=== PATIENT | female | born 1980 | race Caucasian/White ===

== ENCOUNTER 2023-04-17 15:26 | Emergency (ER) | payer MEDICARE, SELFPAY ==
[2023-04-17] VITALS (23 sets, daily range): BP systolic 168–207; BP diastolic 74–133; PULSE 65–88; RESP 9–24; O2SAT 93–99; BMI 29.5
--- NOTE | 2023-04-17 15:37 | ECG_ITS ---
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
--- NOTE | 2023-04-17 15:42 | ED_ITS ---
HPI - Abdominal Pain General Chief Complaint: Nausea/Vomiting/Diarrhea Stated Complaint: Abdominal Pain Time Seen by Provider: 04/17/23 15:30 Source: patient Mode of arrival: Wheelchair Limitations: no limitations History of Present Illness HPI narrative: 43-year-old female presents for abdominal pain. She has pain in the left upper quadrant and she's been having this intermittently for seven months. She's had CAT scans and has seen her doctor and a embossing machine operator. She had a colonoscopy and she is scheduled to have upper endoscopy. No trauma or fever. She's had cholecystectomy previously. No fever or constipation. Related Data Allergies Allergy/AdvReac Type Severity Reaction Status Date / Time Iodinated Contrast Media Allergy Severe Verified 04/17/23 15:34 Review of Systems ROS Narrative A ten point review of systems is negative except as noted above. PFSH PFS Social History Smoking status: Current every day smoker Exam Narrative Exam Narrative: Nurses note and vital signs reviewed and patient is not hypoxic. General: The patient appears well and in no apparent distress. Patient is resting comfortably on cart. Skin: Warm, dry, no pallor noted. There is no rash noted. Head: Normocephalic, atraumatic Eye: Normal conjunctiva, no drainage Ears, Nose, Mouth, and Throat: oral mucosa is moist. Nares patent. Cardiovascular: Regular Rate and Rhythm Respiratory: Patient is in no distress, no accessory muscle use, lungs are clear to auscultation, no wheezing, rales or rhonchi Back: non-tender GI: mild tenderness to palpation in the left upper quadrant. No mass distention rebound or guarding. Musculoskeletal: The patient has no evidence of calf tenderness, no pitting edema, symmetrical pulses noted bilaterally Neurological: A&O, normal speech Psychiatric: Cooperative Constitutional Vital Signs, click to edit/add: Last Vital Signs Pulse 88 04/17/23 16:50 Resp 17 04/17/23 16:40 BP 168/119 H 04/17/23 17:43 Pulse Ox 97 04/17/23 17:43 O2 Del Method Room Air 04/17/23 15:29 Course Vital Signs Vital signs: Vital Signs Pulse Rate 85 04/17/23 15:29 Respiratory Rate 16 04/17/23 15:29 Pulse Oximetry 98 04/17/23 15:29 Oxygen Delivery Method Room Air 04/17/23 15:29 Pulse Rate 88 04/17/23 16:50 Respiratory Rate 17 04/17/23 16:40 Blood Pressure 168/119 H 04/17/23 17:43 Pulse Oximetry 97 04/17/23 17:43 Oxygen Delivery Method Room Air 04/17/23 15:29 MDM - Abdominal Pain MDM Narrative Medical decision making narrative: The patient presented with chronic abdominal pain. She tested positive for cocaine. She also had elevated blood pressure was given IV hydralazine with improvement of her blood pressure. She was cautioned against the use of cocaine. She's seeing a embossing machine operator and is scheduled for upper endoscopy in a few weeks. Her workup otherwise is negative. She does not require admission the hospital. Treatment diagnosis and follow-up were discussed with the patient. Differential Diagnosis Differential diagnosis: Likely abdominal pain, constipation, diverticulitis, gastroenteritis, pancreatitis and small bowel obstruction Lab Data Attestation: I reviewed the patient's lab results. Labs: Lab Results 04/17/23 04/17/23 Range/Units 16:02 16:54 WBC 14.9 H (4.0-11.0) 10^3/uL RBC 5.06 (4.20-5.40) 10^6/uL Hgb 15.9 (12.0-16.0) g/dL Hct 46.8 (36.0-48.0) % MCV 92.5 (81.0-99.0) fL MCH 31.4 (26.7-34.0) pg MCHC 34.0 (29.9-35.2) g/dL RDW 12.6 (11.0-15.0) % Plt Count 329 (150-450) 10^3/uL MPV 8.8 L (9.5-13.5) fL Neut % (Auto) 76.8 H (43.0-75.0) % Lymph % (Auto) 15.8 L (20.5-60.0) % [place] % (Auto) 5.7 (1.7-12.0) % Eos % (Auto) 0.9 (0.9-7.0) % Baso % (Auto) 0.5 (0.2-2.0) % Neut # (Auto) 11.5 H (1.4-6.5) 10^3/uL Lymph # (Auto) 2.4 (1.2-3.8) 10^3/uL [place] # (Auto) 0.9 H (0.3-0.8) 10^3/uL Eos # (Auto) 0.1 (0.0-0.7) 10^3/uL Baso # (Auto) 0.1 (0.0-0.1) 10^3/uL Abs Immat Gran (auto) 0.04 H (0.00-0.03) 10^3/uL Imm/Tot Granulo (auto) 0.3 (0.0-0.5) % Sodium 141 (136-145) mmol/L Potassium 3.6 (3.5-5.1) mmol/L Chloride 101 (98-107) mmol/L Carbon Dioxide 28.1 (21.0-32.0) mmol/L Anion Gap 15.5 BUN 11.0 (7.0-18.0) mg/dL Creatinine 0.70 (0.55-1.02) mg/dL Est GFR ( Amer) >60 (>=60) Est GFR (Non-Af Amer) >60 (>=60) BUN/Creatinine Ratio 15.7 Glucose 112 H (74-106) mg/dL Calcium 10.5 H (8.5-10.1) mg/dL Total Bilirubin 0.5 (0.2-1.0) mg/dL Direct Bilirubin 0.1 (0.0-0.2) mg/dL AST 15 (15-37) U/L ALT 21 (14-59) U/L Alkaline Phosphatase 120 H (46-116) U/L Total Protein 8.2 (6.4-8.2) g/dL Albumin 4.3 (3.4-5.0) g/dL Globulin 3.9 g/dL Albumin/Globulin Ratio 1.1 Amylase 99 (25-115) U/L Lipase 21.0 (16.0-77.0) U/L Urine Color Yellow (YELLOW) Urine Clarity Slightly cloudy A (CLEAR) Urine pH 7.0 (5.0-9.0) Ur Specific [place] 1.020 (1.005-1.025) Urine Protein Trace (NEG/TRACE) mg/dL Urine Glucose (UA) Negative (NEGATIVE) mg/dL Urine Ketones Trace A (NEGATIVE) mg/dL Urine Occult Blood Negative (NEGATIVE) Urine Nitrite Negative (NEGATIVE) Urine Bilirubin Negative (NEGATIVE) Urine Urobilinogen 0.2 (0.2-1.0) EU/dL Ur Leukocyte Esterase Negative (NEGATIVE) Urine RBC None seen (0-2) #/HPF Urine WBC None seen (NONE SEEN) #/HPF Ur Squamous Epith Cells Moderate A (NONE/RARE) #/LPF Urine Crystals None seen (None Seen) #/HPF Amorphous Sediment Few Urine Bacteria None seen (NONE SEEN) #/HPF Urine Casts None seen (NONE SEEN) #/LPF Urine Mucus None seen (NONE SEEN) Ur Culture Indicated? No Urine Opiates Screen Positive A (NEGATIVE) Ur Buprenorphine Scrn Negative (NEGATIVE) Ur Oxycodone Screen Negative (NEGATIVE) Urine Methadone Screen Negative (NEGATIVE) Ur Propoxyphene Screen Negative (NEGATIVE) Ur Barbiturates Screen Negative (NEGATIVE) U Tricyclic Antidepress Negative (NEGATIVE) Ur Phencyclidine Scrn Negative (NEGATIVE) Ur Amphetamines Screen Negative (NEGATIVE) U Methamphetamines Scrn Negative (NEGATIVE) U Benzodiazepines Scrn Negative (NEGATIVE) Urine Cocaine Screen Positive A (NEGATIVE) U Cannabinoids Screen Positive A (NEGATIVE) Discharge Plan Discharge Chief Complaint: Nausea/Vomiting/Diarrhea Clinical Impression: Cocaine abuse, Abdominal pain Patient Disposition: Home, Self-Care Time of Disposition Decision: 17:54 Condition: Good Mode of Transportation: Private Vehicle Instructions: Cocaine Use Disorder (ED), Abdominal Pain (ED), Polysubstance Use Disorder (ED) Stand Alone Forms: Portal Instructions Referrals: [facility] [Primary Care Provider] - 1 week
[2023-04-17] MEDS: ONDANSETRON PF 4 MG/2 ML VIAL IV (15:48)
[2023-04-17] MEDS: MORPHINE SULFATE 4 MG/ML VIAL IV (15:48)
[2023-04-17 16:10] LABS: Basophils Absolute Auto 0.1 10^3/uL (0.0-0.1); Basophils Percent Auto 0.5 % (0.2-2.0); Eosinophils Absolute Auto 0.1 10^3/uL (0.0-0.7); Eosinophils Percent Auto 0.9 % (0.9-7.0); Hematocrit 46.8 % (36.0-48.0); Hemoglobin 15.9 g/dL (12.0-16.0); Immature Granulocytes Abs Auto 0.04 10^3/uL (0.00-0.03); Immature Granulocytes Pct Auto 0.3 % (0.0-0.5); Lymphocytes Absolute Auto 2.4 10^3/uL (1.2-3.8); Lymphocytes Percent Auto 15.8 % (20.5-60.0); Mean Corpuscular Hemoglobin 31.4 pg (26.7-34.0); Mean Corpuscular Volume 92.5 fL (81.0-99.0); Mean Platelet Volume 8.8 fL (9.5-13.5); Monocytes Absolute Auto 0.9 10^3/uL (0.3-0.8); Monocytes Percent Auto 5.7 % (1.7-12.0); Neutrophils Absolute Auto 11.5 10^3/uL (1.4-6.5); Neutrophils Percent Auto 76.8 % (43.0-75.0); Platelet Count 329 10^3/uL (150-450); Red Blood Count 5.06 10^6/uL (4.20-5.40); Red Cell Distribution Width 12.6 % (11.0-15.0); White Blood Count 14.9 10^3/uL (4.0-11.0)
[2023-04-17 16:27] LABS: Alanine Aminotransferase 21 U/L (14-59); Albumin Globulin Ratio 1.1; Albumin Level 4.3 g/dL (3.4-5.0); Alkaline Phosphatase 120 U/L (46-116); Anion Gap 15.5; Aspartate Amino Transferase 15 U/L (15-37); BUN Creatinine Ratio 15.7; Bilirubin Direct 0.1 mg/dL (0.0-0.2); Bilirubin Total 0.5 mg/dL (0.2-1.0); Calcium 10.5 mg/dL (8.5-10.1); Carbon Dioxide 28.1 mmol/L (21.0-32.0); Chloride 101 mmol/L (98-107); Estimated GFR (African America >60 (>=60); Estimated GFR (Non-African Ame >60 (>=60); Globulin 3.9 g/dL; Glucose 112 mg/dL (74-106); Potassium 3.6 mmol/L (3.5-5.1); Sodium 141 mmol/L (136-145); Total Protein 8.2 g/dL (6.4-8.2)
[2023-04-17 16:33] LABS: Amylase 99 U/L (25-115)
[2023-04-17] MEDS: PROMETHAZINE HCL 25 MG/ML VIAL 12.5 MG IV (16:35)
[2023-04-17 17:12] LABS: Bilirubin Urine NEGATIVE (NEGATIVE); Blood Urine NEGATIVE (NEGATIVE); Color Urine YELLOW (YELLOW); Glucose Urine UA NEGATIVE (NEGATIVE); Ketones Urine TRACE mg/dL (NEGATIVE); Leukocyte Esterase Urine NEGATIVE (NEGATIVE); Nitrite Urine NEGATIVE (NEGATIVE); Protein Urine TRACE mg/dL (NEG/TRACE); Urobilinogen Urine 0.2 EU/dL (0.2-1.0)
[2023-04-17 17:16] LABS: Clarity Urine SLIGHTLY CLOUDY (CLEAR)
[2023-04-17 17:17] LABS: Bacteria Urine NONE SEEN #/HPF (NONE SEEN); Crystals Seen? None Seen #/HPF (None Seen); Mucus Urine NONE SEEN (NONE SEEN); RBC Urine NONE SEEN #/HPF (0-2); Squamous Epithelial Cell Urine MODERATE #/LPF (NONE/RARE); WBC Urine NONE SEEN #/HPF (NONE SEEN)
[2023-04-17 17:18] LABS: Amorphous Sediment Urine FEW; Cast Seen? NONE SEEN #/LPF (NONE SEEN); Urine Culture Indicated NO
[2023-04-17 17:20] LABS: Amphetamine Screen Urine NEGATIVE (NEGATIVE); Barbiturates Screen Urine NEGATIVE (NEGATIVE); Benzodiazepines Screen Urine NEGATIVE (NEGATIVE); Buprenorphine Screen Urine NEGATIVE (NEGATIVE); Cannabinoid Screen Urine POSITIVE (NEGATIVE); Cocaine Screen Urine POSITIVE (NEGATIVE); Methadone Screen Urine NEGATIVE (NEGATIVE); Methamphetamines Screen Urine NEGATIVE (NEGATIVE); Opiate Screen Urine POSITIVE (NEGATIVE); Oxycodone Screen Urine NEGATIVE (NEGATIVE); Phencyclidine Screen Urine NEGATIVE (NEGATIVE); Tricyclic Antidepressant Urine NEGATIVE (NEGATIVE)
[2023-04-17] MEDS: HYDRALAZINE HCL 20 MG/ML VIAL 10 MG IVP (17:25)
== END 2023-04-17 17:59 | disposition home or self-care (01) ==
PROVIDERS: Emergency Provider Emergency Medicine
DX: R10.9 Unspecified abdominal pain (principal); F14.10 Cocaine abuse, uncomplicated; Z90.49 Acquired absence of other specified parts of digestive tract; F17.210 Nicotine dependence, cigarettes, uncomplicated
CPT/HCPCS: 36415; 80048; 80076; 80307; 81001; 82150; 83690; 85025; 93005; 96374; 96375; 99285

== ENCOUNTER 2023-12-17 23:56 | Emergency (ER) | payer MEDICARE, SELFPAY ==
[2023-12-17 23:59] VITALS: BP 158/102; PULSE 76; TEMP 36.9; O2SAT 95; BMI 28.1
--- NOTE | 2023-12-18 00:12 | ED_ITS ---
HPI HPI - General Adult General Chief complaint: Headache Stated complaint: HEADACHE ABD PAIN Time Seen by Provider: 12/18/23 00:01 Source: patient Mode of arrival: walk-in Limitations: no limitations Related Data Allergies Allergy/AdvReac Type Severity Reaction Status Date / Time Iodinated Contrast Media Allergy Severe Verified 12/17/23 23:59 Opioid HPI Opioid Management Most Recent Opioid Data: Last Pain Scale 10 12/18/23 00:38 Last ED Pain Assessment 12/18/23 02:03 Last MAR Pain Assessment 12/18/23 00:38 Ur Phencyclidine Scrn Negative (NEGATIVE) 04/17/23 16:54 PFSH PFSH Social History Smoking status: Current every day smoker Exam Constitutional Vital Signs, click to edit/add: Last Vital Signs Temp 98.4 F 12/17/23 23:59 Pulse 82 12/18/23 02:02 Resp 18 12/18/23 02:02 BP 168/94 H 12/18/23 02:02 Pulse Ox 97 12/18/23 02:02 O2 Del Method Room Air 12/18/23 02:02 Course Vital Signs Vital signs: Vital Signs Temperature 98.4 F 12/17/23 23:59 Pulse Rate 76 12/17/23 23:59 Respiratory Rate 20 12/17/23 23:59 Blood Pressure 158/102 H 12/17/23 23:59 Pulse Oximetry 95 12/17/23 23:59 Oxygen Delivery Method Room Air 12/17/23 23:59 Temperature 98.4 F 12/17/23 23:59 Pulse Rate 82 12/18/23 02:02 Respiratory Rate 18 12/18/23 02:02 Blood Pressure 168/94 H 12/18/23 02:02 Pulse Oximetry 97 12/18/23 02:02 Oxygen Delivery Method Room Air 12/18/23 02:02 Medical Decision Making MDM Narrative Medical decision making narrative: The patient was given IV Toradol, Benadryl, and Solu-Medrol. Subsequently she was given IV morphine and she feels much better and her headache is essentially gone now. She feels nearly back to normal. Her blood pressure also improved greatly without direct intervention. She is able to be discharged home in the care of her . Treatment diagnosis and follow-up were discussed with the patient. I have no clinical suspicion of intracranial hemorrhage. Differential Diagnosis Differential Diagnosis: Migraine headache, tension headache, nonspecific headache Lab Data Lab results reviewed: Yes I reviewed the patient's lab results Labs: Lab Results 12/18/23 Range/Units 00:30 WBC 10.4 (4.0-11.0) 10^3/uL RBC 4.46 (4.20-5.40) 10^6/uL Hgb 14.6 (12.0-16.0) g/dL Hct 42.3 (36.0-48.0) % MCV 94.8 (81.0-99.0) fL MCH 32.7 (26.7-34.0) pg MCHC 34.5 (29.9-35.2) g/dL RDW 12.3 (11.0-15.0) % Plt Count 451 H (150-450) 10^3/uL MPV 8.4 L (9.5-13.5) fL Neut % (Auto) 73.5 (43.0-75.0) % Lymph % (Auto) 17.9 L (20.5-60.0) % [place] % (Auto) 5.4 (1.7-12.0) % Eos % (Auto) 1.3 (0.9-7.0) % Baso % (Auto) 1.1 (0.2-2.0) % Neut # (Auto) 7.7 H (1.4-6.5) 10^3/uL Lymph # (Auto) 1.9 (1.2-3.8) 10^3/uL [place] # (Auto) 0.6 (0.3-0.8) 10^3/uL Eos # (Auto) 0.1 (0.0-0.7) 10^3/uL Baso # (Auto) 0.1 (0.0-0.1) 10^3/uL Abs Immat Gran (auto) 0.08 H (0.00-0.03) 10^3/uL Imm/Tot Granulo (auto) 0.8 H (0.0-0.5) % Sodium 143 (136-145) mmol/L Potassium 4.3 (3.5-5.1) mmol/L Chloride 105 (98-107) mmol/L Carbon Dioxide 28.6 (21.0-32.0) mmol/L Anion Gap 13.7 BUN 11.0 (7.0-18.0) mg/dL Creatinine 0.73 (0.55-1.02) mg/dL Est GFR ( Amer) >60 (>=60) Est GFR (Non-Af Amer) >60 (>=60) BUN/Creatinine Ratio 15.1 Glucose 135 H (74-106) mg/dL Calcium 9.9 (8.5-10.1) mg/dL Discharge Plan Discharge Stand Alone Forms: Portal Instructions Chief Complaint: Headache Clinical Impression: Migraine Patient Disposition: Home, Self-Care Time of Disposition Decision: 02:15 Condition: Good Mode of Transportation: Private Vehicle Print Language: Thai Instructions: Migraine Headache (ED) Referrals: [facility] [Primary Care Provider] - 1 week
[2023-12-18 00:38] LABS: Basophils Absolute Auto 0.1 10^3/uL (0.0-0.1); Basophils Percent Auto 1.1 % (0.2-2.0); Eosinophils Absolute Auto 0.1 10^3/uL (0.0-0.7); Eosinophils Percent Auto 1.3 % (0.9-7.0); Hematocrit 42.3 % (36.0-48.0); Hemoglobin 14.6 g/dL (12.0-16.0); Immature Granulocytes Abs Auto 0.08 10^3/uL (0.00-0.03); Immature Granulocytes Pct Auto 0.8 % (0.0-0.5); Lymphocytes Absolute Auto 1.9 10^3/uL (1.2-3.8); Lymphocytes Percent Auto 17.9 % (20.5-60.0); Mean Corpuscular HGB Conc 34.5 g/dL (29.9-35.2); Mean Corpuscular Hemoglobin 32.7 pg (26.7-34.0); Mean Corpuscular Volume 94.8 fL (81.0-99.0); Mean Platelet Volume 8.4 fL (9.5-13.5); Monocytes Absolute Auto 0.6 10^3/uL (0.3-0.8); Monocytes Percent Auto 5.4 % (1.7-12.0); Neutrophils Absolute Auto 7.7 10^3/uL (1.4-6.5); Neutrophils Percent Auto 73.5 % (43.0-75.0); Platelet Count 451 10^3/uL (150-450); Red Blood Count 4.46 10^6/uL (4.20-5.40); Red Cell Distribution Width 12.3 % (11.0-15.0); White Blood Count 10.4 10^3/uL (4.0-11.0)
[2023-12-18] MEDS: KETOROLAC TROMETHAMINE 30 MG/ML VIAL IVP (00:38)
[2023-12-18] MEDS: DIPHENHYDRAMINE HCL 50 MG/ML VIAL 25 MG IV (00:38)
[2023-12-18] MEDS: METHYLPREDNISOLONE SOD SUCC PF 125 MG/2 ML VIAL IVP (00:38)
[2023-12-18 00:46] LABS: Anion Gap 13.7; BUN Creatinine Ratio 15.1; Calcium 9.9 mg/dL (8.5-10.1); Carbon Dioxide 28.6 mmol/L (21.0-32.0); Chloride 105 mmol/L (98-107); Estimated GFR (African America >60 (>=60); Estimated GFR (Non-African Ame >60 (>=60); Glucose 135 mg/dL (74-106); Potassium 4.3 mmol/L (3.5-5.1); Sodium 143 mmol/L (136-145)
[2023-12-18] MEDS: MORPHINE SULFATE 4 MG/ML VIAL IV (01:31)
[2023-12-18 01:40] VITALS: PULSE 74; O2SAT 99
[2023-12-18 02:02] VITALS: BP 168/94; PULSE 82; O2SAT 97
== END 2023-12-18 02:19 | disposition home or self-care (01) ==
PROVIDERS: Emergency Provider Emergency Medicine
DX: G43.909 Migraine, unspecified, not intractable, without status migrainosus (principal); F17.200 Nicotine dependence, unspecified, uncomplicated
CPT/HCPCS: 36415; 80048; 85025; 96374; 96375; 99284; J2919

== ENCOUNTER 2024-03-23 21:24 | Emergency (ER) | payer MEDICARE, SELFPAY ==
[2024-03-23 21:34] VITALS: BP 214/120; PULSE 63; TEMP 36.4; O2SAT 99; BMI 32.5
--- OUTSIDE RECORDS SUMMARY | 2024-03-23 21:35 | XMS_ITS | CCD ---
Author Organization [facility] Care Team Providers Care Staff Therapist Name Role Phone Scott Rose Attending Unavailable LANGRACE, MOISE Referring Unavailable LANZOLA, MOISE Primary Care Unavailable [facility] Primary Care Provider DO Lio Spencer Emergency Provider MD Rian Shoemaker Jr Emergency Provider DO Vern Foster Emergency Provider [phone] Olvin [facility] Violetta Solis Emergency Provider [facility] Primary Care Provider DO Mark Mckeon Attending Provider UnavailDO Lio Noble Emergency Provider DO Jez Watters Emergency Provider ABBI Gibbs Emergency Provider [phone] DO Jae Song Emergency Provider Moise Baum DO L Primary Care Provider [facility] Primary Care Provider DO Mark Mckeon Attending Provider UnavailDO Lio Noble Emergency Provider [phone] DO Jez Watters Emergency Provider [phone] ABBI Gibbs Emergency Provider [phone] DO Vern Foster Emergency Provider DO Jae Song Emergency Provider MD Michael Purcell Attending Provider AARON GUILLORY Referring Unavailable LANZOLA, MOISE L Primary Care Unavailable MOISE BAUM Primary Care Unavailable Michael Purcell Unavailable TREY, DR JORDIN Zafar Admitting Unavailabl e MISC, DR PICKETT Primary Care Unavailable TREY, DR JORDIN Zafar Attending Unavailabl e TREY, DR JORDIN Zafar Consulting Unavailabl e JANA, TEJ Admitting Unavailable YADIRA, DR ERIK Akbar Consulting Unavailable BUSHRA, DR PICKETT Primary Care Unavailable TEJ BATES Attending Unavailable ADITHYA JONES Consulting Unavailable HAIR GASTON Consulting Unavailable YADIRA, DR ERIK Akbar Admitting Unavailable MISC, DR PICKETT Primary Care Unavailable YADIRA, DR ERIK Akbar Attending Unavailable BENTLEY, DR ERIK Akbar Consulting Unavailable TEJ BATES Consulting Unavailable JANA, TEJ Admitting Unavailable [facility] Primary Care UnavailTEJ Pratt Attending Unavailable ESPINOZA SANCHEZ Consulting Unavailable GENOVEVA MCKEON Attending Unavailable GENOVEVA MCKEON Admitting Unavailable GENOVEVA MCKEON Consulting Unavailable BUSHRA, DR PICKETT Primary Care Unavailable ALYX FIGUEROA Consulting Unavailable [facility] Primary Care Provider [phone] MD Michael Purcell Attending Provider ABBI Hodge Emergency Provider [facility] Primary Care Provider DO Ronald Ann Emergency Provider DO Lio Oconnor Emergency Provider DO Yojana Yap Emergency Provider DO Jez Watters Emergency Provider [facility] Primary Care Provider ABBI Hodge Emergency Provider DO Ronald Ann Emergency Provider DO Lio Oconnor Emergency Provider DO Yojana Yap Emergency Provider [phone] DO Jez Watters Emergency Provider Moise Baum DO Primary Care Provider MOISE BAUM Primary Care Unavailable NISHANT BERNARDO Attending Unavailable Jae, DO Lynn F [facility] [phone] VALENTIN Siegel Emergency Provider [facility] Primary Care Provider ABBI Hodge Emergency Provider [phone] DO Lynn Rowe F [facility] [phone] VALENTIN Siegel Emergency Provider MD Rian Shoemaker Jr Emergency Provider Zainab Leong Attending Provider MD Dereje Bentley Emergency Provider [phone] Lanzola, Moise Primary Care Unavailable Vern Foster Attending Unavailable Vern Foster Admitting Unavailable Robson Jacinto Admitting Unavailable Lanzola, Moise Primary Care Unavailable Omley, Robson H Attending Unavailable Mast, DO Yojana Attending Provider MD Jayy Pennington Referring Provider [facility] Primary Care Provider [phone] ABBI Hodge Emergency Provider MD Rian Shoemaker Jr Emergency Provider MD Dereje Bentley Emergency Provider Mast DO Yojana Attending Provider MD Jayy Pennington Referring Provider [phone] DO Lio Spencer Emergency Provider [facility] Primary Care Provider [phone] ABBI Hodge Emergency Provider MD Dereje Bentley Emergency Provider DO Lio Spencer Emergency Provider MD Rian Shoemaker Jr Emergency Provider MD Misty Guallpa Emergency Provider [phone] [facility] Primary Care Provider DO Jae Song A Emergency Provider [facility] Primary Care Provider Olvin, [facility] Violetta E Emergency Provider Dr. Yojana Torrez Primary Care Unavailabl e Lore, Dr. Yojana Stewart Primary Care Unavailabl e [facility] Primary Care Provider DO Jae Song Emergency Provider [phone] Olvin, [facility] Violetta E Emergency Provider DO Yojana Yap Emergency Provider VALENTIN Siegel Emergency Provider [phone] [facility] Primary Care Provider DO Jez Watters Emergency Provider MD Dereje Bentley Emergency Provider DO Lio Spencer Emergency Provider [facility] Primary Care Unavaila ble Jez Watters Attending Unavailable Jez Watters Admitting Unavailable [facility] Primary Care Unavaila Lio Chaparro Admitting Unavailable Lio Spencer Attending Unavailable Rian Shoemaker Jr Attending Unavailable Rian Shoemaker Jr Admitting Unavailable [facility] Primary Care Unavaila ble [facility] Primary Care Unavaila ble Mast - [facility], Yojana Attending Unavailable Jayy Pennington Referring Unavailable Mast - [facility], Yojana Admitting Unavailable [facility] Primary Care Unavaila ble Misty Guallpa Attending Unavailable Misty Guallpa Admitting Unavailable [facility] Primary Care Unavaila ble Jae Song Attending Unavailable Jae Song Admitting Unavailable [facility] Primary Care Unavaila ble Bullimore, Violetta E Attending Unavailable Bullimore, Violetta E Admitting Unavailable [facility] Primary Care Unavaila ble Fracisco, Yojana Admitting Unavailable Yojana Yap Attending Unavailable [facility] Primary Care Unavaila ble Dereje Bentley Admitting Unavailable Dereje Bentley Attending Unavailable [facility] Primary Care Unavaila ble Jolly Gonzalez Attending Unavailable Jayy Pennington Referring Unavailable Lisa Jolly Admitting Unavailable [facility] Primary Care Unavaila Dereje Jamison Admitting Unavailable Dereje Bentley Attending Unavailable Lio Spencer Attending Unavailable Lio Spencer Admitting Unavailable [facility] Primary Care Unavaila ble [facility] Primary Care Unavaila ble Lio Spencer Attending Unavailable Lio Spencer Admitting Unavailable [facility] Primary Care Unavaila ble Karri Siegel Attending Unavailable Karri Siegel Admitting Unavailable [facility] Primary Care Unavaila ble Yojana Yap Attending Unavailable Yojana Yap Admitting Unavailable Allergies Allergy Classification Reported Allergen(s) Allergy Type Date of Onset Reaction(s) Facility Capsaicin (1 source) Capsaicin Drug Allergy 12-17-19 Redness of Skin [facility] corn extract (1 source) corn extract Drug Allergy 12-17-19 24 Unknown Reaction [facility] Corticosteroids (1 source) predniSONE Drug Allergy 12-17-19 Anaphylaxis [facility] Dairy (not specified as lactose intolerance) (1 source) Milk Food Allergy 12-17-19 24 Rash [facility] Proton Pump Inhibitors (1 source) Omeprazole Drug Allergy 12-17-19 24 Diarrhea [facility] Soy (1 source) Soy protein Food Allergy 12-17-19 24 Unknown Reaction [facility] tomato allergenic extract (1 source) tomato allergenic extract Drug Allergy 12-17-19 24 Unknown Reaction [facility] Wheat preparation (1 source) Wheat preparation Drug Allergy 12-17-19 24 Unknown Reaction [facility] (20 sources) corn extract; Translations: [Mimbres] Drug Allergy 02-03-20 Unknown Reaction [facility] (20 sources) Milk; Translations: [milk] Allergy to substance 02-03-[address] [facility] (20 sources) Omeprazole; Translations: [omeprazole] Drug Allergy 02-03-20 Diarrhea [facility] (20 sources) predniSONE; Translations: [prednisone] Drug Allergy 10-15-19 Other (See Comments) [facility] (20 sources) Soy protein; Translations: [Soy] Allergy to substance 02-03-20 Unknown Reaction [facility] (20 sources) tomato allergenic extract; Translations: [tomato] Drug Allergy 05-16-20 11 Itching, Swelling [facility] (20 sources) Wheat preparation; Translations: [Wheat] Drug Allergy 05-16-20 11 Itching, Swelling [facility] (20 sources) NSAIDS (Non-Steroidal Anti-Inflamma; Translations: [NSAIDS (Non-Steroidal Anti-Inflamma] Propensity to adverse reactions 04-03-20 Gastrointestinal Upset [facility] (2 sources) [place]imbres Oil Drug Allergy 05-16-20 11 [facility] cow milk allergenic extract Drug Allergy 05-16-20 11 Itching, Swelling [facility] Work Phone: (2 sources) NSAIDs Propensity to adverse reactions to drug 05-18-[address] [facility] Celsion [facility] (1 source) NSAIDs Drug allergy (disorder) [facility] Repository (20 sources) Iodinated Contrast Media; Translations: [Iodinated Contrast Media] Allergy to substance 09-03-19 23 Anaphylaxis [facility] (1 source) Iodides Propensity to adverse reactions to drug 11-16-19 [facility] (1 source) Contrast media; Translations: [Contrast Dye] Propensity to adverse reactions to drug (disorder) [facility] Repository (8 sources) Capsaicin; Translations: [capsaicin] Drug Allergy 04-13-20 23 Redness of Skin [facility] Medications Current Medications Medication Drug Class(es) Dates Sig (Normalized) Sig (Original) 8 hr acetaminophen 650 mg extended release oral tablet (20 sources) Start: 05-24-2022 take 1500 mg by mouth three times daily Acetaminophen Active 1500 MG PO Three times daily May 24, 2022 1:00am Start: 04-09-2018 End: 12-05-2021 Acetaminophen (Tylenol) 325 mg Tablet Discontinued 1500 MG PO every 6 to 8 hours April 09, 2018 12:00am December 05, 2021 1:40pm Start: 04-09-2018 End: 12-05-2021 take 3 tablets by mo [facility] three times daily acetaminophen (TYLENOL) 500 MG tablet Take 1,500 mg by mouth 3 times daily 0 Active [id number] actuat albuterol 0.09 mg/actuat metered dose inhaler (20 sources) beta2-Adrenergic Agonist Start: 08-23-2022 take 2 puff(s) by mouth every six hours as needed for wheezing albuterol sulfate HFA (PROVENTIL;VENTOLIN;PROAIR) 108 (90 Base) MCG/ACT inhaler Indications: Moderate persistent asthma, unspecified whether complicated INHALE 2 PUFFS BY MOUTH EVERY 6 HOURS NEEDED FOR WHEEZING 8.5 each 0 08/23/2022 Active Start: 05-24-2022 Albuterol Sulf ate (Proair Hfa) 90 mcg/actuation Hfa Aerosol Inhaler Active 2 PUFF INHALATION As Directed May 24, 2022 1:00am Start: 05-24-2022 Start: 01-23-2022 albuterol (PRO VENTIL) (5 MG/ML) 0.5% nebulizer solution Indications: Moderate persistent asthma, unspecified whether complicated Take 0.5 mLs by nebulization 4 times daily as needed for Wheezing 120 each 5 01/23/2022 Active Start: 01-23-2022 take 2 puff(s) by in halation every six hours as needed for wheezing albuterol sulfate HFA (PROVENTIL;VENTOLIN;PROAIR) 108 (90 Base) MCG/ACT inhaler Indications: Moderate persistent asthma, unspecified whether complicated Inhale 2 puffs into the lungs every 6 hours as needed for Wheezing 1 each 3 01/23/2022 Active Start: 04-09-2018 End: 12-05-2021 Albuterol Sulfate Discontinu ed 2 INH INHALATION EVERY 4-6 HOURS April 08, 2018 11:00pm December 05, 2021 12:40pm administer with spacer Start: 04-09-2018 End: 12-05-2021 Albuterol Sulfate Discontinu ed 2 INH INHALATION EVERY 4-6 HOURS April 09, 2018 12:00am December 05, 2021 1:40pm administer with spacer brexpiprazole 2 mg oral tablet (20 sources) Atypical Antipsychotic Start: 12-07-2023 take 1 tablet by mouth once daily Brexpiprazole (Rexulti) 2 mg tablet Active 2 MG PO Daily December 07, 2023 12:00am Start: 08-21-2022 End: 12-07-2023 take 1 tablet by mouth once daily Brexpiprazole (Rexulti) 1 mg tablet Discontinued 2 MG PO Daily August 21, 2022 1:00am December 07, 2023 7:58am 120 actuat budesonide 0.16 mg/actuat / formoterol fumarate 0.0045 mg/actuat metered dose inhaler (20 sources) Corticosteroid, beta2-Adrenergic Agonist Start: 05-24-2022 take 1 puff(s) by inhalation twice daily Budesonide-Formoterol (Symbicort) 160-4.5 mcg/actuation Hfa Aerosol Inhaler Active 2 PUFF INHALATION Twice daily May 24, 2022 1:00am Start: 05-24-2022 Start: 01-31-2022 End: 03-22-2022 take 1 puff(s) by inhalation twice daily Budesonide-Formoterol (Symbicort) 160-4.5 mcg/actuation HFA aerosol inhaler Discontinued 2 PUFF INHALATION Twice daily January 31, 2022 12:00am March 22, 2022 1:50pm Start: 01-31-2022 End: 03-22-2022 Start: 01-23-2022 take 2 puff(s) by in halation twice daily budesonide-formoterol (SYMBICORT) 160-4.5 MCG/ACT AERO Indications: Moderate persistent asthma, unspecified whether complicated Inhale 2 puffs into the lungs 2 times daily 10.2 g 3 01/23/2022 Active Start: 08-23-2021 End: 12-05-2021 Budesonide-Formoterol Discon tinued 2 INH INHALATION Twice daily August 23, 2021 1:00am December 05, 2021 1:40pm Start: 08-23-2021 End: 12-05-2021 Start: 06-05-2018 End: 08-23-2021 Start: 06-05-2018 End: 08-23-2021 take 1 puff(s) by inhalation every twelve hours Budesonide-Formoterol (Symbicort) 80-4.5 mcg/actuation Hfa Aerosol Inhaler Discontinued 2 PUFF INHALATION Q12H June 05, 2018 12:00am August 23, 2021 3:32pm Start: 06-05-2018 End: 08-23-2021 take 1 puff(s) by inhalation every twelve hours Budesonide-Formoterol (Symbicort) 80-4.5 mcg/actuation Hfa Aerosol Inhaler Discontinued 2 PUFF INHALATION Q12H June 05, 2018 1:00am August 23, 2021 4:32pm take 2 puff(s) by in halation twice daily Symbicort 160-4.5 MCG/ACT 2 puffs Inhalation Twice a day Active cholecalciferol 0.125 mg oral tablet (20 sources) Vitamin D Start: 05-24-2022 take 1 tablet by mouth once daily Cholecalciferol (Vitamin D3) (Vitamin D3) 125 mcg (5,000 unit) Tablet Active 125 MCG PO Daily May 24, 2022 1:00am Cholecalciferol (VITAMIN D3) 250 MCG (89975 UT) CAPS Take by mouth 0 Active dicyclomine hydrochloride 20 mg oral tablet (20 sources) Anticholinergic Start: 01-14-2023 take 20 mg by mouth four times daily Dicyclomine Active 20 MG PO Four times daily January 14, 2023 12:00am Start: 08-21-2022 take 20 mg by mouth once daily Dicyclomine Active 20 MG PO Daily August 21, 2022 3:58pm Start: 04-26-2022 End: 08-21-2022 take 20 mg by mouth three times daily Dicyclomine Discontinued 20 MG PO Three times daily April 26, 2022 12:00am August 21, 2022 4:05pm Start: 04-26-2022 End: 08-21-2022 take 20 mg by mouth four times daily Dicyclomine Active 20 MG PO Four times daily January 13, 2023 11:00pm Start: 01-31-2022 End: 03-22-2022 take 20 mg by mouth three times daily Dicyclomine Discontinued 20 MG PO Three times daily January 31, 2022 12:00am March 22, 2022 1:50pm Start: 01-31-2022 End: 03-22-2022 Start: 09-05-2018 End: 08-21-2019 take 20 mg by mouth four times daily Dicyclomine Discontinued 20 MG PO Four times daily September 05, 2018 1:00am August 21, 2019 2:49pm famotidine 20 mg oral tablet (20 sources) Histamine-2 Receptor Antagonist Start: 08-21-2022 take 1 tablet by mouth once daily Famotidine (Pepcid) 20 mg tablet Active 20 MG PO Daily August 21, 2022 1:00am Start: 04-26-2022 End: 05-24-2022 take 1 tablet by mouth once daily Famotidine (Pepcid) 20 mg tablet Discontinued 20 MG PO Daily April 26, 2022 12:00am May 24, 2022 2:08pm folic acid 0.8 mg oral tablet (20 sources) Start: 05-24-2022 take 0.8 mg by mouth once daily Folic Acid Active 0.8 MG PO Daily May 24, 2022 1:00am take 1 tablet by mouth once boby y folic acid (FOLVITE) 800 MCG tablet Take 800 mcg by mouth daily 0 Active Handicap Placard MISC (2 sources) Start: 01-23-[address] MISC 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 1 each 0 01/23/2022 Active hydrOXYzine pamoate 25 mg oral capsule (20 sources) Antihistamine Start: 12-07-2023 take 50 mg by mouth twice daily Hydroxyzine Pamoate Active 50 MG PO Twice daily December 07, 2023 12:00am Start: 08-21-2019 End: 09-27-2021 take 50 mg by mouth twice daily Hydroxyzine Hcl Discontinued 50 MG PO Twice daily August 21, 2019 1:00am September 27, 2021 3:19pm lurasidone hydrochloride 60 mg oral tablet (20 sources) Atypical Antipsychotic Start: 05-24-2022 take 1 tablet by mouth once daily Lurasidone (Latuda) 60 mg tablet Active 80 MG PO Daily May 24, 2022 1:00am lurasidone (LATU DA) 40 MG TABS tablet 40 mg 0 Active take 1 tablet by mouth once boby y lurasidone (LATUDA) 20 MG TABS tablet Take 20 mg by mouth daily 0 Active milnacipran hydrochloride 100 mg oral tablet (20 sources) Serotonin and Norepinephrine Reuptake Inhibitor Start: 03-22-2022 take 1 tablet by mouth twice daily Milnacipran (Savella) 100 mg tablet Active 100 MG PO Twice daily March 22, 2022 12:00am Start: 03-22-2022 take 1 tablet by cali once daily in the morning SAVELLA 100 MG TABS Indications: Chronic fatigue syndrome with fibromyalgia TAKE 1 TABLET BY MOUTH EVERY MORNING AND 1 TABLET BEFORE BEDTIME 60 tablet 0 05/26/2022 Active Start: 06-05-2018 End: 12-05-2021 take 1 tablet by mouth twice daily Milnacipran (Savella) 100 mg tablet Discontinued 100 MG PO Twice daily August 23, 2021 1:00am December 05, 2021 1:40pm pregabalin 75 mg oral capsule (2 sources) Start: 12-07-2023 take 75 mg by mouth twice daily Pregabalin Active 75 MG PO Twice daily December 07, 2023 12:00am ProAir HFA 108 (90 Base) MCG/ACT (7 sources) take 2 puff(s) by inhalation every six hours as needed ProAir HFA 108 (90 Base) MCG/ACT 2 puffs as needed Inhalation every 6 hrs Active Probiotic (7 sources) Probiotic Active Probiotic Product (PRO-BIOTIC BLEND PO) (2 sources) Probiotic Produc t (PRO-BIOTIC BLEND PO) Take by mouth 0 Active propranolol hydrochloride 20 mg oral tablet (20 sources) beta-Adrenergi c Ab Start: 05-24-2022 take 60 mg by mouth twice daily Propranolol Active 60 MG PO Twice daily May 24, 2022 1:00am take 1 tablet by cali th twice daily as needed Propranolol HCl 60 MG 1 tablet Orally Tw ice a day PRN Active rimegepant 75 mg disintegrating oral tablet (20 sources) Start: 05-10-2022 take 1 tablet by mouth every other day Rimegepant (Nurtec Odt) 75 mg tablet,disintegrating Active 75 MG PO every other day August 21, 2022 1:00am Sucralfate (20 sources) Aluminum Complex Start: 08-30-2022 take 1 tablet by mouth twice daily Sucralfate 1 GM 1 tablet on an empty stomach Orally Twice a day for 30 day(s) Aug, Active Start: 08-23-2022 End: 01-14-2023 take 1 tablet by mouth twice daily Sucralfate (Carafate) 1 gram tablet Discontinued 1 GM PO Twice daily 10 August 23, 2022 11:44am January 14, 2023 4:54pm Start: 07-17-2018 End: 07-23-2018 take 1 tablet by mouth at bedtime Sucralfate (Carafate) 1 gram tablet Discontinued 1 GM PO before meals and at bedtime July 17, 2018 1:00am July 23, 2018 8:31am tiZANidine 4 mg oral tablet (20 sources) Central alpha-2 Adrenergic Agonist Start: 04-03-2022 take 8 mg by mouth twice daily Tizanidine Active 8 MG PO Twice daily April 03, 2022 12:00am Start: 04-03-2022 Start: 04-03-2022 take 4 mg by mouth t hree times daily Tizanidine Active 4 MG PO Three times daily April 02, 2022 11:00pm Start: 06-05-2018 End: 07-17-2018 take 4 mg by mouth twice daily Tizanidine Discontinued 4 MG PO Twice daily June 05, 2018 1:00am July 17, 2018 1:49pm Start: 06-05-2018 End: 08-23-2021 take 12 mg by mouth three times daily Tizanidine Discontinued 12 MG PO Three times daily June 05, 2018 1:00am August 23, 2021 4:29pm Start: 06-05-2018 End: 07-17-2018 traZODone hydrochloride 50 mg oral tablet (20 sources) Serotonin Reuptake Inhibitor Start: 09-03-2022 take 100 mg by mouth once daily at bedtime Trazodone Active 100 MG PO Daily at bedtime September 03, 2022 1:00am Start: 09-03-2022 Vitamin D3 250 MCG (47158 UT ) (7 sources) Vitamin D3 250 M CG (00764 UT) as directed Orally Active (15 sources) Start: 05-24-2022 End: 01-14-2023 Start: 05-24-2022 Start: 04-09-2018 End: 12-05-2021 Completed/Discontinued Medications Medication Drug Class(es) Dates Sig (Normalized) Sig (Original) acetaminophen 325 mg / HYDROcodone bitartrate 5 mg oral tablet (20 sources) Opioid Agonist Start: 12-08-2022 End: 01-14-2023 take 1 tablet by mouth every six hours Hydrocodone-Acetami nophen Discontinued 1 TAB PO Q6H 8 3 December 08, 2022 January 14, 2023 4:53pm Start: 12-08-2022 End: 01-14-2023 Start: 03-13-2022 End: 03-22-2022 take 1 tablet by mouth three times daily Hydrocodone-Acetaminophen Discontinued 1 TAB PO Three times daily 9 3 March 13, 2022 March 22, 2022 1:49pm Start: 03-13-2022 End: 03-22-2022 Start: 03-13-2022 take 1 tablet by cali th three times daily Hydrocodone-Acetaminophen Active 1 TAB PO Three times daily 9 3 March 13, 2022 Start: 08-30-2021 End: 09-27-2021 take 1 tablet by mouth every four to six hours Hydrocodone-Acetaminophen Discontinued 1 TAB PO EVERY 4-6 HOURS 10 4 August 30, 2021 September 27, 2021 3:18pm Start: 08-30-2021 End: 09-27-2021 Start: 08-03-2021 End: 08-23-2021 take 1 tablet by mouth every four to six hours Hydrocodone-Acetaminophen Discontinued 1 TAB PO EVERY 4-6 HOURS 10 3 August 03, 2021 August 23, 2021 4:28pm Start: 07-15-2020 End: 08-23-2021 take 1 tablet by mouth every six hours Hydrocodone-Acetaminophen ([place]) 5-325 mg tablet Discontinued 1 TAB PO Q6H 7 2 July 15, 2020 August 23, 2021 4:27pm Start: 07-15-2020 End: 08-23-2021 acetaminophen 325 mg / oxyCODONE hydrochloride 5 mg oral tablet (20 sources) Opioid Agonist Start: 10-04-2021 End: 12-05-2021 take 1 tablet by mouth every four to six hours Oxycodone-Acetaminophen (Percocet) 5-325 mg tablet Discontinued 1 TAB PO EVERY 4-6 HOURS 20 October 04, 2021 December 05, 2021 1:40pm Start: 10-04-2021 End: 12-05-2021 atropine sulfate 0.0194 mg / hyoscyamine sulfate 0.1037 mg / PHENobarbital 16.2 mg / scopolamine hydrobromide 0.0065 mg oral tablet (20 sources) Anticholinergic, Cholinergic Muscarinic Antagonist Start: 08-13-2018 End: 09-05-2018 take 1 tablet by mouth four times daily Ebdcijbdl-Brozic-Owjchino-Scop Discontinued 1 TAB PO Four times daily August 13, 2018 1:00am September 05, 2018 9:56am Start: 08-13-2018 End: 09-05-2018 azithromycin 250 mg oral tablet (20 sources) Macrolide Antimicrobial Start: 04-09-2018 End: 06-05-2018 take 1 tablet by mouth once daily Azithromycin (Zithromax) 250 mg tablet Discontinued 250 MG PO daily 4 April 09, 2018 12:00am June 05, 2018 11:25am First dose given in ED baclofen 5 mg oral tablet (20 sources) gamma-Aminobutyric Acid-ergic Agonist Start: 02-13-2018 End: 06-05-2018 take 5 mg by mouth once Baclofen Discontinued 5 MG PO Once February 13, 2018 12:00am June 05, 2018 11:25am Start: 02-13-2018 End: 06-05-2018 buPROPion hydrochloride 100 mg oral tablet (20 sources) Aminoketone Start: 08-21-2019 End: 08-23-2021 take 100 mg by mouth twice daily Bupropion Hcl Discontinued 100 MG PO Twice daily August 21, 2019 1:00am August 23, 2021 4:27pm busPIRone hydrochloride 15 mg oral tablet (20 sources) Start: 08-21-2019 End: 08-23-2021 take 15 mg by mouth twice daily Buspirone Discontinued 15 MG PO Twice daily August 21, 2019 1:00am August 23, 2021 4:27pm 12 hr carBAMazepine 100 mg extended release oral tablet (20 sources) Mood Stabilizer Start: 07-17-2018 End: 08-21-2019 take 300 mg by mouth every twelve hours Carbamazepine Discontinued 300 MG PO Q12H July 17, 2018 1:00am August 21, 2019 2:48pm cariprazine 1.5 mg oral capsule (20 sources) Atypical Antipsychotic Start: 04-26-2022 End: 05-24-2022 take 1 capsule by mouth once daily Cariprazine (Vraylar) 1.5 mg capsule Discontinued 1.5 MG PO Daily April 26, 2022 12:00am May 24, 2022 2:11pm celecoxib 200 mg oral capsule (20 sources) Nonsteroidal Anti-inflammatory Drug Start: 08-21-2022 End: 11-17-2022 take 1 capsule by mouth twice daily Celecoxib (Celebrex) 200 mg capsule Discontinued 200 MG PO Twice daily August 21, 2022 1:00am May 5th, 2023 8:06pm Start: 06-05-2018 End: 09-27-2021 take 1 capsule by mouth twice daily Celecoxib (Celebrex) 200 mg Capsule Discontinued 200 MG PO Twice daily June 05, 2018 1:00am September 27, 2021 3:18pm take 1 capsule by [facility] every twelve hours CeleBREX 100 MG 1 capsule with food Orally twice a day for 30 day(s) Active chlorproMAZINE hydrochloride 50 mg oral tablet (20 sources) Phenothiazine Start: 08-21-2019 End: 09-02-2021 take 100 mg by mouth twice daily Chlorpromazine Discontinued 100 MG PO Twice daily August 21, 2019 1:00am September 02, 2021 11:19am cloNIDine hydrochloride 0.2 mg oral tablet (20 sources) Central alpha-2 Adrenergic Agonist Start: 09-05-2018 End: 08-21-2019 take 0.2 mg by mouth three times daily Clonidine Hcl Discontinued 0.2 MG PO Three times daily September 05, 2018 1:00am August 21, 2019 2:49pm cyclobenzaprine hydrochloride 10 mg oral tablet (20 sources) Muscle Relaxant Start: 11-13-2022 End: 01-14-2023 take 10 mg by mouth three times daily Cyclobenzaprine Discontinued 10 MG PO Three times daily November 13, 2022 12:00am January 14, 2023 4:53pm Start: 04-03-2022 End: 04-26-2022 take 10 mg by mouth three times daily Cyclobenzaprine Discontinued 10 MG PO Three times daily April 03, 2022 12:00am April 26, 2022 5:55am doxepin hydrochloride 25 mg oral capsule (20 sources) Tricyclic Antidepressant Start: 07-14-2022 End: 08-23-2022 take 25 mg by mouth once daily Doxepin Discontinued 25 MG PO Daily August 21, 2022 1:00am August 23, 2022 10:38am Start: 09-05-2018 End: 08-21-2019 take 25 mg by mouth once daily at bedtime Doxepin Discontinued 25 MG PO Daily at bedtime September 05, 2018 1:00am August 21, 2019 2:49pm 1 ml erenumab-aooe 70 mg/ml auto-injector (20 sources) Start: 09-05-2018 End: 08-21-2019 inject 70 mg by subcutaneous injection every month Erenumab-Aooe (Aimovig Autoinjector) 70 mg/mL Auto-Injector Discontinued 70 MG SUBCUT every month September 05, 2018 1:00am August 21, 2019 2:49pm Fluticasone Propion-Salmeterol (20 sources) Corticosteroi d, beta2-Adrener gic Agonist Start: 04-09-2018 End: 06-05-2018 Start: 04-09-2018 End: 06-05-2018 Fluticasone Propion-Salmeter ol (Advair Diskus) 250-50 mcg/dose blister with device Discontinued 1 INH INHALATION Twice daily 60 April 08, 2018 11:00pm June 05, 2018 10:25am Start: 04-09-2018 End: 06-05-2018 Fluticasone Propion-Salmeter ol (Advair Diskus) 250-50 mcg/dose blister with device Discontinued 1 INH INHALATION Twice daily 60 April 09, 2018 12:00am June 05, 2018 11:25am gabapentin 300 mg oral capsule (20 sources) Anti-epileptic Agent Start: 07-23-2018 End: 08-21-2019 take 300 mg by mouth once daily Gabapentin Discontinued 300 MG PO Daily July 23, 2018 1:00am August 21, 2019 2:49pm Start: 07-23-2018 End: 08-13-2018 take 600 mg by mouth once daily Gabapentin Discontinued 600 MG PO Daily July 23, 2018 1:00am August 13, 2018 12:51pm 1 ml HYDROmorphone hydrochloride 1 mg/ml cartridge (1 source) Opioid Agonist Start: 11-15-2022 End: 11-15-2022 HYDROmorphone (DILAUDID) injection 0.5 mg ibuprofen 600 mg oral tablet (20 sources) Nonsteroidal Anti-inflammatory Drug Start: 10-04-2021 End: 12-05-2021 Ibuprofen Discontinued 600 MG PO EVERY 4-6 HOURS 14 October 04, 2021 12:00am December 05, 2021 1:40pm do not exceed 4 doses in a 24 hour period Start: 08-30-2021 End: 09-02-2021 take 800 mg by mouth three times daily Ibuprofen Discontinued 800 MG PO Three times daily August 30, 2021 1:00am September 02, 2021 11:18am Start: 08-03-2021 End: 08-23-2021 take 800 mg by mouth three times daily Ibuprofen Discontinued 800 MG PO Three times daily August 03, 2021 1:00am August 23, 2021 4:28pm Start: 12-09-2017 End: 02-13-2018 take 800 mg by mouth three times daily Ibuprofen Discontinued 800 MG PO Three times daily December 09, 2017 12:00am February 13, 2018 12:14am 1 ml ketorolac tromethamine 30 mg/ml cartridge (1 source) Nonsteroidal Anti-inflammatory Drug, Cyclooxygenase Inhibitor Start: 11-15-2022 End: 11-15-2022 ketorolac (TORADOL) injection 15 mg Lactobacillus Combination No.4 (Probiotic) 3 billion cell Capsule (20 sources) Start: 05-24-2022 End: 01-14-2023 take 3 capsules by mouth once daily Lactobacillus Combination No.4 (Probiotic) 3 billion cell Capsule Discontinued 3000 MMU CELLS PO Daily May 24, 2022 12:00am January 14, 2023 3:54pm administer with a meal Start: 05-24-2022 End: 01-14-2023 take 3 capsules by mouth once daily Lactobacillus Combination No.4 (Probiotic) 3 billion cell Capsule Discontinued 3000 MMU CELLS PO Daily May 24, 2022 1:00am January 14, 2023 4:54pm administer with a meal Start: 05-24-2022 take 3 capsules by m outh once daily Lactobacillus Combination No.4 (Probiotic) 3 billion cell Capsule Active 3000 MMU CELLS PO Daily May 24, 2022 1:00am administer with a meal Start: 05-24-2022 take 3 capsules by m outh once daily Lactobacillus Combination No.4 (Probiotic) 3 billion cell Capsule Active 3000 MMU CELLS PO Daily May 24, 2022 12:00am administer with a meal melatonin 10 mg oral tablet (20 sources) Start: 06-05-2018 End: 09-05-2018 take 10 mg by mouth at bedtime Melatonin Discontinued 10 MG PO Bedtime June 05, 2018 1:00am September 05, 2018 9:54am Start: 06-05-2018 End: 09-05-2018 meloxicam 7.5 mg oral tablet (20 sources) Nonsteroidal Anti-inflammatory Drug Start: 02-13-2018 End: 06-05-2018 take 7.5 mg by mouth once daily Meloxicam Discontinued 7.5 MG PO Daily February 13, 2018 12:00am June 05, 2018 11:25am metoclopramide 5 mg oral tablet (20 sources) Dopamine-2 Receptor Antagonist Start: 08-23-2022 End: 09-03-2022 take 1 tablet by mouth once daily Metoclopramide Hcl (Reglan) 5 mg tablet Discontinued 5 MG PO Daily 7 August 23, 2022 11:49am September 03, 2022 7:07am mirtazapine 15 mg oral tablet (20 sources) Start: 09-05-2018 End: 08-21-2019 take 1 tablet by mouth once daily Mirtazapine (Remeron) 15 mg Tablet Discontinued 15 MG PO Daily September 05, 2018 1:00am August 21, 2019 2:50pm omeprazole 40 mg delayed release oral capsule (20 sources) Proton Pump Inhibitor Start: 08-23-2022 End: 01-14-2023 take 40 mg by mouth once daily Omeprazole Discontinued 40 MG PO Daily 30 August 23, 2022 1:00am January 14, 2023 4:53pm ondansetron 4 mg disintegrating oral tablet (20 sources) Serotonin-3 Receptor Antagonist Start: 06-01-2023 End: 12-07-2023 take 4 mg by mouth every eight hours Ondansetron Discontinued 4 MG PO Q8H June 01, 2023 1:00am December 07, 2023 8:00am Start: 09-03-2022 End: 01-14-2023 take 4 mg by mouth every eight hours Ondansetron Discontinued 4 MG PO Q8H September 03, 2022 1:00am January 14, 2023 4:53pm Start: 09-03-2022 End: 01-14-2023 take 4 mg by mouth four times daily Ondansetron Discontinued 4 MG PO Four times daily December 08, 2022 12:00am January 14, 2023 4:53pm Start: 05-26-2022 take 1 tablet by cali th three times daily as needed Ondansetron HCl 4 MG 1 tablet Orally three times a day prn for 30 day(s) PRN May, Active Start: 04-26-2022 End: 08-23-2022 take 4 mg by mouth every eight hours Ondansetron Discontinued 4 MG PO Q8H 6 2 April 26, 2022 12:00am August 23, 2022 10:38am Start: 01-31-2022 End: 03-22-2022 take 4 mg by mouth every eight hours Ondansetron Discontinued 4 MG PO Q8H 6 2 January 31, 2022 12:00am March 22, 2022 1:50pm Start: 12-09-2021 End: 03-22-2022 Ondansetron Hcl Discontinued 4 MG PO every 6 to 8 hours December 09, 2021 12:00am March 22, 2022 1:50pm Start: 12-09-2021 End: 03-22-2022 Start: 08-03-2021 End: 10-04-2021 Ondansetron Discontinued 4 M G PO every 6 to 8 hours August 30, 2021 1:00am September 02, 2021 11:18am oxyCODONE hydrochloride 5 mg oral tablet (20 sources) Opioid Agonist Start: 08-13-2018 End: 09-05-2018 take 5 mg by mouth every six hours Oxycodone Discontinued 5 MG PO Q6H August 13, 2018 1:00am September 05, 2018 9:55am pantoprazole 20 mg delayed release oral tablet (20 sources) Proton Pump Inhibitor Start: 01-31-2022 End: 03-22-2022 take 20 mg by mouth once daily Pantoprazole Discontinued 20 MG PO Daily January 31, 2022 12:00am March 22, 2022 1:50pm penicillin v potassium 500 mg oral tablet (20 sources) Start: 07-15-2020 End: 08-23-2021 take 1000 mg by mouth twice daily Penicillin V Potassium Discontinued 1000 MG PO Twice daily July 15, 2020 1:00am August 23, 2021 4:29pm Start: 12-09-2017 End: 02-13-2018 take 500 mg by mouth four times daily Penicillin V Potassium Discontinued 500 MG PO Four times daily December 09, 2017 12:00am February 13, 2018 12:14am Start: 12-09-2017 End: 02-13-2018 potassium chloride 20 meq extended release oral tablet (20 sources) Start: 12-09-2021 End: 01-31-2022 take 20 mEq by mouth once daily Potassium Chloride Discontinued 20 MEQ PO Daily December 09, 2021 12:00am January 31, 2022 5:16am Start: 08-30-2021 End: 09-27-2021 take 20 mEq by mouth once daily Potassium Chloride Discontinued 20 MEQ PO Daily August 30, 2021 1:00am September 27, 2021 3:19pm prochlorperazine 25 mg rectal suppository (20 sources) Phenothiazine Start: 02-02-2022 End: 03-22-2022 Prochlorperazine Discontinued 25 MG NC Q12H February 02, 2022 12:00am March 22, 2022 1:50pm Start: 02-02-2022 End: 03-22-2022 promethazine hydrochloride 25 mg rectal suppository (20 sources) Phenothiazine Start: 04-13-2023 End: 12-07-2023 Promethazine Discontinued 25 MG NC Q6H April 13, 2023 12:00am December 07, 2023 8:00am Start: 01-14-2023 End: 12-07-2023 take 25 mg by mouth every six hours Promethazine Discontinued 25 MG PO Q6H January 14, 2023 12:00am December 07, 2023 8:00am Start: 08-25-2022 End: 11-17-2022 Promethazine Discontinued 25 MG NC Q6H August 25, 2022 1:00am November 17, 2022 8:07pm Start: 08-25-2022 End: 11-17-2022 Start: 04-26-2022 End: 11-17-2022 take 25 mg by mouth every six hours Promethazine Discontinued 25 MG PO Q6H November 13, 2022 12:00am November 17, 2022 8:08pm Start: 04-26-2022 End: 11-17-2022 take 25 mg by mouth three times daily Promethazine Discontinued 25 MG PO Three times daily 02 02September 03, 2022 8:36am November 17, 2022 8:08pm rizatriptan 10 mg oral tablet (20 sources) Serotonin-1b and Serotonin-1d Receptor Agonist Start: 08-21-2019 End: 09-27-2021 Rizatriptan Discontinued 10 MG PO As Directed August 21, 2019 1:00am September 27, 2021 3:19pm Start: 08-21-2019 End: 09-27-2021 50 ml sodium chloride 9 mg/ml injection (1 source) Start: 11-15-2022 End: 11-15-2022 0.9 % sodium chloride bolus topiramate 25 mg oral tablet (20 sources) Start: 05-24-2022 End: 08-23-2022 take 50 mg by mouth twice daily Topiramate Discontinued 50 MG PO Twice daily May 24, 2022 1:00am August 23, 2022 10:39am topiramate (TOPA MAX) 25 MG tablet 50 mg 0 Active take 1 tablet by cali th every twelve hours Topamax 50 MG 1 tablet Orally TWICE A DA Y Active traMADol hydrochloride 50 mg oral tablet (20 sources) Opioid Agonist Start: 03-22-2022 End: 04-03-2022 take 1 tablet by mouth every eight hours Tramadol (Ultram) 50 mg tablet Discontinued 50 MG PO Q8H 7 2 March 22, 2022 12:00am April 03, 2022 1:49am 24 hr divalproex sodium 500 mg extended release oral tablet (20 sources) Mood Stabilizer, Anti-epileptic Agent Start: 08-21-2019 End: 12-05-2021 take 1 tablet by mouth twice daily Divalproex (Depakote Er) 500 mg Tablet Extended Release 24 Hr Discontinued 500 MG PO Twice daily August 21, 2019 1:00am December 05, 2021 1:40pm 24 hr venlafaxine 75 mg extended release oral capsule (20 sources) Serotonin and Norepinephrine Reuptake Inhibitor Start: 09-05-2018 End: 08-23-2021 take 1 capsule by mouth once daily Venlafaxine (Effexor Xr) 75 mg Capsule,Extended Release 24hr Discontinued 75 MG PO Daily September 05, 2018 1:00am August 23, 2021 4:29pm verapamil hydrochloride 180 mg extended release oral tablet (20 sources) Calcium Channel Ab Start: 07-17-2018 End: 09-05-2018 take 180 mg by mouth once daily Verapamil Discontinued 180 MG PO Daily July 17, 2018 1:00am September 05, 2018 9:56am Problems Active Problems Problem Classification Problem Date Documented Da te Episodic/Chronic Abdominal hernia (1 source) Diaphragmatic hernia without obstruction or gangrene Episodic Anxiety disorders (5 sources) Posttraumatic stress disorder; Translations: [Post-traumatic stress disorder, unspecified] Onset: 01-23-2022 01-23-2022 Chronic Asthma (2 sources) Moderate persistent asthma; Translations: [Moderate persistent asthma, uncomplicated] Onset: 01-23-2022 01-23-2022 Chronic Biliary tract disease (20 sources) Biliary calculus; Translations: [Calculus of gallbladder without cholecystitis without obstruction] 08-30-2021 Episodic Disorders of teeth and jaw (20 sources) Toothache; Translations: [Other specified disorders of teeth and supporting structures] 07-15-2020 Episodic Fluid and electrolyte disorders (20 sources) Acute hypokalemia; Translations: [Hypokalemia] 08-30-2021 Episodic Gastritis and duodenitis (20 sources) Gastritis; Translations: [Gastritis, unspecified, without bleeding] 08-23-2022 Episodic Gastrointestinal hemorrhage (14 sources) Hematemesis; Translations: [Hematemesis] Episodic Headache; including migraine (14 sources) Migraine without aura, not refractory ; Translations: [Migraine without aura, not intractable, without status migrainosus] Onset: 01-23-2022 01-23-2022 Chronic Headache; including migraine (18 sources) Headache; Translations: [Headache] 11-17-2022 Episodic Headache; including migraine (2 sources) Headache; including migraine; Translations: [Headache, unspecified] Onset: 06-17-2023 Malaise and fatigue (2 sources) Chronic fatigue syndrome; Translations: [Chronic fatigue syndrome with fibromyalgia] Onset: 01-09-2011 01-23-2022 Chronic Mood disorders (2 sources) Bipolar II disorder; Translations: [Bipolar II disorder] Onset: 01-23-2022 01-23-2022 Chronic Other aftercare (1 source) Other intermediate (current) drug therapy; Translations: [OTH LONGTERM CURRENT DRUG THERAPY] Onset: 05-23-2022 Episodic Other endocrine disorders (20 sources) Adrenal mass; Translations: [Other specified disorders of adrenal gland] 01-31-2022 Chronic Other gastrointestinal disorders (7 sources) Irritable bowel syndrome; Translations: [Irritable bowel syndrome without diarrhea] Chronic Other gastrointestinal disorders (7 sources) Diarrhea; Translations: [Diarrhea, unspecified] Episodic Other gastrointestinal disorders (7 sources) Incontinence of feces; Translations: [Full incontinence of feces] Episodic Other gastrointestinal disorders (1 source) Dysphagia, unspecified Episodic Other gastrointestinal disorders (1 source) Diarrhea, unspecified Episodic Other gastrointestinal disorders (20 sources) H/O: abdominal hernia; Translations: [Personal history of other diseases of the digestive system] 08-23-2022 Episodic Other injuries and conditions due to external causes (20 sources) Contusion; Translations: [Other injury of unspecified body region, initial encounter] 03-22-2022 Episodic Other nervous system disorders (1 source) Dejerine-Sottas disease; 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 Other nervous system disorders (1 source) Hereditary motor and sensory neuropathy; Translations: [Hereditary motor and sensory neuropathy] Onset: 05-26-2022 Chronic Other nervous system disorders (1 source) Other chronic pain; Translations: [Other chronic pain] Onset: 11-15-2022 Chronic Ovarian cyst (20 sources) Cyst of ovary; Translations: [Unspecified ovarian cyst, left side] Onset: 03-13-2022 03-13-2022 Episodic Residual codes; unclassified (20 sources) Patient encounter status; Translations: [Procedure and treatment not carried out due to patient leaving prior to being seen by health care provider] 04-28-2022 Episodic Residual codes; unclassified (14 sources) Edema of extremity; Translations: [Localized edema] 12-20-2022 Episodic Residual codes; unclassified (12 sources) Left against medical advice; Translations: [Procedure and treatment not carried out because of patient's decision for other reasons] 01-14-2023 Episodic Spondylosis; intervertebral disc disorders; other back problems (2 sources) Osteoarthritis of lumbar spinal facet joint; Translations: [Spondylosis without myelopathy or radiculopathy, lumbar region] Onset: 06-19-2011 01-23-2022 Chronic Sprains and strains (20 sources) Sprain of shoulder; Translations: [Unspecified sprain of unspecified shoulder joint, initial encounter] 04-03-2022 Episodic Substance-related disorders (4 sources) Smoker; Translations: [Nicotine dependence, unspecified, uncomplicated] Onset: 01-23-2022 01-23-2022 Chronic Past or Other Problems Problem Classification Problem Date Documented Da te Episodic/Chronic Abdominal pain (20 sources) Abdominal pain; Translations: [Unspecified abdominal pain] Onset: 05-10-2022 01-31-2022 Episodic Nausea and vomiting (20 sources) Adverse reaction to cannabis; Translations: [Nausea with vomiting, unspecified] Onset: 05-08-2022 02-02-2022 Episodic Noninfectious gastroenteritis (2 sources) Noninfective gastroenteritis and colitis, unspecified; Translations: [NONINFECTIVE GE AND COLITIS UNS] Onset: 05-09-2022 Episodic Other gastrointestinal disorders (9 sources) Dysphagia; Translations: [Dysphagia, unspecified] Onset: 01-23-2022 01-23-2022 Episodic Other lower respiratory disease (1 source) Shortness of breath; Translations: [Shortness of breath] Onset: 01-05-2023 Episodic Residual codes; unclassified (1 source) Acquired absence of other specified parts of digestive tract; Translations: [ACQ ABSENCE OTH PART DIGESTV TRACT] Onset: 05-09-2022 Episodic Spondylosis; intervertebral disc disorders; other back problems (4 sources) Sciatica; Translations: [Sciatica, left side] Onset: 03-13-2011 01-23-2022 Episodic Results Test Name Value Interpretation Reference Range Facility Alanine aminotransferase [En zymatic activity/volume] in Serum or PlasmaOrdered By: Dereje Bentley on 12-07-2023 ALT [Catalytic activity/Vol] 12 U/L Normal 7-52 [facility] Comment on above: Performed By: #### H CGQNT, CBC, LIPASE, BMP, HEPATIC #### [facility] [address] Albumin [Mass/volume] in Ser um or Plasma by Bromocresol green (BCG) dye binding methoOrdered By: Dereje Bentley on 12-07-2023 Albumin BCG dye [Mass/Vol] 4.3 g/dL 3.5-5.7 [facility] Alkaline phosphatase [Enzyma tic activity/volume] in Serum or PlasmaOrdered By: Dereje Bentley on 12-07-2023 ALP [Catalytic activity/Vol] 83 U/L Normal 34-104 [facility] Comment on above: Performed By: #### H CGQNT, CBC, LIPASE, BMP, HEPATIC #### [facility] [address] Amphetamine Screen Ql (U)Ord ered By: Dereje Bentley on 12-07-2023 Amphetamines Ql (U) Negative Negative [facility] Aspartate aminotransferase [ Enzymatic activity/volume] in Serum or PlasmaOrdered By: Dereje Bentley on 12-07-2023 AST [Catalytic activity/Vol] 13 U/L Normal 13-39 [facility] Comment on above: Performed By: #### H CGQNT, CBC, LIPASE, BMP, HEPATIC #### [address] Automated basophil %Ordered By: Dereje Bentley on 12-07-2023 Basophils/100 WBC (Bld) 0.8 % Normal . [facility] Comment on above: Performed By: #### H CGQNT, CBC, LIPASE, BMP, HEPATIC #### [address] Automated basophil countOrde red By: Dereje Bentley on 12-07-2023 Basophils (Bld) [#/Vol] 0.2 10*3/uL Normal 0.0-0.2 [facility] Comment on above: Result Comment: PERF ORMED BY: [place] [address] PATHOLOGIST [employer] SUDHA ANDINO M.D. Performed By: #### H CGQNT, CBC, LIPASE, BMP, HEPATIC #### [address] Automated blood monocyte cou ntOrdered By: Dereje Bentley on 12-07-2023 Monocytes (Bld) [#/Vol] 1.3 10*3/uL High 0.0-0.8 [facility] Comment on above: Performed By: #### H CGQNT, CBC, LIPASE, BMP, HEPATIC #### [address] Automated eosinophil %Ordere d By: Dereje Bentley on 12-07-2023 Eosinophils/100 WBC (Bld) 1.5 % Normal . [facility] Comment on above: Performed By: #### H CGQNT, CBC, LIPASE, BMP, HEPATIC #### [address] Automated eosinophil countOr dered By: Dereje Bentley on 12-07-2023 Eosinophils (Bld) [#/Vol] 0.3 10*3/uL Normal 0.0-0.45 [facility] Comment on above: Performed By: #### H CGQNT, CBC, LIPASE, BMP, HEPATIC #### [address] Automated epithelial cells c ount in urine sediment (number/area)Ordered By: Dereje Bentley on 12-07-2023 Epithelial cells Auto (Urine sed) [#/Area] 0-1 [HPF] 0-2 [facility] Automated monocyte %Ordered By: Dereje Bentley on 12-07-2023 Monocytes/100 WBC (Bld) 6.8 % Normal . [facility] Comment on above: Performed By: #### H CGQNT, CBC, LIPASE, BMP, HEPATIC #### [address] Automated neutrophil %Ordere d By: Dereje Bentley on 12-07-2023 Neutrophils/100 WBC (Bld) 80.6 % Normal . [facility] Comment on above: Performed By: #### H CGQNT, CBC, LIPASE, BMP, HEPATIC #### [address] Bacteria [Presence] in Urine by AutomatedOrdered By: Dereje Bentley on 12-07-2023 Bacteria Auto Ql (U) 1+ [HPF] None Seen [facility] Barbiturates [Presence] in U rine by Screen methodOrdered By: Dereje Bentley on 12-07-2023 Barbiturates Screen Ql (U) Negative Negative [facility] Basic Metabolic Panelon 11-14 Creatinine Clr Calc Pharmacy 113.75 Normal [facility] Comment on above: Performed By: #### H CGQNT, CBC, LIPASE, BMP, HEPATIC #### [address] GFR/1.73 sq M.predicted MDRD (S/P/Bld) [Vol rate/Area] mL/min/{1.73_m2} Normal [facility] Comment on above: Performed By: #### H CGQNT, CBC, LIPASE, BMP, HEPATIC #### [facility] [address] Benzodiazepines Screen Ql (U )Ordered By: Dereje Bentley on 12-07-2023 Benzodiazepines Ql (U) Negative Negative [facility] Benzoylecgonine [Presence] i n Urine by Screen methodOrdered By: Dereje Bentley on 12-07-2023 Benzoylecgonine Screen Ql (U) Negative Negative [facility] Bilirubin Test strip Ql (U)O rdered By: Dereje Bentley on 12-07-2023 Bilirubin Ql (U) Negative Negative [facility] Bilirubin.direct [Mass/volum e] in Serum or PlasmaOrdered By: Dereje Bentley on 12-07-2023 Bilirubin.direct [Mass/Vol] 0.10 mg/dL 0.03-0.18 [facility] Bilirubin.total [Mass/volume ] in Serum or PlasmaOrdered By: Dereje Bentley on 12-07-2023 Bilirubin [Mass/Vol] 0.4 mg/dL Normal 0.3-1.0 [facility] Comment on above: Performed By: #### H CGQNT, CBC, LIPASE, BMP, HEPATIC #### [facility] [address] Calcium [Mass/volume] in Ser um or PlasmaOrdered By: Dereje Bentley on 12-07-2023 Calcium [Mass/Vol] 9.9 mg/dL Normal 8.6-10.3 [facility] Comment on above: Performed By: #### H CGQNT, CBC, LIPASE, BMP, HEPATIC #### [facility] [address] Cannabinoids [Presence] in U rine by Screen methodOrdered By: Dereje Bentley on 12-07-2023 Cannabinoids Screen Ql (U) Positive Negative [facility] Comment on above: These are unconfirme d results and should not be used for legal purposes. Drug Cut-Off Concentration: AMPH 1000 ng/mL LIZ 200 ng/mL DAVID 200 ng/mL COCM 300 ng/mL OP 300 ng/mL PCP 25 ng/mL THC 20 ng/mL Carbon dioxide, total [Moles /volume] in Serum or PlasmaOrdered By: Dereje Bentley on 12-07-2023 CO2 [Moles/Vol] 29.9 mmol/L Normal 21.0-31.0 [facility] Comment on above: Performed By: #### H CGQNT, CBC, LIPASE, BMP, HEPATIC #### [facility] [address] Chloride [Moles/volume] in S terri or PlasmaOrdered By: Dereje Bentley on 12-07-2023 Chloride [Moles/Vol] 108 mmol/L High 98-107 [facility] Comment on above: Performed By: #### H CGQNT, CBC, LIPASE, BMP, HEPATIC #### [facility] [address] [place] [address] [place] Choriogonadotropin.beta subu nit [Units/volume] in Serum or PlasmaOrdered By: Dereje Bentley on 12-07-2023 HCG.beta subunit Qn 34.75 m[IU]/mL [facility] Comment on above: Approximate Approxim ate hCG Gestational Age Range (mIU/ml) (weeks)0.2-1 5-50 1-2 50-500 2-3 100-5,000 3-4 500-10,000 4-5 1,000-50,000 5-6 10,000-100,000 6-8 15,000-200,000 8-12 10,000-100,000 Color of Urine by AutoOrdere d By: Dereje Bentley on 12-07-2023 Color (U) Yellow Normal Yellow [facility] Comment on above: Order Comment: Name Collection Type:: Clean-Voided Midstream Performed By: #### U HCG, ADDONUAPLUS, CUU, URDS #### [facility] [address] [place] [address] [place] Complete Blood Count Auto Di ffon 12-07-2023 Mean Corpuscular HGB Conc 34.2 g/dL Normal 32.0-35.0 [facility] Comment on above: Performed By: #### H CGQNT, CBC, LIPASE, BMP, HEPATIC #### [facility] [address] [place] [address] [place] Monocytes/100 WBC (Bld) 16.88 % Normal 0.00-20.00 [facility] Comment on above: Performed By: #### H CGQNT, CBC, LIPASE, BMP, HEPATIC #### [facility] [address] NRBC% 0.0 /100{WBC} Normal 0-0.5 [facility] Comment on above: Performed By: #### H CGQNT, CBC, LIPASE, BMP, HEPATIC #### [address] Creatinine [Mass/volume] in Serum or PlasmaOrdered By: Dereje Bentley on 12-07-2023 Creatinine [Mass/Vol] 0.77 mg/dL Normal 0.60-1.20 [facility] Comment on above: Performed By: #### H CGQNT, CBC, LIPASE, BMP, HEPATIC #### [address] Dipstick and Microscopicon 0 12-07-2023 Appearance (U) Clear Normal Clear [facility] Comment on above: Order Comment: Name Collection Type:: Clean-Voided Midstream Performed By: #### U HCG, ADDONUAPLUS, CUU, URDS #### [address] Bacteria,Urine 1+ High None Seen [facility] Comment on above: Order Comment: Name Collection Type:: Clean-Voided Midstream Performed By: #### U HCG, ADDONUAPLUS, CUU, URDS #### [address] Bilirubin,Urine Negative Normal Negative [facility] Comment on above: Order Comment: Name Collection Type:: Clean-Voided Midstream Performed By: #### U HCG, ADDONUAPLUS, CUU, URDS #### [address] Glucose Ql (U) Normal Normal Normal [facility] Comment on above: Order Comment: Name Collection Type:: Clean-Voided Midstream Performed By: #### U HCG, ADDONUAPLUS, CUU, URDS #### [facility] [address] [place] [address] [place] Hyaline Casts,Urine 0-8 Normal 0-8 [facility] Comment on above: Order Comment: Name Collection Type:: Clean-Voided Midstream Performed By: #### U HCG, ADDONUAPLUS, CUU, URDS #### [address] Ketones Ql (U) Negative Normal Negative [facility] Comment on above: Order Comment: Name Collection Type:: Clean-Voided Midstream Performed By: #### U HCG, ADDONUAPLUS, CUU, URDS #### [address] Leukocyte esterase Test strip Ql (U) 1+ High Negative [facility] Comment on above: Order Comment: Name Collection Type:: Clean-Voided Midstream Performed By: #### U HCG, ADDONUAPLUS, CUU, URDS #### [place] [address] [place] Nitrite,Urine Negative Normal Negative [facility] Comment on above: Order Comment: Name Collection Type:: Clean-Voided Midstream Performed By: #### U HCG, ADDONUAPLUS, CUU, URDS #### [address] Occult Blood,Urine Negative Normal Negative [facility] Comment on above: Order Comment: Name Collection Type:: Clean-Voided Midstream Performed By: #### U HCG, ADDONUAPLUS, CUU, URDS #### [place] [address] [place] Protein,Urine Negative Normal Negative [facility] Comment on above: Order Comment: Name Collection Type:: Clean-Voided Midstream Performed By: #### U HCG, ADDONUAPLUS, CUU, URDS #### [place] [address] [place] RBC,Urine 5-9 High 0-4 [facility] Comment on above: Order Comment: Name Collection Type:: Clean-Voided Midstream Performed By: #### U HCG, ADDONUAPLUS, CUU, URDS #### [address] Specificy [place],Urine 1.014 Normal 1.001-1.030 [facility] Comment on above: Order Comment: Name Collection Type:: Clean-Voided Midstream Performed By: #### U HCG, ADDONUAPLUS, CUU, URDS #### [address] Squamous Epithelial Cell,Urine 0-1 Normal 0-2 [facility] Comment on above: Order Comment: Name Collection Type:: Clean-Voided Midstream Performed By: #### U HCG, ADDONUAPLUS, CUU, URDS #### [address] Urobilinogen,Urine Normal Normal Normal [facility] Comment on above: Order Comment: Name Collection Type:: Clean-Voided Midstream Performed By: #### U HCG, ADDONUAPLUS, CUU, URDS #### [address] WBC,Urine 5-9 High 0-4 [facility] Comment on above: Order Comment: Name Collection Type:: Clean-Voided Midstream Performed By: #### U HCG, ADDONUAPLUS, CUU, URDS #### [address] Drug Screen,Urineon 052420 24 Amphetamine Screen,Urine Negative Normal Negative [facility] Comment on above: Performed By: #### U HCG, ADDONUAPLUS, CUU, URDS #### [address] Barbiturate Screen,Urine Negative Normal Negative [facility] Comment on above: Performed By: #### U HCG, ADDONUAPLUS, CUU, URDS #### [address] Benzodiazepines Screen,Urine Negative Normal Negative [facility] Comment on above: Performed By: #### U HCG, ADDONUAPLUS, CUU, URDS #### [address] Cannabinoid Screen,Urine Positive High Negative [facility] Comment on above: Result Comment: Thes e are unconfirmed results and should not be used for legal purposes. Drug Cut-Off Concentration: AMPH 1000 ng/mL LIZ 200 ng/mL DAVID 200 ng/mL COCM 300 ng/mL OP 300 ng/mL PCP 25 ng/mL THC 20 ng/mL PERFORMED BY: [place] [address] PATHOLOGIST [employer] OFFICER SUDHA ANDINO M.D. Performed By: #### U HCG, ADDONUAPLUS, CUU, URDS #### [address] Cocaine Screen,Urine Negative Normal Negative [facility] Comment on above: Performed By: #### U HCG, ADDONUAPLUS, CUU, URDS #### [address] Opiate Screen,Urine Negative Normal Negative [facility] Comment on above: Performed By: #### U HCG, ADDONUAPLUS, CUU, URDS #### [address] Phencyclidine Screen,Urine Negative Normal Negative [facility] Comment on above: Performed By: #### U HCG, ADDONUAPLUS, CUU, URDS #### [address] Erythrocyte distribution wid th [Ratio] by Automated countOrdered By: Dereje Bentley on 12-07-2023 Erythrocyte distribution width (RBC) [Ratio] 13.4 % Normal 11.9-15.3 [facility] Comment on above: Performed By: #### H CGQNT, CBC, LIPASE, BMP, HEPATIC #### [address] Erythrocytes [#/area] in Uri ne sediment by Automated countOrdered By: Dereje Bentley on 12-07-2023 RBC Auto (Urine sed) [#/Area] 5-9 [HPF] 0-4 [facility] Erythrocytes [#/volume] in B lood by Automated countOrdered By: Dereje Bentley on 12-07-2023 RBC (Bld) [#/Vol] 4.32 10*6/uL Normal 3.60-5.[address] [facility] Comment on above: Performed By: #### H CGQNT, CBC, LIPASE, BMP, HEPATIC #### [facility] [address] [place] [id number] [facility] Glucose [Mass/volume] in Ser um or PlasmaOrdered By: Dereje Bentley on 12-07-2023 Glucose [Mass/Vol] 126 mg/dL High 70-100 [facility] Comment on above: ADA recommended refe rence rangeRandom Glucose Reference Range is dependent on time and content of last meal. Glucose of more than 200 mg/dL in a nonstressed, ambulatory subject supports the diagnosis of Diabetes Mellitus. Result Comment: Farina om Glucose Reference Range is dependent on time and content of last meal. Glucose of more than 200 mg/dL in a nonstressed, ambulatory subject supports the diagnosis of Diabetes Mellitus. ADA recommended reference range Performed By: #### H CGQNT, CBC, LIPASE, BMP, HEPATIC #### [facility] [address] HCG ( test) IAmeghan d Ql (U)Ordered By: Dereje Bentley on 12-07-2023 HCG ( test) Ql (U) Positive [facility] HCG,Quantitativeon HCG,Quantitative 34.75 m[iU]/mL Normal [facility] Comment on above: Result Comment: Appr oximate Approximate hCG Gestational Age Range (mIU/ml) (weeks) 0.2-1 5-50 1-2 50-500 2-3 100-5,000 3-4 500-10,000 4-5 1,000-50,000 5-6 10,000-100,000 6-8 15,000-200,000 8-12 10,000-100,000 PERFORMED BY: [place] [address] PATHOLOGIST [employer] OFF[employer] SUDHA ANDINO M.D. Performed By: #### A DDONUAPLUS #### [address] HCG,Urineon 12-07-2023 Beta HCG ( test) Ql (U) Positive High [facility] Comment on above: Order Comment: Name Collection Type:: Clean-Voided Midstream Result Comment: PERF ORMED BY: [place] [address] PATHOLOGIST [employer] SUDHA ANDINO M.D. Performed By: #### U HCG, ADDONUAPLUS, CUU, URDS #### [address] Hematocrit [Volume Fraction] of Blood by Automated countOrdered By: Dereje Bentley on 12-07-2023 Hematocrit (Bld) [Volume fraction] 41.5 % Normal 34.0-46.4 [facility] Comment on above: Performed By: #### H CGQNT, CBC, LIPASE, BMP, HEPATIC #### [address] Hemoglobin [Mass/volume] in BloodOrdered By: Dereje Bentley on 12-07-2023 Hemoglobin (Bld) [Mass/Vol] 14.2 g/dL Normal 11.8-15.4 [facility] Comment on above: Performed By: #### H CGQNT, CBC, LIPASE, BMP, HEPATIC #### [address] Hepatic Panelon 12-07-2023 Albumin [Mass/Vol] 4.3 g/dL Normal 3.5-5.7 [facility] Comment on above: Performed By: #### H CGQNT, CBC, LIPASE, BMP, HEPATIC #### [address] Bilirubin,Indirect 0.3 mg/dL Normal [facility] Comment on above: Performed By: #### H CGQNT, CBC, LIPASE, BMP, HEPATIC #### [address] Bilirubin.indirect [Mass/Vol] 0.10 mg/dL Normal 0.03-0.18 [facility] Comment on above: Performed By: #### H CGQNT, CBC, LIPASE, BMP, HEPATIC #### [facility] [address] Ketones Auto test strip (U) [Mass/Vol]Ordered By: Dereje Bentley on 12-07-2023 Ketones (U) [Mass/Vol] Negative Negative [facility] - UrinalysisOrder ed By: Dereje Bentley on 12-07-2023 Hyaline casts LM Ql (Urine sed) 0-8 [LPF] 0-8 [facility] Leukocytes [#/area] in Urine sediment by Automated countOrdered By: Dereje Bentley on 12-07-2023 WBC Auto (Urine sed) [#/Area] 5-9 [HPF] 0-4 [facility] Leukocytes [#/volume] correc zen for nucleated erythrocytes in Blood by Automated counOrdered By: Dereje Bentley on 12-07-2023 WBC corrected for nucl RBC Auto (Bld) [#/Vol] 19.1 10*3/uL 3.8-11.6 [facility] Leukocytes [#/volume] in Blo od by Automated countOrdered By: Dereje Bentley on 12-07-2023 WBC (Bld) [#/Vol] 19.1 10*3/uL High 3.8-11.[address] [facility] Comment on above: Performed By: #### H CGQNT, CBC, LIPASE, BMP, HEPATIC #### [facility] [address] [place] [address] Lipase [Enzymatic activity/v olume] in Serum or PlasmaOrdered By: Dereje Bentley on 12-07-2023 Lipase [Catalytic activity/Vol] 39.0 U/L Normal 11.0-82.0 [facility] Comment on above: Result Comment: PERF ORMED BY: [place] [address] PATHOLOGIST [employer] OFF[employer] SUDHA ANDINO M.D. Performed By: #### A DDONUAPLUS #### [place] [address] [place] Lymphocytes [#/volume] in Bl ood by Automated countOrdered By: Dereje Bentley on 12-07-2023 Lymphocytes (Bld) [#/Vol] 2.0 10*3/uL Normal 1.00-4.8 [facility] Comment on above: Performed By: #### H CGQNT, CBC, LIPASE, BMP, HEPATIC #### [facility] [address] Lymphocytes/100 leukocytes i n Blood by Automated countOrdered By: Dereje Bentley on 12-07-2023 Lymphocytes/100 WBC (Bld) 10.3 % Normal . [facility] Comment on above: Performed By: #### H CGQNT, CBC, LIPASE, BMP, HEPATIC #### [facility] [address] MCH [Entitic mass] by Automa zen countOrdered By: Dereje Bentley on 12-07-2023 MCH (RBC) [Entitic mass] 32.8 pg Normal 24.7-34.3 [facility] Comment on above: Performed By: #### H CGQNT, CBC, LIPASE, BMP, HEPATIC #### [facility] [address] [place] [address] MCHC Auto (RBC) [Mass/Vol]Or dered By: Dereje Bentley on 12-07-2023 MCHC (RBC) [Mass/Vol] 34.2 g/dL 32.0-35.0 [facility] MCV [Entitic volume] by Auto mated countOrdered By: Dereje Bentley on 12-07-2023 MCV (RBC) [Entitic vol] 95.9 fL Normal 80-100 [facility] Comment on above: Performed By: #### H CGQNT, CBC, LIPASE, BMP, HEPATIC #### [facility] [address] [place] [address] Monocyte distribution width [Entitic volume] in Blood by AutomatedOrdered By: Dereje Bentley on 12-07-2023 Monocyte distribution width Auto (Bld) [Entitic vol] 16.88 % 0.00-20.00 [facility] Neutrophils [#/volume] in Bl ood by Automated countOrdered By: Dereje Bentley on 12-07-2023 Neutrophils (Bld) [#/Vol] 15.4 10*3/uL High 1.8-7.7 [facility] Comment on above: Performed By: #### H CGQNT, CBC, LIPASE, BMP, HEPATIC #### [facility] [address] [place] [address] [place] Nitrite Test strip Ql (U)Ord ered By: Dereje Bentley on 12-07-2023 Nitrite Ql (U) Negative Negative [facility] No Panel InformationOrdered By: Dereje Bentley on 12-07-2023 Estimated GFR (CKD-EPI) > 60.0 mL/Min [facility] Creatinine Clearance (Chem 113.75 [facility] Nucleated erythrocytes [Pres ence] in Blood by Automated countOrdered By: Dereje Bentley on 12-07-2023 Nucleated RBC Auto Ql (Bld) 0.0 /100{WBC} 0-0.5 [facility] Opiates [Presence] in Urine by Screen methodOrdered By: Dereje Bentley on 12-07-2023 Opiates Screen Ql (U) Negative Negative [facility] Phencyclidine Screen Ql (U)O rdered By: Dereje Bentley on 12-07-2023 Phencyclidine Ql (U) Negative Negative [facility] Platelet mean volume [Entiti c volume] in Blood by Automated countOrdered By: Dereje Bentley on 12-07-2023 Platelet mean volume (Bld) [Entitic vol] 6.8 fL Normal 6.3-10.7 [facility] Comment on above: Performed By: #### H CGQNT, CBC, LIPASE, BMP, HEPATIC #### [facility] [address] [place] [address] [place] Platelets [#/volume] in Bloo d by Automated countOrdered By: Dereje Bentley on 12-07-2023 Platelets (Bld) [#/Vol] 297 10*3/uL Normal 150-450 [facility] Comment on above: Performed By: #### H CGQNT, CBC, LIPASE, BMP, HEPATIC #### [facility] [address] [place] [address] [place] Potassium [Moles/volume] in Serum or PlasmaOrdered By: Dereje Bentley on 12-07-2023 Potassium [Moles/Vol] 4.6 mmol/L Normal 3.5-5.1 [facility] Comment on above: Performed By: #### H CGQNT, CBC, LIPASE, BMP, HEPATIC #### [facility] [address] [place] [address] Protein Auto test strip (U) [Mass/Vol]Ordered By: Dereje Bentley on 12-07-2023 Protein (U) [Mass/Vol] Negative Negative [facility] Protein [Mass/volume] in Ser um or PlasmaOrdered By: Dereje Bentley on 12-07-2023 Protein [Mass/Vol] 6.9 g/dL Normal 6.4-8.9 [facility] Comment on above: Performed By: #### H CGQNT, CBC, LIPASE, BMP, HEPATIC #### [address] Serum globulin measurement b y calculation (mass/volume)Ordered By: Dereje Bentley on 12-07-2023 Globulin (S) [Mass/Vol] 2.6 g/dL [facility] Comment on above: Performed By: #### H CGQNT, CBC, LIPASE, BMP, HEPATIC #### [facility] [address] [place] [address] Serum or plasma albumin/glob ulin mass ratioOrdered By: Dereje Bentley on 12-07-2023 Albumin/Globulin [Mass ratio] 1.7 {ratio} [facility] Comment on above: Performed By: #### H CGQNT, CBC, LIPASE, BMP, HEPATIC #### [address] Serum or plasma anion gap de terminationOrdered By: Dereje Bentley on 12-07-2023 Anion gap [Moles/Vol] 9.7 mmol/L Normal 6.0-15.0 [facility] Comment on above: Performed By: #### H CGQNT, CBC, LIPASE, BMP, HEPATIC #### [address] Serum or plasma non-glucuron idated bilirubin measurement (mass/volume)Ordered By: Dereje Bentley on 12-07-2023 Bilirubin.indirect [Mass/Vol] 0.3 mg/dL [facility] Sodium [Moles/volume] in Ser um or PlasmaOrdered By: Dereje Bentley on 12-07-2023 Sodium [Moles/Vol] 143 mmol/L Normal 136-145 [facility] Comment on above: Performed By: #### H CGQNT, CBC, LIPASE, BMP, HEPATIC #### [facility] [address] [place] [address] Specific gravity Auto test s trip (U) [Rel density]Ordered By: Dereje Bentley on 12-07-2023 Specific gravity (U) [Rel density] 1.014 1.001-1.030 [facility] Urea nitrogen [Mass/volume] in Serum or PlasmaOrdered By: Dereje Bentley on 12-07-2023 Urea nitrogen [Mass/Vol] 17 mg/dL Normal 7-25 [facility] Comment on above: Performed By: #### H CGQNT, CBC, LIPASE, BMP, HEPATIC #### [facility] [address] [place] [address] Urine Cultureon 12-07-2023 Bacteria identified Cx Nom (U) 50,000 colonies/ml mixed bacterial skin contaminants 2 Days PERFORMED BY: [place] [address] PATHOLOGIST [employer] OFFICER SUDHA ANDINO M.D. Normal [facility] Comment on above: Performed By: #### U HCG, ADDONUAPLUS, CUU, URDS #### [facility] [address] [place] [address] Urine clarity by refractomet ry automatedOrdered By: Dereje Bentley on 12-07-2023 Clarity Refractometry automated (U) Clear Clear [facility] Urine culture routineOrdered By: Dereje Bentley on 12-07-2023 Bacteria identified Cx Nom (U) 2 Days [facility] Urine glucose measurement by automated test strip (mass/volume)Ordered By: Dereje Bentley on 12-07-2023 Glucose Auto test strip (U) [Mass/Vol] Normal mg/dL Normal [facility] Urine hemoglobin detection b y automated test stripOrdered By: Dereje Bentley on 12-07-2023 Hemoglobin Auto test strip Ql (U) Negative Negative [facility] Urine leukocyte esterase det ection by automated test stripOrdered By: Dereje Bentley on 12-07-2023 Leukocyte esterase Auto test strip Ql (U) 1+ Negative [facility] Urine pH measurement by auto mated test stripOrdered By: Dereje Bentley on 12-07-2023 pH (U) 7.5 [pH] Normal 5.0-9.0 [facility] Comment on above: Order Comment: Name Collection Type:: Clean-Voided Midstream Performed By: #### U HCG, ADDONUAPLUS, CUU, URDS #### [facility] [address] Urobilinogen Auto test strip (U) [Mass/Vol]Ordered By: Dereje Bentley on 12-07-2023 Urobilinogen (U) [Mass/Vol] Normal mg/dL Normal [facility] Alanine aminotransferase [En zymatic activity/volume] in Serum or PlasmaOrdered By: Yojana Yap on 06-22-2023 ALT [Catalytic activity/Vol] 14 U/L Normal 7-52 [facility] Comment on above: Performed By: #### U HCG, ADDONUAPLUS, CUU, URDS #### [facility] [address] [place] [address] [place] Albumin [Mass/volume] in Ser um or Plasma by Bromocresol green (BCG) dye binding methoOrdered By: Yojana Yap on 06-22-2023 Albumin BCG dye [Mass/Vol] 4.4 g/dL 3.5-5.7 [facility] Alkaline phosphatase [Enzyma tic activity/volume] in Serum or PlasmaOrdered By: Yojana Yap on 06-22-2023 ALP [Catalytic activity/Vol] 103 U/L Normal 34-104 [facility] Comment on above: Performed By: #### U HCG, ADDONUAPLUS, CUU, URDS #### [facility] [address] [place] [address] [place] Aspartate aminotransferase [ Enzymatic activity/volume] in Serum or PlasmaOrdered By: Yojana Yap on 06-22-2023 AST [Catalytic activity/Vol] 13 U/L Normal 13-39 [facility] Comment on above: Performed By: #### U HCG, ADDONUAPLUS, CUU, URDS #### [address] Automated basophil %Ordered By: Yojana Yap on 06-22-2023 Basophils/100 WBC (Bld) 0.5 % Normal . [facility] Comment on above: Performed By: #### U HCG, ADDONUAPLUS, CUU, URDS #### [address] Automated basophil countOrde red By: Yojana Yap on 06-22-2023 Basophils (Bld) [#/Vol] 0.1 10*3/uL Normal 0.0-0.2 [facility] Comment on above: Result Comment: PERF ORMED BY: [place] [address] PATHOLOGIST [employer] SUDHA ANDINO M.D. Performed By: #### U HCG, ADDONUAPLUS, CUU, URDS #### [address] Automated blood monocyte cou ntOrdered By: Yojana Yap on 06-22-2023 Monocytes (Bld) [#/Vol] 0.4 10*3/uL Normal 0.0-0.8 [facility] Comment on above: Performed By: #### U HCG, ADDONUAPLUS, CUU, URDS #### [address] Automated eosinophil %Ordere d By: Yojana Yap on 06-22-2023 Eosinophils/100 WBC (Bld) 0.3 % Normal . [facility] Comment on above: Performed By: #### U HCG, ADDONUAPLUS, CUU, URDS #### [address] Automated eosinophil countOr dered By: Yojana Yap on 06-22-2023 Eosinophils (Bld) [#/Vol] 0.0 10*3/uL Normal 0.0-0.45 [facility] Comment on above: Performed By: #### U HCG, ADDONUAPLUS, CUU, URDS #### [address] [place] [address] [place] Automated monocyte %Ordered By: Yojana Yap on 06-22-2023 Monocytes/100 WBC (Bld) 3.1 % Normal . [facility] Comment on above: Performed By: #### U HCG, ADDONUAPLUS, CUU, URDS #### [facility] [address] Automated neutrophil %Ordere d By: Yojana Yap on 06-22-2023 Neutrophils/100 WBC (Bld) 83.1 % Normal . [facility] Comment on above: Performed By: #### U HCG, ADDONUAPLUS, CUU, URDS #### [facility] [address] Basic Metabolic Panelon Creatinine Clr Calc Pharmacy 114.98 Normal [facility] Comment on above: Performed By: #### U HCG, ADDONUAPLUS, CUU, URDS #### [address] GFR/1.73 sq M.predicted MDRD (S/P/Bld) [Vol rate/Area] mL/min/{1.73_m2} Normal [facility] Comment on above: Performed By: #### U HCG, ADDONUAPLUS, CUU, URDS #### [facility] [address] [place] [address] Bilirubin.direct [Mass/volum e] in Serum or PlasmaOrdered By: Yojana Yap on 06-22-2023 Bilirubin.direct [Mass/Vol] 0.10 mg/dL 0.03-0.18 [facility] Bilirubin.total [Mass/volume ] in Serum or PlasmaOrdered By: Yojana Yap on 06-22-2023 Bilirubin [Mass/Vol] 0.6 mg/dL Normal 0.3-1.0 [facility] Comment on above: Performed By: #### U HCG, ADDONUAPLUS, CUU, URDS #### [facility] [address] [place] [address] CT abdomen pelvis wo conon 1 08-23-2022 CT abdomen pelvis wo con [facility] [address] [place] [address] CT Scan Report Signed Patient: Chrissy Dangelo MR#: [id number] : 1980 Acct:[id number] Age/Sex: 43 / F ADM Date: 06/22/23 Loc: ER Room: Type: ACCESS [facility] Attending Dr: Copies to: Yojana Yap DO Ordering Provider: Yojana Yap DO Date of Service: 06/22/23 CT/CT abdomen pelvis wo con: f CT abdomen pelvis wo con 06/22/2023 7:35 AM SIGNS AND SYMPTOMS: Left lower quadrant pain with episodic nausea, vomiting, and diarrhea TECHNIQUE: Multidetector ct axial images of the abdomen and pelvis were obtained without IV contrast. Multiplanar reformats were performed and reviewed to further define anatomy and possible pathology. CT was performed with one or more of the following dose reduction techniques: Automated exposure control, adjustment of the mA and/or kV according to patient size, or use of iterative reconstruction technique. COMPARISON: 03/06/2023 FINDINGS: Lower Chest: Within normal limits. ABDOMEN: Liver: Within normal limits. Bile Ducts: Normal caliber. Gallbladder: Previously removed. Pancreas: Within normal limits. Spleen: Within normal limits. Adrenals: There is hypertrophy of the adrenal glands bilaterally, similar to the prior exam. Kidneys: Within normal limits. Pelvis: Reproductive Organs: No pelvic masses. Ureters: Within normal limits. Bladder: Within normal limits. Bowel: Normal caliber. Mesenteric Lymph Nodes: No enlarged mesenteric lymph nodes. Peritoneum: No ascites or free air, no fluid collection. Vessels: Atherosclerotic changes are noted in the abdominal aorta and its branches Retroperitoneum: Within normal limits. Abdominal Wall: Within normal limits. Bones: Degenerative changes are noted in the lower lumbar spine. Degenerative changes are noted in the right sacroiliac joint. CT/CT abdomen pelvis wo con IMPRESSION: No bowel obstruction or obstructive uropathy. No free fluid or free air. No acute intra-abdominal pathology. Impression dictated by: Erik Marcus M.D.06/22/2023 8:54 AM Dictation Location: [place] [address] Transcribed By: [facility] 06/22/23 0854 Dictated By: Erik Marcus II, MD 06/22/23 0847 Signed By: 06/22/23 0854 Normal [facility] Calcium [Mass/volume] in Ser um or PlasmaOrdered By: Yojana Yap on 06-22-2023 Calcium [Mass/Vol] 10.0 mg/dL Normal 8.6-10.3 [facility] Comment on above: Performed By: #### U HCG, ADDONUAPLUS, CUU, URDS #### [facility] [address] Carbon dioxide, total [Moles /volume] in Serum or PlasmaOrdered By: Yojana Yap on 06-22-2023 CO2 [Moles/Vol] 30.6 mmol/L Normal 21.0-31.0 [facility] Comment on above: Performed By: #### U HCG, ADDONUAPLUS, CUU, URDS #### [facility] [address] [place] [address] Chloride [Moles/volume] in S terri or PlasmaOrdered By: Yojana Yap on 06-22-2023 Chloride [Moles/Vol] 103 mmol/L Normal 98-107 [facility] Comment on above: Performed By: #### U HCG, ADDONUAPLUS, CUU, URDS #### [facility] [address] [place] [address] Complete Blood Count Auto Di ffon 06-22-2023 Mean Corpuscular HGB Conc 34.1 g/dL Normal 32.0-35.0 [facility] Comment on above: Performed By: #### U HCG, ADDONUAPLUS, CUU, URDS #### [facility] [address] [place] [address] [place] Monocytes/100 WBC (Bld) 17.82 % Normal 0.00-20.00 [facility] Comment on above: Performed By: #### U HCG, ADDONUAPLUS, CUU, URDS #### [facility] [address] [place] [address] NRBC% 0.0 /100{WBC} Normal 0-0.5 [facility] Comment on above: Performed By: #### U HCG, ADDONUAPLUS, CUU, URDS #### [facility] [address] Creatinine [Mass/volume] in Serum or PlasmaOrdered By: Yojana Yap on 06-22-2023 Creatinine [Mass/Vol] 0.73 mg/dL Normal 0.60-1.20 [facility] Comment on above: Performed By: #### U HCG, ADDONUAPLUS, CUU, URDS #### [facility] [address] ECG 12 lead ECGon 06-22-2023 ECG 12 lead ECG [facility] [place] [address] [place] [address] Electrocardiograph Report Signed Patient: Chrissy Dangelo MR#: [id number] : 1980 Acct:[id number] Age/Sex: 43 / F ADM Date: 06/22/23 Loc: ER Room: Type: [facility] ER Attending Dr: Ordering Provider: Yojana Yap DO Date of Service: 06/22/2303/07/719 ECG/ECG 12 lead ECG: Abdominal Pain Copies to: Test Reason : Blood Pressure : 219/121 mmHG Vent. Rate : 074 BPM Atrial Rate : 074 BPM P-R Int : 158 ms QRS Dur : 082 ms QT Int : 398 ms P-R-T Axes : 078 080 073 degrees QTc Int : 441 ms Sinus rhythm with marked sinus arrhythmia Right atrial enlargement Borderline ECG When compared with ECG of 13-APR-2023 07:22, No significant change was found Confirmed by YOJANA YAP DO ([id number]) on 06/22/2023 4:41:30 PM Referred By: Electronically Signed By:YOJANA YAP DO Transcribed By: MUS Signed By Yojana Yap DO 06/22 1642 Normal [facility] Erythrocyte distribution wid th [Ratio] by Automated countOrdered By: Yojana Yap on 06-22-2023 Erythrocyte distribution width (RBC) [Ratio] 14.6 % Normal 11.9-15.3 [facility] Comment on above: Performed By: #### U HCG, ADDONUAPLUS, CUU, URDS #### [facility] [address] Erythrocytes [#/volume] in B lood by Automated countOrdered By: Yojana Yap on 06-22-2023 RBC (Bld) [#/Vol] 4.80 10*6/uL Normal 3.60-5.[address] [facility] Comment on above: Performed By: #### U HCG, ADDONUAPLUS, CUU, URDS #### [facility] [address] Glucose [Mass/volume] in Ser um or PlasmaOrdered By: Yojana Yap on 06-22-2023 Glucose [Mass/Vol] 134 mg/dL High 70-100 [facility] Comment on above: ADA recommended refe rence rangeRandom Glucose Reference Range is dependent on time and content of last meal. Glucose of more than 200 mg/dL in a nonstressed, ambulatory subject supports the diagnosis of Diabetes Mellitus. Result Comment: Farina om Glucose Reference Range is dependent on time and content of last meal. Glucose of more than 200 mg/dL in a nonstressed, ambulatory subject supports the diagnosis of Diabetes Mellitus. ADA recommended reference range Performed By: #### U HCG, ADDONUAPLUS, CUU, URDS #### [address] Hematocrit [Volume Fraction] of Blood by Automated countOrdered By: Yojana Yap on 06-22-2023 Hematocrit (Bld) [Volume fraction] 44.8 % Normal 34.0-46.4 [facility] Comment on above: Performed By: #### U HCG, ADDONUAPLUS, CUU, URDS #### [facility] [address] Hemoglobin [Mass/volume] in BloodOrdered By: Yojana Yap on 06-22-2023 Hemoglobin (Bld) [Mass/Vol] 15.3 g/dL Normal 11.8-15.4 [facility] Comment on above: Performed By: #### U HCG, ADDONUAPLUS, CUU, URDS #### [facility] [address] Hepatic Panelon 12-08-2023 Albumin [Mass/Vol] 4.4 g/dL Normal 3.5-5.7 [facility] Comment on above: Performed By: #### U HCG, ADDONUAPLUS, CUU, URDS #### [address] Bilirubin,Indirect 0.5 mg/dL Normal [facility] Comment on above: Performed By: #### U HCG, ADDONUAPLUS, CUU, URDS #### [address] Bilirubin.indirect [Mass/Vol] 0.10 mg/dL Normal 0.03-0.18 [facility] Comment on above: Performed By: #### U HCG, ADDONUAPLUS, CUU, URDS #### [address] INR in Platelet poor plasma by Coagulation assayOrdered By: Yojana Yap on 06-22-2023 INR Coag (PPP) [Relative time] 1.0 {INR} Normal [facility] Comment on above: INR Therapeutic Rang e A) Pre- and Peroperative OAT started two weeks before surgery. NOT HIP SURGERY: 1.5 - 2.5 HIP SURGERY: 2 - 3B) Primary and secondary prevention of venous THROMBOSIS: 2 - 3C) Active venous thrombosis, pulmonary embolismand prevention of recurrent venous thrombosis: 2 - 3D) Prevention of arterial thromboembolismincluding patients with mechanical heart valves: 3 - 4.5 Result Comment: INR Therapeutic Range A) Pre- and Peroperative OAT started two weeks before surgery. NOT HIP SURGERY: 1.5 - 2.5 HIP SURGERY: 2 - 3 B) Primary and secondary prevention of venous THROMBOSIS: 2 - 3 C) Active venous thrombosis, pulmonary embolism and prevention of recurrent venous thrombosis: 2 - 3 D) Prevention of arterial thromboembolism including patients with mechanical heart valves: 3 - 4.5 PERFORMED BY: [place] [address] PATHOLOGIST [employer] SUDHA ANDINO M.D. Performed By: #### U HCG, ADDONUAPLUS, CUU, URDS #### [address] [place] [address] [place] Leukocytes [#/volume] correc zen for nucleated erythrocytes in Blood by Automated counOrdered By: Yojana Yap on 06-22-2023 WBC corrected for nucl RBC Auto (Bld) [#/Vol] 11.6 10*3/uL 3.8-11.6 [facility] Leukocytes [#/volume] in Blo od by Automated countOrdered By: Yojana Yap on 06-22-2023 WBC (Bld) [#/Vol] 11.6 10*3/uL Normal 3.8-11.[address] [facility] Comment on above: Performed By: #### U HCG, ADDONUAPLUS, CUU, URDS #### [address] Lipase [Enzymatic activity/v olume] in Serum or PlasmaOrdered By: Yojana Yap on 06-22-2023 Lipase [Catalytic activity/Vol] 10.0 U/L Low 11.0-82.0 [facility] Comment on above: Result Comment: PERF ORMED BY: [place] [address] PATHOLOGIST [employer] SUDHA ANDINO M.D. Performed By: #### U HCG, ADDONUAPLUS, CUU, URDS #### [place] [address] [place] Lymphocytes [#/volume] in Bl ood by Automated countOrdered By: Yojana Yap on 06-22-2023 Lymphocytes (Bld) [#/Vol] 1.5 10*3/uL Normal 1.00-4.8 [facility] Comment on above: Performed By: #### U HCG, ADDONUAPLUS, CUU, URDS #### [place] [address] [place] Lymphocytes/100 leukocytes i n Blood by Automated countOrdered By: Yojana Yap on 06-22-2023 Lymphocytes/100 WBC (Bld) 13.0 % Normal . [facility] Comment on above: Performed By: #### U HCG, ADDONUAPLUS, CUU, URDS #### [address] [place] [address] [place] MCH [Entitic mass] by Automa zen countOrdered By: Yojana Yap on 06-22-2023 MCH (RBC) [Entitic mass] 31.8 pg Normal 24.7-34.3 [facility] Comment on above: Performed By: #### U HCG, ADDONUAPLUS, CUU, URDS #### [facility] [address] MCHC Auto (RBC) [Mass/Vol]Or dered By: Yojana Yap on 06-22-2023 MCHC (RBC) [Mass/Vol] 34.1 g/dL 32.0-35.0 [facility] MCV [Entitic volume] by Auto mated countOrdered By: Yojana Yap on 06-22-2023 MCV (RBC) [Entitic vol] 93.3 fL Normal 80-100 [facility] Comment on above: Performed By: #### U HCG, ADDONUAPLUS, CUU, URDS #### [facility] [address] [place] [address] Monocyte distribution width [Entitic volume] in Blood by AutomatedOrdered By: Yojana Yap on 06-22-2023 Monocyte distribution width Auto (Bld) [Entitic vol] 17.82 % 0.00-20.00 [facility] Neutrophils [#/volume] in Bl ood by Automated countOrdered By: Yojana Yap on 06-22-2023 Neutrophils (Bld) [#/Vol] 9.6 10*3/uL High 1.8-7.7 [facility] Comment on above: Performed By: #### U HCG, ADDONUAPLUS, CUU, URDS #### [facility] [address] [place] [address] No Panel InformationOrdered By: Yojana Yap on 06-22-2023 Estimated GFR (CKD-EPI) > 60.0 mL/Min [facility] Creatinine Clearance (Chem 114.98 [facility] Nucleated erythrocytes [Pres ence] in Blood by Automated countOrdered By: Yojana Yap on 06-22-2023 Nucleated RBC Auto Ql (Bld) 0.0 /100{WBC} 0-0.5 [facility] Platelet mean volume [Entiti c volume] in Blood by Automated countOrdered By: Yojana Yap on 06-22-2023 Platelet mean volume (Bld) [Entitic vol] 7.6 fL Normal 6.3-10.7 [facility] Comment on above: Performed By: #### U HCG, ADDONUAPLUS, CUU, URDS #### [facility] [address] [place] [id number] [place] Platelets [#/volume] in Bloo d by Automated countOrdered By: Yojana Yap on 06-22-2023 Platelets (Bld) [#/Vol] 353 10*3/uL Normal 150-450 [facility] Comment on above: Performed By: #### U HCG, ADDONUAPLUS, CUU, URDS #### [facility] [address] [place] [id number] [place] Potassium [Moles/volume] in Serum or PlasmaOrdered By: Yojana Yap on 06-22-2023 Potassium [Moles/Vol] 3.5 mmol/L Normal 3.5-5.1 [facility] Comment on above: Performed By: #### U HCG, ADDONUAPLUS, CUU, URDS #### [facility] [address] [place] [id number] [place] Protein [Mass/volume] in Ser um or PlasmaOrdered By: Yojana Yap on 06-22-2023 Protein [Mass/Vol] 7.2 g/dL Normal 6.4-8.9 [facility] Comment on above: Performed By: #### U HCG, ADDONUAPLUS, CUU, URDS #### [facility] [address] [place] [id number] [place] Prothrombin time (PT)Ordered By: Yojana Yap on 06-22-2023 PT Coag (PPP) [Time] 12.1 s Normal 9.0-12.9 [facility] Comment on above: A hematocrit value g reater than 55% may lead to inaccurate results in coagulation testing. Patients having hematocrit values >55% require a special collection tube for coagulation studies. Please contact the laboratory at [phone] for redraw instructions. Result Comment: A he matocrit value greater than 55% may lead to inaccurate results in coagulation testing. Patients having hematocrit values >55% require a special collection tube for coagulation studies. Please contact the laboratory at [phone] for redraw instructions. Performed By: #### U HCG, ADDONUAPLUS, CUU, URDS #### [facility] [address] [place] [address] Serum globulin measurement b y calculation (mass/volume)Ordered By: Yojana Yap on 06-22-2023 Globulin (S) [Mass/Vol] 2.8 g/dL [facility] Comment on above: Performed By: #### U HCG, ADDONUAPLUS, CUU, URDS #### [address] Serum or plasma albumin/glob ulin mass ratioOrdered By: Yojana Yap on 06-22-2023 Albumin/Globulin [Mass ratio] 1.6 {ratio} [facility] Comment on above: Performed By: #### U HCG, ADDONUAPLUS, CUU, URDS #### [address] Serum or plasma anion gap de terminationOrdered By: Yojana Yap on 06-22-2023 Anion gap [Moles/Vol] 10.9 mmol/L Normal 6.0-15.0 [facility] Comment on above: Performed By: #### U HCG, ADDONUAPLUS, CUU, URDS #### [facility] [address] [place] [address] Serum or plasma non-glucuron idated bilirubin measurement (mass/volume)Ordered By: Yojana Yap on 06-22-2023 Bilirubin.indirect [Mass/Vol] 0.5 mg/dL [facility] Sodium [Moles/volume] in Ser um or PlasmaOrdered By: Yojana Yap on 06-22-2023 Sodium [Moles/Vol] 141 mmol/L Normal 136-145 [facility] Comment on above: Performed By: #### U HCG, ADDONUAPLUS, CUU, URDS #### [facility] [address] [place] [address] [place] Urea nitrogen [Mass/volume] in Serum or PlasmaOrdered By: Yojana Yap on 06-22-2023 Urea nitrogen [Mass/Vol] 10 mg/dL Normal 7-25 [facility] Comment on above: Performed By: #### U HCG, ADDONUAPLUS, CUU, URDS #### [facility] [address] [place] [address] [place] Activated partial thrombopla stin time (aPTT) in platelet poor plasma by coagulation aOrdered By: Yojana Yap on 06-01-2023 aPTT Coag (PPP) [Time] 45.0 s 25.1-36.5 [facility] Comment on above: A hematocrit value g reater than 55% may lead to inaccurate results in coagulation testing. Patients having hematocrit values >55% require a special collection tube for coagulation studies. Please contact the laboratory at [phone] for redraw instructions. Alanine aminotransferase [En zymatic activity/volume] in Serum or PlasmaOrdered By: Yojana Yap on 06-01-2023 ALT [Catalytic activity/Vol] 11 U/L Normal 7-52 [facility] Comment on above: Performed By: #### U HCG, ADITYAONUAPLUS, CUU, URDS #### [place] [address] [place] Albumin [Mass/volume] in Ser um or Plasma by Bromocresol green (BCG) dye binding methoOrdered By: Yojana Yap on 06-01-2023 Albumin BCG dye [Mass/Vol] 4.3 g/dL 3.5-5.7 [facility] Alkaline phosphatase [Enzyma tic activity/volume] in Serum or PlasmaOrdered By: Yojana Yap on 06-01-2023 ALP [Catalytic activity/Vol] 95 U/L Normal 34-104 [facility] Comment on above: Performed By: #### U HCG, ADDONUAPLUS, CUU, URDS #### [facility] [address] [place] [address] [place] Aspartate aminotransferase [ Enzymatic activity/volume] in Serum or PlasmaOrdered By: Yojana Yap on 06-01-2023 AST [Catalytic activity/Vol] 14 U/L Normal 13-39 [facility] Comment on above: Performed By: #### U HCG, ADDONUAPLUS, CUU, URDS #### [facility] [address] [place] [address] Automated basophil %Ordered By: Yojana Yap on 06-01-2023 Basophils/100 WBC (Bld) 0.5 % Normal . [facility] Comment on above: Performed By: #### U HCG, ADDONUAPLUS, CUU, URDS #### [facility] [address] [place] [address] Automated basophil countOrde red By: Yojana Yap on 06-01-2023 Basophils (Bld) [#/Vol] 0.1 10*3/uL Normal 0.0-0.2 [facility] Comment on above: Result Comment: PERF ORMED BY: [place] [address] PATHOLOGIST [employer] SUDHA ANDINO M.D. Performed By: #### U HCG, ADDONUAPLUS, CUU, URDS #### [address] Automated blood monocyte cou ntOrdered By: Yojana Yap on 06-01-2023 Monocytes (Bld) [#/Vol] 0.7 10*3/uL Normal 0.0-0.8 [facility] Comment on above: Performed By: #### U HCG, ADDONUAPLUS, CUU, URDS #### [facility] [address] [place] [address] Automated eosinophil %Ordere d By: Yojana Yap on 06-01-2023 Eosinophils/100 WBC (Bld) 0.9 % Normal . [facility] Comment on above: Performed By: #### U HCG, ADDONUAPLUS, CUU, URDS #### [address] Automated eosinophil countOr dered By: Yojana Yap on 06-01-2023 Eosinophils (Bld) [#/Vol] 0.1 10*3/uL Normal 0.0-0.45 [facility] Comment on above: Performed By: #### U HCG, ADDONUAPLUS, CUU, URDS #### [facility] [address] Automated monocyte %Ordered By: Yojanalinette Yap on 06-01-2023 Monocytes/100 WBC (Bld) 4.8 % Normal . [facility] Comment on above: Performed By: #### U HCG, ADDONUAPLUS, CUU, URDS #### [facility] [address] Automated neutrophil %Ordere d By: Yojana Yap on 06-01-2023 Neutrophils/100 WBC (Bld) 79.2 % Normal . [facility] Comment on above: Performed By: #### U HCG, ADDONUAPLUS, CUU, URDS #### [address] Bilirubin.total [Mass/volume ] in Serum or PlasmaOrdered By: Yojana Yap on 06-01-2023 Bilirubin [Mass/Vol] 0.5 mg/dL Normal 0.3-1.0 [facility] Comment on above: Performed By: #### U HCG, ADDONUAPLUS, CUU, URDS #### [address] Calcium [Mass/volume] in Ser um or PlasmaOrdered By: Yojana Yap on 06-01-2023 Calcium [Mass/Vol] 9.9 mg/dL Normal 8.6-10.3 [facility] Comment on above: Performed By: #### U HCG, ADDONUAPLUS, CUU, URDS #### [place] [address] [place] Carbon dioxide, total [Moles /volume] in Serum or PlasmaOrdered By: Yojana Yap on 06-01-2023 CO2 [Moles/Vol] 29.3 mmol/L Normal 21.0-31.0 [facility] Comment on above: Performed By: #### U HCG, ADDONUAPLUS, CUU, URDS #### [address] [address] [place] Chloride [Moles/volume] in S terri or PlasmaOrdered By: Yojana Yap on 06-01-2023 Chloride [Moles/Vol] 101 mmol/L Normal 98-107 [facility] Comment on above: Performed By: #### U HCG, ADDONUAPLUS, CUU, URDS #### [address] Coagulation Profileon 2022 aPTT Coag (Bld) [Time] 45.0 s High 25.1-36.5 [facility] Comment on above: Result Comment: A he matocrit value greater than 55% may lead to inaccurate results in coagulation testing. Patients having hematocrit values >55% require a special collection tube for coagulation studies. Please contact the laboratory at [phone] for redraw instructions. PERFORMED BY: [place] [address] PATHOLOGIST [employer] SUDHA ANDINO M.D. Performed By: #### U HCG, ADDONUAPLUS, CUU, URDS #### [address] Complete Blood Count Auto Di ffon 06-01-2023 Mean Corpuscular HGB Conc 33.8 g/dL Normal 32.0-35.0 [facility] Comment on above: Performed By: #### U HCG, ADDONUAPLUS, CUU, URDS #### [address] Monocytes/100 WBC (Bld) 15.89 % Normal 0.00-20.00 [facility] Comment on above: Performed By: #### U HCG, ADDONUAPLUS, CUU, URDS #### [address] NRBC% 0.1 /100{WBC} Normal 0-0.5 [facility] Comment on above: Performed By: #### U HCG, ADDONUAPLUS, CUU, URDS #### [address] Comprehensive Metabolic Pane tony 06-01-2023 Albumin [Mass/Vol] 4.3 g/dL Normal 3.5-5.7 [facility] Comment on above: Performed By: #### U HCG, ADDONUAPLUS, CUU, URDS #### [address] Creatinine Clr Calc Pharmacy 110.97 Normal [facility] Comment on above: Result Comment: PERF ORMED BY: [place] [address] PATHOLOGIST [employer] SUDHA ANDINO M.D. Performed By: #### U HCG, ADDONUAPLUS, CUU, URDS #### [address] GFR/1.73 sq M.predicted MDRD (S/P/Bld) [Vol rate/Area] mL/min/{1.73_m2} Normal [facility] Comment on above: Performed By: #### U HCG, ADDONUAPLUS, CUU, URDS #### [address] Creatinine [Mass/volume] in Serum or PlasmaOrdered By: Yojana Yap on 06-01-2023 Creatinine [Mass/Vol] 0.76 mg/dL Normal 0.60-1.20 [facility] Comment on above: Performed By: #### U HCG, ADDONUAPLUS, CUU, URDS #### [facility] [address] [place] [address] [place] Erythrocyte distribution wid th [Ratio] by Automated countOrdered By: Yojana Yap on 06-01-2023 Erythrocyte distribution width (RBC) [Ratio] 14.7 % Normal 11.9-15.3 [facility] Comment on above: Performed By: #### U HCG, ADDONUAPLUS, CUU, URDS #### [facility] [address] [place] [address] Erythrocytes [#/volume] in B lood by Automated countOrdered By: Yojana Yap on 06-01-2023 RBC (Bld) [#/Vol] 4.68 10*6/uL Normal 3.60-5.[address] [facility] Comment on above: Performed By: #### U HCG, ADDONUAPLUS CUU, URDS #### [facility] [address] [place] [address] [place] Glucose [Mass/volume] in Ser um or PlasmaOrdered By: Yojana Yap on 06-01-2023 Glucose [Mass/Vol] 119 mg/dL High 70-100 [facility] Comment on above: ADA recommended refe rence rangeRandom Glucose Reference Range is dependent on time and content of last meal. Glucose of more than 200 mg/dL in a nonstressed, ambulatory subject supports the diagnosis of Diabetes Mellitus. Result Comment: Farina om Glucose Reference Range is dependent on time and content of last meal. Glucose of more than 200 mg/dL in a nonstressed, ambulatory subject supports the diagnosis of Diabetes Mellitus. ADA recommended reference range Performed By: #### U HCG, ADDONUAPLUS, CUU, URDS #### [facility] [address] Hematocrit [Volume Fraction] of Blood by Automated countOrdered By: Yojana Yap on 06-01-2023 Hematocrit (Bld) [Volume fraction] 43.9 % Normal 34.0-46.4 [facility] Comment on above: Performed By: #### U HCG, ADDONUAPLUS, CUU, URDS #### [facility] [address] [place] [address] [place] Hemoglobin [Mass/volume] in BloodOrdered By: Yojana Yap on 06-01-2023 Hemoglobin (Bld) [Mass/Vol] 14.9 g/dL Normal 11.8-15.4 [facility] Comment on above: Performed By: #### U HCG, ADITYAONUAPLUS, CUU, URDS #### [facility] [facility] [address] [place] [address] [place] INR in Platelet poor plasma by Coagulation assayOrdered By: Yojana Yap on 06-01-2023 INR Coag (PPP) [Relative time] 0.9 {INR} Normal [facility] Comment on above: INR Therapeutic Rang e A) Pre- and Peroperative OAT started two weeks before surgery. NOT HIP SURGERY: 1.5 - 2.5 HIP SURGERY: 2 - 3B) Primary and secondary prevention of venous THROMBOSIS: 2 - 3C) Active venous thrombosis, pulmonary embolismand prevention of recurrent venous thrombosis: 2 - 3D) Prevention of arterial thromboembolismincluding patients with mechanical heart valves: 3 - 4.5 Result Comment: INR Therapeutic Range A) Pre- and Peroperative OAT started two weeks before surgery. NOT HIP SURGERY: 1.5 - 2.5 HIP SURGERY: 2 - 3 B) Primary and secondary prevention of venous THROMBOSIS: 2 - 3 C) Active venous thrombosis, pulmonary embolism and prevention of recurrent venous thrombosis: 2 - 3 D) Prevention of arterial thromboembolism including patients with mechanical heart valves: 3 - 4.5 Performed By: #### U HCG, ASHLEY VILLALTA, URDS #### [facility] [address] [place] [address] Leukocytes [#/volume] correc zen for nucleated erythrocytes in Blood by Automated counOrdered By: Yojana Yap on 06-01-2023 WBC corrected for nucl RBC Auto (Bld) [#/Vol] 14.1 10*3/uL 3.8-11.6 [facility] Leukocytes [#/volume] in Blo od by Automated countOrdered By: Yojana Yap on 06-01-2023 WBC (Bld) [#/Vol] 14.1 10*3/uL High 3.8-11.[address] [facility] Comment on above: Performed By: #### U HCG, ZAK VILLALTAU, URDS #### [facility] [address] [place] [address] Lipase [Enzymatic activity/v olume] in Serum or PlasmaOrdered By: Yojana Yap on 06-01-2023 Lipase [Catalytic activity/Vol] 43.0 U/L Normal 11.0-82.0 [facility] Comment on above: Result Comment: PERF ORMED BY: [place] [address] PATHOLOGIST [employer] OFFICER SUDHA ANDINO M.D. Performed By: #### A DDONUAPLUS #### [facility] [address] [place] [address] Lymphocytes [#/volume] in Bl ood by Automated countOrdered By: Yojana Yap on 06-01-2023 Lymphocytes (Bld) [#/Vol] 2.1 10*3/uL Normal 1.00-4.8 [facility] Comment on above: Performed By: #### U HCG, ADDONUAPLUS, CUU, URDS #### [facility] [address] Lymphocytes/100 leukocytes i n Blood by Automated countOrdered By: Yojana Yap on 06-01-2023 Lymphocytes/100 WBC (Bld) 14.6 % Normal . [facility] Comment on above: Performed By: #### U HCG, ADDONUAPLUS, CUU, URDS #### [facility] [address] [place] [address] MCH [Entitic mass] by Automa zen countOrdered By: Yojana Yap on 06-01-2023 MCH (RBC) [Entitic mass] 31.7 pg Normal 24.7-34.3 [facility] Comment on above: Performed By: #### U HCG, ADDONUAPLUS, CUU, URDS #### [facility] [address] [place] [address] MCHC Auto (RBC) [Mass/Vol]Or dered By: Yojana Yap on 06-01-2023 MCHC (RBC) [Mass/Vol] 33.8 g/dL 32.0-35.0 [facility] MCV [Entitic volume] by Auto mated countOrdered By: Yojana Yap on 06-01-2023 MCV (RBC) [Entitic vol] 93.8 fL Normal 80-100 [facility] Comment on above: Performed By: #### U HCG, ADDONUAPLUS, CUU, URDS #### [facility] [address] [place] [address] Monocyte distribution width [Entitic volume] in Blood by AutomatedOrdered By: Yojana Yap on 06-01-2023 Monocyte distribution width Auto (Bld) [Entitic vol] 15.89 % 0.00-20.00 [facility] Neutrophils [#/volume] in Bl ood by Automated countOrdered By: Yojana Yap on 06-01-2023 Neutrophils (Bld) [#/Vol] 11.1 10*3/uL High 1.8-7.7 [facility] Comment on above: Performed By: #### U HCG, ADDONUAPLUS, CUU, URDS #### [facility] [address] No Panel InformationOrdered By: Yojana Yap on 06-01-2023 Estimated GFR (CKD-EPI) > 60.0 mL/Min [facility] Creatinine Clearance (Chem 110.97 [facility] Nucleated erythrocytes [Pres ence] in Blood by Automated countOrdered By: Yojana Yap on 06-01-2023 Nucleated RBC Auto Ql (Bld) 0.1 /100{WBC} 0-0.5 [facility] Platelet mean volume [Entiti c volume] in Blood by Automated countOrdered By: Yojana Yap on 06-01-2023 Platelet mean volume (Bld) [Entitic vol] 7.4 fL Normal 6.3-10.7 [facility] Comment on above: Performed By: #### U HCG, ADDONUAPLUS, CUU, URDS #### [facility] [address] [place] [address] [place] Platelets [#/volume] in Bloo d by Automated countOrdered By: Yojana Yap on 06-01-2023 Platelets (Bld) [#/Vol] 347 10*3/uL Normal 150-450 [facility] Comment on above: Performed By: #### U HCG, ADDONUAPLUS, CUU, URDS #### [facility] [address] [place] [address] [place] Potassium [Moles/volume] in Serum or PlasmaOrdered By: Yojana Yap on 06-01-2023 Potassium [Moles/Vol] 3.4 mmol/L Low 3.5-5.1 [facility] Comment on above: Performed By: #### U HCG, ADDONUAPLUS, CUU, URDS #### [facility] [address] [place] [address] [place] Protein [Mass/volume] in Ser um or PlasmaOrdered By: Yojana Yap on 06-01-2023 Protein [Mass/Vol] 7.0 g/dL Normal 6.4-8.9 [facility] Comment on above: Performed By: #### U HCG, ADDONUAPLUS, CUU, URDS #### [facility] [address] [place] [address] Prothrombin time (PT)Ordered By: Yojana Yap on 06-01-2023 PT Coag (PPP) [Time] 11.3 s Normal 9.0-12.9 [facility] Comment on above: A hematocrit value g reater than 55% may lead to inaccurate results in coagulation testing. Patients having hematocrit values >55% require a special collection tube for coagulation studies. Please contact the laboratory at [phone] for redraw instructions. Result Comment: A he matocrit value greater than 55% may lead to inaccurate results in coagulation testing. Patients having hematocrit values >55% require a special collection tube for coagulation studies. Please contact the laboratory at [phone] for redraw instructions. Performed By: #### U HCG, ADDONUAPLUS, CUU, URDS #### [address] Serum globulin measurement b y calculation (mass/volume)Ordered By: Yojana Yap on 06-01-2023 Globulin (S) [Mass/Vol] 2.7 g/dL [facility] Comment on above: Performed By: #### U HCG, ADITYAONUAPLUS CUU, URDS #### [facility] [address] [place] [address] Serum or plasma albumin/glob ulin mass ratioOrdered By: Yojana Yap on 06-01-2023 Albumin/Globulin [Mass ratio] 1.6 {ratio} [facility] Comment on above: Performed By: #### U HCG, ADDONUAPLUS, CUU, URDS #### [facility] [address] [place] [address] Serum or plasma anion gap de terminationOrdered By: Yojana Yap on 06-01-2023 Anion gap [Moles/Vol] 13.1 mmol/L Normal 6.0-15.0 [facility] Comment on above: Performed By: #### U HCG, ADDONUAPLUS, CUU, URDS #### [facility] [address] [place] [address] [place] Sodium [Moles/volume] in Ser um or PlasmaOrdered By: Yojana Yap on 06-01-2023 Sodium [Moles/Vol] 140 mmol/L Normal 136-145 [facility] Comment on above: Performed By: #### U HCG, ADDONUAPLUS, CUU, URDS #### [facility] [address] [place] [address] [place] Urea nitrogen [Mass/volume] in Serum or PlasmaOrdered By: Yojana Yap on 06-01-2023 Urea nitrogen [Mass/Vol] 13 mg/dL Normal 7-25 [facility] Comment on above: Performed By: #### U HCG, ADDONUAPLUS, CUU, URDS #### [facility] [address] [place] [address] [place] Alanine aminotransferase [En zymatic activity/volume] in Serum or PlasmaOrdered By: Violetta Bullimore on 05-10-2023 ALT [Catalytic activity/Vol] 15 U/L Normal 7-52 [facility] Comment on above: Performed By: #### A DDONUAPLUS #### [facility] [address] [place] [address] [place] Albumin [Mass/volume] in Ser um or Plasma by Bromocresol green (BCG) dye binding methoOrdered By: Violetta Bullimore on 05-10-2023 Albumin BCG dye [Mass/Vol] 4.7 g/dL 3.5-5.7 [facility] Alkaline phosphatase [Enzyma tic activity/volume] in Serum or PlasmaOrdered By: Violetta Bullimore on 05-10-2023 ALP [Catalytic activity/Vol] 107 U/L High 34-104 [facility] Comment on above: Performed By: #### A DDONUAPLUS #### [facility] [address] [place] [address] [place] Amylase [Enzymatic activity/ volume] in Serum or PlasmaOrdered By: Violetta Bullimore on 05-10-2023 Amylase [Catalytic activity/Vol] 27 U/L Low 29-103 [facility] Comment on above: Performed By: #### A DDONUAPLUS #### [address] Aspartate aminotransferase [ Enzymatic activity/volume] in Serum or PlasmaOrdered By: Violetta Bullimore on 05-10-2023 AST [Catalytic activity/Vol] 18 U/L Normal 13-39 [facility] Comment on above: Performed By: #### A DDONUAPLUS #### [address] Automated basophil %Ordered By: Violetta Bullimore on 05-10-2023 Basophils/100 WBC (Bld) 1.2 % Normal . [facility] Comment on above: Performed By: #### A DDONUAPLUS #### [address] Automated basophil countOrde red By: Violetta Bullimore on 05-10-2023 Basophils (Bld) [#/Vol] 0.1 10*3/uL Normal 0.0-0.2 [facility] Comment on above: Result Comment: PERF ORMED BY: [place] [address] PATHOLOGIST [employer] OFFICER SUDHA ANDINO M.D. Performed By: #### A DDONUAPLUS #### [address] Automated blood monocyte cou ntOrdered By: Violetta Bullimore on 05-10-2023 Monocytes (Bld) [#/Vol] 1.1 10*3/uL High 0.0-0.8 [facility] Comment on above: Performed By: #### A DDONUAPLUS #### [address] Automated eosinophil %Ordere d By: Violetta Bullimore on 05-10-2023 Eosinophils/100 WBC (Bld) 0.4 % Normal . [facility] Comment on above: Performed By: #### A DDONUAPLUS #### [address] Automated eosinophil countOr dered By: Violetta Bullimore on 05-10-2023 Eosinophils (Bld) [#/Vol] 0.0 10*3/uL Normal 0.0-0.45 [facility] Comment on above: Performed By: #### A DDONUAPLUS #### [address] Automated monocyte %Ordered By: Violetta Bullimore on 05-10-2023 Monocytes/100 WBC (Bld) 9.7 % Normal . [facility] Comment on above: Performed By: #### A DDONUAPLUS #### [address] Automated neutrophil %Ordere d By: Violetta Bullimore on 05-10-2023 Neutrophils/100 WBC (Bld) 70.6 % Normal . [facility] Comment on above: Performed By: #### A DDONUAPLUS #### [address] Bilirubin.total [Mass/volume ] in Serum or PlasmaOrdered By: Violetta Bullimore on 05-10-2023 Bilirubin [Mass/Vol] 0.8 mg/dL Normal 0.3-1.0 [facility] Comment on above: Performed By: #### A DDONUAPLUS #### [address] Calcium [Mass/volume] in Ser um or PlasmaOrdered By: Violetta Bullimore on 05-10-2023 Calcium [Mass/Vol] 10.4 mg/dL High 8.6-10.3 [facility] Comment on above: Performed By: #### A DDONUAPLUS #### [address] Carbon dioxide, total [Moles /volume] in Serum or PlasmaOrdered By: Violetta Bullimore on 05-10-2023 CO2 [Moles/Vol] 29.1 mmol/L Normal 21.0-31.0 [facility] Comment on above: Performed By: #### A DDONUAPLUS #### [address] Chloride [Moles/volume] in S terri or PlasmaOrdered By: Violetta Bah on 05-10-2023 Chloride [Moles/Vol] 98 mmol/L Normal 98-107 [facility] Comment on above: Performed By: #### A DDONUAPLUS #### [address] Complete Blood Count Auto Di ffon 05-10-2023 Mean Corpuscular HGB Conc 33.6 g/dL Normal 32.0-35.0 [facility] Comment on above: Performed By: #### A DDONUAPLUS #### [address] Monocytes/100 WBC (Bld) 20.49 % High 0.00-20.00 [facility] Comment on above: Result Comment: For adults in ED, MDW > 20.0 may be associated with a higher risk of sepsis during the first 12 hrs of hospital admission Performed By: #### A DDONUAPLUS #### [address] NRBC% 0.1 /100{WBC} Normal 0-0.5 [facility] Comment on above: Performed By: #### A DDONUAPLUS #### [address] Comprehensive Metabolic Pane tony 05-10-2023 Albumin [Mass/Vol] 4.7 g/dL Normal 3.5-5.7 [facility] Comment on above: Performed By: #### A DDONUAPLUS #### [address] Creatinine Clr Calc Pharmacy 96.87 Normal [facility] Comment on above: Performed By: #### A DDONUAPLUS #### [address] GFR/1.73 sq M.predicted MDRD (S/P/Bld) [Vol rate/Area] mL/min/{1.73_m2} Normal [facility] Comment on above: Performed By: #### A DDONUAPLUS #### [address] Creatinine [Mass/volume] in Serum or PlasmaOrdered By: Violetta Bullimore on 05-10-2023 Creatinine [Mass/Vol] 0.86 mg/dL Normal 0.60-1.20 [facility] Comment on above: Performed By: #### A DDONUAPLUS #### [address] Erythrocyte distribution wid th [Ratio] by Automated countOrdered By: Violetta Brysonimore on 05-10-2023 Erythrocyte distribution width (RBC) [Ratio] 14.4 % Normal 11.9-15.3 [facility] Comment on above: Performed By: #### A DDONUAPLUS #### [address] Erythrocytes [#/volume] in B lood by Automated countOrdered By: Violetta Brysonimore on 05-10-2023 RBC (Bld) [#/Vol] 5.21 10*6/uL High 3.60-5.[address] [facility] Comment on above: Performed By: #### A DDONUAPLUS #### [address] Glucose [Mass/volume] in Ser um or PlasmaOrdered By: Violetta Bullimore on 05-10-2023 Glucose [Mass/Vol] 145 mg/dL High 70-100 [facility] Comment on above: ADA recommended refe rence rangeRandom Glucose Reference Range is dependent on time and content of last meal. Glucose of more than 200 mg/dL in a nonstressed, ambulatory subject supports the diagnosis of Diabetes Mellitus. Result Comment: Farina om Glucose Reference Range is dependent on time and content of last meal. Glucose of more than 200 mg/dL in a nonstressed, ambulatory subject supports the diagnosis of Diabetes Mellitus. ADA recommended reference range Performed By: #### A DDONUAPLUS #### [place] [address] [place] Hematocrit [Volume Fraction] of Blood by Automated countOrdered By: Violetta Bah on 05-10-2023 Hematocrit (Bld) [Volume fraction] 48.3 % High 34.0-46.4 [facility] Comment on above: Performed By: #### A DDONUAPLUS #### [facility] [address] [place] [address] Hemoglobin [Mass/volume] in BloodOrdered By: Violetta Masseyimore on 05-10-2023 Hemoglobin (Bld) [Mass/Vol] 16.2 g/dL High 11.8-15.4 [facility] Comment on above: Performed By: #### A DDONUAPLUS #### [facility] [address] [place] [address] Leukocytes [#/volume] correc zen for nucleated erythrocytes in Blood by Automated counOrdered By: Violetta Bah on 05-10-2023 WBC corrected for nucl RBC Auto (Bld) [#/Vol] 11.2 10*3/uL 3.8-11.6 [facility] Leukocytes [#/volume] in Blo od by Automated countOrdered By: Violetta Bah on 05-10-2023 WBC (Bld) [#/Vol] 11.2 10*3/uL Normal 3.8-11.[address] [facility] Comment on above: Performed By: #### A DDONUAPLUS #### [address] Lipase [Enzymatic activity/v olume] in Serum or PlasmaOrdered By: Violetta Bah on 05-10-2023 Lipase [Catalytic activity/Vol] 10.0 U/L Low 11.0-82.0 [facility] Comment on above: Result Comment: PERF ORMED BY: [place] [address] PATHOLOGIST [employer] OFFIC[employer] SUDHA ANDINO M.D. Performed By: #### A DDONUAPLUS #### [address] Lymphocytes [#/volume] in Bl ood by Automated countOrdered By: Violetta Bullimore on 05-10-2023 Lymphocytes (Bld) [#/Vol] 2.0 10*3/uL Normal 1.00-4.8 [facility] Comment on above: Performed By: #### A DDONUAPLUS #### [address] Lymphocytes/100 leukocytes i n Blood by Automated countOrdered By: Violetta Bullimore on 05-10-2023 Lymphocytes/100 WBC (Bld) 18.1 % Normal . [facility] Comment on above: Performed By: #### A DDONUAPLUS #### [address] MCH [Entitic mass] by Automa zen countOrdered By: Violetta Bullimore on 05-10-2023 MCH (RBC) [Entitic mass] 31.2 pg Normal 24.7-34.3 [facility] Comment on above: Performed By: #### A DDONUAPLUS #### [address] MCHC Auto (RBC) [Mass/Vol]Or dered By: Violetta Bullimore on 05-10-2023 MCHC (RBC) [Mass/Vol] 33.6 g/dL 32.0-35.0 [facility] MCV [Entitic volume] by Auto mated countOrdered By: Violetta Masseyimore on 05-10-2023 MCV (RBC) [Entitic vol] 92.7 fL Normal 80-100 [facility] Comment on above: Performed By: #### A DDONUAPLUS #### [address] Magnesium [Mass/volume] in S terri or PlasmaOrdered By: Violetta Bullimore on 05-10-2023 Magnesium [Mass/Vol] 1.7 mg/dL Low 1.9-2.7 [facility] Comment on above: Performed By: #### A DDONUAPLUS #### [address] Monocyte distribution width [Entitic volume] in Blood by AutomatedOrdered By: Violetta Bullimore on 05-10-2023 Monocyte distribution width Auto (Bld) [Entitic vol] 20.49 % 0.00-20.00 [facility] Comment on above: For adults in ED, MD W > 20.0 may be associated with a higher risk of sepsis during the first 12 hrs of hospital admission Neutrophils [#/volume] in Bl ood by Automated countOrdered By: Violetta Bullimore on 05-10-2023 Neutrophils (Bld) [#/Vol] 7.9 10*3/uL High 1.8-7.7 [facility] Comment on above: Performed By: #### A DDONUAPLUS #### [facility] [address] [place] [address] No Panel InformationOrdered By: Violetta Masseyimore on 05-10-2023 Estimated GFR (CKD-EPI) > 60.0 mL/Min [facility] Creatinine Clearance (Chem 96.87 [facility] Nucleated erythrocytes [Pres ence] in Blood by Automated countOrdered By: Violetta Masseyimore on 05-10-2023 Nucleated RBC Auto Ql (Bld) 0.1 /100{WBC} 0-0.5 [facility] Platelet mean volume [Entiti c volume] in Blood by Automated countOrdered By: Violetta Masseyimore on 05-10-2023 Platelet mean volume (Bld) [Entitic vol] 7.4 fL Normal 6.3-10.7 [facility] Comment on above: Performed By: #### A DDONUAPLUS #### [facility] [address] [place] [address] Platelets [#/volume] in Bloo d by Automated countOrdered By: Violetta Masseyimore on 05-10-2023 Platelets (Bld) [#/Vol] 415 10*3/uL Normal 150-450 [facility] Comment on above: Performed By: #### A DDONUAPLUS #### [address] Potassium [Moles/volume] in Serum or PlasmaOrdered By: Violetta Bullimore on 05-10-2023 Potassium [Moles/Vol] 3.3 mmol/L Low 3.5-5.1 [facility] Comment on above: Performed By: #### A DDONUAPLUS #### [address] Protein [Mass/volume] in Ser um or PlasmaOrdered By: Violetta Bullimore on 05-10-2023 Protein [Mass/Vol] 8.1 g/dL Normal 6.4-8.9 [facility] Comment on above: Performed By: #### A DDONUAPLUS #### [address] Serum globulin measurement b y calculation (mass/volume)Ordered By: Violetta Bullimore on 05-10-2023 Globulin (S) [Mass/Vol] 3.4 g/dL [facility] Comment on above: Performed By: #### A DDONUAPLUS #### [address] Serum or plasma albumin/glob ulin mass ratioOrdered By: Violetta Bullimore on 05-10-2023 Albumin/Globulin [Mass ratio] 1.4 {ratio} [facility] Comment on above: Performed By: #### A DDONUAPLUS #### [address] Serum or plasma anion gap de terminationOrdered By: Violetat Bullimore on 05-10-2023 Anion gap [Moles/Vol] 14.2 mmol/L Normal 6.0-15.0 [facility] Comment on above: Performed By: #### A DDONUAPLUS #### [address] Sodium [Moles/volume] in Ser um or PlasmaOrdered By: Violetta Bullimore on 05-10-2023 Sodium [Moles/Vol] 138 mmol/L Normal 136-145 [facility] Comment on above: Performed By: #### A DDONUAPLUS #### [address] Urea nitrogen [Mass/volume] in Serum or PlasmaOrdered By: Violetta Bullimore on 05-10-2023 Urea nitrogen [Mass/Vol] 16 mg/dL Normal 7-25 [facility] Comment on above: Performed By: #### A DDONUAPLUS #### [facility] [address] Alanine aminotransferase [En zymatic activity/volume] in Serum or PlasmaOrdered By: Jae Song on 04-13-2023 ALT [Catalytic activity/Vol] 13 U/L Normal 7-52 [facility] Comment on above: Performed By: #### U HCG, ADDONUAPLUS, CUU, URDS #### [facility] [address] [place] [address] [place] Albumin [Mass/volume] in Ser um or Plasma by Bromocresol green (BCG) dye binding methoOrdered By: Jae Song on 04-13-2023 Albumin BCG dye [Mass/Vol] 4.6 g/dL 3.5-5.7 [facility] Alkaline phosphatase [Enzyma tic activity/volume] in Serum or PlasmaOrdered By: Jae Song on 04-13-2023 ALP [Catalytic activity/Vol] 105 U/L High 34-104 [facility] Comment on above: Performed By: #### U HCG, ADDONUAPLUS, CUU, URDS #### [place] [address] [place] Aspartate aminotransferase [ Enzymatic activity/volume] in Serum or PlasmaOrdered By: Jae Song on 04-13-2023 AST [Catalytic activity/Vol] 18 U/L Normal 13-39 [facility] Comment on above: Performed By: #### U HCG, ADDONUAPLUS, CUU, URDS #### [facility] [address] [place] [address] [place] Automated basophil %Ordered By: Jae Song on 04-13-2023 Basophils/100 WBC (Bld) 0.6 % Normal . [facility] Comment on above: Performed By: #### U HCG, ADDONUAPLUS, CUU, URDS #### [facility] [address] [place] [address] [place] Automated basophil countOrde red By: aJe Song on 04-13-2023 Basophils (Bld) [#/Vol] 0.1 10*3/uL Normal 0.0-0.2 [facility] Comment on above: Result Comment: PERF ORMED BY: [place] [address] PATHOLOGIST [employer] OFFICER SUDHA ANDINO M.D. Performed By: #### U HCG, ADDONUAPLUS, CUU, URDS #### [facility] [address] [place] [address] Automated blood monocyte cou ntOrdered By: Jae Song on 04-13-2023 Monocytes (Bld) [#/Vol] 0.6 10*3/uL Normal 0.0-0.8 [facility] Comment on above: Performed By: #### U HCG, ADDONUAPLUS, CUU, URDS #### [facility] [address] [place] [address] Automated eosinophil %Ordere d By: Jae Song on 04-13-2023 Eosinophils/100 WBC (Bld) 0.6 % Normal . [facility] Comment on above: Performed By: #### U HCG, ADDONUAPLUS, CUU, URDS #### [facility] [address] [place] [address] Automated eosinophil countOr dered By: Jae Song on 04-13-2023 Eosinophils (Bld) [#/Vol] 0.1 10*3/uL Normal 0.0-0.45 [facility] Comment on above: Performed By: #### U HCG, ADDONUAPLUS, CUU, URDS #### [facility] [address] [place] [address] Automated erythrocytes count in urine sediment (number/area)Ordered By: Jae Song on 04-13-2023 RBC Auto (Urine sed) [#/Area] 0-1 [HPF] 0-4 [facility] Automated leukocytes count i n urine sediment (number/area)Ordered By: Jae Song on 04-13-2023 WBC Auto (Urine sed) [#/Area] 1-2 [HPF] 0-4 [facility] Automated monocyte %Ordered By: Jae Song on 04-13-2023 Monocytes/100 WBC (Bld) 4.3 % Normal . [facility] Comment on above: Performed By: #### U HCG, ADDONUAPLUS, CUU, URDS #### [facility] [address] [place] [address] Automated neutrophil %Ordere d By: Jae Song on 04-13-2023 Neutrophils/100 WBC (Bld) 81.9 % Normal . [facility] Comment on above: Performed By: #### U HCG, ADDONUAPLUS, CUU, URDS #### [address] Automated urine color determ inationOrdered By: Jae Song on 04-13-2023 Color (U) Yellow Normal Yellow [facility] Comment on above: Order Comment: Name Collection Type:: Clean-Voided Midstream Performed By: #### A DDONUAPLUS #### [address] Basic Metabolic Panelon 03-17 Creatinine Clr Calc Pharmacy 93.53 Normal [facility] Comment on above: Performed By: #### U HCG, ADDONUAPLUS, CUU, URDS #### [address] GFR/1.73 sq M.predicted MDRD (S/P/Bld) [Vol rate/Area] mL/min/{1.73_m2} Normal [facility] Comment on above: Performed By: #### U HCG, ADDONUAPLUS, CUU, URDS #### [address] Bilirubin Test strip Ql (U)O rdered By: Jae Song on 04-13-2023 Bilirubin Ql (U) Negative Negative [facility] Bilirubin.direct [Mass/volum e] in Serum or PlasmaOrdered By: Jae Song on 04-13-2023 Bilirubin.direct [Mass/Vol] 0.10 mg/dL 0.03-0.18 [facility] Bilirubin.total [Mass/volume ] in Serum or PlasmaOrdered By: Jae Song on 04-13-2023 Bilirubin [Mass/Vol] 0.5 mg/dL Normal 0.3-1.0 [facility] Comment on above: Performed By: #### U HCG, ADDONUAPLUS, CUU, URDS #### [facility] [address] Calcium [Mass/volume] in Ser um or PlasmaOrdered By: Jae Song on 04-13-2023 Calcium [Mass/Vol] 10.8 mg/dL High 8.6-10.3 [facility] Comment on above: Performed By: #### U HCG, ADDONUAPLUS, CUU, URDS #### [facility] [address] Carbon dioxide, total [Moles /volume] in Serum or PlasmaOrdered By: Jae Song on 04-13-2023 CO2 [Moles/Vol] 31.4 mmol/L High 21.0-31.0 [facility] Comment on above: Performed By: #### U HCG, ADDONUAPLUS, CUU, URDS #### [facility] [address] [place] [address] [place] Chloride [Moles/volume] in S terri or PlasmaOrdered By: Jae Song on 04-13-2023 Chloride [Moles/Vol] 103 mmol/L Normal 98-107 [facility] Comment on above: Performed By: #### U HCG, ADDONUAPLUS, CUU, URDS #### [facility] [address] Choriogonadotropin.beta subu nit [Units/volume] in Serum or PlasmaOrdered By: Jae Song on 04-13-2023 HCG.beta subunit Qn 29.40 m[IU]/mL [facility] Comment on above: Approximate Approxim ate hCG Gestational Age Range (mIU/ml) (weeks)0.2-1 5-50 1-2 50-500 2-3 100-5,000 3-4 500-10,000 4-5 1,000-50,000 5-6 10,000-100,000 6-8 15,000-200,000 8-12 10,000-100,000 Complete Blood Count Auto Di ffon 04-13-2023 Mean Corpuscular HGB Conc 33.7 g/dL Normal 32.0-35.0 [facility] Comment on above: Performed By: #### U HCG, ADDONUAPLUS, CUU, URDS #### [facility] [address] [place] [address] [place] Monocytes/100 WBC (Bld) 18.22 % Normal 0.00-20.00 [facility] Comment on above: Performed By: #### U HCG, ADDONUAPLUS, CUU, URDS #### [facility] [address] [place] [address] [place] NRBC% 0.1 /100{WBC} Normal 0-0.5 [facility] Comment on above: Performed By: #### U HCG, ADDONUAPLUS, CUU, URDS #### [place] [address] [place] Creatinine [Mass/volume] in Serum or PlasmaOrdered By: Jae Song on 04-13-2023 Creatinine [Mass/Vol] 0.91 mg/dL Normal 0.60-1.20 [facility] Comment on above: Performed By: #### U HCG, ADDONUAPLUS, CUU, URDS #### [place] [address] [place] Dipstick and Microscopicon 0 04-13-2023 Appearance (U) Turbid Critically abnormal Clear [facility] Comment on above: Order Comment: Name Collection Type:: Clean-Voided Midstream Performed By: #### A DDONUAPLUS #### [place] [address] [place] Bacteria,Urine 1+ High None Seen [facility] Comment on above: Order Comment: Name Collection Type:: Clean-Voided Midstream Performed By: #### A DDONUAPLUS #### [place] [address] [place] Bilirubin,Urine Negative Normal Negative [facility] Comment on above: Order Comment: Name Collection Type:: Clean-Voided Midstream Performed By: #### A DDONUAPLUS #### [place] [address] [place] Glucose Ql (U) Normal Normal Normal [facility] Comment on above: Order Comment: Name Collection Type:: Clean-Voided Midstream Performed By: #### A DDONUAPLUS #### [place] [address] [place] Hyaline Casts,Urine 0-8 Normal 0-8 [facility] Comment on above: Order Comment: Name Collection Type:: Clean-Voided Midstream Result Comment: PERF ORMED BY: [place] [address] PATHOLOGIST [employer] SUDHA ANDINO M.D. Performed By: #### A DDONUAPLUS #### [place] [address] [place] Ketones Ql (U) Negative Normal Negative [facility] Comment on above: Order Comment: Name Collection Type:: Clean-Voided Midstream Performed By: #### A DDONUAPLUS #### [place] [address] [place] Leukocyte esterase Test strip Ql (U) Negative Normal Negative [facility] Comment on above: Order Comment: Name Collection Type:: Clean-Voided Midstream Performed By: #### A DDONUAPLUS #### [place] [address] [place] Nitrite,Urine Negative Normal Negative [facility] Comment on above: Order Comment: Name Collection Type:: Clean-Voided Midstream Performed By: #### A DDONUAPLUS #### [place] [address] [place] Occult Blood,Urine Negative Normal Negative [facility] Comment on above: Order Comment: Name Collection Type:: Clean-Voided Midstream Result Comment: PERF ORMED BY: [place] [address] PATHOLOGIST [employer] OFF[employer] SUDHA ANDINO M.D. Performed By: #### A DDONUAPLUS #### [address] Protein,Urine Negative Normal Negative [facility] Comment on above: Order Comment: Name Collection Type:: Clean-Voided Midstream Performed By: #### A DDONUAPLUS #### [place] [address] [place] RBC LM.HPF (Urine sed) [#/Area] 0 /[HPF] Normal 0-4 [facility] Comment on above: Order Comment: Name Collection Type:: Clean-Voided Midstream Performed By: #### A DDONUAPLUS #### [address] Specificy [place],Urine 1.012 Normal 1.001-1.030 [facility] Comment on above: Order Comment: Name Collection Type:: Clean-Voided Midstream Performed By: #### A DDONUAPLUS #### [address] Squamous Epithelial Cell,Urine 5-9 High 0-2 [facility] Comment on above: Order Comment: Name Collection Type:: Clean-Voided Midstream Performed By: #### A DDONUAPLUS #### [place] [address] [place] Urobilinogen,Urine Normal Normal Normal [facility] Comment on above: Order Comment: Name Collection Type:: Clean-Voided Midstream Performed By: #### A DDONUAPLUS #### [place] [address] [place] WBC,Urine 1-2 Normal 0-4 [facility] Comment on above: Order Comment: Name Collection Type:: Clean-Voided Midstream Performed By: #### A DDONUAPLUS #### [address] ECG 12 lead ECGon 04-13-2023 ECG 12 lead ECG [facility] [place] [address] [place] [address] Electrocardiograph Report Signed Patient: Chrissy Dangelo MR#: [id number] : 1980 Acct:[id number] Age/Sex: 42 / F ADM Date: 04/13/23 Loc: ER Room: Type: [facility] ER Attending Dr: Ordering Provider: Jae Song DO Date of Service: 04/13/23 ECG/ECG 12 lead ECG: Abdominal Pain Copies to: Test Reason : Blood Pressure : 189/112 mmHG Vent. Rate : 054 BPM Atrial Rate : 054 BPM P-R Int : 146 ms QRS Dur : 088 ms QT Int : 466 ms P-R-T Axes : 052 061 041 degrees QTc Int : 441 ms Sinus bradycardia Confirmed by Jae SONG DO ([id number]) on 04/13/2023 11:10:50 AM Referred By: Electronically Signed By:Jae SONG DO Transcribed By: MUS Signed By Jae Song DO 0 04/13/23 1110 Normal [facility] Erythrocyte distribution wid th [Ratio] by Automated countOrdered By: Jae Song on 04-13-2023 Erythrocyte distribution width (RBC) [Ratio] 13.7 % Normal 11.9-15.3 [facility] Comment on above: Performed By: #### U HCG, ADDONUAPLUS, CUU, URDS #### [facility] [address] [place] [address] [place] Erythrocytes [#/volume] in B lood by Automated countOrdered By: Jae Song on 04-13-2023 RBC (Bld) [#/Vol] 4.72 10*6/uL Normal 3.60-5.[address] [facility] Comment on above: Performed By: #### U HCG, ADDONUAPLUS, CUU, URDS #### [facility] [address] [place] [id number] [place] Glucose [Mass/volume] in Ser um or PlasmaOrdered By: Jae Song on 04-13-2023 Glucose [Mass/Vol] 131 mg/dL High 70-100 [facility] Comment on above: ADA recommended refe rence rangeRandom Glucose Reference Range is dependent on time and content of last meal. Glucose of more than 200 mg/dL in a nonstressed, ambulatory subject supports the diagnosis of Diabetes Mellitus. Result Comment: Farina om Glucose Reference Range is dependent on time and content of last meal. Glucose of more than 200 mg/dL in a nonstressed, ambulatory subject supports the diagnosis of Diabetes Mellitus. ADA recommended reference range Performed By: #### U HCG, ADDONUAPLUS, CUU, URDS #### [address] HCG,Quantitativeon HCG,Quantitative 29.40 m[iU]/mL Normal [facility] Comment on above: Result Comment: Appr oximate Approximate hCG Gestational Age Range (mIU/ml) (weeks) 0.2-1 5-50 1-2 50-500 2-3 100-5,000 3-4 500-10,000 4-5 1,000-50,000 5-6 10,000-100,000 6-8 15,000-200,000 8-12 10,000-100,000 PERFORMED BY: [place] [address] PATHOLOGIST [employer] OFF[employer]ER SUDHA ANDINO M.D. Performed By: #### U HCG, ADDONUAPLUS, CUU, URDS #### [address] Hematocrit [Volume Fraction] of Blood by Automated countOrdered By: Jae Song on 04-13-2023 Hematocrit (Bld) [Volume fraction] 44.0 % Normal 34.0-46.4 [facility] Comment on above: Performed By: #### U HCG, ADDONUAPLUS, CUU, URDS #### [address] Hemoglobin [Mass/volume] in BloodOrdered By: Jae Song on 04-13-2023 Hemoglobin (Bld) [Mass/Vol] 14.8 g/dL Normal 11.8-15.4 [facility] Comment on above: Performed By: #### U HCG, ADDONUAPLUS, CUU, URDS #### [address] Hepatic Panelon 04-13-2023 Albumin [Mass/Vol] 4.6 g/dL Normal 3.5-5.7 [facility] Comment on above: Performed By: #### U HCG, ADDONUAPLUS, CUU, URDS #### [facility] [address] Bilirubin,Indirect 0.4 mg/dL Normal [facility] Comment on above: Performed By: #### U HCG, ADDONUAPLUS, CUU, URDS #### [facility] [address] Bilirubin.indirect [Mass/Vol] 0.10 mg/dL Normal 0.03-0.18 [facility] Comment on above: Performed By: #### U HCG, ADDONUAPLUS, CUU, URDS #### [facility] [address] Ketones Auto test strip (U) [Mass/Vol]Ordered By: Jae Song on 04-13-2023 Ketones (U) [Mass/Vol] Negative Negative [facility] - UrinalysisOrder ed By: Jae Song on 04-13-2023 Hyaline casts LM Ql (Urine sed) 0-8 [LPF] 0-8 [facility] Leukocytes [#/volume] correc zen for nucleated erythrocytes in Blood by Automated counOrdered By: Jae Song on 04-13-2023 WBC corrected for nucl RBC Auto (Bld) [#/Vol] 13.2 10*3/uL 3.8-11.6 [facility] Leukocytes [#/volume] in Blo od by Automated countOrdered By: Jae Song on 04-13-2023 WBC (Bld) [#/Vol] 13.2 10*3/uL High 3.8-11.[address] [facility] Comment on above: Performed By: #### U HCG, ADDONUAPLUS, CUU, URDS #### [facility] [address] Lipase [Enzymatic activity/v olume] in Serum or PlasmaOrdered By: Jae Song on 04-13-2023 Lipase [Catalytic activity/Vol] 25.0 U/L Normal 11.0-82.0 [facility] Comment on above: Performed By: #### U HCG, ADDONUAPLUS, CUU, URDS #### [facility] [address] [place] [address] Lymphocytes [#/volume] in Bl ood by Automated countOrdered By: Jae Song on 04-13-2023 Lymphocytes (Bld) [#/Vol] 1.7 10*3/uL Normal 1.00-4.8 [facility] Comment on above: Performed By: #### U HCG, ADDONUAPLUS, CUU, URDS #### [address] Lymphocytes/100 leukocytes i n Blood by Automated countOrdered By: Jae Song on 04-13-2023 Lymphocytes/100 WBC (Bld) 12.6 % Normal . [facility] Comment on above: Performed By: #### U HCG, ADDONUAPLUS, CUU, URDS #### [address] MCH [Entitic mass] by Automa zen countOrdered By: Jae Song on 04-13-2023 MCH (RBC) [Entitic mass] 31.3 pg Normal 24.7-34.3 [facility] Comment on above: Performed By: #### U HCG, ADDONUAPLUS, CUU, URDS #### [address] MCHC Auto (RBC) [Mass/Vol]Or dered By: Jae Song on 04-13-2023 MCHC (RBC) [Mass/Vol] 33.7 g/dL 32.0-35.0 [facility] MCV [Entitic volume] by Auto mated countOrdered By: Jae Song on 04-13-2023 MCV (RBC) [Entitic vol] 93.1 fL Normal 80-100 [facility] Comment on above: Performed By: #### U HCG, ADDONUAPLUS, CUU, URDS #### [address] Magnesium [Mass/volume] in S terri or PlasmaOrdered By: Jae Song on 04-13-2023 Magnesium [Mass/Vol] 1.8 mg/dL Low 1.9-2.7 [facility] Comment on above: Performed By: #### U HCG, ZAK VILLALTAU, URDS #### [facility] [address] Monocyte distribution width [Entitic volume] in Blood by AutomatedOrdered By: Jae Song on 04-13-2023 Monocyte distribution width Auto (Bld) [Entitic vol] 18.22 % 0.00-20.00 [facility] Neutrophils [#/volume] in Bl ood by Automated countOrdered By: Jae Song on 04-13-2023 Neutrophils (Bld) [#/Vol] 10.8 10*3/uL High 1.8-7.7 [facility] Comment on above: Performed By: #### U HCG, ZAK VILLALTAU, URDS #### [facility] [address] [place] [address] Nitrite Test strip Ql (U)Ord ered By: Jae Song on 04-13-2023 Nitrite Ql (U) Negative Negative [facility] No Panel InformationOrdered By: Jae Song on 04-13-2023 Estimated GFR (CKD-EPI) > 60.0 mL/Min [facility] Creatinine Clearance (Chem 93.53 [facility] Nucleated erythrocytes [Pres ence] in Blood by Automated countOrdered By: Jae Song on 04-13-2023 Nucleated RBC Auto Ql (Bld) 0.1 /100{WBC} 0-0.5 [facility] Platelet mean volume [Entiti c volume] in Blood by Automated countOrdered By: Jae Song on 04-13-2023 Platelet mean volume (Bld) [Entitic vol] 7.0 fL Normal 6.3-10.7 [facility] Comment on above: Performed By: #### U HCG, PAWAN, CUU, URDS #### [facility] [address] [place] [address] [place] Platelets [#/volume] in Bloo d by Automated countOrdered By: Jae Song on 04-13-2023 Platelets (Bld) [#/Vol] 352 10*3/uL Normal 150-450 [facility] Comment on above: Performed By: #### U HCG, ADDONUAPLUS, CUU, URDS #### [facility] [address] [place] [address] Potassium [Moles/volume] in Serum or PlasmaOrdered By: Jae Song on 04-13-2023 Potassium [Moles/Vol] 4.3 mmol/L Normal 3.5-5.1 [facility] Comment on above: Performed By: #### U HCG, ADDONUAPLUS, CUU, URDS #### [facility] [address] [place] [address] Protein Auto test strip (U) [Mass/Vol]Ordered By: Jae Song on 04-13-2023 Protein (U) [Mass/Vol] Negative Negative [facility] Protein [Mass/volume] in Ser um or PlasmaOrdered By: Jae Song on 04-13-2023 Protein [Mass/Vol] 7.6 g/dL Normal 6.4-8.9 [facility] Comment on above: Performed By: #### U HCG, ADDONUAPLUS, CUU, URDS #### [facility] [address] [place] [address] Serum globulin measurement b y calculation (mass/volume)Ordered By: Jae Song on 04-13-2023 Globulin (S) [Mass/Vol] 3.0 g/dL [facility] Comment on above: Performed By: #### U HCG, ADDONUAPLUS, CUU, URDS #### [facility] [address] [place] [address] Serum or plasma albumin/glob ulin mass ratioOrdered By: Jae Song on 04-13-2023 Albumin/Globulin [Mass ratio] 1.5 {ratio} [facility] Comment on above: Performed By: #### U HCG, ADDONUAPLUS, CUU, URDS #### [facility] [address] [place] [address] Serum or plasma anion gap de terminationOrdered By: Jae Song on 04-13-2023 Anion gap [Moles/Vol] 11.9 mmol/L Normal 6.0-15.0 [facility] Comment on above: Performed By: #### U KATIANA, ASHLEY VILLALTA, URDS #### [facility] [address] [place] [address] Serum or plasma non-glucuron idated bilirubin measurement (mass/volume)Ordered By: Jae Song on 04-13-2023 Bilirubin.indirect [Mass/Vol] 0.4 mg/dL [facility] Sodium [Moles/volume] in Ser um or PlasmaOrdered By: Jae Song on 04-13-2023 Sodium [Moles/Vol] 142 mmol/L Normal 136-145 [facility] Comment on above: Performed By: #### U KATIANA, ASHLEY VILLALTA, URDS #### [facility] [address] [place] [address] Specific gravity Auto test s trip (U) [Rel density]Ordered By: Jae Song on 04-13-2023 Specific gravity (U) [Rel density] 1.012 1.001-1.030 [facility] Squamous epithelial cells de tection in urine sediment by light microscopyOrdered By: Jae Song on 04-13-2023 Epithelial cells.squamous LM Ql (Urine sed) 5-9 [HPF] 0-2 [facility] Urea nitrogen [Mass/volume] in Serum or PlasmaOrdered By: Jae Song on 04-13-2023 Urea nitrogen [Mass/Vol] 13 mg/dL Normal 7-25 [facility] Comment on above: Performed By: #### U KATIANA, ZAK VILLALTAU, URDS #### [facility] [address] [place] [address] Urine bacteria detection by automated methodOrdered By: Jae Song on 04-13-2023 Bacteria Auto Ql (U) 1+ None Seen [facility] Urine clarity by refractomet ry automatedOrdered By: Jae Song on 04-13-2023 Clarity Refractometry automated (U) Turbid Clear [facility] Urine glucose measurement by automated test strip (mass/volume)Ordered By: Jae Song on 04-13-2023 Glucose Auto test strip (U) [Mass/Vol] Normal mg/dL Normal [facility] Urine hemoglobin detection b y automated test stripOrdered By: Jae Song on 04-13-2023 Hemoglobin Auto test strip Ql (U) Negative Negative [facility] Urine leukocyte esterase det ection by automated test stripOrdered By: Jae Song on 04-13-2023 Leukocyte esterase Auto test strip Ql (U) Negative Negative [facility] Urine pH measurement by auto mated test stripOrdered By: Jae Song on 04-13-2023 pH (U) 8.0 [pH] Normal 5.0-9.0 [facility] Comment on above: Order Comment: Name Collection Type:: Clean-Voided Midstream Performed By: #### A DDONUAPLUS #### [address] Urobilinogen Auto test strip (U) [Mass/Vol]Ordered By: Jae Song on 04-13-2023 Urobilinogen (U) [Mass/Vol] Normal mg/dL Normal [facility] Alanine aminotransferase [En zymatic activity/volume] in Serum or PlasmaOrdered By: Misty Guallpa on 03-06-2023 ALT [Catalytic activity/Vol] 13 U/L Normal 7-52 [facility] Comment on above: Performed By: #### U HCG, ADDONUAPLUS, CUU, URDS #### [facility] [address] [place] [address] [place] Albumin [Mass/volume] in Ser um or Plasma by Bromocresol green (BCG) dye binding methoOrdered By: Misty Guallpa on 03-06-2023 Albumin BCG dye [Mass/Vol] 4.6 g/dL 3.5-5.7 [facility] Alkaline phosphatase [Enzyma tic activity/volume] in Serum or PlasmaOrdered By: Misty Guallpa on 03-06-2023 ALP [Catalytic activity/Vol] 100 U/L Normal 34-104 [facility] Comment on above: Performed By: #### U HCG, ADDONUAPLUS, CUU, URDS #### [facility] [address] [place] [address] [place] Aspartate aminotransferase [ Enzymatic activity/volume] in Serum or PlasmaOrdered By: Misty Guallpa on 03-06-2023 AST [Catalytic activity/Vol] 16 U/L Normal 13-39 [facility] Comment on above: Performed By: #### U HCG, ADDONUAPLUS, CUU, URDS #### [address] Automated basophil %Ordered By: Misty Guallpa on 03-06-2023 Basophils/100 WBC (Bld) 0.8 % Normal . [facility] Comment on above: Performed By: #### U HCG, ADDONUAPLUS, CUU, URDS #### [address] Automated basophil countOrde red By: Misty Guallpa on 03-06-2023 Basophils (Bld) [#/Vol] 0.1 10*3/uL Normal 0.0-0.2 [facility] Comment on above: Performed By: #### U HCG, ADDONUAPLUS, CUU, URDS #### [address] Automated blood monocyte cou ntOrdered By: Misty Guallpa on 03-06-2023 Monocytes (Bld) [#/Vol] 0.5 10*3/uL Normal 0.0-0.8 [facility] Comment on above: Performed By: #### U HCG, ADDONUAPLUS, CUU, URDS #### [address] Automated eosinophil %Ordere d By: Misty Guallpa on 03-06-2023 Eosinophils/100 WBC (Bld) 0.4 % Normal . [facility] Comment on above: Performed By: #### U HCG, ADDONUAPLUS, CUU, URDS #### [address] Automated eosinophil countOr dered By: Misty Guallpa on 03-06-2023 Eosinophils (Bld) [#/Vol] 0.1 10*3/uL Normal 0.0-0.45 [facility] Comment on above: Performed By: #### U HCG, ADDONUAPLUS, CUU, URDS #### [facility] [address] Automated erythrocytes count in urine sediment (number/area)Ordered By: Misty Guallpa on 03-06-2023 RBC Auto (Urine sed) [#/Area] 0-1 [HPF] 0-4 [facility] Automated leukocytes count i n urine sediment (number/area)Ordered By: Misty Guallpa on 03-06-2023 WBC Auto (Urine sed) [#/Area] 5-9 [HPF] 0-4 [facility] Automated monocyte %Ordered By: Misty Guallpa on 03-06-2023 Monocytes/100 WBC (Bld) 3.5 % Normal . [facility] Comment on above: Performed By: #### U HCG, ADDONUAPLUS, CUU, URDS #### [address] Automated neutrophil %Ordere d By: Misty Guallpa on 03-06-2023 Neutrophils/100 WBC (Bld) 81.3 % Normal . [facility] Comment on above: Performed By: #### U HCG, ADDONUAPLUS, CUU, URDS #### [facility] [address] [place] [address] Automated urine color determ inationOrdered By: Misty Guallpa on 03-06-2023 Color (U) Yellow Normal Yellow [facility] Comment on above: Order Comment: Name Collection Type:: Clean-Voided Midstream Performed By: #### A DDONUAPLUS #### [facility] [address] [place] [address] Basic Metabolic Panelon 02-14 Creatinine Clr Calc Pharmacy 114.70 Normal [facility] Comment on above: Performed By: #### U HCG, ADDONUAPLUS, CUU, URDS #### [address] GFR/1.73 sq M.predicted MDRD (S/P/Bld) [Vol rate/Area] mL/min/{1.73_m2} Normal [facility] Comment on above: Performed By: #### U HCG, ADDONUAPLUS, CUU, URDS #### [facility] [address] [place] [id number] [facility] Bilirubin Test strip Ql (U)O rdered By: Misty Guallpa on 03-06-2023 Bilirubin Ql (U) Negative Negative [facility] Bilirubin.direct [Mass/volum e] in Serum or PlasmaOrdered By: Misty Guallpa on 03-06-2023 Bilirubin.direct [Mass/Vol] 0.00 mg/dL 0.03-0.18 [facility] Comment on above: If the DBIL is less than 0.1, IBIL is not able to becalculated. Bilirubin.total [Mass/volume ] in Serum or PlasmaOrdered By: Misty Guallpa on 03-06-2023 Bilirubin [Mass/Vol] 0.6 mg/dL Normal 0.3-1.0 [facility] Comment on above: Performed By: #### U HCG, ADDONUAPLUS, CUU, URDS #### [facility] [address] [id number] [facility] CT abdomen pelvis wo conon 0 03-06-2023 CT abdomen pelvis wo con [facility] [place] [address] [place] [address] CT Scan Report Signed Patient: Chrissy Dangelo MR#: [id number] : 1980 Acct:[id number] Age/Sex: 42 / F ADM Date: 03/06/23 Loc: ER Room: Type: [facility] ER Attending Dr: Copies to: Misty Guallpa MD Ordering Provider: Msity Guallpa MD Date of Service: 03/06/23 CT/CT abdomen pelvis wo con: Abdominal Pain, LUQ, rebound CT Abdomen and Pelvis withoutcontrast TECHNIQUE: Axial imaging with 2-D reconstruction. . The CT exam was performed using one or more the following dose reduction techniques: Automated exposure control, adjustment of the MA and/or Kv according to patient size, or use of the iterative reconstruction technique. COMPARISON: 01/16/2023 History: Left upper quadrant pain. Nausea and vomiting. Fever. Chills. LIMITATIONS: None LOWER THORAX Unremarkable LIVER: Hepatic steatosis. GALLBLADDER: Cholecystectomy clips identified. BILE DUCTS: No dilatation SPLEEN: Unremarkable PANCREAS: Unremarkable ADRENAL GLANDS: Unremarkable KIDNEYS:Unremarkable AORTA: No abdominal aortic aneurysm identified. RETROPERITONEUM: No significant retroperitoneal abnormalities identified. MESENTERY:Unremarkable SMALL BOWEL: The small bowel loops are nondistended. APPENDIX: Appendectomy changes identified. COLON: Unremarkable URINARY BLADDER: Urinary bladder is unremarkable. REPRODUCTIVE SYSTEM: Reproductive structures are unremarkable. PNEUMOPERITONEUM: None PERITONEAL FLUID:None BONY STRUCTURES: Extensive lower lumbar degenerative changes. ABDOMINAL WALL: Unremarkable CT/CT abdomen pelvis wo con IMPRESSION: No acute findings. Impression dictated by: Mark Hoover M.D.03/06/2023 1:50 PM Dictation Location: [place] [address] Transcribed By: [facility] 03/06/23 1350 Dictated By: Mark Hoover DO 03/06/23 1346 Signed By: 03/06/23 1350 Normal [facility] Calcium [Mass/volume] in Ser um or PlasmaOrdered By: Misty Guallpa on 03-06-2023 Calcium [Mass/Vol] 10.4 mg/dL High 8.6-10.3 [facility] Comment on above: Performed By: #### U HCG, ADDONUAPLUS, CUU, URDS #### [facility] [address] [place] [address] [place] Carbon dioxide, total [Moles /volume] in Serum or PlasmaOrdered By: Misty Guallpa on 03-06-2023 CO2 [Moles/Vol] 24.7 mmol/L Normal 21.0-31.0 [facility] Comment on above: Performed By: #### U HCG, ADDONUAPLUS, CUU, URDS #### [facility] [address] [id number] [place] Chloride [Moles/volume] in S terri or PlasmaOrdered By: Misty Guallpa on 03-06-2023 Chloride [Moles/Vol] 104 mmol/L Normal 98-107 [facility] Comment on above: Performed By: #### U HCG, ADDONUAPLUS, CUU, URDS #### [facility] [address] [id number] [place] Choriogonadotropin.beta subu nit [Units/volume] in Serum or PlasmaOrdered By: Misty Guallpa on 03-06-2023 HCG.beta subunit Qn 29.91 m[IU]/mL [facility] Comment on above: Approximate Approxim ate hCG Gestational Age Range (mIU/ml) (weeks)0.2-1 5-50 1-2 50-500 2-3 100-5,000 3-4 500-10,000 4-5 1,000-50,000 5-6 10,000-100,000 6-8 15,000-200,000 8-12 10,000-100,000 HCG.beta subunit Qn Positive [facility] Creatinine [Mass/volume] in Serum or PlasmaOrdered By: Misty Guallpa on 03-06-2023 Creatinine [Mass/Vol] 0.76 mg/dL Normal 0.60-1.20 [facility] Comment on above: Performed By: #### U HCG, ADDONUAPLUS, CUU, URDS #### [facility] [address] [place] [address] [place] Dipstick and Microscopicon 0 03-06-2023 Appearance (U) Clear Normal Clear [facility] Comment on above: Order Comment: Name Collection Type:: Clean-Voided Midstream Performed By: #### A DDONUAPLUS #### [facility] [address] [place] [address] [place] Bacteria,Urine 1+ High None Seen [facility] Comment on above: Order Comment: Name Collection Type:: Clean-Voided Midstream Performed By: #### A DDONUAPLUS #### [facility] [address] [place] [address] [place] Bilirubin,Urine Negative Normal Negative [facility] Comment on above: Order Comment: Name Collection Type:: Clean-Voided Midstream Performed By: #### A DDONUAPLUS #### [facility] [address] [place] [address] [place] Glucose Ql (U) Normal Normal Normal [facility] Comment on above: Order Comment: Name Collection Type:: Clean-Voided Midstream Performed By: #### A DDONUAPLUS #### [facility] [address] [place] [address] [place] Hyaline Casts,Urine 0-8 Normal 0-8 [facility] Comment on above: Order Comment: Name Collection Type:: Clean-Voided Midstream Result Comment: PERF ORMED BY: [place] [address] PATHOLOGIST [employer] OFFICER SUDHA ANDINO M.D. Performed By: #### A DDONUAPLUS #### [place] [address] [place] Ketones Ql (U) 1+ High Negative [facility] Comment on above: Order Comment: Name Collection Type:: Clean-Voided Midstream Performed By: #### A DDONUAPLUS #### [place] [address] [place] Leukocyte esterase Test strip Ql (U) Negative Normal Negative [facility] Comment on above: Order Comment: Name Collection Type:: Clean-Voided Midstream Performed By: #### A DDONUAPLUS #### [place] [address] [place] Nitrite,Urine Negative Normal Negative [facility] Comment on above: Order Comment: Name Collection Type:: Clean-Voided Midstream Performed By: #### A DDONUAPLUS #### [place] [address] [place] Occult Blood,Urine Negative Normal Negative [facility] Comment on above: Order Comment: Name Collection Type:: Clean-Voided Midstream Result Comment: PERF ORMED BY: [place] [address] PATHOLOGIST [employer] OFFICER SUDHA ANDINO M.D. Performed By: #### A DDONUAPLUS #### [place] [address] [place] Protein,Urine Trace High Negative [facility] Comment on above: Order Comment: Name Collection Type:: Clean-Voided Midstream Performed By: #### A DDONUAPLUS #### [place] [address] [place] RBC LM.HPF (Urine sed) [#/Area] 0 /[HPF] Normal 0-4 [facility] Comment on above: Order Comment: Name Collection Type:: Clean-Voided Midstream Performed By: #### A DDONUAPLUS #### [address] Specificy [place],Urine 1.018 Normal 1.001-1.030 [facility] Comment on above: Order Comment: Name Collection Type:: Clean-Voided Midstream Performed By: #### A DDONUAPLUS #### [address] Squamous Epithelial Cell,Urine 5-9 High 0-2 [facility] Comment on above: Order Comment: Name Collection Type:: Clean-Voided Midstream Performed By: #### A DDONUAPLUS #### [address] Urobilinogen,Urine Normal Normal Normal [facility] Comment on above: Order Comment: Name Collection Type:: Clean-Voided Midstream Performed By: #### A DDONUAPLUS #### [address] WBC,Urine 5-9 High 0-4 [facility] Comment on above: Order Comment: Name Collection Type:: Clean-Voided Midstream Performed By: #### A DDONUAPLUS #### [address] ECG 12 lead ECGon 03-06-2023 ECG 12 lead ECG [facility] [place] [address] Electrocardiograph Report Signed Patient: Chrissy Dangelo MR#: [id number] : 1980 Acct:[id number] Age/Sex: 42 / F ADM Date: 03/06/23 Loc: ER Room: Type: [facility] ER Attending Dr: Ordering Provider: Misty Guallpa MD Date of Service: 03/06/23 ECG/ECG 12 lead ECG: Abdominal Pain Copies to: Test Reason : Blood Pressure : 210/100 mmHG Vent. Rate : 046 BPM Atrial Rate : 046 BPM P-R Int : 144 ms QRS Dur : 080 ms QT Int : 500 ms P-R-T Axes : 078 083 078 degrees QTc Int : 437 ms Sinus bradycardia Otherwise normal ECG When compared with ECG of 16-JAN-2023 04:52, No significant change was found Confirmed by YOJANA YAP DO ([id number]) on 03/06/2023 4:07:07 PM Referred By: Electronically Signed By:YOJANA YAP DO Transcribed By: MUS Signed By Yojana Yap DO 03/06 1607 Normal [facility] Erythrocyte distribution wid th [Ratio] by Automated countOrdered By: Misty Guallpa on 03-06-2023 Erythrocyte distribution width (RBC) [Ratio] 14.3 % Normal 11.9-15.3 [facility] Comment on above: Performed By: #### U HCG, ADDONUAPLUS, CUU, URDS #### [facility] [address] Erythrocytes [#/volume] in B lood by Automated countOrdered By: Misty Guallpa on 03-06-2023 RBC (Bld) [#/Vol] 5.03 10*6/uL High 3.60-5.[address] [facility] Comment on above: Performed By: #### U HCG, ADDONUAPLUS, CUU, URDS #### [facility] [address] [id number] [place] Glucose [Mass/volume] in Ser um or PlasmaOrdered By: Misty Guallpa on 03-06-2023 Glucose [Mass/Vol] 124 mg/dL High 70-100 [facility] Comment on above: ADA recommended refe rence rangeRandom Glucose Reference Range is dependent on time and content of last meal. Glucose of more than 200 mg/dL in a nonstressed, ambulatory subject supports the diagnosis of Diabetes Mellitus. Result Comment: [place] om Glucose Reference Range is dependent on time and content of last meal. Glucose of more than 200 mg/dL in a nonstressed, ambulatory subject supports the diagnosis of Diabetes Mellitus. ADA recommended reference range Performed By: #### U HCG, ADDONUAPLUS, CUU, URDS #### [facility] [address] [id number] [place] HCG,Qualitative Serumon 02-14 HCG,Qualitative Serum Positive Normal [facility] Comment on above: Result Comment: PERF ORMED BY: [place] [address] PATHOLOGIST [employer] OFFICER SUDHA ANDINO M.D. Performed By: #### U HCG, ADDONUAPLUS, CUU, URDS #### [address] HCG,Quantitativeon 3 HCG,Quantitative 29.91 m[iU]/mL Normal [facility] Comment on above: Result Comment: Appr oximate Approximate hCG Gestational Age Range (mIU/ml) (weeks) 0.2-1 5-50 1-2 50-500 2-3 100-5,000 3-4 500-10,000 4-5 1,000-50,000 5-6 10,000-100,000 6-8 15,000-200,000 8-12 10,000-100,000 PERFORMED BY: [place] [address] PATHOLOGIST [employer] OFFICER SUDHA ANDINO M.D. Performed By: #### U HCG, ADDONUAPLUS, CUU, URDS #### [address] Hematocrit [Volume Fraction] of Blood by Automated countOrdered By: Misty Guallpa on 03-06-2023 Hematocrit (Bld) [Volume fraction] 46.5 % High 34.0-46.4 [facility] Comment on above: Performed By: #### U HCG, ADDONUAPLUS, CUU, URDS #### [address] Hemoglobin [Mass/volume] in BloodOrdered By: Misty Guallpa on 03-06-2023 Hemoglobin (Bld) [Mass/Vol] 15.8 g/dL High 11.8-15.4 [facility] Comment on above: Performed By: #### U HCG, ADDONUAPLUS, CUU, URDS #### [address] Hepatic Panelon 03-06-2023 Albumin [Mass/Vol] 4.6 g/dL Normal 3.5-5.7 [facility] Comment on above: Performed By: #### U HCG, ADDONUAPLUS, CUU, URDS #### [address] Bilirubin,Indirect 0.6 mg/dL Normal [facility] Comment on above: Performed By: #### U HCG, ADDONUAPLUS, CUU, URDS #### [facility] [address] [place] [address] Bilirubin.indirect [Mass/Vol] 0.00 mg/dL Low 0.03-0.18 [facility] Comment on above: Result Comment: If t he DBIL is less than 0.1, IBIL is not able to be calculated. Performed By: #### U HCG, ADDONUAPLUS, CUU, URDS #### [address] Ketones Auto test strip (U) [Mass/Vol]Ordered By: Misty Guallpa on 03-06-2023 Ketones (U) [Mass/Vol] 1+ Negative [facility] - UrinalysisOrder ed By: Misty Guallpa on 03-06-2023 Hyaline casts LM Ql (Urine sed) 0-8 [LPF] 0-8 [facility] Lactate [Moles/volume] in Se rum or PlasmaOrdered By: Misty Guallpa on 03-06-2023 Lactate [Moles/Vol] 1.0 mmol/L Normal 0.5-2.[address] [facility] Comment on above: Result Comment: PERF ORMED BY: [place] [address] PATHOLOGIST [employer] OFFICER SUDHA ANDINO M.D. Performed By: #### U HCG, ADDONUAPLUS, CUU, URDS #### [address] Leukocytes [#/volume] correc zen for nucleated erythrocytes in Blood by Automated counOrdered By: Misty Guallpa on 03-06-2023 WBC corrected for nucl RBC Auto (Bld) [#/Vol] 12.9 10*3/uL 3.8-11.6 [facility] Leukocytes [#/volume] in Blo od by Automated countOrdered By: Misty Guallpa on 03-06-2023 WBC (Bld) [#/Vol] 12.9 10*3/uL High 3.8-11.[address] [facility] Comment on above: Performed By: #### U HCG, ADDONUAPLUS, CUU, URDS #### [facility] [address] [place] [address] [place] Lipase [Enzymatic activity/v olume] in Serum or PlasmaOrdered By: Misty Guallpa on 03-06-2023 Lipase [Catalytic activity/Vol] 11.0 U/L Normal 11.0-82.0 [facility] Comment on above: Performed By: #### U HCG, ADDONUAPLUS, CUU, URDS #### [facility] [address] [place] [address] [place] Lymphocytes [#/volume] in Bl ood by Automated countOrdered By: Misty Guallpa on 03-06-2023 Lymphocytes (Bld) [#/Vol] 1.8 10*3/uL Normal 1.00-4.8 [facility] Comment on above: Performed By: #### U HCG, ADDONUAPLUS, CUU, URDS #### [facility] [address] [place] [address] [place] Lymphocytes/100 leukocytes i n Blood by Automated countOrdered By: Misty Guallpa on 03-06-2023 Lymphocytes/100 WBC (Bld) 14.0 % Normal . [facility] Comment on above: Performed By: #### U HCG, ADDONUAPLUS, CUU, URDS #### [facility] [address] [place] [address] [place] MCH [Entitic mass] by Automa zen countOrdered By: Misty Guallpa on 03-06-2023 MCH (RBC) [Entitic mass] 31.5 pg Normal 24.7-34.3 [facility] Comment on above: Performed By: #### U HCG, ADDONUAPLUS, CUU, URDS #### [facility] [address] MCHC Auto (RBC) [Mass/Vol]Or dered By: Misty Guallpa on 03-06-2023 MCHC (RBC) [Mass/Vol] 34.1 g/dL 32.0-35.0 [facility] MCV [Entitic volume] by Auto mated countOrdered By: Misty Guallpa on 03-06-2023 MCV (RBC) [Entitic vol] 92.3 fL Normal 80-100 [facility] Comment on above: Performed By: #### U HCG, ADITYAONUAPLUS, CUU, URDS #### [facility] [address] [place] [address] Monocyte distribution width [Entitic volume] in Blood by AutomatedOrdered By: Misty Guallpa on 03-06-2023 Monocyte distribution width Auto (Bld) [Entitic vol] 16.24 % 0.00-20.00 [facility] Neutrophils [#/volume] in Bl ood by Automated countOrdered By: Misty Guallpa on 03-06-2023 Neutrophils (Bld) [#/Vol] 10.4 10*3/uL High 1.8-7.7 [facility] Comment on above: Performed By: #### U HCG, PAWAN, CUU, URDS #### [facility] [address] [place] [address] Nitrite Test strip Ql (U)Ord ered By: Misty Guallpa on 03-06-2023 Nitrite Ql (U) Negative Negative [facility] No Panel InformationOrdered By: Misty Guallpa on 03-06-2023 Estimated GFR (CKD-EPI) > 60.0 mL/Min [facility] Creatinine Clearance (Chem 114.70 [facility] Nucleated erythrocytes [Pres ence] in Blood by Automated countOrdered By: Misty Guallpa on 03-06-2023 Nucleated RBC Auto Ql (Bld) 0.0 /100{WBC} 0-0.5 [facility] Platelet adequacy [Presence] in Blood by Light microscopyOrdered By: Misty Guallpa on 03-06-2023 Platelets LM Ql (Bld) Normal Normal [facility] Platelet mean volume [Entiti c volume] in Blood by Automated countOrdered By: Misty Guallpa on 03-06-2023 Platelet mean volume (Bld) [Entitic vol] 7.3 fL Normal 6.3-10.7 [facility] Comment on above: Performed By: #### U HCG, ADDONUAPLUS, CUU, URDS #### [address] Platelet morphology finding [Identifier] in BloodOrdered By: Misty Guallpa on 03-06-2023 Platelet morphology finding Nom (Bld) Normal Normal [facility] Platelets [#/volume] in Bloo d by Automated countOrdered By: Misty Guallpa on 03-06-2023 Platelets (Bld) [#/Vol] 375 10*3/uL Normal 150-450 [facility] Comment on above: Performed By: #### U HCG, ADDONUAPLUS, CUU, URDS #### [facility] [address] [place] [address] Potassium [Moles/volume] in Serum or PlasmaOrdered By: Misty Guallpa on 03-06-2023 Potassium [Moles/Vol] 4.4 mmol/L Normal 3.5-5.1 [facility] Comment on above: Performed By: #### U HCG, PAWAN, ZAKU, URDS #### [address] Protein Auto test strip (U) [Mass/Vol]Ordered By: Misty Guallpa on 03-06-2023 Protein (U) [Mass/Vol] Trace mg/dL Negative [facility] Protein [Mass/volume] in Ser um or PlasmaOrdered By: Misty Guallpa on 03-06-2023 Protein [Mass/Vol] 8.0 g/dL Normal 6.4-8.9 [facility] Comment on above: Performed By: #### U HCG, ADDONUAPLUS, CUU, URDS #### [facility] [address] [place] [address] RBC morphologyOrdered By: Chiquita Guallpa on 03-06-2023 RBC morphology finding Nom (Bld) Normal Normal Normal [facility] Comment on above: Performed By: #### U HCG, ADDONUAPLUS, CUU, URDS #### [address] Scan and CBCon 03-06-2023 Mean Corpuscular HGB Conc 34.1 g/dL Normal 32.0-35.0 [facility] Comment on above: Performed By: #### U HCG, ADDONUAPLUS, CUU, URDS #### [address] Monocytes/100 WBC (Bld) 16.24 % Normal 0.00-20.00 [facility] Comment on above: Performed By: #### U HCG, ADDONUAPLUS, CUU, URDS #### [address] NRBC% 0.0 /100{WBC} Normal 0-0.5 [facility] Comment on above: Performed By: #### U HCG, ADDONUAPLUS, CUU, URDS #### [address] Platelet Estimate Normal Normal Normal [facility] Comment on above: Performed By: #### U HCG, ADDONUAPLUS, CUU, URDS #### [address] Platelet Morphology Normal Normal Normal [facility] Comment on above: Result Comment: PERF ORMED BY: [place] [address] PATHOLOGIST [employer] OFFICER SUDHA ANDINO M.D. Performed By: #### U HCG, ADDONUAPLUS, CUU, URDS #### [address] Serum globulin measurement b y calculation (mass/volume)Ordered By: Misty Guallpa on 03-06-2023 Globulin (S) [Mass/Vol] 3.4 g/dL Normal [facility] Comment on above: Performed By: #### U HCG, ADDONUAPLUS, CUU, URDS #### [address] Serum or plasma albumin/glob ulin mass ratioOrdered By: Misty Guallpa on 03-06-2023 Albumin/Globulin [Mass ratio] 1.4 {ratio} Normal [facility] Comment on above: Performed By: #### U HCG, ADDONUAPLUS, CUU, URDS #### [facility] [address] Serum or plasma anion gap de terminationOrdered By: Misty Guallpa on 03-06-2023 Anion gap [Moles/Vol] 15.7 mmol/L High 6.0-15.0 [facility] Comment on above: Performed By: #### U HCG, ADITYAONKOKIPLUS, CUU, URDS #### [facility] [address] [place] [address] Serum or plasma non-glucuron idated bilirubin measurement (mass/volume)Ordered By: Misty Guallpa on 03-06-2023 Bilirubin.indirect [Mass/Vol] 0.6 mg/dL [facility] Sodium [Moles/volume] in Ser um or PlasmaOrdered By: Misty Guallpa on 03-06-2023 Sodium [Moles/Vol] 140 mmol/L Normal 136-145 [facility] Comment on above: Performed By: #### U HCG, ADITYAONBRYANT, CUU, URDS #### [facility] [address] [place] [address] Specific gravity Auto test s trip (U) [Rel density]Ordered By: Misty Guallpa on 03-06-2023 Specific gravity (U) [Rel density] 1.018 1.001-1.030 [facility] Squamous epithelial cells de tection in urine sediment by light microscopyOrdered By: Misty Guallpa on 03-06-2023 Epithelial cells.squamous LM Ql (Urine sed) 5-9 [HPF] 0-2 [facility] Troponin I High Sensitivityo n 03-06-2023 Troponin I High Sensitivity 3.2 pg/mL Normal 0.0-15.0 [facility] Comment on above: Result Comment: PERF ORMED BY: [place] [address] PATHOLOGIST [employer] OFFICER SUDHA ANDINO M.D. Performed By: #### U HCG, ADDONUAPLUS, CUU, URDS #### [facility] [address] Troponin I.cardiac [Mass/vol ume] in Serum or Plasma by Detection limit <= 0.01 ng/Ordered By: Misty Guallpa on 03-06-2023 Troponin I.cardiac DL <= 0.01 ng/mL [Mass/Vol] 3.2 pg/mL 0.0-15.0 [facility] Urea nitrogen [Mass/volume] in Serum or PlasmaOrdered By: Misty Guallpa on 03-06-2023 Urea nitrogen [Mass/Vol] 10 mg/dL Normal 7-25 [facility] Comment on above: Performed By: #### U HCG, ADDONUAPLUS, CUU, URDS #### [facility] [address] [place] [address] Urine bacteria detection by automated methodOrdered By: Misty Guallpa on 03-06-2023 Bacteria Auto Ql (U) 1+ None Seen [facility] Urine clarity by refractomet ry automatedOrdered By: Misty Guallpa on 03-06-2023 Clarity Refractometry automated (U) Clear Clear [facility] Urine glucose measurement by automated test strip (mass/volume)Ordered By: Misty Guallpa on 03-06-2023 Glucose Auto test strip (U) [Mass/Vol] Normal mg/dL Normal [facility] Urine hemoglobin detection b y automated test stripOrdered By: Misty Guallpa on 03-06-2023 Hemoglobin Auto test strip Ql (U) Negative Negative [facility] Urine leukocyte esterase det ection by automated test stripOrdered By: Misty Guallpa on 03-06-2023 Leukocyte esterase Auto test strip Ql (U) Negative Negative [facility] Urine pH measurement by auto mated test stripOrdered By: Misty Guallpa on 03-06-2023 pH (U) 7.0 [pH] Normal 5.0-9.0 [facility] Comment on above: Order Comment: Name Collection Type:: Clean-Voided Midstream Performed By: #### A DDONUAPLUS #### [facility] [address] [place] [address] Urobilinogen Auto test strip (U) [Mass/Vol]Ordered By: Misty Guallpa on 03-06-2023 Urobilinogen (U) [Mass/Vol] Normal mg/dL Normal [facility] Alanine aminotransferase [En zymatic activity/volume] in Serum or PlasmaOrdered By: Rian Shoemaker on 01-16-2023 ALT [Catalytic activity/Vol] 14 U/L Normal 7-52 [facility] Comment on above: Performed By: #### A DDONUAPLUS #### [address] Albumin [Mass/volume] in Ser um or Plasma by Bromocresol green (BCG) dye binding methoOrdered By: Rian Shoemaker on 01-16-2023 Albumin BCG dye [Mass/Vol] 4.7 g/dL 3.5-5.7 [facility] Alkaline phosphatase [Enzyma tic activity/volume] in Serum or PlasmaOrdered By: Rian Shoemaker on 01-16-2023 ALP [Catalytic activity/Vol] 88 U/L Normal 34-104 [facility] Comment on above: Performed By: #### A DDONUAPLUS #### [address] Aspartate aminotransferase [ Enzymatic activity/volume] in Serum or PlasmaOrdered By: Rian Shoemaker on 01-16-2023 AST [Catalytic activity/Vol] 18 U/L Normal 13-39 [facility] Comment on above: Performed By: #### A DDONUAPLUS #### [facility] [address] [place] [address] Automated basophil %Ordered By: PROVIDER TEMP on 01-16-2023 Basophils/100 WBC (Bld) 1.2 % Normal . [facility] Comment on above: Performed By: #### A DDONUAPLUS #### [address] Automated basophil countOrde red By: PROVIDER TEMP on 01-16-2023 Basophils (Bld) [#/Vol] 0.2 10*3/uL Normal 0.0-0.2 [facility] Comment on above: Result Comment: PERF ORMED BY: [place] [address] PATHOLOGIST [employer] OFFICER SUDHA ANDINO M.D. Performed By: #### A DDONUAPLUS #### [address] Automated blood monocyte cou ntOrdered By: PROVIDER TEMP on 01-16-2023 Monocytes (Bld) [#/Vol] 1.3 10*3/uL High 0.0-0.8 [facility] Comment on above: Performed By: #### A DDONUAPLUS #### [address] Automated eosinophil %Ordere d By: PROVIDER TEMP on 01-16-2023 Eosinophils/100 WBC (Bld) 1.0 % Normal . [facility] Comment on above: Performed By: #### A DDONUAPLUS #### [address] Automated eosinophil countOr dered By: PROVIDER TEMP on 01-16-2023 Eosinophils (Bld) [#/Vol] 0.1 10*3/uL Normal 0.0-0.45 [facility] Comment on above: Performed By: #### A DDONUAPLUS #### [address] Automated monocyte %Ordered By: PROVIDER TEMP on 01-16-2023 Monocytes/100 WBC (Bld) 9.6 % Normal . [facility] Comment on above: Performed By: #### A DDONUAPLUS #### [address] Automated neutrophil %Ordere d By: PROVIDER TEMP on 01-16-2023 Neutrophils/100 WBC (Bld) 59.1 % Normal . [facility] Comment on above: Performed By: #### A DDONUAPLUS #### [address] Basic Metabolic Panelon 07-0 Creatinine Clr Calc Pharmacy 88.40 Normal [facility] Comment on above: Performed By: #### A DDONUAPLUS #### [address] GFR/1.73 sq M.predicted MDRD (S/P/Bld) [Vol rate/Area] mL/min/{1.73_m2} Normal [facility] Comment on above: Performed By: #### A DDONUAPLUS #### [address] Bilirubin.direct [Mass/volum e] in Serum or PlasmaOrdered By: Rian Shoemaker on 01-16-2023 Bilirubin.direct [Mass/Vol] 0.10 mg/dL 0.03-0.18 [facility] Bilirubin.total [Mass/volume ] in Serum or PlasmaOrdered By: Rian Shoemaker on 01-16-2023 Bilirubin [Mass/Vol] 0.7 mg/dL Normal 0.3-1.0 [facility] Comment on above: Performed By: #### A DDONUAPLUS #### [address] abdomen pelvis wo conon 0 01-16-2023 CT abdomen pelvis wo con [facility] [place] [address] [place] [address] CT Scan Report Signed Patient: Chrissy Dangelo MR#: [id number] : 1980 Acct:[id number] Age/Sex: 42 / F ADM Date: 01/16/23 Loc: ER Room: Type: [facility] ER Attending Dr: Copies to: MD Rian Khan Jr, MD Ordering Provider: Dereje Bentley MD Date of Service: 01/16/23 CT/CT abdomen pelvis wo con: jhg CT Abdomen and Pelvis withoutcontrast TECHNIQUE: Axial imaging with 2-D reconstruction. . The CT exam was performed using one or more the following dose reduction techniques: Automated exposure control, adjustment of the MA and/or Kv according to patient size, or use of the iterative reconstruction technique. COMPARISON: 01/14/2023 History: Severe left upper quadrant pain. Nausea and vomiting. Leukocytosis. LIMITATIONS: None LOWER THORAX Unremarkable LIVER: Hepatic steatosis. GALLBLADDER: Cholecystectomy clips identified. BILE DUCTS: No dilatation SPLEEN: Unremarkable PANCREAS: Unremarkable ADRENAL GLANDS: Stable with findings suggesting mild hyperplasia versus adenomatous disease. KIDNEYS:Unremarkable AORTA: No abdominal aortic aneurysm identified. RETROPERITONEUM: No significant retroperitoneal abnormalities identified. MESENTERY:Unremarkable SMALL BOWEL: The small bowel loops are nondistended. APPENDIX: Appendectomy changes identified. COLON: Unremarkable URINARY BLADDER: Urinary bladder is unremarkable. REPRODUCTIVE SYSTEM: Reproductive structures are unremarkable. PNEUMOPERITONEUM: None PERITONEAL FLUID:None BONY STRUCTURES: Unremarkable ABDOMINAL WALL: Unremarkable CT/CT abdomen pelvis wo con IMPRESSION: No acute findings. Impression dictated by: Mark Hoover M.D.01/16/2023 8:03 AM Dictation Location: [place] [address] Transcribed By: [facility] 01/16/23 0803 Dictated By: Mark Hoover DO 01/16/23 0758 Signed By: 01/16/23 08 Normal [facility] Calcium [Mass/volume] in Ser um or PlasmaOrdered By: Rian Shoeamker on 01-16-2023 Calcium [Mass/Vol] 10.0 mg/dL Normal 8.6-10.3 [facility] Comment on above: Performed By: #### A DDONUAPLUS #### [facility] [address] [place] [address] Carbon dioxide, total [Moles /volume] in Serum or PlasmaOrdered By: Rian Shoemaker on 01-16-2023 CO2 [Moles/Vol] 26.1 mmol/L Normal 21.0-31.0 [facility] Comment on above: Performed By: #### A DDONUAPLUS #### [facility] [address] [place] [address] Chloride [Moles/volume] in S terri or PlasmaOrdered By: Rian Shoemaker on 01-16-2023 Chloride [Moles/Vol] 104 mmol/L Normal 98-107 [facility] Comment on above: Performed By: #### A DDONUAPLUS #### [facility] [address] [place] [address] Complete Blood Count Auto Di ffon 01-16-2023 Mean Corpuscular HGB Conc 33.8 g/dL Normal 32.0-35.0 [facility] Comment on above: Performed By: #### A DDONUAPLUS #### [facility] [address] Monocytes/100 WBC (Bld) 16.99 % Normal 0.00-20.00 [facility] Comment on above: Performed By: #### A DDONUAPLUS #### [facility] [address] NRBC% 0.0 /100{WBC} Normal 0-0.5 [facility] Comment on above: Performed By: #### A DDONUAPLUS #### [address] Creatinine [Mass/volume] in Serum or PlasmaOrdered By: Rian Shoemaker on 01-16-2023 Creatinine [Mass/Vol] 0.98 mg/dL Normal 0.60-1.20 [facility] Comment on above: Performed By: #### A DDONUAPLUS #### [address] ECG 12 lead ECGon 01-16-2023 ECG 12 lead ECG [facility] [place] [address] [place] [address] Electrocardiograph Report Signed Patient: Chrissy Dangelo MR#: [id number] : 1980 Acct:[id number] Age/Sex: 42 / F ADM Date: 01/16/23 Loc: ER Room: Type: [facility] ER Attending Dr: Ordering Provider: Rian Shoemaker Jr, MD Date of Service: 01/16/2311/06/451 ECG/ECG 12 lead ECG: Abdominal Pain Copies to: Test Reason : Blood Pressure : / mmHG Vent. Rate : 056 BPM Atrial Rate : 056 BPM P-R Int : 132 ms QRS Dur : 084 ms QT Int : 470 ms P-R-T Axes : 072 081 070 degrees QTc Int : 453 ms Sinus bradycardia Otherwise normal ECG When compared with ECG of 20-DEC-2022 19:21, No significant change was found Confirmed by RIAN SHOEMAKER MD ([id number]) on 01/17/2023 6:13:28 AM Referred By: Electronically Signed By:RIAN SHOEMAKER MD Transcribed By: ARIADNE Signed By Rian Shoemaker Jr, MD 0613 Normal [facility] Erythrocyte distribution wid th [Ratio] by Automated countOrdered By: PROVIDER TEMP on 01-16-2023 Erythrocyte distribution width (RBC) [Ratio] 16.5 % High 11.9-15.3 [facility] Comment on above: Performed By: #### A DDONUAPLUS #### [address] Erythrocytes [#/volume] in B lood by Automated countOrdered By: PROVIDER TEMP on 01-16-2023 RBC (Bld) [#/Vol] 4.32 10*6/uL Normal 3.60-5.[address] [facility] Comment on above: Performed By: #### A DDONUAPLUS #### [address] Glucose [Mass/volume] in Ser um or PlasmaOrdered By: Rian Shoemaker on 01-16-2023 Glucose [Mass/Vol] 117 mg/dL High 70-100 [facility] Comment on above: ADA recommended refe rence rangeRandom Glucose Reference Range is dependent on time and content of last meal. Glucose of more than 200 mg/dL in a nonstressed, ambulatory subject supports the diagnosis of Diabetes Mellitus. Result Comment: Farina om Glucose Reference Range is dependent on time and content of last meal. Glucose of more than 200 mg/dL in a nonstressed, ambulatory subject supports the diagnosis of Diabetes Mellitus. ADA recommended reference range Performed By: #### A DDONUAPLUS #### [place] [id number] [place] Hematocrit [Volume Fraction] of Blood by Automated countOrdered By: PROVIDER TEMP on 01-16-2023 Hematocrit (Bld) [Volume fraction] 39.3 % Normal 34.0-46.4 [facility] Comment on above: Performed By: #### A DDONUAPLUS #### [place] [id number] [place] Hemoglobin [Mass/volume] in BloodOrdered By: PROVIDER TEMP on 01-16-2023 Hemoglobin (Bld) [Mass/Vol] 13.3 g/dL Normal 11.8-15.4 [facility] Comment on above: Performed By: #### A DDONUAPLUS #### [facility] [address] [place] [address] Hepatic Panelon 01-16-2023 Albumin [Mass/Vol] 4.7 g/dL Normal 3.5-5.7 [facility] Comment on above: Performed By: #### A DDONUAPLUS #### [address] Bilirubin,Indirect 0.6 mg/dL Normal [facility] Comment on above: Performed By: #### A DDONUAPLUS #### [address] Bilirubin.indirect [Mass/Vol] 0.10 mg/dL Normal 0.03-0.18 [facility] Comment on above: Performed By: #### A DDONUAPLUS #### [address] Leukocytes [#/volume] correc zen for nucleated erythrocytes in Blood by Automated counOrdered By: PROVIDER TEMP on 01-16-2023 WBC corrected for nucl RBC Auto (Bld) [#/Vol] 13.3 10*3/uL 3.8-11.6 [facility] Leukocytes [#/volume] in Blo od by Automated countOrdered By: PROVIDER TEMP on 01-16-2023 WBC (Bld) [#/Vol] 13.3 10*3/uL High 3.8-11.[address] [facility] Comment on above: Performed By: #### A DDONUAPLUS #### [facility] [address] [place] [address] Lipase [Enzymatic activity/v olume] in Serum or PlasmaOrdered By: Rian Shoemaker on 01-16-2023 Lipase [Catalytic activity/Vol] 47.0 U/L Normal 11.0-82.0 [facility] Comment on above: Result Comment: PERF ORMED BY: [address] [place] [address] PATHOLOGIST [employer] OFFICER SUDHA ANDINO M.D. Performed By: #### A DDONUAPLUS #### [address] Lymphocytes [#/volume] in Bl ood by Automated countOrdered By: PROVIDER TEMP on 01-16-2023 Lymphocytes (Bld) [#/Vol] 3.9 10*3/uL Normal 1.00-4.8 [facility] Comment on above: Performed By: #### A DDONUAPLUS #### [address] Lymphocytes/100 leukocytes i n Blood by Automated countOrdered By: PROVIDER TEMP on 01-16-2023 Lymphocytes/100 WBC (Bld) 29.1 % Normal . [facility] Comment on above: Performed By: #### A DDONUAPLUS #### [address] MCH [Entitic mass] by Automa zen countOrdered By: PROVIDER TEMP on 01-16-2023 MCH (RBC) [Entitic mass] 30.7 pg Normal 24.7-34.3 [facility] Comment on above: Performed By: #### A DDONUAPLUS #### [address] MCHC Auto (RBC) [Mass/Vol]Or dered By: PROVIDER TEMP on 01-16-2023 MCHC (RBC) [Mass/Vol] 33.8 g/dL 32.0-35.0 [facility] MCV [Entitic volume] by Auto mated countOrdered By: PROVIDER TEMP on 01-16-2023 MCV (RBC) [Entitic vol] 90.9 fL Normal 80-100 [facility] Comment on above: Performed By: #### A DDONUAPLUS #### [address] Monocyte distribution width [Entitic volume] in Blood by AutomatedOrdered By: PROVIDER TEMP on 01-16-2023 Monocyte distribution width Auto (Bld) [Entitic vol] 16.99 % 0.00-20.00 [facility] Neutrophils [#/volume] in Bl ood by Automated countOrdered By: PROVIDER TEMP on 01-16-2023 Neutrophils (Bld) [#/Vol] 7.9 10*3/uL High 1.8-7.7 [facility] Comment on above: Performed By: #### A DDONUAPLUS #### [facility] [address] [place] [address] No Panel InformationOrdered By: Rian Shoemaker on 01-16-2023 Estimated GFR (CKD-EPI) > 60.0 mL/Min [facility] Creatinine Clearance (Chem 88.40 [facility] > 60.0 mL/Min [facility] 88.40 [facility] Nucleated erythrocytes [Pres ence] in Blood by Automated countOrdered By: PROVIDER TEMP on 01-16-2023 Nucleated RBC Auto Ql (Bld) 0.0 /100{WBC} 0-0.5 [facility] Platelet mean volume [Entiti c volume] in Blood by Automated countOrdered By: PROVIDER TEMP on 01-16-2023 Platelet mean volume (Bld) [Entitic vol] 7.3 fL Normal 6.3-10.7 [facility] Comment on above: Performed By: #### A DDONUAPLUS #### [facility] [address] [place] [address] Platelets [#/volume] in Bloo d by Automated countOrdered By: PROVIDER TEMP on 01-16-2023 Platelets (Bld) [#/Vol] 362 10*3/uL Normal 150-450 [facility] Comment on above: Performed By: #### A DDONUAPLUS #### [facility] [address] [place] [address] [place] Potassium [Moles/volume] in Serum or PlasmaOrdered By: Rian Shoemaker on 01-16-2023 Potassium [Moles/Vol] 3.5 mmol/L Normal 3.5-5.1 [facility] Comment on above: Performed By: #### A DDONUAPLUS #### [facility] [address] [place] [address] [place] Protein [Mass/volume] in Ser um or PlasmaOrdered By: Rian Shoemaker on 01-16-2023 Protein [Mass/Vol] 7.4 g/dL Normal 6.4-8.9 [facility] Comment on above: Performed By: #### A DDONUAPLUS #### [address] Serum globulin measurement b y calculation (mass/volume)Ordered By: Rian Shoemaker on 01-16-2023 Globulin (S) [Mass/Vol] 2.7 g/dL [facility] Comment on above: Performed By: #### A DDONUAPLUS #### [address] Serum or plasma albumin/glob ulin mass ratioOrdered By: Rian Shoemaker on 01-16-2023 Albumin/Globulin [Mass ratio] 1.7 {ratio} [facility] Comment on above: Performed By: #### A DDONUAPLUS #### [address] Serum or plasma anion gap de terminationOrdered By: Rian Shoemaker on 01-16-2023 Anion gap [Moles/Vol] 13.4 mmol/L Normal 6.0-15.0 [facility] Comment on above: Performed By: #### A DDONUAPLUS #### [address] Serum or plasma non-glucuron idated bilirubin measurement (mass/volume)Ordered By: Rian Shoemaker on 01-16-2023 Bilirubin.indirect [Mass/Vol] 0.6 mg/dL [facility] Sodium [Moles/volume] in Ser um or PlasmaOrdered By: Rian Shoemaker on 01-16-2023 Sodium [Moles/Vol] 140 mmol/L Normal 136-145 [facility] Comment on above: Performed By: #### A DDONUAPLUS #### [address] Urea nitrogen [Mass/volume] in Serum or PlasmaOrdered By: Rian Shoemaker on 01-16-2023 Urea nitrogen [Mass/Vol] 20 mg/dL Normal 7-25 [facility] Comment on above: Performed By: #### A DDONUAPLUS #### [facility] [address] [place] [address] [place] Alanine aminotransferase [En zymatic activity/volume] in Serum or PlasmaOrdered By: Lio Spencer on 01-14-2023 ALT [Catalytic activity/Vol] 14 U/L Normal [facility] Comment on above: Performed By: #### U HCG, ADDONUAPLUS, CUU, URDS #### [place] [address] [place] Alanine aminotransferase [En zymatic activity/volume] in Serum or PlasmaOrdered By: Dereje Bentley on 01-14-2023 ALT [Catalytic activity/Vol] 12 U/L Normal [facility] Comment on above: Performed By: #### A DDONUAPLUS #### [place] [address] [place] Albumin [Mass/volume] in Ser um or Plasma by Bromocresol green (BCG) dye binding methoOrdered By: Lio Spencer on 01-14-2023 Albumin BCG dye [Mass/Vol] 5.2 g/dL 3.5-5.7 [facility] Albumin [Mass/volume] in Ser um or Plasma by Bromocresol green (BCG) dye binding methoOrdered By: Dereje Bentley on 01-14-2023 Albumin BCG dye [Mass/Vol] 4.7 g/dL 3.5-5.7 [facility] Alkaline phosphatase [Enzyma tic activity/volume] in Serum or PlasmaOrdered By: Lio Spencer on 01-14-2023 ALP [Catalytic activity/Vol] 100 U/L Normal 34-104 [facility] Comment on above: Performed By: #### U HCG, ADDONUAPLUS, CUU, URDS #### [facility] [address] [place] [address] [place] Alkaline phosphatase [Enzyma tic activity/volume] in Serum or PlasmaOrdered By: Dereje Bentley on 01-14-2023 ALP [Catalytic activity/Vol] 92 U/L Normal 34-104 [facility] Comment on above: Performed By: #### A DDONUAPLUS #### [address] [place] [address] [place] Amylase [Enzymatic activity/ volume] in Serum or PlasmaOrdered By: Dereje Bentley on 01-14-2023 Amylase [Catalytic activity/Vol] 45 U/L Normal 29-103 [facility] Comment on above: Performed By: #### A DDONUAPLUS #### [facility] [address] [place] [address] Aspartate aminotransferase [ Enzymatic activity/volume] in Serum or PlasmaOrdered By: Lio Spencer on 01-14-2023 AST [Catalytic activity/Vol] 15 U/L Normal 13-39 [facility] Comment on above: Performed By: #### U HCG, ADDONUAPLUS, CUU, URDS #### [address] Aspartate aminotransferase [ Enzymatic activity/volume] in Serum or PlasmaOrdered By: Dereje Bentley on 01-14-2023 AST [Catalytic activity/Vol] 14 U/L Normal 13-39 [facility] Comment on above: Performed By: #### A DDONUAPLUS #### [address] Automated basophil %Ordered By: Lio Spencer on 01-14-2023 Basophils/100 WBC (Bld) 0.1 % Normal . [facility] Comment on above: Performed By: #### U HCG, ADDONUAPLUS, CUU, URDS #### [facility] [address] [place] [address] Automated basophil %Ordered By: Dereje Bentley on 01-14-2023 Basophils/100 WBC (Bld) 1.4 % Normal . [facility] Comment on above: Performed By: #### A DDONUAPLUS #### [facility] [address] [place] [address] Automated basophil countOrde red By: Lio Spencer on 01-14-2023 Basophils (Bld) [#/Vol] 0.0 10*3/uL Normal 0.0-0.2 [facility] Comment on above: Result Comment: PERF ORMED BY: [place] [address] PATHOLOGIST [employer] OFFICER SUDHA ANDINO M.D. Performed By: #### U HCG, ADDONUAPLUS, CUU, URDS #### [address] Automated basophil countOrde red By: Dereje Bentley on 01-14-2023 Basophils (Bld) [#/Vol] 0.2 10*3/uL Normal 0.0-0.2 [facility] Comment on above: Result Comment: PERF ORMED BY: [place] [address] PATHOLOGIST [employer] OFFICER SUDHA ANDINO M.D. Performed By: #### A DDONUAPLUS #### [address] Automated blood monocyte cou ntOrdered By: Lio Spencer on 01-14-2023 Monocytes (Bld) [#/Vol] 1.0 10*3/uL High 0.0-0.8 [facility] Comment on above: Performed By: #### U HCG, ADDONUAPLUS, CUU, URDS #### [address] Automated blood monocyte cou ntOrdered By: Dereje Bentley on 01-14-2023 Monocytes (Bld) [#/Vol] 0.9 10*3/uL High 0.0-0.8 [facility] Comment on above: Performed By: #### A DDONUAPLUS #### [address] Automated eosinophil %Ordere d By: Lio Spencer on 01-14-2023 Eosinophils/100 WBC (Bld) 0.4 % Normal . [facility] Comment on above: Performed By: #### U HCG, ADDONUAPLUS, CUU, URDS #### [address] Automated eosinophil %Ordere d By: Dereje Bentley on 01-14-2023 Eosinophils/100 WBC (Bld) 1.7 % Normal . [facility] Comment on above: Performed By: #### A DDONUAPLUS #### [facility] [address] Automated eosinophil countOr dered By: Lio Spencer on 01-14-2023 Eosinophils (Bld) [#/Vol] 0.1 10*3/uL Normal 0.0-0.45 [facility] Comment on above: Performed By: #### U HCG, ADDONUAPLUS, CUU, URDS #### [facility] [address] Automated eosinophil countOr dered By: Dereje Bentley on 01-14-2023 Eosinophils (Bld) [#/Vol] 0.3 10*3/uL Normal 0.0-0.45 [facility] Comment on above: Performed By: #### A DDONUAPLUS #### [address] Automated erythrocytes count in urine sediment (number/area)Ordered By: Lio Spencer on 01-14-2023 RBC Auto (Urine sed) [#/Area] 1-2 [HPF] 0-4 [facility] Automated leukocytes count i n urine sediment (number/area)Ordered By: Lio Spencer on 01-14-2023 WBC Auto (Urine sed) [#/Area] 1-2 [HPF] 0-4 [facility] Automated monocyte %Ordered By: Lio Spencer on 01-14-2023 Monocytes/100 WBC (Bld) 4.9 % Normal . [facility] Comment on above: Performed By: #### U HCG, ADDONUAPLUS, CUU, URDS #### [facility] [address] [place] [address] Automated monocyte %Ordered By: Dereje Bentley on 01-14-2023 Monocytes/100 WBC (Bld) 5.8 % Normal . [facility] Comment on above: Performed By: #### A DDONUAPLUS #### [facility] [address] [place] [address] Automated neutrophil %Ordere d By: Lio Spencer on 01-14-2023 Neutrophils/100 WBC (Bld) 89.7 % Normal . [facility] Comment on above: Performed By: #### U HCG, ADDONUAPLUS, CUU, URDS #### [facility] [address] Automated neutrophil %Ordere d By: Dereje Bentley on 01-14-2023 Neutrophils/100 WBC (Bld) 73.5 % Normal . [facility] Comment on above: Performed By: #### A DDONUAPLUS #### [facility] [address] Automated urine color determ inationOrdered By: Lio Spencer on 01-14-2023 Color (U) Yellow Normal Yellow [facility] Comment on above: Order Comment: Name Collection Type:: Voided Performed By: #### A DDONUAPLUS #### [address] Bilirubin Test strip Ql (U)O rdered By: Lio Spencer on 01-14-2023 Bilirubin Ql (U) Negative Negative [facility] Bilirubin.total [Mass/volume ] in Serum or PlasmaOrdered By: Lio Spencer on 01-14-2023 Bilirubin [Mass/Vol] 0.7 mg/dL Normal 0.3-1.0 [facility] Comment on above: Performed By: #### U HCG, ADDONUAPLUS, CUU, URDS #### [facility] [address] [place] [address] Bilirubin.total [Mass/volume ] in Serum or PlasmaOrdered By: Dereje Bentley on 01-14-2023 Bilirubin [Mass/Vol] 0.4 mg/dL Normal 0.3-1.0 [facility] Comment on above: Performed By: #### A DDONUAPLUS #### [facility] [address] [place] [address] CT abdomen pelvis wo conon 0 01-14-2023 CT abdomen pelvis wo con [facility] [place] [address] [place] [address] CT Scan Report Signed Patient: Chrissy Dangelo MR#: [id number] : 1980 Acct:[id number] Age/Sex: 42 / F ADM Date: 01/14/23 Loc: ER Room: Type: [facility] ER Attending Dr: Copies to: Lio Spencer DO Ordering Provider: Lio Spencer DO Date of Service: 01/14/23 CT/CT abdomen pelvis wo con: LLQ pain CT Abdomen and Pelvis withoutcontrast TECHNIQUE: Axial imaging with 2-D reconstruction. . The CT exam was performed using one or more the following dose reduction techniques: Automated exposure control, adjustment of the MA and/or Kv according to patient size, or use of the iterative reconstruction technique. COMPARISON: 12/03/2022 History: Abdominal pain. Vomiting. LIMITATIONS: None LOWER THORAX Unremarkable LIVER: Unremarkable GALLBLADDER: Cholecystectomy clips identified. BILE DUCTS: No dilatation SPLEEN: Unremarkable PANCREAS: Unremarkable ADRENAL GLANDS: Unremarkable KIDNEYS:Unremarkable AORTA: No abdominal aortic aneurysm identified. RETROPERITONEUM: No significant retroperitoneal abnormalities identified. MESENTERY:Unremarkable SMALL BOWEL: The small bowel loops are nondistended. APPENDIX: Appendectomy changes identified. COLON: Unremarkable URINARY BLADDER: Urinary bladder is unremarkable. REPRODUCTIVE SYSTEM: Reproductive structures are unremarkable. PNEUMOPERITONEUM: None PERITONEAL FLUID:None BONY STRUCTURES: Extensive lumbar degeneration. ABDOMINAL WALL: Unremarkable CT/CT abdomen pelvis wo con IMPRESSION: No acute findings. Impression dictated by: Mark Hoover M.D.01/14/2023 6:41 PM Dictation Location: [place] [address] Transcribed By: [facility] 01/14/23 184 Dictated By: Mark Hoover DO 01/14/23 1837 Signed By: 01/14/23 184 Normal [facility] Calcium [Mass/volume] in Ser um or PlasmaOrdered By: Lio Spencer on 01-14-2023 Calcium [Mass/Vol] 11.0 mg/dL High 8.6-10.3 [facility] Comment on above: Performed By: #### U KATIANA, ZAK VILLALTAU, URDS #### [facility] [address] [place] [address] Calcium [Mass/volume] in Ser um or PlasmaOrdered By: Dereje Bentley on 01-14-2023 Calcium [Mass/Vol] 10.2 mg/dL Normal 8.6-10.3 [facility] Comment on above: Performed By: #### A DDONUAPLUS #### [facility] [address] [place] [address] [place] Carbon dioxide, total [Moles /volume] in Serum or PlasmaOrdered By: Lio Spencer on 01-14-2023 CO2 [Moles/Vol] 26.1 mmol/L Normal 21.0-31.0 [facility] Comment on above: Performed By: #### U HCG, ADDONUAPLUS, CUU, URDS #### [address] Carbon dioxide, total [Moles /volume] in Serum or PlasmaOrdered By: Dereje Bentley on 01-14-2023 CO2 [Moles/Vol] 23.7 mmol/L Normal 21.0-31.0 [facility] Comment on above: Performed By: #### A DDONUAPLUS #### [place] [address] [place] Chloride [Moles/volume] in S terri or PlasmaOrdered By: Lio Spencer on 01-14-2023 Chloride [Moles/Vol] 104 mmol/L Normal 98-107 [facility] Comment on above: Performed By: #### U HCG, ADDONUAPLUS, CUU, URDS #### [place] [address] [place] Chloride [Moles/volume] in S terri or PlasmaOrdered By: Dereje Bentley on 01-14-2023 Chloride [Moles/Vol] 107 mmol/L Normal 98-107 [facility] Comment on above: Performed By: #### A DDONUAPLUS #### [place] [address] [place] Complete Blood Count Auto Di ffon 01-14-2023 Mean Corpuscular HGB Conc 33.8 g/dL Normal 32.0-35.0 [facility] Comment on above: Performed By: #### U HCG, ADDONUAPLUS, CUU, URDS #### [facility] [address] [place] [address] [place] Monocytes/100 WBC (Bld) 15.17 % Normal 0.00-20.00 [facility] Comment on above: Performed By: #### U HCG, ADDONUAPLUS, CUU, URDS #### [address] NRBC% 0.0 /100{WBC} Normal 0-0.5 [facility] Comment on above: Performed By: #### U HCG, ADDONUAPLUS, CUU, URDS #### [address] Mean Corpuscular HGB Conc 33.4 g/dL Normal 32.0-35.0 [facility] Comment on above: Performed By: #### A DDONUAPLUS #### [address] Monocytes/100 WBC (Bld) 17.74 % Normal 0.00-20.00 [facility] Comment on above: Performed By: #### A DDONUAPLUS #### [address] NRBC% 0.1 /100{WBC} Normal 0-0.5 [facility] Comment on above: Performed By: #### A DDONUAPLUS #### [address] Comprehensive Metabolic Pane tony 01-14-2023 Albumin [Mass/Vol] 5.2 g/dL Normal 3.5-5.7 [facility] Comment on above: Performed By: #### U HCG, ADDONUAPLUS, CUU, URDS #### [address] Creatinine Clr Calc Pharmacy 93.63 Normal [facility] Comment on above: Result Comment: PERF ORMED BY: [place] [address] PATHOLOGIST [employer] OFFICER SUDHA ANDINO M.D. Performed By: #### U HCG, ADDONUAPLUS, CUU, URDS #### [address] Albumin [Mass/Vol] 4.7 g/dL Normal 3.5-5.7 [facility] Comment on above: Performed By: #### A DDONUAPLUS #### [address] Creatinine Clr Calc Pharmacy 92.63 Normal [facility] Comment on above: Performed By: #### A DDONUAPLUS #### [address] GFR/1.73 sq M.predicted MDRD (S/P/Bld) [Vol rate/Area] mL/min/{1.73_m2} Normal [facility] Comment on above: Performed By: #### U HCG, ADDONUAPLUS, CUU, URDS #### [address] Performed By: #### A DDONUAPLUS #### [address] Creatinine [Mass/volume] in Serum or PlasmaOrdered By: Lio Spencer on 01-14-2023 Creatinine [Mass/Vol] 0.92 mg/dL Normal 0.60-1.20 [facility] Comment on above: Performed By: #### U HCG, ADDONUAPLUS, CUU, URDS #### [address] Creatinine [Mass/volume] in Serum or PlasmaOrdered By: Dereje Bentley on 01-14-2023 Creatinine [Mass/Vol] 0.93 mg/dL Normal 0.60-1.20 [facility] Comment on above: Performed By: #### A DDONUAPLUS #### [address] Dipstick and Microscopicon 0 01-14-2023 Appearance (U) Clear Normal Clear [facility] Comment on above: Order Comment: Name Collection Type:: Voided Performed By: #### A DDONUAPLUS #### [address] Bacteria,Urine None Seen Normal None Seen [facility] Comment on above: Order Comment: Name Collection Type:: Voided Performed By: #### A DDONUAPLUS #### [place] [address] [place] Bilirubin,Urine Negative Normal Negative [facility] Comment on above: Order Comment: Name Collection Type:: Voided Performed By: #### A DDONUAPLUS #### [place] [address] [place] Glucose Ql (U) Normal Normal Normal [facility] Comment on above: Order Comment: Name Collection Type:: Voided Performed By: #### A DDONUAPLUS #### [place] [address] [place] Hyaline Casts,Urine None Seen Normal 0-8 [facility] Comment on above: Order Comment: Name Collection Type:: Voided Result Comment: PERF ORMED BY: [place] [address] PATHOLOGIST [employer] OFFICER SUDHA ANDINO M.D. Performed By: #### A DDONUAPLUS #### [place] [address] [place] Ketones Ql (U) 1+ High Negative [facility] Comment on above: Order Comment: Name Collection Type:: Voided Performed By: #### A DDONUAPLUS #### [place] [address] [place] Leukocyte esterase Test strip Ql (U) 1+ High Negative [facility] Comment on above: Order Comment: Name Collection Type:: Voided Performed By: #### A DDONUAPLUS #### [place] [address] [place] Nitrite,Urine Negative Normal Negative [facility] Comment on above: Order Comment: Name Collection Type:: Voided Performed By: #### A DDONUAPLUS #### [place] [address] [place] Occult Blood,Urine Negative Normal Negative [facility] Comment on above: Order Comment: Name Collection Type:: Voided Result Comment: PERF ORMED BY: [place] [address] PATHOLOGIST [employer] OFF[employer] SUDHA ANDINO M.D. Performed By: #### A DDONUAPLUS #### [place] [address] [place] RBC,Urine 1-2 Normal 0-4 [facility] Comment on above: Order Comment: Name Collection Type:: Voided Performed By: #### A DDONUAPLUS #### [address] Specificy [place],Urine 1.022 Normal 1.001-1.030 [facility] Comment on above: Order Comment: Name Collection Type:: Voided Performed By: #### A DDONUAPLUS #### [address] Squamous Epithelial Cell,Urine 3-4 High 0-2 [facility] Comment on above: Order Comment: Name Collection Type:: Voided Performed By: #### A DDONUAPLUS #### [address] Urobilinogen,Urine Normal Normal Normal [facility] Comment on above: Order Comment: Name Collection Type:: Voided Performed By: #### A DDONUAPLUS #### [place] [address] [place] WBC,Urine 1-2 Normal 0-4 [facility] Comment on above: Order Comment: Name Collection Type:: Voided Performed By: #### A DDONUAPLUS #### [address] Erythrocyte distribution wid th [Ratio] by Automated countOrdered By: Lio Spencer on 01-14-2023 Erythrocyte distribution width (RBC) [Ratio] 16.3 % High 11.9-15.3 [facility] Comment on above: Performed By: #### U HCG, ADDONUAPLUS, CUU, URDS #### [facility] [address] [place] [address] Erythrocyte distribution wid th [Ratio] by Automated countOrdered By: Dereje Bentley on 01-14-2023 Erythrocyte distribution width (RBC) [Ratio] 16.2 % High 11.9-15.3 [facility] Comment on above: Performed By: #### A DDONUAPLUS #### [facility] [address] Erythrocytes [#/volume] in B lood by Automated countOrdered By: Dereje Bentley on 01-14-2023 RBC (Bld) [#/Vol] 4.46 10*6/uL Normal 3.60-5.[address] [facility] Comment on above: Performed By: #### U HCG, ADDONUAPLUS, CUU, URDS #### [facility] [address] Performed By: #### A DDONUAPLUS #### [address] Glucose [Mass/volume] in Ser um or PlasmaOrdered By: Lio Spencer on 01-14-2023 Glucose [Mass/Vol] 132 mg/dL High 70-100 [facility] Comment on above: ADA recommended refe rence rangeRandom Glucose Reference Range is dependent on time and content of last meal. Glucose of more than 200 mg/dL in a nonstressed, ambulatory subject supports the diagnosis of Diabetes Mellitus. Result Comment: Farina om Glucose Reference Range is dependent on time and content of last meal. Glucose of more than 200 mg/dL in a nonstressed, ambulatory subject supports the diagnosis of Diabetes Mellitus. ADA recommended reference range Performed By: #### U HCG, ADDONUAPLUS, CUU, URDS #### [facility] [address] [place] [address] [place] Glucose [Mass/volume] in Ser um or PlasmaOrdered By: Dereje Bentley on 01-14-2023 Glucose [Mass/Vol] 119 mg/dL High 70-100 [facility] Comment on above: ADA recommended refe rence rangeRandom Glucose Reference Range is dependent on time and content of last meal. Glucose of more than 200 mg/dL in a nonstressed, ambulatory subject supports the diagnosis of Diabetes Mellitus. Result Comment: Farina om Glucose Reference Range is dependent on time and content of last meal. Glucose of more than 200 mg/dL in a nonstressed, ambulatory subject supports the diagnosis of Diabetes Mellitus. ADA recommended reference range Performed By: #### A DDONUAPLUS #### [facility] [address] [place] [address] Hematocrit [Volume Fraction] of Blood by Automated countOrdered By: Lio Spencer on 01-14-2023 Hematocrit (Bld) [Volume fraction] 40.1 % Normal 34.0-46.4 [facility] Comment on above: Performed By: #### U HCG, ADDONUAPLUS, CUU, URDS #### [address] Hematocrit [Volume Fraction] of Blood by Automated countOrdered By: Dereje Bentley on 01-14-2023 Hematocrit (Bld) [Volume fraction] 40.4 % Normal 34.0-46.4 [facility] Comment on above: Performed By: #### A DDONUAPLUS #### [address] Hemoglobin [Mass/volume] in BloodOrdered By: Dereje Bentley on 01-14-2023 Hemoglobin (Bld) [Mass/Vol] 13.5 g/dL Normal 11.8-15.4 [facility] Comment on above: Performed By: #### U HCG, ADDONUAPLUS, CUU, URDS #### [facility] [address] [place] [address] Performed By: #### A DDONUAPLUS #### [address] Ketones Auto test strip (U) [Mass/Vol]Ordered By: Lio Spencer on 01-14-2023 Ketones (U) [Mass/Vol] 1+ Negative [facility] - UrinalysisOrder ed By: Lio Spencer on 01-14-2023 Hyaline casts LM Ql (Urine sed) None seen [LPF] 0-8 [facility] Leukocytes [#/volume] correc zen for nucleated erythrocytes in Blood by Automated counOrdered By: Lio Spencer on 01-14-2023 WBC corrected for nucl RBC Auto (Bld) [#/Vol] 20.8 10*3/uL 3.8-11.6 [facility] Leukocytes [#/volume] correc zen for nucleated erythrocytes in Blood by Automated counOrdered By: Dereje Bentley on 01-14-2023 WBC corrected for nucl RBC Auto (Bld) [#/Vol] 15.8 10*3/uL 3.8-11.6 [facility] Leukocytes [#/volume] in Blo od by Automated countOrdered By: Lio Spencer on 01-14-2023 WBC (Bld) [#/Vol] 20.8 10*3/uL High 3.8-11.[address] [facility] Comment on above: Performed By: #### U HCG, ADDONUAPLUS, CUU, URDS #### [facility] [address] [place] [address] Leukocytes [#/volume] in Blo od by Automated countOrdered By: Dereje Bentley on 01-14-2023 WBC (Bld) [#/Vol] 15.8 10*3/uL High 3.8-11.[address] [facility] Comment on above: Performed By: #### A DDONUAPLUS #### [facility] [address] [place] [address] Lipase [Enzymatic activity/v olume] in Serum or PlasmaOrdered By: Dereje Bentley on 01-14-2023 Lipase [Catalytic activity/Vol] 18.0 U/L Normal 11.0-82.0 [facility] Comment on above: Result Comment: PERF ORMED BY: [place] [address] PATHOLOGIST [employer] OFFICER SUDHA ANDINO M.D. Performed By: #### U HCG, ADDONUAPLUS, CUU, URDS #### [facility] [address] [place] [address] [place] Lymphocytes [#/volume] in Bl ood by Automated countOrdered By: Lio Spencer on 01-14-2023 Lymphocytes (Bld) [#/Vol] 1.0 10*3/uL Normal 1.00-4.8 [facility] Comment on above: Performed By: #### U HCG, ADDONUAPLUS, CUU, URDS #### [place] [address] [place] Lymphocytes [#/volume] in Bl ood by Automated countOrdered By: Dereje Bentley on 01-14-2023 Lymphocytes (Bld) [#/Vol] 2.8 10*3/uL Normal 1.00-4.8 [facility] Comment on above: Performed By: #### A DDONUAPLUS #### [place] [address] [place] Lymphocytes/100 leukocytes i n Blood by Automated countOrdered By: Lio Spencer on 01-14-2023 Lymphocytes/100 WBC (Bld) 4.9 % Normal . [facility] Comment on above: Performed By: #### U HCG, ADITYAONZAK HURTADOU, URDS #### [place] [address] [place] Lymphocytes/100 leukocytes i n Blood by Automated countOrdered By: Dereje Bentley on 01-14-2023 Lymphocytes/100 WBC (Bld) 17.6 % Normal . [facility] Comment on above: Performed By: #### A DDONUAPLUS #### [place] [address] [place] MCH [Entitic mass] by Automa zen countOrdered By: Lio Spencer on 01-14-2023 MCH (RBC) [Entitic mass] 30.4 pg Normal 24.7-34.3 [facility] Comment on above: Performed By: #### U HCG, ADDONUAPLUS, CUU, URDS #### [address] MCH [Entitic mass] by Automa zen countOrdered By: Dereje Bentley on 01-14-2023 MCH (RBC) [Entitic mass] 30.2 pg Normal 24.7-34.3 [facility] Comment on above: Performed By: #### A DDONUAPLUS #### [address] MCHC Auto (RBC) [Mass/Vol]Or dered By: Loi Spencer on 01-14-2023 MCHC (RBC) [Mass/Vol] 33.8 g/dL 32.0-35.0 [facility] MCHC Auto (RBC) [Mass/Vol]Or dered By: Dereje Bentley on 01-14-2023 MCHC (RBC) [Mass/Vol] 33.4 g/dL 32.0-35.0 [facility] MCV [Entitic volume] by Auto mated countOrdered By: Lio Spencer on 01-14-2023 MCV (RBC) [Entitic vol] 90.0 fL Normal 80-100 [facility] Comment on above: Performed By: #### U HCG, ADDONUAPLUS, CUU, URDS #### [facility] [address] [place] [address] MCV [Entitic volume] by Auto mated countOrdered By: Dereje Bentley on 01-14-2023 MCV (RBC) [Entitic vol] 90.5 fL Normal 80-100 [facility] Comment on above: Performed By: #### A DDONUAPLUS #### [facility] [address] [place] [address] Monocyte distribution width [Entitic volume] in Blood by AutomatedOrdered By: Lio Spencer on 01-14-2023 Monocyte distribution width Auto (Bld) [Entitic vol] 15.17 % 0.00-20.00 [facility] Monocyte distribution width [Entitic volume] in Blood by AutomatedOrdered By: Dereje Bentley on 01-14-2023 Monocyte distribution width Auto (Bld) [Entitic vol] 17.74 % 0.00-20.00 [facility] Neutrophils [#/volume] in Bl ood by Automated countOrdered By: Lio Spencer on 01-14-2023 Neutrophils (Bld) [#/Vol] 18.6 10*3/uL High 1.8-7.7 [facility] Comment on above: Performed By: #### U HCG, ADDONUAPLUS, CUU, URDS #### [facility] [address] [place] [address] Neutrophils [#/volume] in Bl ood by Automated countOrdered By: Dereje Bentley on 01-14-2023 Neutrophils (Bld) [#/Vol] 11.6 10*3/uL High 1.8-7.7 [facility] Comment on above: Performed By: #### A DDONUAPLUS #### [facility] [address] Nitrite Test strip Ql (U)Ord ered By: Lio Spencer on 01-14-2023 Nitrite Ql (U) Negative Negative [facility] No Panel InformationOrdered By: Lio Spencer on 01-14-2023 None seen [LPF] 0-8 [facility] Creatinine Clearance (Chem 93.63 [facility] 93.63 [facility] Estimated GFR (CKD-EPI) > 60.0 mL/Min [facility] > 60.0 mL/Min [facility] No Panel InformationOrdered By: Dereje Bentley on 01-14-2023 Pharmacy Creatinine Clearance (Chem 92.63 [facility] 92.63 [facility] Nucleated erythrocytes [Pres ence] in Blood by Automated countOrdered By: Lio Spencer on 01-14-2023 Nucleated RBC Auto Ql (Bld) 0.0 /100{WBC} 0-0.5 [facility] Nucleated erythrocytes [Pres ence] in Blood by Automated countOrdered By: Dereje Bentley on 01-14-2023 Nucleated RBC Auto Ql (Bld) 0.1 /100{WBC} 0-0.5 [facility] Platelet mean volume [Entiti c volume] in Blood by Automated countOrdered By: Lio Spencer on 01-14-2023 Platelet mean volume (Bld) [Entitic vol] 7.2 fL Normal 6.3-10.7 [facility] Comment on above: Performed By: #### U HCG, ADDONUAPLUS, CUU, URDS #### [facility] [address] Platelet mean volume [Entiti c volume] in Blood by Automated countOrdered By: Dereje Bentley on 01-14-2023 Platelet mean volume (Bld) [Entitic vol] 7.0 fL Normal 6.3-10.7 [facility] Comment on above: Performed By: #### A DDONUAPLUS #### [facility] [address] [place] [address] [place] Platelets [#/volume] in Bloo d by Automated countOrdered By: Lio Spencer on 01-14-2023 Platelets (Bld) [#/Vol] 415 10*3/uL Normal 150-450 [facility] Comment on above: Performed By: #### U HCG, ADDONUAPLUS, CUU, URDS #### [facility] [address] [place] [address] [place] Platelets [#/volume] in Bloo d by Automated countOrdered By: Dereje Bentley on 01-14-2023 Platelets (Bld) [#/Vol] 397 10*3/uL Normal 150-450 [facility] Comment on above: Performed By: #### A DDONUAPLUS #### [place] [id number] [place] Potassium [Moles/volume] in Serum or PlasmaOrdered By: Lio Spencer on 01-14-2023 Potassium [Moles/Vol] 3.7 mmol/L Normal 3.5-5.1 [facility] Comment on above: Performed By: #### U HCG, ADDONUAPLUS, CUU, URDS #### [facility] [address] [place], [place] [id number] [place] Potassium [Moles/volume] in Serum or PlasmaOrdered By: Dereje Bentley on 01-14-2023 Potassium [Moles/Vol] 4.2 mmol/L Normal 3.5-5.1 [facility] Comment on above: Performed By: #### A DDONUAPLUS #### [facility] [address] [place], [place] [id number] [place] Protein [Mass/volume] in Ser um or PlasmaOrdered By: Lio Spencer on 01-14-2023 Protein [Mass/Vol] 8.4 g/dL Normal 6.4-8.9 [facility] Comment on above: Performed By: #### U HCG, ADDONUAPLUS, CUU, URDS #### [facility] [address] [place], [place] [id number] [place] Protein [Mass/volume] in Ser um or PlasmaOrdered By: Dereje Bentley on 01-14-2023 Protein [Mass/Vol] 7.6 g/dL Normal 6.4-8.9 [facility] Comment on above: Performed By: #### A DDONUAPLUS #### [address] Serum globulin measurement b y calculation (mass/volume)Ordered By: Lio Spencer on 01-14-2023 Globulin (S) [Mass/Vol] 3.2 g/dL [facility] Comment on above: Performed By: #### U HCG, ADDONUAPLUS, CUU, URDS #### [address] Serum globulin measurement b y calculation (mass/volume)Ordered By: Dereje Bentley on 01-14-2023 Globulin (S) [Mass/Vol] 2.9 g/dL [facility] Comment on above: Performed By: #### A DDONUAPLUS #### [address] Serum or plasma albumin/glob ulin mass ratioOrdered By: Lio Spencer on 01-14-2023 Albumin/Globulin [Mass ratio] 1.6 {ratio} [facility] Comment on above: Performed By: #### U HCG, ADDONUAPLUS, CUU, URDS #### [address] Performed By: #### A DDONUAPLUS #### [address] Serum or plasma anion gap de terminationOrdered By: Lio Spencer on 01-14-2023 Anion gap [Moles/Vol] 15.6 mmol/L High 6.0-15.0 [facility] Comment on above: Performed By: #### U HCG, ADDONUAPLUS, CUU, URDS #### [address] Serum or plasma anion gap de terminationOrdered By: Dereje Bentley on 01-14-2023 Anion gap [Moles/Vol] 12.5 mmol/L Normal 6.0-15.0 [facility] Comment on above: Performed By: #### A DDONUAPLUS #### [facility] [address] [place] [address] [place] Sodium [Moles/volume] in Ser um or PlasmaOrdered By: Lio Spencer on 01-14-2023 Sodium [Moles/Vol] 142 mmol/L Normal 136-145 [facility] Comment on above: Performed By: #### U HCG, ASHLEY VILLALTA, URDS #### [place] [address] [place] Sodium [Moles/volume] in Ser um or PlasmaOrdered By: Dereje Bentley on 01-14-2023 Sodium [Moles/Vol] 139 mmol/L Normal 136-145 [facility] Comment on above: Performed By: #### A DDONUAPLUS #### [address] Specific gravity Auto test s trip (U) [Rel density]Ordered By: Lio Spencer on 01-14-2023 Specific gravity (U) [Rel density] 1.022 1.001-1.030 [facility] Squamous epithelial cells de tection in urine sediment by light microscopyOrdered By: Lio Spencer on 01-14-2023 Epithelial cells.squamous LM Ql (Urine sed) 3-4 [HPF] 0-2 [facility] Troponin I High Sensitivityo n 01-14-2023 Troponin I High Sensitivity 3.8 pg/mL Normal 0.0-15.0 [facility] Comment on above: Result Comment: PERF ORMED BY: [place] [address] PATHOLOGIST [employer] OFFICER SUDHA ANDINO M.D. Performed By: #### U HCG, ASHLEY VILLALTA, URDS #### [address] Troponin I.cardiac [Mass/vol ume] in Serum or Plasma by Detection limit <= 0.01 ng/Ordered By: Dereje Bentley on 01-14-2023 Troponin I.cardiac DL <= 0.01 ng/mL [Mass/Vol] 3.8 pg/mL 0.0-15.0 [facility] Urea nitrogen [Mass/volume] in Serum or PlasmaOrdered By: Lio Spencer on 01-14-2023 Urea nitrogen [Mass/Vol] 21 mg/dL Normal 02-06 [facility] Comment on above: Performed By: #### U HCG, ADDONUAPLUS, CUU, URDS #### [facility] [address] Urea nitrogen [Mass/volume] in Serum or PlasmaOrdered By: Dereje Bentley on 01-14-2023 Urea nitrogen [Mass/Vol] 17 mg/dL Normal 02-06 [facility] Comment on above: Performed By: #### A DDONUAPLUS #### [facility] [address] [place] [address] Urine bacteria detection by automated methodOrdered By: Lio Spencer on 01-14-2023 Bacteria Auto Ql (U) None seen None Seen [facility] Urine clarity by refractomet ry automatedOrdered By: Lio Spencer on 01-14-2023 Clarity Refractometry automated (U) Clear Clear [facility] Urine glucose measurement by automated test strip (mass/volume)Ordered By: Lio Spencer on 01-14-2023 Glucose Auto test strip (U) [Mass/Vol] Normal mg/dL Normal [facility] Urine hemoglobin detection b y automated test stripOrdered By: Lio Spencer on 01-14-2023 Hemoglobin Auto test strip Ql (U) Negative Negative [facility] Urine leukocyte esterase det ection by automated test stripOrdered By: Lio Spencer on 01-14-2023 Leukocyte esterase Auto test strip Ql (U) 1+ Negative [facility] Urine pH measurement by auto mated test stripOrdered By: Lio Spencer on 01-14-2023 pH (U) 8.0 [pH] Normal 5.0-9.0 [facility] Comment on above: Order Comment: Name Collection Type:: Voided Performed By: #### A DDONUAPLUS #### [facility] [address] [place] [address] [place] Urine protein measurement by automated test strip (mass/volume)Ordered By: Lio Spencer on 01-14-2023 Protein (U) [Mass/Vol] 100 mg/dL High Negative [facility] Comment on above: Order Comment: Name Collection Type:: Voided Performed By: #### A DDONUAPLUS #### [address] Urobilinogen Auto test strip (U) [Mass/Vol]Ordered By: Lio Spencer on 01-14-2023 Urobilinogen (U) [Mass/Vol] Normal mg/dL Normal [facility] ECH echo transthoracicon [facility] echo transthoracic [facility] [place] [address] [place] [address] Echocardiogram Signed Patient: Chrsisy Dangelo MR#: [id number] : 1980 Acct:[id number] Age/Sex: 42 / F ADM Date: 01/05/23 Loc: Room: Type: [facility] Attending Dr: Yojana Torrez DO Ordering Provider: Jyay Pennington MD, RES Date of Service: 01/05/23 [facility] echo transthoracic: Shortness of breath Copies to: MD Jayy Crabtree MD, RES BSA: 2.1 m2 BP: 113/70 mmHg HR: 69 Reason For Study: Shortness of breath History: smoker, asthma Interpretation Summary The left ventricular size, thickness and function are normal The left ventricular wall motion is normal. Ejection Fraction = 60-65%. The left atrium appears mildly dilated. There is mild mitral regurgitation. There is no comparison study available. Procedure/Quality: A two-dimensional transthoracic echocardiogram with color flow and Doppler was performed. The study was technically good in quality. Left Ventricle: The left ventricular size, thickness and function are normal. Ejection Fraction = 60-65%. The left ventricular wall motion is normal. Left Atrium: The left atrium appears mildly dilated. Right Atrium: The right atrium appears normal in size. Right Ventricle: The right ventricular size, thickness and function are normal. Aortic Valve: The aortic valve is normal in structure and function. No aortic regurgitation is present. Mitral Valve: The mitral valve is mildly sclerotic. There is mild mitral regurgitation. Tricuspid Valve: The tricuspid valve is normal in structure and function. No tricuspid regurgitation. Pulmonic Valve: The pulmonic valve is normal in structure and function. Arteries: The aortic root is normal size. Pericardium/Pleura: No pericardial effusion seen. There is no pleural effusion. IVC/Hepatic Viens: The inferior vena cava is normal in size, with a normal collapsibility index. Measurements with Normals IVSd: 1.0 cm (0.7-1.1 cm)LVIDd: 5.2 cm (3.7-5.4 cm) LVPWd: 1.1 cm (0.7-1.1 cm)LVIDs: 3.0 cm (2.3-3.6 cm) LA dimension: 4.7 cm(2.3-4.0 cm)Ao root diam: 2.9 cm(2.0-3.6 cm) Doppler with Normals MV E max oracio: 118.0 cm/sec(0.8-1.3m/s) MV A max oracio: 83.1 cm/sec (0.0-0.0m/s) MV E/A: 1.4 (<1.5) MMode/2D Measurements Calculations RVDd: 3.3 cm FS: 42.3 % Ao root area: 6.4 cm2 LVLd ap4: 8.1 cm TAPSE: 2.4 cm EDV(Teich): EDV(MOD-sp4): RV S Oracio: 126.9 ml 74.3 ml 14.1 cm/sec ESV(Teich): LVLs ap4: 6.7 cm 34.3 ml ESV(MOD-sp4): EF(Teich): 73.0 % 27.7 ml EF(MOD-sp4): 62.7 % __ SV(MOD-sp4): LAV(MOD-sp4): LA A2 area: 24.2 cm2 46.6 ml 69.9 ml LAV(MOD-sp2): LA A4 area: 23.7 cm2 79.2 ml LA length (vol): 6.2 cm LA vol: 79.0 ml LA vol index: 37.4 ml/m2 Doppler Measurements Calculations MV dec time: 0.34 sec MV max PG: E/E' lat: MV dec slope: 100.0 mmHg 9.9 E/E' med: 347.9 cm/sec2 10.6 __ MR max oracio: 498.7 cm/sec MR max P.5 mmHg Transcribed By: SCV Performed At: 01/05/23 0946 Signed By: Isabel López MD 01/05/23 1410 Normal [facility] Alanine aminotransferase [En zymatic activity/volume] in Serum or PlasmaOrdered By: Maria Teresa Hodge on 12-20-2022 ALT [Catalytic activity/Vol] 11 U/L 7-52 [facility] Albumin [Mass/volume] in Ser um or Plasma by Bromocresol green (BCG) dye binding methoOrdered By: Maria Teresa Hodge on 12-20-2022 Albumin BCG dye [Mass/Vol] 4.4 g/dL 3.5-5.7 [facility] Alkaline phosphatase [Enzyma tic activity/volume] in Serum or PlasmaOrdered By: Maria Teresa Hodge on 12-20-2022 ALP [Catalytic activity/Vol] 102 U/L 34-104 [facility] Aspartate aminotransferase [ Enzymatic activity/volume] in Serum or PlasmaOrdered By: Maria Teresa Hodge on 12-20-2022 AST [Catalytic activity/Vol] 13 U/L 13-39 [facility] Automated erythrocytes count in urine sediment (number/area)Ordered By: Maria Teresa Hodge on 12-20-2022 RBC Auto (Urine sed) [#/Area] None seen [HPF] 0-4 [facility] Automated leukocytes count i n urine sediment (number/area)Ordered By: Maria Teresa Hodge on 12-20-2022 WBC Auto (Urine sed) [#/Area] 0-1 [HPF] 0-4 [facility] Basophils Auto (Bld) [#/Vol] Ordered By: Maria Teresa Hodge on 12-20-2022 Basophils (Bld) [#/Vol] 0.1 10*3/uL 0.0-0.2 [facility] Basophils/100 WBC Auto (Bld) Ordered By: Maria Teresa Hodge on 12-20-2022 Basophils/100 WBC (Bld) 1.0 % . [facility] Bilirubin Test strip Ql (U)O rdered By: Maria Teresa Hodge on 12-20-2022 Bilirubin Ql (U) Negative Negative [facility] Bilirubin.total [Mass/volume ] in Serum or PlasmaOrdered By: Maria Teresa Hodge on 12-20-2022 Bilirubin [Mass/Vol] 0.4 mg/dL 0.3-1.0 [facility] Calcium [Mass/volume] in Ser um or PlasmaOrdered By: Maria Teresa Hodge on 12-20-2022 Calcium [Mass/Vol] 9.7 mg/dL 8.6-10.3 [facility] Carbon dioxide, total [Moles /volume] in Serum or PlasmaOrdered By: Maria Teresa Hodge on 12-20-2022 CO2 [Moles/Vol] 30.1 mmol/L 21.0-31.0 [facility] Chloride [Moles/volume] in S terri or PlasmaOrdered By: Maria Teresa Hodge on 12-20-2022 Chloride [Moles/Vol] 105 mmol/L 98-107 [facility] Color Auto (U)Ordered By: Cookie Hodge on 12-20-2022 Color (U) Yellow Yellow [facility] Creatinine [Mass/volume] in Serum or PlasmaOrdered By: Maria Teresa Hodge on 12-20-2022 Creatinine [Mass/Vol] 0.95 mg/dL 0.60-1.20 [facility] Eosinophils Auto (Bld) [#/Vo l]Ordered By: Maria Teresa Hodge on 12-20-2022 Eosinophils (Bld) [#/Vol] 0.4 10*3/uL 0.0-0.45 [facility] Eosinophils/100 WBC Auto (Bl d)Ordered By: Maria Teresa Hodge on 12-20-2022 Eosinophils/100 WBC (Bld) 3.7 % . [facility] Erythrocyte distribution wid th Auto (RBC) [Ratio]Ordered By: Maria Teresa Hodge on 12-20-2022 Erythrocyte distribution width (RBC) [Ratio] 16.6 % 11.9-15.3 [facility] Globulin Calc (S) [Mass/Vol] Ordered By: Maria Teresa Hodge on 12-20-2022 Globulin (S) [Mass/Vol] 2.1 g/dL [facility] Glucose [Mass/volume] in Ser um or PlasmaOrdered By: Maria Teresa Hodge on 12-20-2022 Glucose [Mass/Vol] 80 mg/dL 70-100 [facility] Comment on above: ADA recommended refe rence rangeRandom Glucose Reference Range is dependent on time and content of last meal. Glucose of more than 200 mg/dL in a nonstressed, ambulatory subject supports the diagnosis of Diabetes Mellitus. HCG ( test) IA.rapi d Ql (U)Ordered By: Maria Teresa Hodge on 12-20-2022 HCG ( test) Ql (U) Negative [facility] Hematocrit Auto (Bld) [Volum e fraction]Ordered By: Maria Teresa Hodge on 12-20-2022 Hematocrit (Bld) [Volume fraction] 34.8 % 34.0-46.4 [facility] Hemoglobin [Mass/volume] in BloodOrdered By: Maria Teresa Hodge on 12-20-2022 Hemoglobin (Bld) [Mass/Vol] 11.5 g/dL 11.8-15.4 [facility] Ketones Auto test strip (U) [Mass/Vol]Ordered By: Maria Teresa Hodge on 12-20-2022 Ketones (U) [Mass/Vol] Negative Negative [facility] - UrinalysisOrder ed By: Maria Teresa Hodge on 12-20-2022 Hyaline casts LM Ql (Urine sed) None seen [LPF] 0-8 [facility] Leukocytes [#/volume] correc zen for nucleated erythrocytes in Blood by Automated counOrdered By: Maria Teresa Hodge on 12-20-2022 WBC corrected for nucl RBC Auto (Bld) [#/Vol] 11.3 10*3/uL 3.8-11.6 [facility] Lymphocytes Auto (Bld) [#/Vo l]Ordered By: Maria Teresa Hodge on 12-20-2022 Lymphocytes (Bld) [#/Vol] 2.7 10*3/uL 1.00-4.8 [facility] Lymphocytes/100 WBC Auto (Bl d)Ordered By: Maria Teresa Hodge on 12-20-2022 Lymphocytes/100 WBC (Bld) 23.8 % . [facility] MCH Auto (RBC) [Entitic mass ]Ordered By: Maria Teresa Hodge on 12-20-2022 MCH (RBC) [Entitic mass] 30.1 pg 24.7-34.3 [facility] MCHC Auto (RBC) [Mass/Vol]Or dered By: Maria Teresa Hodge on 12-20-2022 MCHC (RBC) [Mass/Vol] 33.0 g/dL 32.0-35.0 [facility] MCV Auto (RBC) [Entitic vol] Ordered By: Maria Teresa Hodge on 12-20-2022 MCV (RBC) [Entitic vol] 91.1 fL 80-100 [facility] Monocyte distribution width [Entitic volume] in Blood by AutomatedOrdered By: Maria Teresa Hodge on 12-20-2022 Monocyte distribution width Auto (Bld) [Entitic vol] 16.56 % 0.00-20.00 [facility] Monocytes Auto (Bld) [#/Vol] Ordered By: Maria Teresa Hodge on 12-20-2022 Monocytes (Bld) [#/Vol] 0.9 10*3/uL 0.0-0.8 [facility] Monocytes/100 WBC Auto (Bld) Ordered By: Maria Teresa Hodge on 12-20-2022 Monocytes/100 WBC (Bld) 7.7 % . [facility] Natriuretic peptide B [Mass/ Vol]Ordered By: Maria Teresa Hodge on 12-20-2022 Natriuretic peptide B (Bld) [Mass/Vol] 310.0 pg/mL 5-100 [facility] Neutrophils Auto (Bld) [#/Vo l]Ordered By: Maria Teresa Hodge on 12-20-2022 Neutrophils (Bld) [#/Vol] 7.2 10*3/uL 1.8-7.7 [facility] Neutrophils/100 WBC Auto (Bl d)Ordered By: Maria Teresa Hodge on 12-20-2022 Neutrophils/100 WBC (Bld) 63.8 % . [facility] Nitrite Test strip Ql (U)Ord ered By: Maria Teresa Hodge on 12-20-2022 Nitrite Ql (U) Negative Negative [facility] No Panel InformationOrdered By: Maria Teresa Hodge on 12-20-2022 None seen [LPF] 0-8 [facility] Estimated GFR (CKD-EPI) > 60.0 mL/Min [facility] Creatinine Clearance (Chem 93.00 [facility] > 60.0 mL/Min [facility] 93.00 [facility] Nucleated erythrocytes [Pres ence] in Blood by Automated countOrdered By: Maria Teresa Hodge on 12-20-2022 Nucleated RBC Auto Ql (Bld) 0.0 /100{WBC} 0-0.5 [facility] Platelet mean volume Auto (B ld) [Entitic vol]Ordered By: Maria Teresa Hodge on 12-20-2022 Platelet mean volume (Bld) [Entitic vol] 7.6 fL 6.3-10.7 [facility] Platelets Auto (Bld) [#/Vol] Ordered By: Maria Teresa Hodge on 12-20-2022 Platelets (Bld) [#/Vol] 329 10*3/uL 150-450 [facility] Potassium [Moles/volume] in Serum or PlasmaOrdered By: Maria Teresa Hodge on 12-20-2022 Potassium [Moles/Vol] 4.1 mmol/L 3.5-5.1 [facility] Protein Auto test strip (U) [Mass/Vol]Ordered By: Maria Teresa Hodge on 12-20-2022 Protein (U) [Mass/Vol] Negative Negative [facility] Protein [Mass/volume] in Ser um or PlasmaOrdered By: Maria Teresa Hodge on 12-20-2022 Protein [Mass/Vol] 6.5 g/dL 6.4-8.9 [facility] RBC Auto (Bld) [#/Vol]Ordere d By: Maria Teresa Hodge on 12-20-2022 RBC (Bld) [#/Vol] 3.82 10*6/uL 3.60-5.[address] [facility] Serum or plasma albumin/glob ulin mass ratioOrdered By: Maria Teresa Hodge on 12-20-2022 Albumin/Globulin [Mass ratio] 2.1 {ratio} [facility] Serum or plasma anion gap de terminationOrdered By: Maria Teresa Hodge on 12-20-2022 Anion gap [Moles/Vol] 9.0 mmol/L 6.0-15.0 [facility] Sodium [Moles/volume] in Ser um or PlasmaOrdered By: Maria Teresa Hodge on 12-20-2022 Sodium [Moles/Vol] 140 mmol/L 136-145 [facility] Specific gravity Auto test s trip (U) [Rel density]Ordered By: Maria Teresa Hodge on 12-20-2022 Specific gravity (U) [Rel density] 1.006 1.001-1.030 [facility] Squamous epithelial cells de tection in urine sediment by light microscopyOrdered By: Maria Teresa Hodge on 12-20-2022 Epithelial cells.squamous LM Ql (Urine sed) 0-1 [HPF] 0-2 [facility] Troponin I.cardiac [Mass/vol ume] in Serum or Plasma by Detection limit <= 0.01 ng/Ordered By: Maria Teresa Hodge on 12-20-2022 Troponin I.cardiac DL <= 0.01 ng/mL [Mass/Vol] 6.1 pg/mL 0.0-15.0 [facility] Urea nitrogen [Mass/volume] in Serum or PlasmaOrdered By: Maria Teresa Hodge on 12-20-2022 Urea nitrogen [Mass/Vol] 9 mg/dL 7-25 [facility] Urine bacteria detection by automated methodOrdered By: Maria Teresa Hodge on 12-20-2022 Bacteria Auto Ql (U) None seen None Seen [facility] Urine clarity by refractomet ry automatedOrdered By: Maria Teresa Hodge on 12-20-2022 Clarity Refractometry automated (U) Clear Clear [facility] Urine glucose measurement by automated test strip (mass/volume)Ordered By: Maria Teresa Hodge on 12-20-2022 Glucose Auto test strip (U) [Mass/Vol] Normal mg/dL Normal [facility] Urine hemoglobin detection b y automated test stripOrdered By: Maria Teresa Hodge on 12-20-2022 Hemoglobin Auto test strip Ql (U) Negative Negative [facility] Urine leukocyte esterase det ection by automated test stripOrdered By: Maria Teresa Hodge on 12-20-2022 Leukocyte esterase Auto test strip Ql (U) 1+ Negative [facility] Urobilinogen Auto test strip (U) [Mass/Vol]Ordered By: Maria Teresa Hodge on 12-20-2022 Urobilinogen (U) [Mass/Vol] Normal mg/dL Normal [facility] WBC Auto (Bld) [#/Vol]Ordere d By: Maria Teresa Hodge on 12-20-2022 WBC (Bld) [#/Vol] 11.3 10*3/uL 3.8-11.[address] [facility] pH Auto test strip (U)Ordere d By: Maria Teresa Hodge on 12-20-2022 pH (U) 6.0 [pH] 5.0-9.0 [facility] Coding Summaryon 12-14-2022 Coding Summary [facility] IgvdrwjpUNy4uBe+PGhlYWQ+PE 2POGDoU52voLTjdN9uE3XKLRoW JidkFBXYNFwADyHjpoYeLP3juS NjZXJu IC8+NN0gVVVjAhwvoRYqj7B3rE K7W98rff6fBQfdrJS7FBBtWmFb mnhhm6qbuJl4LPioIfeeBhGd JFUatQ58TXP0dW66Qz31bLAqhH Nty8vtrUl5DiKuTYWdKRO8jCby REwnd0XgLCAaE69jsYUle9Y4 YNLueOwlnJGxInVzdCW7cM2aJS twrvllf9truudgRnr3qe30uUXj t1H5fBA7L1AzknP7UBTxfODw NjxmcCZCnW2zzcsml7xjkqmyKv NpVWYxYMy4BNa9ADHjtYpqGxTh YS74BQW8DSDthsIkY4MxCPMk bSahTyR0e3N1Jd8FK6TUQfurR6 VNTUFSWTwvdGQ+MD91jw54Y8Ea QngdQxt0KVFgTAK7wKZ2wC2u PPIiJTmvp0G1wNL3O8UaczByjy 1zj6twESGfYPxfW99lpQXqt7L0 YYWofMT9IOSknAipFeNvhI18 Oyc+JFMquZpbr4CgSbzly1irt5 qnuNo0BjonANIceeRnoCinTUS8 l9MeNr1iKOMzlYB3iDE0iG9e DbCmYdH4XAefJ241TlEksJKyPg apO72eB6IztAP+CNYkAvo9FTRq yRgpLI2cU9UeHCQspoueaMGk nJviIQ4lSKOrbqnaUAOfaK5iYG XiA8d8AhIcQhC2SAliW4BiQXVq pbxnWt39mU8yQwLiRiD8RMqn B1MoxkK1LNDirBPsHXtaJXC0G6 3pt8B4DRYsZVHtMSM2gQI6eV7j bGlnbjogbGVmdDsgdmVydGlj FIzpWAfeM387LWDgmTikLpGdOC luZyBEYXRlOiAgMDYvMDEvMjAy MzwvdGQ+NTIbLWU7xKhuSAEh zEOgHMegMe2fsNvpdJrvIB8yUT DvhxfrGDNqoD8zAEOfiZJgrOij JS3sFLMtucobx426YlCrMXQ2 KSNwjXVdV7HivC3lMcBqAUNvTI DtW4EjrBSrHIflZ220HPtzAxB3 EOCxwiWlA2OnOFWbnKsbCyH0 d1A3Ui5Ee9UfuvvsT6VkxIKxQg EiTvzaJEs3U4IgEfnouKE+PC90 WSSfRR87OFr6LTE1oTihNEmg HRBdZ9DdlE9hOuWdQFHgTWHrSm c+PHRhYmxlIHdpZHRoPScxMDAl PePqrAbtTJ2wEj2vTRFxYDYk rGymkOWhNrTuf3gcBESxKWwbFD 1crZmgU5TeuVS4QOEkx1k9Ki04 C31fC5IzeSG+BYMmwUB6vET0 cO3hCmWcHzP4NYaeW068YdMshM MjPxnse7zyf0sdnWc3ReX8SJFt fkBdgUboUND9a0ViBx28N12q IHdpZHRoPSIxNSUiIHZhbGlnbj 5dmC7xAi3+HQRamWG3jRE3rX8u GtHzQcW9KZtfB477RqQjnMKa Mahmw6laf3wiaSm5KiKxVUHrcd HydZnnARR2y2NfZw03E7QgeTvh c3FzOdh0ho85lMEow1I0jAT9 L7JrWCUctqqdzOCtfFdcCI1gGT DrkrohVZEupP0aRMLpV0j0AbYu LjE7KNcjM9VupnK4MYOnhOZn EMZoxDUInV0cbtjup5lefygtWf IpRSDrHEs9PId3IOCroRyiKiFd QFA6LiR3SYX0iRMerM6coVcs vuzqfM6bZho+AQX2gIOihUPCQQ 1lOjwvdGQ+GJKcZCC2jWpxBGrk LJMhwQ0gBKBgC5v3FkMnQyT4 VCodU3YjjvQ7CJDkcCMqSTUzzU JRtB0bpxjzu5wombnpSdEdIVSz BRm4QZr2UMHhyWfnHvNsTVG5 FoE2QOV6pQNliE9brDyoprvzlM 9wOyc+OpgihCtaWMK9TDz6B3Oc Qcc5KNZxyHqkUF8giRWzCHya Mb8xwCfyiEglST0zAPDrghzmn0 28AuMhi0mbEDVkzKJjKOssDID6 P26cc9E3CMMcVPHoITA6pIU3 aP8coCiidzkupQUxgFsibcTtwY fqKEhiXBnpQ080WGOyxBuuHnIm ZJl4Y2WoYyg4KEIaoSbiMV5r qOVpVXoiYm2nwXzscHsyZL2yXW Ptcfvuj934GxVox7paSYKddEXb KOahIPO9Q20yl1U1EBHrSIGd ZDZ7pGZ6mT5yhGvztipfcEEdbX dctrXmgDwzWPhiNErbZ111LPUf vAetHsHxzWy9X0DqGiy1UKWk qJgaZP9ndFDkAYpvYy9pmQsbsE lrVU1oWTOhfjwxd947VdQwy8xp FXJfpOEfSWooPPT7J82tg4X9 PDIfWFGfRTE9aAC4eG2nlMvnvr ogbGVmdDsgdmVydGljYWwtYWxp A503TMHxwDfxWrWamTcoevPe BUhiOOt1X3EcQmezvMG+PC90YW XeYB75cNMwuPShx3tfsOb8DeRu ZNUzGZN9vTlnLDogc9CdHCAi L08dgCSnq0G3RONfsMdyoGPkUx UkzBW7bW8oJPzihlvzz9qrbnfc Ttxwk8uhhm60nD41D15iPBee VUJdKQKeULRlQORjmYhvov1uiT 9wIi8+FVYobJE0aTK9sX6cBTGc WlZ5YPfoX781EzXgsBSdVjvx e6tli4sxfIb6UjQ7KTUnerFwiR buATP6e9NkRl06I17bONlbQUSk SYTkCLSbHGOjlJjgci7htK4u Ii8+IPUzpWT9uPV0jC8fPrFsQl G1UApiD399EnEjiDMvQdjxC40n S8PkySP+URCyLdv4UGHtbOrx GI8fsYVcGRooYi4dFTN3VaNjQs IfNKxeH1LaSCRolhwvfcelpUS2 FBUcQXErhM28Jk5egOlyAFAt eBOXkA2kawcpn1jpbareXfIdYE HzBRi6KHc7EATwaVkfTmOtULE4 OuB6MTX7hQHbyG6mjLhwiofe bI3cV9RqGBGyznyrRr84bG6dMl GvEnC6NSrmLix+PJ3DNYffI5DF KMydKKFAKQQ8Y5IaEdg5ZKZn tSdpKB6cdKVsEKpeDz6naKcmlK hqLR2eDNOpsmwkJFQivH7xMJEc zFLfpLkeOT0lROUnyugni309 MjMxXVD5OZEcjPOyU6WyrY9gUh UaYBKbGTDeU0EhiKVeDDsbO794 IFhsBuL3DYDnwaEhX7MaANIa wPnzMhC7o5X2Uv1kDS9qJm5bHQ e7VU11IF22qOHkl6X1hML6L9Zd LPXvnlfomgzcjID3MGTkHOJt zX30eOByYPkmUd1cf7I3q488EF StTAOjuD73Yi1rdLriIVEivKET rG5adrdeu6hyepuoFsAhCMIz OKx4VRh1BOHgeKdqOnFiJHB7Jx W2FET8qSWixQ8sxErsesxmqH1k Oyc+YOAyBFKmdkC9J2LeTbq4 BIAwgEoaSH1lpXOnNHdqLn1zmP iycSsbIT6uBNTnthbzDXZulK6w UWSchSRpqPaiZL2tSSOqicif x081NhSnRPR5EYSreKDmI4GgaD 1sKzAtOMNqBOIiF3VlqFOcBSff B742JRikItV7RADbtxQiH4Da JHHyfKrnGlR8m5S4Fr3VGD5YIE F7W8IdZgk3SKDsbYudMO4ltWSq NGfwJo2idJgkeUulCK6cEHCh zazlXSTmaA1dPQBadDFatLquNO 0iYRSuvgrvw404PaHuGMI9WPFo uMEzX6VwgF9fGkSwYMEcZRKg M2XljPLxHHfuP702CDdlAwO2DI NcykZrR7WmSSUbbNndOdV8n2I7 Tm8AvCSsS3VgO4y5Z9YxKttk dHI+WU07XGDdDM80qUVfdBRvc2 qxjIs9OzLtCUQvQDE5uBpyPGzc y4ZtEZStS09msHWho9G3VDIs jOkovWVeIyMsbVR2yD8iCLynay oou5tohzogTuhba7pizz25jZ63 N38yBJudUTGwPYBqNUHvPRJl iXkfsc4rnT0gGo2+KMXmtWH6bW D3nO0wPcDmBqB3SDjeO552HfJx zBBjZbyms2olk1hesWk2UvMa CNMpqtNzoNjiCFA4h2LcZt99P9 9sIHdpZHRoPSIyMCUiIHZhbGln gl1bsP8gPl6+GT3mz6pdrj05 fT39zJT+RQCaBRB9rPtxLJteVG ForL9vDUvxKgM2TVMlNqMdvW43 wLNtWPblLh5zrCkjoJfkUZ7w KAOjynzdk011TwQfe1amNRUoyO UwBBthOKX9J68co2S2DYYyHVBw AMZ7qCX3tT0ebRglvyrvnFZy fSjlywNpjBmnOYxpJHzuN730QY JuyVmfAgNpuZXhG5ngtbZISB4c OjwvdGQ+FNKsFUS9tKvqTXgy KDYusJ5yOGFpE7s3UtYtUwE8MP bsQ1GjmbM2LNAluMLeKEMwqXGK qE5ytebbf0kgwavnSaFeTPSe IXb9RHc1TNNuzTfcYoBhFXB8Bu L1PWU6mHNgzT5wnUyppfespL4x Oyc+RklOOjwvdGQ+PHRkIHN0 cWteDLdzLYSmcJ2sJORdF5s0Io JhOfP0QEyzV9RdgdE3QYLbdACr BWSenYFXfW5qxpuiv3ufcgmd KnVpTXItHQd5XAh1FVEbjKdmRw XpGTT0LwO9SRO7wZOogV6noCjj ncnyoB8iEnu+TVJOOjwvdGQ+ XNGkFEV6gMrmYVrrZQSnlD7vMF KfB0h3ZdInEqZ6ZGgrB8WsuuN7 XZDxuUJcDCTgkQWDrB5fcqot w6yjagnoYgCqCNEdEQy1JLg2MR AsxIaiRpLdAMD0QeP9IYA7wGQb rL4dgNmhvqgrnG6gLfc+UGF5 KMC6RA94GA85P0CySarneZBysC U+PHRhYmxlIHdpZHRoPScxMDAl ZzBxzQunWY8cIi8mWBGbOEKn bGx (more content not included)... [facility] Coding Summaryon 12-13-2022 Coding Summary [employer] 64 FmbnkpqfNEe8hLa+PGhlYWQ+PE 7PLUTpO95avIIohA7cA6ZGGYzP RbttNXOJJGqRSeKmfeKcVO6xuW NjZXJu IC8+GH4jHMZuYlwzvCFoe8B7oO Q2B32zth4oBEampRK4PKCsThYc wysjb6eqtNc8IQymSfpeZvIm KQVwlB10TGK9vP19Xv94nOKwnB Vzn2iaxVj4QtXfMAFxGXJ1fVuc INeyc9VaOVVqO27lgMSzo6Y3 DGCtwRbxaUStHvYalNE1eB3uMQ qgydqdn6eckazxBwn1fe21qOJf z1K5kSZ8U7NozkH9VSOncWHu SpmyhMUQdY0mlktua9sitrhkGt BnWNLeTCb1BLs6CXJeoVfaVpXr SS11PKR0JIChllGoA3EwBVCk nJlpHeP5e7A6Rg7DO3GKMvrmB6 VNTUFSWTwvdGQ+EJ39fu38N9Uk YlenPma8PQLkXIH8sHG7rV7q IJCpTLkyq1A0rSC7U5OthiIfyh 6yo6bfRDRxPUfaN49shWBig2Y1 VDHixUU8RTTpmQsvIuFsrF09 Oyc+CKKchZjeo2LaOirjn9kpe0 ljkJz2XdecWRXlmoHkbQoqRCM0 p3SdXz1hQILwlAC3tFC2bD3t CgXtVhL5MAaqM825QeYryRUkCt pkK40cE0CkgWB+DQJzYnd9KSSd gIjiSO1nV4AaHRQwnlslkZPl vEouAK1dRIEubkzoCXIdxR2mAJ XpZ1p9JxBsEpR8UCadE9PwQLYi bteeXy75sK9xObQwNuI4BCil V2GojvB9FNBglCKhRKvdPLV4I1 6ci6W9AURfTMVkLYK1zVT1xT4d bGlnbjogbGVmdDsgdmVydGlj KTxgQVohS489RJZomHzjGsMrAU luZyBEYXRlOiAgMDUvMzEvMjAy MzwvdGQ+IQUcOOR6cUvvLRZk qGPhKAfdPc2ogEihgMmgAU2cVX AptcpnMDGakG9lFEQikXVdiCha MJ8uKVRlugqqg370NvNoVLA9 MVVhmPCmL5SknN2eXkGaJIWoHJ CgR1IbzGDvVMjmL579YNyqZpP4 FQImniXzA2StBEFcoXtmIuE5 s2M8Wt2At4MntelxZ5DivNDpBb ZmVwnhXPv8P3GqCcymqVF+PC90 BBNhKZ72SWv9YVP0cTdpYEpm RKWlB0WkkG6eReRbYKFeISIaYo c+PHRhYmxlIHdpZHRoPScxMDAl FaKuhEtoPM2pKd1uMGXpZQYo wPekeYZlWjYjc5grSCXmTVfbAB 6rsLmfW8SaxVC1PJDab7q0Vc85 B71gN5YkvJE+UNDcyDH5aYI3 wH2ePlZyLsL4NHevD527YnQwpF SbHvtmo2huq8ptcZk3MxK2STCa htLwrSbpVSQ6a9BiSi76E23d IHdpZHRoPSIxNSUiIHZhbGlnbj 8dbW2sQr3+KCWsqTI8hCX7vK6w VtJaOiL9XKpvK751BtKezXIr Frwop6eed9sqgCs4WpMlXXTfza IpuNmmKPS3y2UpJp25T4QrhPrj a9LkVxw1zc75nARjm7O1vXJ3 W3BxMRFpmghupRSkxLfnRJ1wUU QmeqgdTXZptM6eGQUfH5n1MqZv LpC6MYqiP4CysoO1UZAmaYIl TMWhtXDRyA6tuovwf7cyuoaxPt GpKCDqPTy2OFg3AUHhqThtPtNa GLZ1LgW5NIJ5rHEzmW6toNul cswxtL8xDor+ANO6hVCblIFLYP 1lOjwvdGQ+INFhFIW4oIfrIVoj NRDcxU0pLRSoS6r8RaLrIdX7 RNtxX4LscnK0DWZauDFoXUKnjV JNfD6pvgslc3oykmjuIoDsUISl PZy4RWc6IKMzmEbyMxMlDIL4 PyR4HTQ3eJNngR5ruBjziznfgV 9wOyc+QaftpQnuEVK3FAc1C6Qx Dzk5GAQagGfgVH8sqRQrEZyw Vr0ejMuqmNmhBR1rTSHpykzsu0 24TvJhx1wcHONfcTHyQKaqIAT6 K30bg7M1JRWoBTHzCOH8rHC4 zL5ovAuykxseaUJztFrkgmNglH thQCcmMBbvE710DWMfhIpqEnZx RHn1Q4OnTqs2BWXlgLkbDJ8h wMMiDSdjUb7imLxitOktMQ9nYO Napatxk412BrDbo3awKJWpwUCu EIzaBMB2C38yf2K3SMSuSNVw EMI7uAL9pN5deNhvrccsrZYfdV ptpwHhoMosQBciFVhjO799YIBx zEgzHuMosRj7G3XgUmk5SIOv hFjyIJ3pcGAvMYlsDy5lvPphrT adDQ7kFCHjllhcj618AsJoa2od NLJfzYZuDDtkIMF8D60jy3M7 LSIgSTXmYQP8zBZ6wF0nbSqpqp ogbGVmdDsgdmVydGljYWwtYWxp Z170EWYzbGlkNlSlpJhghrPu HReoXRt7L4EsPdxklKE+PC90YW YlPZ41jDDnmLZai9bktWt5NaCz ATOsCJD3cRlwSLuke5OoIYXq F99vcHOla7U5FVSfjXvniSZqFd NpjCX8mH0kFXgysyyny9ahskig Bcllh7abut23iA29T91pHTpi NUBcWMSmAZUfJVYrfBsdac5fcA 9wIi8+ZADjaKF7pPO8iY7nJQJr VgU6NYsuM999WiSuhHUeWkeh l9ych2ldjEp9PlR8UJNvcgKbaG svJSZ5s3AsPi24S53rWPbhETCf CKDxIRLgWYGmkNnwvd3xcJ2k Ii8+OTZwvGD3zWU7bI3tDqSkVo L3VJobA213JjYzcBSeRvywS47e X8HofLQ+PNGxFco4SPPspOlb PB3rxXOuYVlcAr5aDEE8YwOoXk TjIQlgA2IvOPCtvvajzllwqIP6 ZMRpFGSkkO29Hc4fqFaaSFGt vTGZhH2bnfjzj5qzefkvEnLjYP HdOOs8TOo8TKOsyYmsGvUlZBW5 AsH2FIG2iMHozB5cnXxevqms tE6zF4RpDNByqntjZm24aP9qDy SwDkN6ETszKyb+ZA4ZKVrxH7EK FIadFJRKWXD0R8HxGsg0MDNg lDnvXV1ztEGuDBamPn6bzPnleN knOZ2hMOXoffydGNLiuA9fGKZj oMVlzKivDF0aMZYagbjkm982 DqYgYGO5YKWwwGNuV4IgiA7yAu JiBOSrEJDgH5NkjFEvSGjzD182 LGvpNpQ7SBYwhmUlF5QnDACy cAzcSrY9k4O3Wt1uHI4bYd8fBI u2GY27OK61rSHbg5L1fUB1V2Cg USIslmabjbqyuCX2DIMdAOZb kQ49uTVyMIakSu7zk3K2t662IZ WtOYKttJ41Vu5tiFkwIDMxrXAN oA2waxkck8prgxzcAxJgHUKm XGe4YDq1KOCjxTaeGnYjZKS3Wf Z0MZR3gUAblH7kjDamvuzooK4v Oyc+PVIlRIRvxjD9D5SlZfq2 BCKemQdhSM1qxROtACxlVc1pyS wywUfmPQ3bSKPbigzoXNDerW9y ZZJsgXVwrHqjBE6hWCXarwko d879LzSkZGP4GNOsiPMwQ3MpuW 8mUqIrPVFnNZCrJ7JtxBWgOMrr Y244KIlrUzS6UUPnweSxD3Hm YHXvuXejQkT6d8X8Wg4VEM3UUI N5A6RwEzw4GJKkaHotAG2nwMTt IEogKw8opZbzrQqlTY0xQHQr qzbbDZMjsH8eCKEnhPNchUnkQI 7fDVQzmgaol757FdPyGWE5LQEv kKNyS2TqoW1aMmQsQEExCGXi Y7CafDHfLNkaZ635STujQoD0PL YdoeVoN8JyPAQzyAslOsQ6b0P0 Ff3MeGAnX8PlF8e7U9KvGzvj dHI+OZ78FWEpHU56vAGqpDFlf6 tmfJa8OaVdOMNrNDT8rHaaPUsa p1KyLHJrJ96keGLuu0N3FFCt lIvspZGpUrHozNT5qO6yTBdcvi sqn4cmycrnIwxaj1epxe49dP92 P18iFQubNJUhVXWjMVLxUWBj hCjjqk5jqS5aYs4+VGVnnUH2vG J3hT0fNnMiKzX4YGlyW241RoMw nCXvWnhgb4dlu0lfnVm6OpEa SBRxzhSzdFchEDU2r0MaUq29G5 9sIHdpZHRoPSIyMCUiIHZhbGln iq1kgQ4dKx7+XP2ph5tgqd81 jQ79bKW+EOXeNPJ8oIhgKFniCP MdaC7sHVyzOwB6ZZKbQyBqgV15 eLZcITpbIt7ezPbdlUhzIL2z MTJvhcelv701KfAnm4ogOXSopI DwVJrgBRQ2M98tl3P8QGZjEMGk KEH1gHU9fN1etNvhqtjtaDNf qLepxsPssXhiRYjaBWylN300DS GkcGnzLbYhwZYmQ6mtslYMHQ4g OjwvdGQ+MUGbKZM6bNxxPQei FXWviI6yAFXoO7s8FoSkXxE9SD suB9IhwgY5ACUwjJDsIRMqxPOI tY0engvmm1bfeyxsRiDfENOb ITd1HFa4TDZrvTkpDnCkIFX1Vl C9QAZ8lGOyiH7gnYikijvlbV1f Oyc+RklOOjwvdGQ+PHRkIHN0 fFghDUrxWKNdgD0uBTExJ3d2Nf DyBjM7GPyxP4DfvnD9USHreKKt IAKgsNCEyP1ljlxki5ppwela HyOxUJCeVGt5YAw8YUXtyOgoVz NrQLA6GaE2FNR6tTOgjL6eqIpa cvztfD3dZow+TVJOOjwvdGQ+ BSAjXNA5vPbyKWkzBMVoiD1bNY EzC2g3MpYkCqS0CWyuO7BdqfH7 FKHxeQOoOVEbiFBGuA5olxxw x8tlrczbBaUwMSOxFXu6ETk6SQ WmuOmfGyScMSX3YkO6JKT1wGTk xX1kyDwfwooqvX1kZgl+UGF5 AJF6KY33KU74L7AlFtatzHZbbM U+PHRhYmxlIHdpZHRoPScxMDAl CcCnmEcuWX8pPt4iWLTuWBQk bGx (more content not included)... [facility] Coding Summary HTMLBase 64 DbmihoxjWXl7zMc+PGhlYWQ+PE 1APBFdK03qjJVznL6dI6JPFEfH RtghATQTJHwESqPvxwIkAS4hbI NjZXJu IC8+XE2yCAWqErowjMMnz3L8tJ T6Y19rvs9pWCsfpWY1IRTxZpWx pemea3rquPr2OAmzSzvpQiAz MMOloA39ANH0fO15Zv34vYXarY Zum8efvIw9JmRxJTXdYEK7qGkw BLhuz3OwPTSbL49xkVJon6L3 IMRpgPuxnRBpYmBfiLS6yD4sPB ifcayff0rqrkpiLhx6ls60iMLh c5Z2xIL4G2MjuaE1YVJzgHXm DcxipITOdO6qjvhgt3qrwlonOy CoFUZlMDx1GAi8VDXegFbyNmAq KD78SNR7IZXnbbVsG9QpASOj fLeuNqJ0d2E5Hv9HT6JHKyvfW6 VNTUFSWTwvdGQ+FM81nm86T1Fa ColhOhg0WMGcINT9nLU2xB3b ZAJxXUpfx9L6rXQ3M6RkgjSkwr 2xr9xmRYNhWQkeR87dtHOhb8J6 JXYdzIO6RXZquUyeCfVwzS75 Oyc+MARamXjif4DlWdpty7wni5 jmtIc6VaxiQNSvwgNkcIbyZTA5 g6XpJa1pOTJbkCQ6iHS9rH4i IyHuDyV5SYisL549GlMuxOJqAl vnR15tS1ScoNP+JSVwQpj3HGBs rAdsHT1mA3ZfOFDokjukaDYu bZhmMS0pQTYzzwkoFUIdtM7oXQ WzA2u1SnWjDyU6JJevQ1VjBOHw uocvPs40nP6nYhJmGxC8GJzd B9BtrvL5BNKstTMhTKroUTE9F5 4ly9U7HNZlCNPbYCV4nOM1zJ4t bGlnbjogbGVmdDsgdmVydGlj SLwjIYilV118COKwyApwCfOsGA luZyBEYXRlOiAgMDUvMzEvMjAy MzwvdGQ+DYMtNFD3gUvuVFRk uESrTOilTk0nlOvzaXtnLD2tNV ThumvbVLXyxO2fACEvtJRlqJoc EL0dADBistaho011GsSnHZN9 LQHwlNKsW6HctG4yGsKvCHPjIA XxG6OjlPSpSCzpA632QObsHbX9 PEYanhXhA3ZsNFWjdTvfRjG9 q7H6Ym9Zq7UmboiqR0BpiOXhKq CsBnsxGKq1N0UjRrmghPN+PC90 OOAxEY71KOl1HIL0hWmrABde VHWgZ4UsgV1zJaBfNPGoOBJgRd c+PHRhYmxlIHdpZHRoPScxMDAl ZgSerQokKA4lHm4gOHPgGERi cXithQOyLhRrj7coXFNyIVxcLH 4lhYqmO3SlvFS0IGQhh0u3Tq28 E07qC3AcdHA+PGJrdDV5vRL9 rG4pHgQjPqV5JEpvS900KkTzgG YdMqklw7hzt3eoxQl1XoP1TCXc xfNhlSyeNQR9k5EiOz53O25u IHdpZHRoPSIxNSUiIHZhbGlnbj 3liX9uSf7+OPPluAZ5vEW5nK8b MbBjDbY7RUimY698EpTitJTt Kwsvy8toq1fckBv6ItBjVZKfmh BwtPgyIYC5p5FuMe91E5IoiGgk m3BbFhs2sb10qTTgx0Y1iWK3 G1ZzIDIajwecdKTzfIlySA9jFI WlojqbUWMtxY8yEZJzJ8w9RjEe OnB5ELapM0SfcfJ6CSLfnJPp PJQznAFDkL9prbzld0bmsxqiHu IuGHTxXRx2HPv1RBEwaKmhKdUz FKU4HqP6FTP9pUFmgI0loDqv aamhcZ1eHzv+PXE7aNSscJUAZD 1lOjwvdGQ+NKXuQJZ7wLmsKOmq UJMguE6eYZPhB1h1ExYuIsH4 AGhnX4AkggX1CKNfbSSpODPngU UFoD6lqkklm7qceokmApWjGPAb IPq9WDo3JEItdIgxRoIqYCZ2 BoM2DRS5vPRazZ7vnLpeitbwqV 9wOyc+AolucJizOCX3ORa1O2So Ibx4AQZscFwrTY2htFBaZZgb Zr9rwEfviQpsUA2iAFLaptqvg1 31HkYmd5ysLZEidYEfCQjlAJS7 I61dq2M3WPSnHGTxLAE7uXB5 aR3sbSegtcnytQWelXblesCojE jgUEliEUzfQ931ZPZbaHvoAvKq LLh1K9HlWxn1CFYmkIylRE6g tJWcNCcvMx0nuJcuyMjlQG7jHX Fstgacl751HxFaa6hnNWKwtHHx ILrdXLA5X96ta4Z3PIZcBYQv ATD4aKJ5vL7xzLojiyitpPPpeE nyvgHqmQgqGJcmQFbyA076QSBb sYpnJpVatPs3D1ElPnv7SSEr pHfoSK5xxVJyZQgkJt7mrMwvqG caDJ5gZRPiobfms780PrQkr3yf GSYtdBZqSQzjDDE9G11mf0C3 KFWqFHLqANR6cFF4tA2qcIasah ogbGVmdDsgdmVydGljYWwtYWxp B702XDKbvTfmCdGxwFsqapFw RDbtRTs7C1NvRlinnLN+PC90YW AdWP14eAAxzTBhz1cofWz7SwQd WJIbRFP3fZvuSPtrs6ZwVCNp P51poJDdd5V1DOAblMvjcLKqSy MndGA7hU3oHErhxbpjz0pchpxx Mnmig0wkkf33xZ56Q54zRGmg CQZrQNFpMFQpTARhrNwhtg2llB 9wIi8+KXPdwIT2dEE4pX0rWXAn AvJ2MOqhE596OjJmfLBhYepu n4rlp6gdhRw0HbQ1CMUwqwMkhT blNZR9r9EeRw90Z08sNEpvHDBx XGViDKYcCJTqvLnwrc6kkW8r Ii8+FVJffXL2aPL2nZ6kLvWuTo X9JKotP101VfLwuILsMoldN47f A9SlyDM+EXXeVfc2BJGcaCsk GQ7kfFZuBSlrOp2hMAB7HwLbLq ToEOacZ7ZmQHTvremykqellWV4 QRNrSPGnyM64Jr3tdTgqYFYd pMJUwZ6zyzzux9itozwmCmIvIN MkAUq2KDs8CKUtcZtyNbNePZQ6 RtL1XXT0fQMvoV7ooGxmigkg qK5fW9CnRVZsgtikRy92jW3vYn NlJxF6WIzcHae+UN8NFTyrG8MD AKlzNNBNPRA5G4JzItw7ZXFf nRxrNV5klKOoSQckSb9afNsrkR yaBY4rDVIpsssnPWNmoU6iCDDw jQGvcXbxWQ8aFXPhtshgk029 KuBuZJC3NJKvvJFvH7YauZ2hRv LmORKlDUBsJ1AnrCGvZBhfS613 YIrfXhG9IDVkeqAcH1ZfTSJk aHhnYmV7b7M5Dq1yQC0lSw0iFA r8SV15WJ12zVYvq3V4hWN0G1Gm WSPpqpobleaieDL8FLFoNDIr dU30gENcSAscOt0fe2J9q706OM BnYJQxnJ94Xe7weZboTLOphYBR bK5nnmyig6hjsnakGiFgKAEa ATf0MAs8WSYczHdxMaHqYTS1Mc N4ZJE5dVLdbO7vuWtslbpiuJ7a Oyc+RUHgZCDzyfU8L9PxPpc5 TIYgqFnbYU9bnACeAAydWw1urQ caiCpbDU0rZSVkayclGLAkmU8l CFPcxVGcsChoVC7xZIMptuko h044JmZyCID0JIXsmNApY2LehI 6xKmDwQJFgDKRpG0XkwFNxRYpk Y999HHmjSuE7TRFkjfBoY5Kp FRGakFofPzU6l2J8Zj8NAX6KIU H7X7LcTyq4SXZtwKncKE5mtNZg WHihFv6tzWvxlNdlAJ7vGENs lbxnVIWgxA9eVPBwpOVerZxcNM 1aDTRbesyhu605DlNvJKP2BCNy fGYaQ2IkuK2nKcZdQGDtBYMk Z3BmlJPeROmmW976UZaeTlG0RT HbqtRpQ1CeFPHxtIfbNqL3x8G8 Fe5NvHEkR6EaL6t8G3TmOllc dHI+WP04JCToTA56yJDbuVZzl9 ukcZv7ZfGsFPNmDLJ6jZvaEHyk o1VnDCClK67rzVJbv8M2FJQy oIbunJUiPdNpuUY2eU6iSSitjc txz6bpyaciDzdeo1hvgs43zU00 C85xZNdxUZTuZFWwVUKmKOLl lOvvmx2asQ6rZh2+KNJozFX9lY I5tX0sJqWcVzS4LGriJ701MjQw bTEqMaiow5oei5kjdYj8PhJh BONihyBowHvqHOC9j2YhCf72Z9 9sIHdpZHRoPSIyMCUiIHZhbGln rj3idF3cXq0+DL6fl1oohe74 zO09kVP+DJZgHMM0tMykDBxeFP DieU0bGZohRgC7NMYeXoZfpD95 hCChOBfkPv6nvRswlVlmGA2p DHDnydhhq668TvOyf1bkWNRsgE FdJJdfBYX9G19od6I7SIStVIRm RWS2jBD6nU7jjUyofosgwFOf rEssplDhqMhfWEfiZDrjY458QA AjcQdcKwMviGLyZ0elsdHWPD2n OjwvdGQ+PMEdVAV8lTerZFfv QIMetK0jWJVyT8p6XmVoIxQ4IC orY0AikbT7DQDkjYYyGVYrwDKD yV9wzkxqb6gljdnmHtPbQUVs CZd4EQy4PFHrjRlvChPpXCF4Qm L6TJT0oZSqxK4xcNcbrcwcrB4a Oyc+RklOOjwvdGQ+PHRkIHN0 jCjzEAjyFBNszA4bACPsJ7d1Ka OlHhZ5QHznT4EjuvP0WXUyrKOr FNSkiVYTfF9yvgmre9xgiycm IbGnUTIqRZz0YYb7XSFclMkdPx LuJHS1UyD1JKC9oVAhxG4ycQxs ksawpS5jWei+TVJOOjwvdGQ+ KABuJKW8cPkpEVpgZROqsL4bGF QkK1c9MwAeNxS9VIdhW1BwwrW8 KREurMAbSXMmtHJApX8yfplq r1ufdwjsMdPpTYGcJKw3FLq8YQ JqpWslDwWuARP7FeU4FPX5sWRt aP5woYwpdygtrF0wYfp+UGF5 NTP5WX82XA67X8FhKjdtnXTtsN U+PHRhYmxlIHdpZHRoPScxMDAl PqJpbNqtDZ9kAa3fDKWzXEOf bGx (more content not included)... Normal [facility] .Auto Diff 12-10-2022 Auto [place] % 5 % Normal 12 [facility] Comment on above: Performed By: #### 2 802305, [id number], 4283435, [id number] ####[facility] (DEFAULT)[address] [place] [address] Baso Abs# 0.1 x10 Normal 0.0-0.2 [facility] Comment on above: Performed By: #### 2 783079, 15629265, 2936105, [id number] ####[facility] (DEFAULT)[address] [place] [address] Basophils/100 WBC (Bld) 0.5 % Normal 0.2-2.0 [facility] Comment on above: Performed By: #### 2 979089, 55883878, 0941954, [id number] ####[facility] (DEFAULT)[address] [place] [address] Eos Abs# 0.0 x10 Normal 0.0-0.4 [facility] Comment on above: Performed By: #### 2 133274, 51851040, 0033985, [id number] ####[facility] (DEFAULT)[address] [place] [address] Eosinophils/100 WBC (Bld) 0.3 % Low 0.9-4.0 [facility] Comment on above: Performed By: #### 2 274667, 38824247, 1958219, [id number] ####[facility] (DEFAULT)[address] [place] [address] Lymph Abs# 1.9 x10 Normal 1.3-2.9 [facility] Comment on above: Performed By: #### 2 281618, 44151395, 8408910, [id number] ####[facility] (DEFAULT)[address] [place] [address] Lymphocytes/100 WBC (Bld) 18 % Normal 14-48 [facility] Comment on above: Performed By: #### 2 783434, 80892260, 5744624, [id number] ####[facility] (DEFAULT)[address] [place] [address] [place] Abs# 0.6 x10 Normal 0.0-0.8 [facility] Comment on above: Performed By: #### 2 471650, 60348657, 8960908, [id number] ####[facility] (DEFAULT)[address] [place] [address] Neut Abs# 8.1 x10 Normal 1.5-9.2 [facility] Comment on above: Performed By: #### 2 576430, 00970191, 3734994, [id number] ####[facility] (DEFAULT)[address] [place] [address] Neutrophils/100 WBC (Bld) 76 % Normal 44-88 [facility] Comment on above: Performed By: #### 2 853913, 57826029, 9201535, [id number] ####[facility] (DEFAULT)[address] [place] [address] CBC w/ Auto Diffon 3 Erythrocyte distribution width (RBC) [Ratio] 16.2 % High 11.5-15.0 [facility] Comment on above: Performed By: #### 2 619275, 05903290, 8824176, [id number] ####[facility] (DEFAULT)[address] [place] [address] Hematocrit (Bld) [Volume fraction] 37.2 % Normal 33.7-40.4 [facility] Comment on above: Performed By: #### 2 491977, 56488901, 7322766, [id number] ####[facility] (DEFAULT)[address] [place] [address] Hemoglobin (Bld) [Mass/Vol] 12.7 g/dL Normal 11.3-15.9 [facility] Comment on above: Performed By: #### 2 316834, 09964041, 3655728, [id number] ####[facility] (DEFAULT)[address] [place] [address] Man Diff? Auto Invalid Interpretation Code [facility] Comment on above: Performed By: #### 2 292892, 46742249, 9379532, [id number] ####[facility] (DEFAULT)[address] [place] [address] MCH (RBC) [Entitic mass] 31 pg Normal 24-34 [facility] Comment on above: Performed By: #### 2 645102, 19536122, 5544643, [id number] ####[facility] (DEFAULT)[address] [place] [address] MCHC (RBC) [Mass/Vol] 34 g/dL Normal 26-37 [facility] Comment on above: Performed By: #### 2 727347, 95715886, 2146965, [id number] ####[facility] (DEFAULT)[address] [place] [address] MCV (RBC) [Entitic vol] 90 fL Normal 81-100 [facility] Comment on above: Performed By: #### 2 094265, 18516949, 2048228, [id number] ####[facility] (DEFAULT)[address] [place] [address] Platelet 327 x10 Normal 138-427 [facility] Comment on above: Performed By: #### 2 431638, 81070325, 9786297, [id number] ####[facility] (DEFAULT)[address] [place] [address] Platelet mean volume (Bld) [Entitic vol] 7.4 fL Normal 6.3-10.2 [facility] Comment on above: Performed By: #### 2 291638, 61797756, 2056766, [id number] ####[facility] (DEFAULT)[address] [place] [address] RBC 4.14 x10 Normal 3.70-5.30 [facility] Comment on above: Performed By: #### 2 253314, 41142431, 8006248, [id number] ####[facility] (DEFAULT)[address] [place] [address] WBC 10.6 x10 High 3.5-10.5 [facility] Comment on above: Performed By: #### 2 618826, 67634913, 1557231, [id number] ####[facility] (DEFAULT)[address] [place] [address] CMP Standardon 12-10-2022 eGFR Non AA >60 Invalid Interpretation Code [facility] Comment on above: Performed By: #### 2 520680, 19102665, 8277315, [id number] ####[facility] (DEFAULT)[address] [place] [address] eGFR AA >60 Invalid Interpretation Code [facility] Comment on above: Performed By: #### 2 663719, 03051162, 8895576, [id number] ####[facility] (DEFAULT)[address] [place] [address] Albumin [Mass/Vol] 4.2 g/dL Normal 3.5-5.0 [facility] Comment on above: Performed By: #### 2 662619, 96200261, 8921095, [id number] ####[facility] (DEFAULT)[address] [place] [address] Albumin/Globulin [Mass ratio] 1.3 {ratio} Low 1.4-2.6 [facility] Comment on above: Performed By: #### 2 373486, 41020261, 3508175, [id number] ####[facility] (DEFAULT)[address] [place] [address] Alk Phos 97 IU/L High 32-91 [facility] Comment on above: Performed By: #### 2 752789, 18100687, 7365864, [id number] ####[facility] (DEFAULT)[address] [place] [address] ALT [Catalytic activity/Vol] 25.0 U/L Normal 14.0-54.0 [facility] Comment on above: Performed By: #### 2 651897, 10056623, 4421447, [id number] ####[facility] (DEFAULT)[address] [place] [address] Anion gap [Moles/Vol] 15.5 mmol/L Normal 5.0-19.0 [facility] Comment on above: Performed By: #### 2 205463, 00222881, 3756039, [id number] ####[facility] (DEFAULT)[address] [place] [address] 49021 AST [Catalytic activity/Vol] 28 U/L Normal 15-41 [facility] Comment on above: Performed By: #### 2 913556, 43571399, 2971358, [id number] ####[facility] (DEFAULT)[address] [place] [address] 95837 Bili Total 1.1 mg/dL Normal 0.3-1.2 [facility] Comment on above: Performed By: #### 2 818735, 73445740, 5906625, [id number] ####[facility] (DEFAULT)[address] [place] [address] 48084 Calcium [Mass/Vol] 10.0 mg/dL Normal 8.9-10.3 [facility] Comment on above: Performed By: #### 2 767672, 39673296, 8163727, [id number] ####[facility] (DEFAULT)[address] [place] [address] 23146 Chloride [Moles/Vol] 104 mmol/L Normal 101-111 [facility] Comment on above: Performed By: #### 2 159419, 04109240, 4076154, [id number] ####[facility] (DEFAULT)[address] [place] [address] 19799 CO2 [Moles/Vol] 24 mmol/L Normal 21-32 [facility] Comment on above: Performed By: #### 2 801772, 62636352, 4933254, [id number] ####[facility] (DEFAULT)[address] [place] [address] 03242 Creatinine [Mass/Vol] 0.77 mg/dL Normal 0.60-1.30 [facility] Comment on above: Performed By: #### 2 459465, 09381727, 9496510, [id number] ####[facility] (DEFAULT)[address] [place] [address]395 Globulin (S) [Mass/Vol] 3.1 g/dL Normal 1.5-4.3 [facility] Comment on above: Performed By: #### 2 198688, 73940223, 1060264, [id number] ####[facility] (DEFAULT)[address] [place] [address] 19465 Glucose [Mass/Vol] 109.0 mg/dL Normal 74.0-118.0 [facility] Comment on above: Performed By: #### 2 846550, 06599677, 3342382, [id number] ####[facility] (DEFAULT)[address] [place] [address]1400 Osmolality 282 mOsm/L Invalid Interpretation Code [facility] Comment on above: Performed By: #### 2 792688, 50104112, 0948512, [id number] ####[facility] (DEFAULT)[address] [place] [address] 91796 Potassium [Moles/Vol] 3.5 mmol/L Low 3.6-5.1 [facility] Comment on above: Performed By: #### 2 619370, 82869802, 2496756, [id number] ####[facility] (DEFAULT)[address] [place] [address] 39443 Protein [Mass/Vol] 7.3 g/dL Normal 6.5-8.1 [facility] Comment on above: Performed By: #### 2 085856, 10333081, 1354080, [id number] ####[facility] (DEFAULT)[address] [place] [address] 67196 Sodium [Moles/Vol] 140.0 mmol/L Normal 136.0-144.0 [facility] Comment on above: Performed By: #### 2 176979, 86692565, 8410019, [id number] ####[facility] (DEFAULT)[address] [place] [address] 89668 Urea nitrogen [Mass/Vol] 20 mg/dL Normal 8- [facility] Comment on above: Performed By: #### 2 275550, 61457697, 1356774, [id number] ####[facility] (DEFAULT)[address] [place] [address] 32593 Urea nitrogen/Creatinine [Mass ratio] 25.9 mg/mg High 4.6-16.2 [facility] Comment on above: Performed By: #### 2 581352, 61739188, 0623221, [id number] ####[facility] (DEFAULT)[address] [place] [address] ED Clinical Summaryon 2022 ED Clinical Summary [facility] - Emergency Department [address] [place] [address] ED Clinical Summary PERSON INFORMATION Name: CHRISSY DANGELO Age: 42 Years Sex: FEMALE : 1980 MRN: Acct#: Visit Reason: Abdominal pain; Nausea; ABD PAIN, VOMITING Arrival: 12/10/2022 13:23:00 Discharge: 12/10/2022 16:20:00 LOS: 000 02:57 Check In: 12/10/2022 13:23:00 Checkout:12/10/2022 16:20:00 Address: [facility] ABDIFATAH BOTELLO [address] [address] PCP: Moise Baum PROVIDER INFORMATION Provider Role Assigned Unassigned Aydee Britt CNP ED PA 12/10/2022 13:25:01 Jesus DAWN, Demetra Zafar ED Nurse 12/10/2022 13:43:49 Vern Foster DO ED Provider 12/10/2022 15:37:26 VITALS INFORMATION Vital Sign Triage Latest Temperature Tympanic Temperature Temporal Artery Pulse Rate 60 bpm 68 bpm O2 Sat 98 % 97 % Respiratory Rate 18 br/min 16 br/min Blood Pressure /96 mmHg /96 mmHg MEDICAL INFORMATION Medications Given: Medication Dose Route ketorolac 30 mg IM lidocaine topical (lidocaine 4% topical film) 4 % TOP Allergy Information: Soy; Wheat; Mimbres; Contrast Dye PHYSICIAN DOCUMENTATION DISCHARGE INFORMATION: Discharge Disposition: Home Discharge Location: Home PATIENT EDUCATION INFORMATION Instructions: Abdominal Pain, Adult; How to Take Your Blood Pressure; Cyclic Vomiting Syndrome, Adult; Cannabinoid Hyperemesis Syndrome Follow-Up: With: Address: When: Moise Baum [address] [place] [address] Within 3 to 5 days With: Address: When: Follow up with specialist Within 3 to 5 days DIAGNOSIS: 1:Abdominal pain; 2:Cannabinoid hyperemesis syndrome; 3:Nausea and vomiting; 4:Marijuana abuse; 5:Blood pressure elevated without history of HTN; Cannabis use, unspecified, uncomplicated Patient Understands: Yes - Patient/family/caregiver verbalizes understanding of instructions given Comment: [facility] ED Note-Nursingon 12-10-2022 ED Note-Nursing Patient arrives to [facility] ED via private vehicle. Ambulated with a steady gait to ED room 3 carrying a kitchen bowl. Alert and oriented X4. C/O left sided abdominal pain and vomiting. Patient reports she was seen and treated in the ED yesterday for nausea, vomiting, and abdominal pain. Reports she does not feel nearly as bad as she did yesterday. Patient reports she felt great when she left yesterday and even was able to go [place] [employer] [place] and walk around without pain. Patient reports pain returned this morning. Reports she tried takin norco, Phenergan and Zofran with no relief. [facility] ED Patient Summaryon 023 ED Patient Summary [facility] - Emergency Department [address] [place] [address] PATIENT DISCHARGE INSTRUCTIONS Patient Information Name: CHRISSY DANGELO Age: 42 Years Date of : 1980 Reason For Visit: Abdominal pain; Nausea; ABD PAIN, VOMITING Arrival Time: 12/10/2022 13:23:00 Primary Care Physician: Moise Baum Attending Physician: Vern Foster DO Comment: Visit Diagnosis: Diagnoses This Visit Abdominal pain ([id number]) Abdominal pain (R10.9) Blood pressure elevated without history of HTN (R03.0) Cannabinoid hyperemesis syndrome (R11.2) Cannabis use, unspecified, uncomplicated (F12.90) Marijuana abuse (F12.10) Nausea ([id number]) Nausea and vomiting (R11.2) The Pharmacy at [facility] is open Sunday through Sunday from 9A to 6P and Sunday and Sunday from 9A to 5P Prescription Information: If you have been given a prescription for narcotics, seek immediate medical attention if you have any difficulty breathing or any sudden status changes such as confusion and sleepiness. If you or anyone you know is experiencing suicidal thoughts, mental health, alcohol and/or drug addiction problems; contact the [facility] 05/02 Crisis Hotline -Text 7SRDQ fh 371613. If you received any narcotics, sedation, or any other medication that causes drowsiness for the next 24 hours, unless otherwise directed: ? Do not drive a car. ? Do not operate machinery such as power tools, lawn mowers, drills, sewing machines, or stoves ? Avoid alcoholic beverages and drugs for allergies, nerves, or sleep ? Do not make important personal or business decisions or sign any legal documents With: Address: When: Moise Baum [facility] [place] [id number] Within 3 to 5 days With: Address: When: Follow up with specialist Within 3 to 5 days Medication Information: The exam and treatment you received today in the [facility] Emergency Department were for an urgent problem and are not intended as complete care. It is important for you to follow up with a doctor, nurse practitioner, or physician?s medicine assistant for ongoing care. If your symptoms become worse or you do not improve as expected and you are unable to reach your usual health care provider, you should return to the Emergency Department, we are available 24 hours a day. For those patients who have received Radiology results, the interpretation of your X-ray as given to you by our Emergency Department physician is only a preliminary report. The Radiologist will review your films and if there is a change in the diagnosis you will be notified by phone. Please make sure you have provided a working phone number so we can reach you if necessary. In the event that you had a lab culture while you were a patient in the Emergency Department, you will be notified by phone if there is a need to change your antibiotic. Please make sure you have provided a working phone number so we can reach you if necessary. [facility] Emergency Department has provided you with a complete list of medications post discharge. Please inform your primary care nurse practitioner/provider of your visit and for further instruction on these medications. Any specific questions regarding your chronic medications and dosages should be discussed with your primary care physician(s) and/or pharmacist. New Medications [facility]/pharm[facility] #[id number], [address] [place], [place] [id number], [phone] ketorolac (ketorolac 10 mg oral tablet) 1 tab(s) Oral every 6 hours as needed for pain. Refills: 0. lidocaine topical (lidocaine 2% topical gel with applicator) 5 Milliliter Topical every day. Refills: 0. Medications to Continue That Have Not Changed Other Medications acetaminophen-hydrocodone (acetaminophen-hydrocodone 325 mg-5 mg oral tablet) 1 tab(s) Oral Every 4 hours as needed as needed for pain. brexpiprazole (Rexulti 1 mg oral tablet) 1 tab(s) Oral every day. dicyclomine (dicyclomine 20 mg oral tablet) Durable Medical Equipment for Prescription (lurasidone 60 mg tablet) TAKE 1 TABLET BY MOUTH EVERY DAY. famotidine (famotidine 20 mg oral tablet) 1 tab(s) Oral 2 times a day. milnacipran (Savella 100 mg oral tablet) 1 tab(s) Oral 2 times a day. ondansetron (ondansetron 4 mg oral tablet, disintegrating) 1 tab(s) Oral once as needed as needed for nausea/vomiting. promethazine (promethazine 25 mg oral tablet) 1 tab(s) Oral Every 4 hours as needed for nausea/vomiting. propranolol (propranolol 60 mg oral tablet) tiZANidine (tiZANidine 4 mg oral tablet) TAKE 2 TABLETS BY MOUTH 3 TIMES A DAY. traZODone (traZODone 50 mg oral tablet) TAKE 1 TABLET BY MOUTH EVERY DAY AT BEDTIME NEEDED FOR 30 DAYS. Visit Information Allergies: Substance Reaction Symptoms Type Comments Contrast Dye Drug Mimbres Food Soy Food Wheat Food Vital Signs: Vitals a (more content not included)... Normal [facility] Lipaseon 12-10-2022 Lipase Level 27.0 IU/L Normal 22.0-51.0 [facility] Comment on above: Performed By: #### 2 [id number], [id number] ####[facility] (DEFAULT)[address] [place] [address] .Auto Diff 112-09-2022 Auto [place] % 4 % Normal -12 [facility] Comment on above: Performed By: #### 1 [id number], [id number] ####[facility] (DEFAULT)[address] [place] [address] Baso Abs# 0.0 x10 Normal 0.0-0.2 [facility] [facility] Comment on above: Performed By: #### 1 [id number], [id number], [id number], 4029510, [id number] ####[facility] (DEFAULT)[address] [place] [address] Basophils/100 WBC (Bld) 0.0 % Low 0.2-2.0 [facility] Comment on above: Performed By: #### 1 [id number], [id number], [id number], 3870538, [id number] ####[facility] (DEFAULT)[address] [place] [address] Eos Abs# 0.0 x10 Normal 0.0-0.4 [facility] Comment on above: Performed By: #### 1 1128975, [id number], [id number], 0139400, [id number] ####[facility] (DEFAULT)[address] [place] [address] Eosinophils/100 WBC (Bld) 0.0 % Low 0.9-4.0 [facility] Comment on above: Performed By: #### 1 [id number], [id number], [id number], 0221008, [id number] ####[facility] (DEFAULT)[address] [place] [address] Lymph Abs# 0.8 x10 Low 1.3-2.9 [facility] Comment on above: Performed By: #### 1 0347265, [id number], [id number], 0305066, [id number] ####[facility] (DEFAULT)[address] [place] [address] Lymphocytes/100 WBC (Bld) 6 % Low 14-48 [facility] Comment on above: Performed By: #### 1 7400235, 5120193143, 1463099532, 8829326, [id number] ####[facility] (DEFAULT)[address] [place] [address] [place] Abs# 0.5 x10 Normal 0.0-0.8 [facility] Comment on above: Performed By: #### 1 3209927, [id number], 1392124176, 6960447, [id number] ####[facility] (DEFAULT)[address] [place] [address] Neut Abs# 12.2 x10 High 1.5-9.2 [facility] Comment on above: Performed By: #### 1 7297435, [id number], 4990276820, 9581762, [id number] ####[facility] (DEFAULT)[address] [place] [address] 97236 Neutrophils/100 WBC (Bld) 90 % High 44-88 [facility] Comment on above: Performed By: #### 1 6308528, [id number], 2442276404, 4664983, [id number] ####[facility] (DEFAULT)[address] [place] [address] 30312 CBC w/ Auto Diffon 3 Erythrocyte distribution width (RBC) [Ratio] 16.6 % High 11.5-15.0 [facility] Comment on above: Performed By: #### 1 9709282, [id number], 1244669863, 0476873, 5098601485 ####[facility] (DEFAULT)[address] [place] [address] Hematocrit (Bld) [Volume fraction] 40.8 % High 33.7-40.4 [facility] Comment on above: Performed By: #### 1 4440188, 6562368158, 9760898661, 1682845, [id number] ####[facility] (DEFAULT)[address] [place] [address] Hemoglobin (Bld) [Mass/Vol] 13.8 g/dL Normal 11.3-15.9 [facility] Comment on above: Performed By: #### 1 6763813, [id number], , 1856525, [id number] ####[facility] (DEFAULT)[address] [place] [address] Man Diff? Auto Invalid Interpretation Code [facility] Comment on above: Performed By: #### 1 1549824, [id number], 7961334371, 9179544, [id number] ####[facility] (DEFAULT)[address] [place] [address] 77763 MCH (RBC) [Entitic mass] 30 pg Normal 24-34 [facility] Comment on above: Performed By: #### 1 9949800, 9124169708, 0038277770, 7505116, [id number] ####[facility] (DEFAULT)[address] [place] [address] 31508 MCHC (RBC) [Mass/Vol] 34 g/dL Normal 26-37 [facility] Comment on above: Performed By: #### 1 5663893, 0614244458, 5262266301, 3528820, [id number] ####[facility] (DEFAULT)[address] [place] [address] 32239 MCV (RBC) [Entitic vol] 90 fL Normal 81-100 [facility] Comment on above: Performed By: #### 1 0005940, 9390360747, 9078833613, 8368870, [id number] ####[facility] (DEFAULT)[address] [place] [address] 99465 Platelet 390 x10 Normal 138-427 [facility] Comment on above: Performed By: #### 1 2365555, 3276018075, 0486988556, 0277202, 4011688115 ####[facility] (DEFAULT)[address] [place] [address] 91066 Platelet mean volume (Bld) [Entitic vol] 7.7 fL Normal 6.3-10.2 [facility] Comment on above: Performed By: #### 1 6194722, 2459200662, 3639804753, 7974470, 2709087084 ####[facility] (DEFAULT)[address] [place] [address] RBC 4.56 x10 Normal 3.70-5.30 [facility] Comment on above: Performed By: #### 1 7729322, 3587360258, 2287096922, 6394600, 3289008517 ####[facility] (DEFAULT)[address] [place] [address] WBC 13.5 x10 High 3.5-10.5 [facility] Comment on above: Result Comment: Slid e Reviewed Performed By: #### 1 7118347, 0903011445, 8750693725, 0673738, [id number] ####[facility] (DEFAULT)[address] [place] [address] 75550 CMP Standardon 12-09-2022 eGFR Non AA >60 Invalid Interpretation Code [facility] Comment on above: Performed By: #### 1 1948329, 5637112893, 3591211573, 0651909, [id number] ####[facility] (DEFAULT)[address] [place] [address] 53218 eGFR AA >60 Invalid Interpretation Code [facility] Comment on above: Performed By: #### 1 8653963, 8979102819, 6138121840, 1754573, [id number] ####[facility] (DEFAULT)[address] [place] [address] 59550 Albumin [Mass/Vol] 5.0 g/dL Normal 3.5-5.0 [facility] Comment on above: Performed By: #### 1 9536592, 5086112812, 0851288956, 6658946, 9791608684 ####[facility] (DEFAULT)[address] [place], [place] [address] Albumin/Globulin [Mass ratio] 1.3 {ratio} Low 1.4-2.6 [facility] Comment on above: Performed By: #### 1 5864315, 7551726606, 3818002191, 7328403, 4804733714 ####[facility] (DEFAULT)[address] [place] [address] 94149 Alk Phos 114 IU/L High 32-91 [facility] Comment on above: Performed By: #### 1 1119020, 8359262270, 6599208828, 0829026, 0500076204 ####[facility] (DEFAULT)[address] [place] [address] 98195 ALT [Catalytic activity/Vol] 18.0 U/L Normal 14.0-54.0 [facility] Comment on above: Performed By: #### 1 8516463, 2973412607, 3779711961, 3838687, 0533351655 ####[facility] (DEFAULT)[address] [place] [address] 41909 Anion gap [Moles/Vol] 14.7 mmol/L Normal 5.0-19.0 [facility] Comment on above: Performed By: #### 1 4197036, 8280560687, 7363345198, 8942962, 6689265780 ####[facility] (DEFAULT)[address] [place] [address] 39177 AST [Catalytic activity/Vol] 23 U/L Normal 15-41 [facility] Comment on above: Performed By: #### 1 0147906, 1961724086, 0937178407, 5678924, 1011631502 ####[facility] (DEFAULT)[address] [place] [address] 83882 Bili Total 0.8 mg/dL Normal 0.3-1.2 [facility] Comment on above: Performed By: #### 1 2239548, 5412487365, 2253627211, 1200454, 3531074870 ####[facility] (DEFAULT)[address] [place] [address] 61423 Calcium [Mass/Vol] 10.8 mg/dL High 8.9-10.3 [facility] Comment on above: Performed By: #### 1 5035980, 3741459622, 2354833388, 7989148, 0225775569 ####[facility] (DEFAULT)[address] [place] [address] 93566 Chloride [Moles/Vol] 102 mmol/L Normal 101-111 [facility] Comment on above: Performed By: #### 1 8642268, 4190681623, 0827161399, 2106565, 1259108850 ####[facility] (DEFAULT)[address] [place] [address] 40307 CO2 [Moles/Vol] 24 mmol/L Normal 21-32 [facility] Comment on above: Performed By: #### 1 8570668, 9250318305, 7574702158, 4769171, 3131052935 ####[facility] (DEFAULT)[address] [place] [address] 19506 Creatinine [Mass/Vol] 0.61 mg/dL Normal 0.60-1.30 [facility] Comment on above: Performed By: #### 1 2551304, 7216629001, 7307309273, 4637013, 8325196275 ####[facility] (DEFAULT)[address] [place] [address] 18994 Globulin (S) [Mass/Vol] 3.8 g/dL Normal 1.5-4.3 [facility] Comment on above: Performed By: #### 1 6333949, 7047725579, 6151552179, 5134072, 8379968029 ####[facility] (DEFAULT)[address] [place] [address] 09511 Glucose [Mass/Vol] 149.0 mg/dL High 74.0-118.0 [facility] Comment on above: Performed By: #### 1 7256330, 8812218615, 9336053341, 9373017, 9381305324 ####[facility] (DEFAULT)[address] [place] [address] 35622 Osmolality 278 mOsm/L Invalid Interpretation Code [facility] Comment on above: Performed By: #### 1 2643985, 7523670812, 7383201389, 7729298, 8148611394 ####[facility] (DEFAULT)[address] [place] [address] 52404 Potassium [Moles/Vol] 3.7 mmol/L Normal 3.6-5.1 [facility] Comment on above: Performed By: #### 1 5513610, 9084364291, 9440056596, 0151362, 3376842853 ####[facility] (DEFAULT)[address] [place] [address] 71501 Protein [Mass/Vol] 8.8 g/dL High 6.5-8.1 [facility] Comment on above: Performed By: #### 1 4380638, 5836508587, 3132426182, 5775243, 7929280779 ####[facility] (DEFAULT)[address] [place] [address] 38368 Sodium [Moles/Vol] 137.0 mmol/L Normal 136.0-144.0 [facility] Comment on above: Performed By: #### 1 2376604, 9681395501, 9638115546, 5132078, 7993832076 ####[facility] (DEFAULT)[address] [place] [address] 68247 Urea nitrogen [Mass/Vol] 17 mg/dL Normal 8-26 [facility] Comment on above: Performed By: #### 1 6447940, 3455088363, 8973547430, 3026885, 2186778591 ####[facility] (DEFAULT)[address] [place] [address] 24493 Urea nitrogen/Creatinine [Mass ratio] 27.8 mg/mg High 4.6-16.2 [facility] Comment on above: Performed By: #### 1 3952001, 7553492147, 8257723723, 6909543, 5440187224 ####[facility] (DEFAULT)[address] [place] [address] Abdomen/Pelvis w/o Contra ston 12-09-2022 CT Abdomen/Pelvis w/o Contrast CLINICAL HISTORY: Abdominal pain COMPARISON: None available. TECHNIQUE: Spiral imaging was obtained of the abdomen and pelvis without contrast. Multiplanar reformats were acquired at the CT console. All CT scans at this facility use dose modulation, iterative reconstruction, and/or weight based dosing when appropriate to reduce radiation dose to as low as reasonably achievable. FINDINGS: Two CT cysts are noted with an otherwise unremarkable appearing left ovary, measuring up to approximately 2 cm. The gallbladder has been removed. There has been previous appendectomy. Minimal atherosclerotic plaquing of the normal caliber abdominal aorta and branch vessels is present. Moderate degenerative changes are noted of the lumbar spine. Low-density nodules within both adrenal glands are consistent with adenomas, which do not require further imaging follow-up. There is no free fluid, inflammatory changes, abnormal bowel or biliary ductal dilatation, lymphadenopathy, hernias, or other findings of concern identified. The unenhanced liver, pancreas, spleen, kidneys, unopacified bowel loops, uterus, right adnexa, urinary bladder, and additional images of the pelvis are unremarkable. IMPRESSION: NO ACUTE INTRA-ABDOMINAL PROCESS IDENTIFIED. TWO SMALL LEFT OVARIAN CYSTS AND OTHER CHRONIC FINDINGS, NOTED. Final Signed (Electronic Signature): Sukhwinder De La Fuente MD 12/09/22 6:13 am Technologist: Nicole ZARATE [facility] ED Clinical Summaryon 2022 ED Clinical Summary [facility] - Emergency Department [address] [place] [address] ED Clinical Summary PERSON INFORMATION Name: CHRISSY DANGELO Age: 42 Years Sex: FEMALE : 1980 MRN: Acct#: Visit Reason: Abdominal problem; Nausea and vomiting; Abdominal pain; LT FLANK PAIN Arrival: 12/09/2022 03:21:34 Discharge: 12/09/2022 08:25:00 LOS: 000 05:04 Check In: 12/09/2022 03:21:34 Checkout:12/09/2022 08:25:00 Address: [facility] [address] [facility] [address] PCP: Moise Baum PROVIDER INFORMATION Provider Role Assigned Unassigned Ivan RN, [place] ED Nurse 12/09/2022 03:23:40 Robson Jacinto DO ED Provider 12/09/2022 03:24:01 Cliff DAWN, [place] ED Nurse 12/09/2022 07:13:46 VITALS INFORMATION Vital Sign Triage Latest Temperature Tympanic Temperature Temporal Artery Pulse Rate 78 bpm 84 bpm O2 Sat 100 % 99 % Respiratory Rate 18 br/min 14 br/min Blood Pressure /110 mmHg /110 mmHg MEDICAL INFORMATION Medications Given: Medication Dose Route Sodium Chloride 0.9% intravenous solution 1,000 mL 1000 mL Initial Volume 500 mL/hr IV Left Antecubital Fossa ondansetron (!-Zofran) 4 mg IV Push HYDROmorphone (Dilaudid) 0.5 mg IV Push ketorolac 30 mg IV Push HYDROmorphone (Dilaudid) 0.5 mg IV Push Allergy Information: Soy; Wheat; Mimbres; Contrast Dye PHYSICIAN DOCUMENTATION Patient: CHRISSY DANGELO Age: 42 years Sex: FEMALE : 1980 Associated Diagnoses: Recurrent abdominal pain Author: Robson Jacinto DO Basic Information Time seen: Date & time 12/09/2022 03:51:00. History source: Patient. Arrival mode: Private vehicle, walking. History limitation: None. History of Present Illness The patient presents with This patient presents to the emergency room for evaluation of abdominal pain, on their left upper side, states acute onset about 2 hours, medications taken for this none, she has had similar symptoms on and off for some time, states that she has had testing for this, last episode similar to this was September 2022: With nothing yet found, she has had a couple polyps removed on colonoscopy, she has had her appendix and her gallbladder out, has not had a period for 3.5 years, had remote ovarian cysts, she denies any history of kidney stone in herself or her family, she states she has no chronic bowel disorder, her family doctor is located in [facility], approximately 60 miles from here, she is complaining about pain. The discomfort seems to wax and wane. She states the last episode that she had of this nature was in September of this year, and she needs to make a recheck appointment. She states she has had imaging and nothing has been found. She states she is allergic to dye. The patient is seen in the presence of her in room #6, and she is resting on her abdomen when I went into the room, and when she turns over she complains about a lot of abdominal pain, not from motion, but from colcky abd discomfort, holding the left upper quad. Her skin is warm and dry, she has good eye contact, she had emesis during the examination, she has no anterior posterior supraclavicular nodes, her lungs are clear, there is no expiratory wheeze or rales or paradoxical chest motion, her heart rate and rhythm is regular, PMI left chest, she has good radial dorsalis pedis pulses good posterior tibialis pulses bilaterally, there is no peripheral edema, the abdomen is soft, tender, particular left upper quadrant she seems like she might have a little fullness there, bowel sounds are normal, her abdomen is not a surgical belly at this time. Her neurologic exam symmetric and intact and her psychiatric evaluation is directed to the chief complaint. In general, the patient appears uncomfortable, she seems to favor a knee-chest position for her lower extremities, she is not visibly distended, her discomfort is mostly left upper quadrant, she vomited during the examination. And evaluation is underway, I told her that which we would medicate her here and that when she left here she would not receive any further pain medications and that she can follow-up in [place]. Her OARRS is significant.. Health Status Allergies: Allergic Reactions (Selected) Unknown Contrast Dye- No reactions were documented. Mimbres- No reactions were documented. Soy- No reactions were documented. Wheat- No reactions were documented. . Past Medical/ Family/ Social History Medical history: No active or resolved past medical history items have been selected or recorded. . Surgical history: No active procedure history items have been selected or recorded. . Family history: No family history items have been selected or recorded. . Social history: Social & Psychosocial Habits Alcohol 12/09/2022 Alcohol Use: Never Substance Abuse 12/09/2022 Substance use: Current Type: Marijuana Frequency: 1-2 times per week Tobacco 12/09/2022 Smoking tobacco use: Current everyday tobacco Number (more content not included)... [facility] ED Note - Physicianon 2022 ED Note - Physician Patient: CHRISSY DANGELO Age: 42 years Sex: FEMALE : 1980 Associated Diagnoses: Recurrent abdominal pain Author: Robson Jacinto DO Basic Information Time seen: Date & time 12/09/2022 03:51:00. History source: Patient. Arrival mode: Private vehicle, walking. History limitation: None. History of Present Illness The patient presents with This patient presents to the emergency room for evaluation of abdominal pain, on their left upper side, states acute onset about 2 hours, medications taken for this none, she has had similar symptoms on and off for some time, states that she has had testing for this, last episode similar to this was September 2022: With nothing yet found, she has had a couple polyps removed on colonoscopy, she has had her appendix and her gallbladder out, has not had a period for 3.5 years, had remote ovarian cysts, she denies any history of kidney stone in herself or her family, she states she has no chronic bowel disorder, her family doctor is located in [facility], approximately 60 miles from here, she is complaining about pain. The discomfort seems to wax and wane. She states the last episode that she had of this nature was in September of this year, and she needs to make a recheck appointment. She states she has had imaging and nothing has been found. She states she is allergic to dye. The patient is seen in the presence of her in room #6, and she is resting on her abdomen when I went into the room, and when she turns over she complains about a lot of abdominal pain, not from motion, but from colcky abd discomfort, holding the left upper quad. Her skin is warm and dry, she has good eye contact, she had emesis during the examination, she has no anterior posterior supraclavicular nodes, her lungs are clear, there is no expiratory wheeze or rales or paradoxical chest motion, her heart rate and rhythm is regular, PMI left chest, she has good radial dorsalis pedis pulses good posterior tibialis pulses bilaterally, there is no peripheral edema, the abdomen is soft, tender, particular left upper quadrant she seems like she might have a little fullness there, bowel sounds are normal, her abdomen is not a surgical belly at this time. Her neurologic exam symmetric and intact and her psychiatric evaluation is directed to the chief complaint. In general, the patient appears uncomfortable, she seems to favor a knee-chest position for her lower extremities, she is not visibly distended, her discomfort is mostly left upper quadrant, she vomited during the examination. And evaluation is underway, I told her that which we would medicate her here and that when she left here she would not receive any further pain medications and that she can follow-up in [place]. Her OARRS is significant.. Health Status Allergies: Allergic Reactions (Selected) Unknown Contrast Dye- No reactions were documented. Mimbres- No reactions were documented. Soy- No reactions were documented. Wheat- No reactions were documented. . Past Medical/ Family/ Social History Medical history: No active or resolved past medical history items have been selected or recorded. . Surgical history: No active procedure history items have been selected or recorded. . Family history: No family history items have been selected or recorded. . Social history: Social & Psychosocial Habits Alcohol 12/09/2022 Alcohol Use: Never Substance Abuse 12/09/2022 Substance use: Current Type: Marijuana Frequency: 1-2 times per week Tobacco 12/09/2022 Smoking tobacco use: Current everyday tobacco Number used per day: 1 PPD Electronic Cigarette/Vaping 12/09/2022 Electronic Cigarette Use: Never . Problem list: Active Problems (6) Anxiety Bipolar disorder Fibromyalgia Migraines PTSD (post-traumatic stress disorder) Sciatica . Medical Decision Making Orders Launch Orders Laboratory: CMP Standard (Order): Blood, Stat collect, 12/09/2022 4:02 EDT, Lab Collect Lactate (Order): Blood, Stat collect, 12/09/2022 4:01 EDT, Lab Collect CBC w/ Auto Diff (Order): Blood, Stat collect, 12/09/2022 4:01 EDT, Lab Collect Triage Panel 12 (Order): Urine, Stat collect, 12/09/2022 4:01 EDT, Nurse collect, Clean Catch Urinalysis with Culture, if indicated Standard (Order): Urine, Stat collect, 12/09/2022 4:01 EDT, Nurse collect Pharmacy: Dilaudid (Order): 0.5 mg, IV Push, Once !-Zofran (Order): 4 mg, IV Push, Once ketorolac (Order): 30 mg, IV Push, Once Sodium Chloride 0.9% intravenous solution 1000 mL (Order): 500 mL/hr, IV Radiology: CT Abdomen/Pelvis w/o Contrast (Order): 12/09/2022 4:02 EDT Stat, abdominal pain, Allow Modification Per Radiologist, Transport Mode: Wheelchair, No, Launch Orders Laboratory: Test Urine 1 (Order): Urine, Stat collect, 12/09/2022 4:25 EDT, Nurse collect, Launch Orders Patient Care: Vital Signs (Order): 12/09/2022 5:06 EDT, Launch Orders Pharmacy: Dilaudid (Order): 0. (more content not included)... [facility] ED Note-Nursingon 12-09-2022 ED Note-Nursing Patient states the pain is coming back. Not as bad, but it's coming back. I informed [facility] ED Note-Nursing Patient presents to ER via private car with c/o left sided abdominal pain. Patient states I just woke up a few hours ago with abdominal pain and nausea and vomiting. I can't even tell you how many times I've vomited. I have see gastero and they can't find anything that's wrong with me. I was at [facility] yesterday with the same pain. They gave me medicine, the pain went away and it came back. We are staying with friends. Patient respirations even and unlabored. Patient A&o x4. Patient ambulated to ER room 6. [facility] ED Patient Summaryon 023 ED Patient Summary [facility] - Emergency Department [address] [place] [address] PATIENT DISCHARGE INSTRUCTIONS Patient Information Name: CHRISSY DANGELO Age: 42 Years Date of : 1980 [facility]: [id number] Reason For Visit: Abdominal problem; Nausea and vomiting; Abdominal pain; LT FLANK PAIN Arrival Time: 12/09/2022 03:21:34 Primary Care Physician: Moise Baum Attending Physician: Robson Jacinto DO Comment: Visit Diagnosis: Diagnoses This Visit Abdominal pain ([id number]) Abdominal problem ([id number]) Nausea and vomiting ([id number]) Recurrent abdominal pain (R10.9) The Pharmacy at [facility] is open Sunday through Sunday from 9A to 6P and Sunday and Sunday from 9A to 5P Prescription Information: If you have been given a prescription for narcotics, seek immediate medical attention if you have any difficulty breathing or any sudden status changes such as confusion and sleepiness. If you or anyone you know is experiencing suicidal thoughts, mental health, alcohol and/or drug addiction problems; contact the [facility] 05/02 Crisis Hotline -Text 4HLJT to [phone]. If you received any narcotics, sedation, or any other medication that causes drowsiness for the next 24 hours, unless otherwise directed: ? Do not drive a car. ? Do not operate machinery such as power tools, lawn mowers, drills, sewing machines, or stoves ? Avoid alcoholic beverages and drugs for allergies, nerves, or sleep ? Do not make important personal or business decisions or sign any legal documents With: Address: When: ZAINAB LEONG [address] [place] [address] [address] [place] [id number] Business (1) Within 3 to 5 days Comments: Home Use your Bentyl for the spasms when they start Utilize Tylenol, or if needed, one of your [place], If the pain becomes significant, you should consider going to [place], where Dr. Leong practices. He is your GI doctor, we have no GI availability here at this institution, this being a small hospital. You are however welcome to return at any time. Destin JACINTO< ER PHYSICIAN< Aníbal Marroquin With: Address: When: Moise Baum [facility] [place] [address] Business (1) Within 3 to 5 days Medication Information: The exam and treatment you received today in the [facility] Emergency Department were for an urgent problem and are not intended as complete care. It is important for you to follow up with a doctor, nurse practitioner, or physician?s medicine assistant for ongoing care. If your symptoms become worse or you do not improve as expected and you are unable to reach your usual health care provider, you should return to the Emergency Department, we are available 24 hours a day. For those patients who have received Radiology results, the interpretation of your X-ray as given to you by our Emergency Department physician is only a preliminary report. The Radiologist will review your films and if there is a change in the diagnosis you will be notified by phone. Please make sure you have provided a working phone number so we can reach you if necessary. In the event that you had a lab culture while you were a patient in the Emergency Department, you will be notified by phone if there is a need to change your antibiotic. Please make sure you have provided a working phone number so we can reach you if necessary. [facility] Emergency Department has provided you with a complete list of medications post discharge. Please inform your primary care nurse practitioner/provider of your visit and for further instruction on these medications. Any specific questions regarding your chronic medications and dosages should be discussed with your primary care physician(s) and/or pharmacist. Medications to Continue That Have Not Changed Other Medications brexpiprazole (Rexulti 1 mg oral tablet) 1 tab(s) Oral every day. dicyclomine (dicyclomine 20 mg oral tablet) famotidine (famotidine 20 mg oral tablet) 1 tab(s) Oral 2 times a day. milnacipran (Savella 100 mg oral tablet) 1 tab(s) Oral 2 times a day. propranolol (propranolol 60 mg oral tablet) tiZANidine (tiZANidine 4 mg oral tablet) TAKE 2 TABLETS BY MOUTH 3 TIMES A DAY. traZODone (traZODone 50 mg oral tablet) TAKE 1 TABLET BY MOUTH EVERY DAY AT BEDTIME NEEDED FOR 30 DAYS. Visit Information Allergies: Substance Reaction Symptoms Type Comments Contrast Dye Drug Mimbres Food Soy Food Wheat Food Vital Signs: Vitals and Measurements this Visit (last charted value for your 12/09/2022 visit) Vital Signs This Visit Temperature Oral: 36.7 DegC Peripheral Pulse Rate: 84 bpm Respiratory Rate: 14 br/min Systolic Blood Pressure: 112 mmHg Diastolic Blood Pressure: 79 mmHg SpO2: 99 % Oxygen Flow Rate: 2 L/min Oxygen Therapy: Room air Measurements This Visit Height/Length Dosin.260 cm (more content not included)... Normal [facility] Extra Redon 12-09-2022 Tube Collected Yes Invalid Interpretation Code [facility] Comment on above: Performed By: #### 1 [id number], [id number], [id number] #### [facility] (DEFAULT) [address] [place] [address] 50629 Lactic Acidon 12-09-2022 Lactic Acid 12.5 mg/dL Normal 4.5-19.8 [facility] Comment on above: Performed By: #### 2 [id number] ####[facility] (DEFAULT)[address] [place] [address] 46567 Test Urine U Preg Negative [facility] Comment on above: Performed By: #### 3 [id number] #### [facility] (DEFAULT) [address] [place] [address] 00042 U Preg Internal Control Pass [facility] Comment on above: Performed By: #### 3 [id number] #### [facility] (DEFAULT) [address] [place] [address] 47512 Triage Panel 12-09-2022 Triage Internal Control Pass [facility] Comment on above: Performed By: #### 1 [id number], [id number] ####[facility] (DEFAULT)[address] [place] [address] 78998 U Amph Scr Negative [facility] Comment on above: Performed By: #### 1 [id number], [id number] ####[facility] (DEFAULT)[address] [place] [address] 87980 U Liz Scr Negative [facility] Comment on above: Performed By: #### 1 [id number], [id number] ####[facility] (DEFAULT)[address] [place] [address] 24704 U Benzodia Scr Negative [facility] Comment on above: Performed By: #### 1 [id number], [id number] ####[facility] (DEFAULT)[address] [place] [address] 37856 U Cannab Scrn Positive [facility] Comment on above: Performed By: #### 1 [id number], [id number] ####[facility] (DEFAULT)[address] [place] [address] 49358 U Cocaine Scr Negative [facility] Comment on above: Performed By: #### 1 [id number], [id number] ####[facility] (DEFAULT)[address] [place] [address] 88606 U Methadone Scr Negative [facility] Comment on above: Performed By: #### 1 [id number], [id number] ####[facility] (DEFAULT)[address] [place] [address] 13852 U Methamp Scrn Negative [facility] Comment on above: Performed By: #### 1 [id number], [id number] ####[facility] (DEFAULT)[address] [place] [address] 33126 U Opiate Scr Positive [facility] Comment on above: Performed By: #### 1 [id number], [id number] ####[facility] (DEFAULT)[address] [place] [address] 66964 U Oxycod Scr Negative [facility] Comment on above: Performed By: #### 1 [id number], [id number] ####[facility] (DEFAULT)[address] [place] [address] 52128 U Phencyclidine Scr Negative Normal [facility] Comment on above: Performed By: #### 1 [id number], [id number] ####[facility] (DEFAULT)[address] [place] [address] 84278 U Propoxyphene Scr Negative [facility] Comment on above: Performed By: #### 1 [id number], [id number] ####[facility] (DEFAULT)[address] [place] [address] 40290 U Tricyclic Antidepress Scr Negative [facility] Comment on above: Result Comment: Resu lts are to be used only for medical (ie, treatment) purposes only. Positive tests will not be sent out for confirmation. PROFILE?-V MEDTOX Scan? Drugs of Abuse Test System detects drug classes at the following cutoff concentrations: AMP Amphetamine (d-amphetamine): 500 ng/mL BAR Barbituates (Butabital): 200 ng/mL BZO Benzodiazepines (Nordiazepam): 150 ng/mL BUP Buprenorphine (Buprenorphine): 10 ng/mL TALAT Cocaine (Benzoylecgonine): 150 ng/mL MAMP Methamphetamine (d-Methamphetamine): 500 ng/mL MTD Methadone (Methadone): 200 ng/mL OPI Opiates (Morphine): 100 ng/mL or 2000 ng/mL OXY Oxycodone (Oxycodone): 100 ng/mL PCP Phencyclidine (Phencyclidine): 25 ng/mL PPX Propoxyphene (Norpropoxyphene): 300 ng/mL THC Cannabinoids (32-jax-8-carboxy- -THC): 50 ng/mL TCA Tricyclic-Antidepressants (Desipramine): 300 ng/mL Performed By: #### 1 [id number], [id number] ####[facility] (DEFAULT)[address] [place] [address] 18490 Urine Source Clean Catch [facility] Comment on above: Performed By: #### 1 [id number], [id number] ####[facility] (DEFAULT)[address] [place] [address] 15172 UA w Culture if Ind Standard on 12-09-2022 Breakpoint UA [facility] Comment on above: Performed By: #### 1 [id number], [id number] ####[facility] (DEFAULT)[address] [place] [address] 71985 Color (U) Yellow [facility] Comment on above: Performed By: #### 1 [id number], [id number] ####[facility] (DEFAULT)[address] [place] [address] 25232 Culture? Not Indicated Invalid Interpretation Code [facility] Comment on above: Result Comment: Resu lt created by rule GL_MAGR_ADD_UA_CULT1 Result created by rule GL_MAGR_ADD_UA_CULT1 Performed By: #### 1 [id number], [id number] ####[facility] (DEFAULT)[address] [place] [address] 61603 Glucose (U) [Mass/Vol] Negative [facility] Comment on above: Performed By: #### 1 [id number], [id number] ####[facility] (DEFAULT)[address] [place] [address] 12938 Ketones Ql (U) TRACE [facility] Comment on above: Performed By: #### 1 [id number], [id number] ####[facility] (DEFAULT)[address] [place] [address] Micro? Not Indicated Invalid Interpretation Code [facility] Comment on above: Result Comment: Resu lt created by rule GL_MAGR_ADD_UA_MICRO Result created by rule GL_MAGR_ADD_UA_MICRO Performed By: #### 1 [id number], [id number] ####[facility] (DEFAULT)[address] [place] [address] UA Bilirubin Negative Normal [facility] Comment on above: Performed By: #### 1 [id number], [id number] ####[facility] (DEFAULT)[address] [place] [address] UA Blood Negative Normal NEGATIVE [facility] Comment on above: Performed By: #### 1 [id number], [id number] ####[facility] (DEFAULT)[address] [place] [address] UA Clarity CLEAR Normal CLEAR [facility] Comment on above: Performed By: #### 1 [id number], [id number] ####[facility] (DEFAULT)[address] [place] [address] UA Leuk Est Negative Normal NEGATIVE [facility] Comment on above: Performed By: #### 1 [id number], [id number] ####[facility] (DEFAULT)[address] [place] [address] 06476 UA Nitrite Negative Normal NEGATIVE [facility] Comment on above: Performed By: #### 1 [id number], [id number] ####[facility] (DEFAULT)[address] [place] [address] 79538 UA pH 8.0 Normal 5-8 [facility] Comment on above: Performed By: #### 1 [id number], [id number] ####[facility] (DEFAULT)[address] [place] [address] 29355 UA Protein Negative Normal [facility] Comment on above: Performed By: #### 1 [id number], [id number] ####[facility] (DEFAULT)[address] [place] [address] UA Spec Grav 1.020 Normal 1.001-1.035 [facility] Comment on above: Performed By: #### 1 [id number], [id number] ####[facility] (DEFAULT)[address] [place] [address] UA Urobilinogen 0.2 mg/dL Normal 0.2-1.0 [facility] Comment on above: Performed By: #### 1 [id number], [id number] ####[facility] (DEFAULT)[address] [place] [address] US Abdomen Limitedon 023 US Abdomen Limited CLINICAL HISTORY: Left-sided abdominal pain. COMPARISON: CT abdomen and pelvis from earlier 12/09/2022. TECHNIQUE: Transabdominal ultrasound of the right upper quadrant was performed. FINDINGS: The study is mildly limited by the patient's body habitus and bowel gas. No findings of concern are identified within the left upper and lower quadrants at the areas of pain, by ultrasound. The gallbladder is been removed. The visualized liver, pancreas, spleen, kidneys, and great vessels are unremarkable. There is no evidence of intussusception, organized fluid collections, ascites, or other findings of concern identified. The common duct not measured at the [facility]on[facility] hepati secondary to technical challenges. However, there is no evidence of biliary dilatation on the recent CTA. IMPRESSION: NEGATIVE MILDLY LIMITED ABDOMINAL ULTRASOUND AFTER PREVIOUS CHOLECYSTECTOMY. Final Signed (Electronic Signature): Sukhwinder De La Fuente MD 12/09/22 7:36 am Technologist: PM Normal [facility] Alanine aminotransferase [En zymatic activity/volume] in Serum or PlasmaOrdered By: Karri Siegel on 12-08-2022 ALT [Catalytic activity/Vol] 16 U/L 7-52 [facility] Albumin [Mass/volume] in Ser um or Plasma by Bromocresol green (BCG) dye binding methoOrdered By: Karri Siegel on 12-08-2022 Albumin BCG dye [Mass/Vol] 4.7 g/dL 3.5-5.7 [facility] Alkaline phosphatase [Enzyma tic activity/volume] in Serum or PlasmaOrdered By: Karri Siegel on 12-08-2022 ALP [Catalytic activity/Vol] 114 U/L 34-104 [facility] Aspartate aminotransferase [ Enzymatic activity/volume] in Serum or PlasmaOrdered By: Karri Siegel on 12-08-2022 AST [Catalytic activity/Vol] 18 U/L 13-39 [facility] Basophils Auto (Bld) [#/Vol] Ordered By: Karri Siegel on 12-08-2022 Basophils (Bld) [#/Vol] 0.1 10*3/uL 0.0-0.2 [facility] Basophils/100 WBC Auto (Bld) Ordered By: Karri Siegel on 12-08-2022 Basophils/100 WBC (Bld) 0.7 % . [facility] Bilirubin Test strip Ql (U)O rdered By: PROVIDER TEMP on 12-08-2022 Bilirubin Ql (U) Negative Negative [facility] Bilirubin.direct [Mass/volum e] in Serum or PlasmaOrdered By: Karri Siegel on 12-08-2022 Bilirubin.direct [Mass/Vol] 0.10 mg/dL 0.03-0.18 [facility] Bilirubin.total [Mass/volume ] in Serum or PlasmaOrdered By: Karri Siegel on 12-08-2022 Bilirubin [Mass/Vol] 0.4 mg/dL 0.3-1.0 [facility] Calcium [Mass/volume] in Ser um or PlasmaOrdered By: Karri Siegel on 12-08-2022 Calcium [Mass/Vol] 10.2 mg/dL 8.6-10.3 [facility] Carbon dioxide, total [Moles /volume] in Serum or PlasmaOrdered By: Karri Siegel on 12-08-2022 CO2 [Moles/Vol] 26.5 mmol/L 21.0-31.0 [facility] Chloride [Moles/volume] in S terri or PlasmaOrdered By: Karri Siegel on 12-08-2022 Chloride [Moles/Vol] 106 mmol/L 98-107 [facility] Color Auto (U)Ordered By: KATIUSKA ROBERTS TEMLenka on 12-08-2022 Color (U) Yellow Yellow [facility] Creatinine [Mass/volume] in Serum or PlasmaOrdered By: Karri Siegel on 12-08-2022 Creatinine [Mass/Vol] 0.77 mg/dL 0.60-1.20 [facility] Eosinophils Auto (Bld) [#/Vo l]Ordered By: Karri Siegel on 12-08-2022 Eosinophils (Bld) [#/Vol] 0.1 10*3/uL 0.0-0.45 [facility] Eosinophils/100 WBC Auto (Bl d)Ordered By: Karri Siegel on 12-08-2022 Eosinophils/100 WBC (Bld) 0.7 % . [facility] Erythrocyte distribution wid th Auto (RBC) [Ratio]Ordered By: Karri Siegel on 12-08-2022 Erythrocyte distribution width (RBC) [Ratio] 16.5 % 11.9-15.3 [facility] Globulin Calc (S) [Mass/Vol] Ordered By: Karri Siegel on 12-08-2022 Globulin (S) [Mass/Vol] 3.1 g/dL [facility] Glucose [Mass/volume] in Ser um or PlasmaOrdered By: Karri Siegel on 12-08-2022 Glucose [Mass/Vol] 127 mg/dL 70-100 [facility] Comment on above: ADA recommended refe rence rangeRandom Glucose Reference Range is dependent on time and content of last meal. Glucose of more than 200 mg/dL in a nonstressed, ambulatory subject supports the diagnosis of Diabetes Mellitus. HCG ( test) IAKatharinarapi d Ql (U)Ordered By: Karri Siegel on 12-08-2022 HCG ( test) Ql (U) Negative [facility] Hematocrit Auto (Bld) [Volum e fraction]Ordered By: Karri Siegel on 12-08-2022 Hematocrit (Bld) [Volume fraction] 41.5 % 34.0-46.4 [facility] Hemoglobin [Mass/volume] in BloodOrdered By: Karri Siegel on 12-08-2022 Hemoglobin (Bld) [Mass/Vol] 13.7 g/dL 11.8-15.4 [facility] Ketones Auto test strip (U) [Mass/Vol]Ordered By: PROVIDER TEMP on 12-08-2022 Ketones (U) [Mass/Vol] Negative Negative [facility] Lactate [Moles/volume] in Se rum or PlasmaOrdered By: Karri Siegel on 12-08-2022 Lactate [Moles/Vol] 1.4 mmol/L 0.5-2.[address] [facility] Leukocytes [#/volume] correc zen for nucleated erythrocytes in Blood by Automated counOrdered By: Karri Siegel on 12-08-2022 WBC corrected for nucl RBC Auto (Bld) [#/Vol] 10.6 10*3/uL 3.8-11.6 [facility] Lipase [Enzymatic activity/v olume] in Serum or PlasmaOrdered By: Karri Siegel on 12-08-2022 Lipase [Catalytic activity/Vol] 17.0 U/L 11.0-82.0 [facility] Lymphocytes Auto (Bld) [#/Vo l]Ordered By: Karri Siegel on 12-08-2022 Lymphocytes (Bld) [#/Vol] 1.5 10*3/uL 1.00-4.8 [facility] Lymphocytes/100 WBC Auto (Bl d)Ordered By: Karri Siegel on 12-08-2022 Lymphocytes/100 WBC (Bld) 14.4 % . [facility] MCH Auto (RBC) [Entitic mass ]Ordered By: Karri Siegel on 12-08-2022 MCH (RBC) [Entitic mass] 29.9 pg 24.7-34.3 [facility] MCHC Auto (RBC) [Mass/Vol]Or dered By: Karri Siegel on 12-08-2022 MCHC (RBC) [Mass/Vol] 32.9 g/dL 32.0-35.0 [facility] MCV Auto (RBC) [Entitic vol] Ordered By: Karri Siegel on 12-08-2022 MCV (RBC) [Entitic vol] 90.9 fL 80-100 [facility] Monocyte distribution width [Entitic volume] in Blood by AutomatedOrdered By: Karri Siegel on 12-08-2022 Monocyte distribution width Auto (Bld) [Entitic vol] 18.04 % 0.00-20.00 [facility] Monocytes Auto (Bld) [#/Vol] Ordered By: Karri Siegel on 12-08-2022 Monocytes (Bld) [#/Vol] 0.4 10*3/uL 0.0-0.8 [facility] Monocytes/100 WBC Auto (Bld) Ordered By: Karri Siegel on 12-08-2022 Monocytes/100 WBC (Bld) 3.7 % . [facility] Neutrophils Auto (Bld) [#/Vo l]Ordered By: Karri Siegel on 12-08-2022 Neutrophils (Bld) [#/Vol] 8.5 10*3/uL 1.8-7.7 [facility] Neutrophils/100 WBC Auto (Bl d)Ordered By: Karri Siegel on 12-08-2022 Neutrophils/100 WBC (Bld) 80.5 % . [facility] Nitrite Test strip Ql (U)Ord ered By: PROVIDER TEMP on 12-08-2022 Nitrite Ql (U) Negative Negative [facility] No Panel InformationOrdered By: Karri Siegel on 12-08-2022 Estimated GFR (CKD-EPI) > 60.0 mL/Min [facility] Creatinine Clearance (Chem 109.20 [facility] > 60.0 mL/Min [facility] 109.20 [facility] Nucleated erythrocytes [Pres ence] in Blood by Automated countOrdered By: Karri Siegel on 12-08-2022 Nucleated RBC Auto Ql (Bld) 0.1 /100{WBC} 0-0.5 [facility] Platelet mean volume Auto (B ld) [Entitic vol]Ordered By: Karri Siegel on 12-08-2022 Platelet mean volume (Bld) [Entitic vol] 7.9 fL 6.3-10.7 [facility] Platelets Auto (Bld) [#/Vol] Ordered By: Karri Siegel on 12-08-2022 Platelets (Bld) [#/Vol] 332 10*3/uL 150-450 [facility] Potassium [Moles/volume] in Serum or PlasmaOrdered By: Karri Siegel on 12-08-2022 Potassium [Moles/Vol] 3.9 mmol/L 3.5-5.1 [facility] Protein Auto test strip (U) [Mass/Vol]Ordered By: PROVIDER TEMP on 12-08-2022 Protein (U) [Mass/Vol] Negative Negative [facility] Protein [Mass/volume] in Ser um or PlasmaOrdered By: Karri Siegel on 12-08-2022 Protein [Mass/Vol] 7.8 g/dL 6.4-8.9 [facility] RBC Auto (Bld) [#/Vol]Ordere d By: Karri Siegel on 12-08-2022 RBC (Bld) [#/Vol] 4.57 10*6/uL 3.60-5.[address] [facility] Serum or plasma albumin/glob ulin mass ratioOrdered By: Karri Siegel on 12-08-2022 Albumin/Globulin [Mass ratio] 1.5 {ratio} [facility] Serum or plasma anion gap de terminationOrdered By: Karri Siegel on 12-08-2022 Anion gap [Moles/Vol] 12.4 mmol/L 6.0-15.0 [facility] Serum or plasma non-glucuron idated bilirubin measurement (mass/volume)Ordered By: Karri Siegel on 12-08-2022 Bilirubin.indirect [Mass/Vol] 0.3 mg/dL [facility] Sodium [Moles/volume] in Ser um or PlasmaOrdered By: Karri Siegel on 12-08-2022 Sodium [Moles/Vol] 141 mmol/L 136-145 [facility] Specific gravity Auto test s trip (U) [Rel density]Ordered By: CRISTAL VU on 12-08-2022 Specific gravity (U) [Rel density] 1.026 1.001-1.030 [facility] Urea nitrogen [Mass/volume] in Serum or PlasmaOrdered By: Karri Siegel on 12-08-2022 Urea nitrogen [Mass/Vol] 16 mg/dL 7-25 [facility] Urine clarity by refractomet ry automatedOrdered By: CRISTAL TEMLenka on 12-08-2022 Clarity Refractometry automated (U) Clear Clear [facility] Urine glucose measurement by automated test strip (mass/volume)Ordered By: CRISTAL TEMLenka on 12-08-2022 Glucose Auto test strip (U) [Mass/Vol] Normal mg/dL Normal [facility] Urine hemoglobin detection b y automated test stripOrdered By: PROVIDER TEMP on 12-08-2022 Hemoglobin Auto test strip Ql (U) Negative Negative [facility] Urine leukocyte esterase det ection by automated test stripOrdered By: PROVIDER TEMP on 12-08-2022 Leukocyte esterase Auto test strip Ql (U) Negative Negative [facility] Urobilinogen Auto test strip (U) [Mass/Vol]Ordered By: PROVIDER TEMP on 12-08-2022 Urobilinogen (U) [Mass/Vol] Normal mg/dL Normal [facility] WBC Auto (Bld) [#/Vol]Ordere d By: Karri Siegel on 12-08-2022 WBC (Bld) [#/Vol] 10.6 10*3/uL 3.8-11.[address] [facility] pH Auto test strip (U)Ordere d By: PROVIDER TEMP on 12-08-2022 pH (U) 5.5 [pH] 5.0-9.0 [facility] Alanine aminotransferase [En zymatic activity/volume] in Serum or PlasmaOrdered By: Rian Shoemaker on 12-03-2022 ALT [Catalytic activity/Vol] 14 U/L 7-52 [facility] Albumin [Mass/volume] in Ser um or Plasma by Bromocresol green (BCG) dye binding methoOrdered By: Rian Shoemaker on 12-03-2022 Albumin BCG dye [Mass/Vol] 3.8 g/dL 3.5-5.7 [facility] Alkaline phosphatase [Enzyma tic activity/volume] in Serum or PlasmaOrdered By: Rian Shoemaker on 12-03-2022 ALP [Catalytic activity/Vol] 100 U/L 34-104 [facility] Aspartate aminotransferase [ Enzymatic activity/volume] in Serum or PlasmaOrdered By: Rian Shoemaker on 12-03-2022 AST [Catalytic activity/Vol] 15 U/L 13-39 [facility] Basophils Auto (Bld) [#/Vol] Ordered By: Rian Shoemaker on 12-03-2022 Basophils (Bld) [#/Vol] 0.1 10*3/uL 0.0-0.2 [facility] Basophils/100 WBC Auto (Bld) Ordered By: Rian Shoemaker on 12-03-2022 Basophils/100 WBC (Bld) 1.3 % . [facility] Bilirubin Test strip Ql (U)O rdered By: Rian Shoemaker on 12-03-2022 Bilirubin Ql (U) Negative Negative [facility] Bilirubin.total [Mass/volume ] in Serum or PlasmaOrdered By: Rian hSoemaker on 12-03-2022 Bilirubin [Mass/Vol] 0.3 mg/dL 0.3-1.0 [facility] Calcium [Mass/volume] in Ser um or PlasmaOrdered By: Rian Shoemaker on 12-03-2022 Calcium [Mass/Vol] 9.2 mg/dL 8.6-10.3 [facility] Carbon dioxide, total [Moles /volume] in Serum or PlasmaOrdered By: Rian Shoemaker on 12-03-2022 CO2 [Moles/Vol] 25.3 mmol/L 21.0-31.0 [facility] Chloride [Moles/volume] in S terri or PlasmaOrdered By: Rian Shoemaker on 12-03-2022 Chloride [Moles/Vol] 110 mmol/L 98-107 [facility] Color Auto (U)Ordered By: Chalino Shoemaker on 12-03-2022 Color (U) Yellow Yellow [facility] Creatinine [Mass/volume] in Serum or PlasmaOrdered By: Rian Shoemaker on 12-03-2022 Creatinine [Mass/Vol] 0.65 mg/dL 0.60-1.20 [facility] Eosinophils Auto (Bld) [#/Vo l]Ordered By: Rian Shoemaker on 12-03-2022 Eosinophils (Bld) [#/Vol] 0.3 10*3/uL 0.0-0.45 [facility] Eosinophils/100 WBC Auto (Bl d)Ordered By: Rian Shoemaker on 12-03-2022 Eosinophils/100 WBC (Bld) 3.5 % . [facility] Erythrocyte distribution wid th Auto (RBC) [Ratio]Ordered By: Rian Shoemaker on 12-03-2022 Erythrocyte distribution width (RBC) [Ratio] 16.0 % 11.9-15.3 [facility] Globulin Calc (S) [Mass/Vol] Ordered By: Rian Shoemaker on 12-03-2022 Globulin (S) [Mass/Vol] 2.3 g/dL [facility] Glucose [Mass/volume] in Ser um or PlasmaOrdered By: Rian Shoemaker on 12-03-2022 Glucose [Mass/Vol] 88 mg/dL 70-100 [facility] Comment on above: ADA recommended refe rence rangeRandom Glucose Reference Range is dependent on time and content of last meal. Glucose of more than 200 mg/dL in a nonstressed, ambulatory subject supports the diagnosis of Diabetes Mellitus. Hematocrit Auto (Bld) [Volum e fraction]Ordered By: Rian Shoemaker on 12-03-2022 Hematocrit (Bld) [Volume fraction] 38.9 % 34.0-46.4 [facility] Hemoglobin [Mass/volume] in BloodOrdered By: Rian Shoemaker on 12-03-2022 Hemoglobin (Bld) [Mass/Vol] 12.6 g/dL 11.8-15.4 [facility] Ketones Auto test strip (U) [Mass/Vol]Ordered By: Rian Shoemaker on 12-03-2022 Ketones (U) [Mass/Vol] Negative Negative [facility] Leukocytes [#/volume] correc zen for nucleated erythrocytes in Blood by Automated counOrdered By: Rian Shoemaker on 12-03-2022 WBC corrected for nucl RBC Auto (Bld) [#/Vol] 9.1 10*3/uL 3.8-11.6 [facility] Lipase [Enzymatic activity/v olume] in Serum or PlasmaOrdered By: Rian Shoemaker on 12-03-2022 Lipase [Catalytic activity/Vol] 21.0 U/L 11.0-82.0 [facility] Lymphocytes Auto (Bld) [#/Vo l]Ordered By: Rian Shoemaker on 12-03-2022 Lymphocytes (Bld) [#/Vol] 2.4 10*3/uL 1.00-4.8 [facility] Lymphocytes/100 WBC Auto (Bl d)Ordered By: Rian Shoemaker on 12-03-2022 Lymphocytes/100 WBC (Bld) 26.1 % . [facility] MCH Auto (RBC) [Entitic mass ]Ordered By: Rian Shoemaker on 12-03-2022 MCH (RBC) [Entitic mass] 29.5 pg 24.7-34.3 [facility] MCHC Auto (RBC) [Mass/Vol]Or dered By: Rian Shoemaker on 12-03-2022 MCHC (RBC) [Mass/Vol] 32.4 g/dL 32.0-35.0 [facility] MCV Auto (RBC) [Entitic vol] Ordered By: Rian Shoemaker on 12-03-2022 MCV (RBC) [Entitic vol] 91.2 fL 80-100 [facility] Monocyte distribution width [Entitic volume] in Blood by AutomatedOrdered By: Rian Shoemaker on 12-03-2022 Monocyte distribution width Auto (Bld) [Entitic vol] 17.52 % 0.00-20.00 [facility] Monocytes Auto (Bld) [#/Vol] Ordered By: Rian Shoemaker on 12-03-2022 Monocytes (Bld) [#/Vol] 0.6 10*3/uL 0.0-0.8 [facility] Monocytes/100 WBC Auto (Bld) Ordered By: Rian Shoemaker on 12-03-2022 Monocytes/100 WBC (Bld) 6.4 % . [facility] Neutrophils Auto (Bld) [#/Vo l]Ordered By: Rian Shoemaker on 12-03-2022 Neutrophils (Bld) [#/Vol] 5.7 10*3/uL 1.8-7.7 [facility] Neutrophils/100 WBC Auto (Bl d)Ordered By: Rian Shoemaker on 12-03-2022 Neutrophils/100 WBC (Bld) 62.7 % . [facility] Nitrite Test strip Ql (U)Ord ered By: Rian Shoemaker on 12-03-2022 Nitrite Ql (U) Negative Negative [facility] No Panel InformationOrdered By: Rian Shoemaker on 12-03-2022 Estimated GFR (CKD-EPI) > 60.0 mL/Min [facility] Creatinine Clearance (Chem 129.36 [facility] > 60.0 mL/Min [facility] 129.36 [facility] Nucleated erythrocytes [Pres ence] in Blood by Automated countOrdered By: Rian Shoemaker on 12-03-2022 Nucleated RBC Auto Ql (Bld) 0.0 /100{WBC} 0-0.5 [facility] Platelet mean volume Auto (B ld) [Entitic vol]Ordered By: Rian Shoemaker on 12-03-2022 Platelet mean volume (Bld) [Entitic vol] 7.7 fL 6.3-10.7 [facility] Platelets Auto (Bld) [#/Vol] Ordered By: Rian Shoemaker on 12-03-2022 Platelets (Bld) [#/Vol] 289 10*3/uL 150-450 [facility] Potassium [Moles/volume] in Serum or PlasmaOrdered By: Rian Shoemaker on 12-03-2022 Potassium [Moles/Vol] 4.4 mmol/L 3.5-5.1 [facility] Protein Auto test strip (U) [Mass/Vol]Ordered By: Rian Shoemaker on 12-03-2022 Protein (U) [Mass/Vol] Negative Negative [facility] Protein [Mass/volume] in Ser um or PlasmaOrdered By: Rian Shoemaker on 12-03-2022 Protein [Mass/Vol] 6.1 g/dL 6.4-8.9 [facility] RBC Auto (Bld) [#/Vol]Ordere d By: Rian Shoemaker on 12-03-2022 RBC (Bld) [#/Vol] 4.26 10*6/uL 3.60-5.[address] [facility] Serum or plasma albumin/glob ulin mass ratioOrdered By: Rian Shoemaker on 12-03-2022 Albumin/Globulin [Mass ratio] 1.7 {ratio} [facility] Serum or plasma anion gap de terminationOrdered By: Rian Shoemaker on 12-03-2022 Anion gap [Moles/Vol] 9.1 mmol/L 6.0-15.0 [facility] Sodium [Moles/volume] in Ser um or PlasmaOrdered By: Rian Shoemaker on 12-03-2022 Sodium [Moles/Vol] 140 mmol/L 136-145 [facility] Specific gravity Auto test s trip (U) [Rel density]Ordered By: Rian Shoemaker on 12-03-2022 Specific gravity (U) [Rel density] 1.010 1.001-1.030 [facility] Urea nitrogen [Mass/volume] in Serum or PlasmaOrdered By: Rian Shoemaker on 12-03-2022 Urea nitrogen [Mass/Vol] 13 mg/dL 7-25 [facility] Urine clarity by refractomet ry automatedOrdered By: Rain Shoemaker on 12-03-2022 Clarity Refractometry automated (U) Clear Clear [facility] Urine glucose measurement by automated test strip (mass/volume)Ordered By: Rian Shoemaker on 12-03-2022 Glucose Auto test strip (U) [Mass/Vol] Normal mg/dL Normal [facility] Urine hemoglobin detection b y automated test stripOrdered By: Rian Shoemaker on 12-03-2022 Hemoglobin Auto test strip Ql (U) Negative Negative [facility] Urine leukocyte esterase det ection by automated test stripOrdered By: Rian Shoemaker on 12-03-2022 Leukocyte esterase Auto test strip Ql (U) Negative Negative [facility] Urobilinogen Auto test strip (U) [Mass/Vol]Ordered By: Rian Shoemaker on 12-03-2022 Urobilinogen (U) [Mass/Vol] Normal mg/dL Normal [facility] WBC Auto (Bld) [#/Vol]Ordere d By: Rian Shoemaker on 12-03-2022 WBC (Bld) [#/Vol] 9.1 10*3/uL 3.8-11.6 [facility] pH Auto test strip (U)Ordere d By: Rian Shoemaker on 12-03-2022 pH (U) 5.5 [pH] 5.0-9.0 [facility] CBC with Auto Differentialon 11-15-2022 Absolute Eos # 0.20 [facility] Absolute Lymph # 2.40 [facility] Absolute [place] # 0.50 [facility] Basophils (Bld) [#/Vol] 0.20 10*3/uL [facility] Basophils/100 WBC (Bld) 3 % High 0 - 2 % [facility] Eosinophils/100 WBC (Bld) 2 % 0 - 4 % [facility] Hematocrit (Bld) [Volume fraction] 40.2 % 36 - 46 % [facility] Hemoglobin (Bld) [Mass/Vol] 13.8 g/dL 12.0 - 16.0 g/dL [facility] Interpretation and review of laboratory results Abnormal [facility] Lymphocytes/100 WBC (Bld) 28 % 24 - 44 % [facility] MCH (RBC) [Entitic mass] 30.5 pg 26 - 34 pg [facility] MCHC (RBC) [Mass/Vol] 34.2 g/dL 31 - 3 7 g/dL [facility] MCV (RBC) [Entitic vol] 89.2 fL 80 - 100 fL [facility] Monocytes/100 WBC (Bld) 6 % 1 - 7 % [facility] Platelet distribution width (Bld) [Ratio] 16.4 % High 11.5 - 14.9 % [facility] Platelet mean volume (Bld) [Entitic vol] 7.8 fL 6.0 - 12.0 fL [facility] Platelets (Bld) [#/Vol] 365 10*3/uL [facility] RBC (Bld) [#/Vol] 4.51 10*6/uL 4.0 - 5.2 m/uL [facility] Segmented neutrophils/100 WBC (Bld) 61 % 36 - 66 % [facility] Segs Absolute 5.30 [facility] WBC (Bld) [#/Vol] 8.6 10*3/uL [facility] CBC with Diffon 11-15-2022 Abs. Basophil 0.20 k/uL Normal 0.0-0.2 [facility] Comment on above: Performed By: #### L IP, CP, CDP #### [facility] [address] [place] [address] [employer]: Michael Cervantes DO Abs.Neutrophil (Seg) 5.30 k/uL Normal 1.3-9.1 [facility] Comment on above: Performed By: #### L IP, CP, CDP #### [facility] [address] [place] [address] [employer]: Michael Cervantes DO Basophils/100 WBC (Bld) 3 % High 0-2 [facility] Comment on above: Performed By: #### L IP, CP, CDP #### [facility] [place] [place] [address] [employer]: Michael Cervantes DO Eosinophils (Bld) [#/Vol] 0.20 10*3/uL Normal 0.0-0.4 [facility] Comment on above: Performed By: #### L IP, CP, CDP #### [facility] [address] [facility] [place] [address] [employer]: Michael Cervantes DO Eosinophils/100 WBC (Bld) 2 % Normal 0-4 [facility] Comment on above: Performed By: #### L IP, CP, CDP #### [facility] [address] [place] [address] [employer]: Michael Cervantes DO Erythrocyte distribution width (RBC) [Ratio] 16.4 % High 11.5-14.9 [facility] Comment on above: Performed By: #### L IP, CP, CDP #### [facility] [place] [place] [address] [employer]: Michael Cervantes DO Hematocrit (Bld) [Volume fraction] 40.2 % Normal 36-46 [facility] Comment on above: Performed By: #### L IP, CP, CDP #### [facility] [address] [place] [address] [employer]: Michael Cervantes DO Hemoglobin (Bld) [Mass/Vol] 13.8 g/dL Normal 12.0-16.0 [facility] Comment on above: Performed By: #### L IP, CP, CDP #### [facility] [address] [place] [address] [employer]: Michael Cervantes DO Lymphocytes (Bld) [#/Vol] 2.40 10*3/uL Normal 1.0-4.8 [facility] Comment on above: Performed By: #### L IP, CP, CDP #### [facility] [place] [place] [address] [employer]: Michael Cervantes DO Lymphocytes/100 WBC (Bld) 28 % Normal 24-44 [facility] Comment on above: Performed By: #### L IP, CP, CDP #### [facility] [place] [place] [address] [employer]: Michael Cervantes DO MCH (RBC) [Entitic mass] 30.5 pg Normal 26-34 [facility] Comment on above: Performed By: #### L LEÓN MUJICA, CDP #### [facility] [address] [place] [address]. [place] [address] [employer]: Michael Cervantes DO MCHC (RBC) [Mass/Vol] 34.2 g/dL Normal 31-37 [facility] Comment on above: Performed By: #### L LEÓN MUJICA, CDP #### [facility] [address] [place] [address] [employer]: Michael Cervantes DO MCV (RBC) [Entitic vol] 89.2 fL Normal 80-100 [facility] Comment on above: Performed By: #### L LEÓN MUJICA, CDP #### [facility] [address] [place] [address] [employer]: Michael Cervantes DO Monocytes (Bld) [#/Vol] 0.50 10*3/uL Normal 0.1-1.3 [facility] Comment on above: Performed By: #### L IP, CP, CDP #### [facility] [address] [place] [address] [employer]: Michael Cervantes DO Monocytes/100 WBC (Bld) 6 % Normal 1-7 [facility] Comment on above: Performed By: #### L IP, CP, CDP #### [facility] [address] [place] [address] [employer]: Michael Cervantes DO Neutrophil (Seg) 61 % Normal 36-66 [facility] Comment on above: Performed By: #### L IP, CP, CDP #### [facility] [address] [place] [address] [employer]: Michael Cervantes DO Platelet mean volume (Bld) [Entitic vol] 7.8 fL Normal 6.0-12.0 [facility] Comment on above: Performed By: #### L IP CP, CDP #### [facility] [place] [place] [address] [employer]: Michael Cervantes DO Platelets (Bld) [#/Vol] 365 10*3/uL Normal 150-450 [facility] Comment on above: Performed By: #### L IPLEÓN, CDP #### [facility] [place] [place] [address] [employer]: Michael Cervantes DO RBC (Bld) [#/Vol] 4.51 10*6/uL Normal 4.0-5.2 [facility] Comment on above: Performed By: #### L IP CP, CDP #### [facility] [place] [place] [address] [employer]: Michael Cervantes DO WBC (Bld) [#/Vol] 8.6 10*3/uL Normal 3.5-11.0 [facility] Comment on above: Performed By: #### L IP CP, CDP #### [facility] [place] [place] [address] [employer]: Michael Cervantes DO CMPon 11-15-2022 Albumin [Mass/Vol] 4.5 g/dL 3.5 - 5.2 g/dL [facility] ALP [Catalytic activity/Vol] 133 U/L High 35 - 104 U/L [facility] ALT [Catalytic activity/Vol] 12 U/L 5 - 33 U/L [facility] Anion gap [Moles/Vol] 15 mmol/L 9 - 17 mmol/L [facility] AST [Catalytic activity/Vol] 16 U/L NINF - 32 U/L [facility] Bilirubin [Mass/Vol] 0.3 mg/dL 0.3 - 1 .2 mg/dL [facility] Calcium [Mass/Vol] 9.7 mg/dL 8.6 - 10. 4 mg/dL [facility] Chloride [Moles/Vol] 103 mmol/L 98 - 10 7 mmol/L [facility] CO2 [Moles/Vol] 23 mmol/L 20 - 31 mmol/L [facility] Creatinine [Mass/Vol] 0.69 mg/dL 0.50 - 0.90 mg/dL [facility] GFR/1.73 sq M.predicted MDRD (S/P/Bld) [Vol rate/Area] - PINF [facility] Comment on above: These results are not intended for use in patients <18 years of age. eGFR results are calculated without a race factor using the 2020 CKD-EPI equation. Careful clinical correlation is recommended, particularly when comparing to results calculated using previous equations. The CKD-EPI equation is less accurate in patients with extremes of muscle mass, extra-renal metabolism of creatine, excessive creatine ingestion, or following therapy that affects renal tubular secretion. Glucose [Mass/Vol] 124 mg/dL High 70 - 99 mg/dL [facility] Interpretation and review of laboratory results Abnormal [facility] Potassium [Moles/Vol] 3.9 mmol/L 3.7 - 5.3 mmol/L [facility] Protein [Mass/Vol] 7.0 g/dL 6.4 - 8.3 g/dL [facility] Sodium [Moles/Vol] 141 mmol/L 135 - 144 mmol/L [facility] Urea nitrogen [Mass/Vol] 6 mg/dL 6 - 20 mg/dL [facility] Comp Metabolic Profon 2022 Albumin [Mass/Vol] 4.5 g/dL Normal 3.5-5.2 [facility] Comment on above: Performed By: #### L LEÓN MUJICA, CDP #### [facility] [address] [place] [address] [employer]: Michael Cervantes DO Alkaline Phos 133 U/L High 35-104 [facility] Comment on above: Performed By: #### L LEÓN MUJICA, CDP #### [facility] [address] [place] [address] [employer]: Michael Cervantes DO ALT [Catalytic activity/Vol] 12 U/L Normal 5-33 [facility] Comment on above: Performed By: #### L LEÓN MUJICA, CDP #### [facility] [place] [place] [address] [employer]: Michael Cervantes DO Anion gap [Moles/Vol] 15 mmol/L Normal 9-17 [facility] Comment on above: Performed By: #### L LEÓN MUJICA, CDP #### [facility] [place] [place] [address] Superintendent [employer]: Michael Cervantes DO AST [Catalytic activity/Vol] 16 U/L Normal <32 [facility] Comment on above: Performed By: #### L LEÓN MUJICA, CDP #### [facility] [place] [place] [address] [employer]: Michael Cervantes DO Bilirubin [Mass/Vol] 0.3 mg/dL Normal 0.3-1.2 [facility] Comment on above: Performed By: #### L GUANAKO, CP, CDP #### [facility] [address] [place] [address] [employer]: Michael Cervantes DO Calcium [Mass/Vol] 9.7 mg/dL Normal 8.6-10.4 [facility] Comment on above: Performed By: #### L IP, CP, CDP #### [facility] [address] [facility] [place] [address] [employer]: Michael Cervantes DO Chloride [Moles/Vol] 103 mmol/L Normal 98-107 [facility] Comment on above: Performed By: #### L IP, CP, CDP #### [facility] [address] [facility] [place] [address] [employer]: Michael Cervantes DO CO2 [Moles/Vol] 23 mmol/L Normal 20-31 [facility] Comment on above: Performed By: #### L IP, CP, CDP #### [facility] [address] [facility] [place] [address] Superintendent [employer]itation: Michael Cervantes DO Creatinine [Mass/Vol] 0.69 mg/dL Normal 0.50-0.90 [facility] Comment on above: Performed By: #### L IPLEÓN, CDP #### [facility] [address] [facility] [place] [address] [employer]: Michael Cervantes DO GFR/1.73 sq M.predicted among non-blacks MDRD (S/P/Bld) [Vol rate/Area] mL/min/{1.73_m2} Normal >60 [facility] Comment on above: Result Comment: These results are not intended for use in patients <18 years of age. eGFR results are calculated without a race factor using the 2020 CKD-EPI equation. Careful clinical correlation is recommended, particularly when comparing to results calculated using previous equations. The CKD-EPI equation is less accurate in patients with extremes of muscle mass, extra-renal metabolism of creatine, excessive creatine ingestion, or following therapy that affects renal tubular secretion. Performed By: #### L IP, CP, CDP #### [facility] [address] [facility] [place] [address] [employer]: Michael Cervantes DO Glucose [Mass/Vol] 124 mg/dL High 70-99 [facility] Comment on above: Performed By: #### L IPLEÓN, CDP #### [facility] [address] [place] [address] Superintendent [employer]: Michael Cervantes DO Potassium [Moles/Vol] 3.9 mmol/L Normal 3.7-5.3 [facility] Comment on above: Performed By: #### L IP, CP, CDP #### [facility] [place] [place] [address] Superintendent [employer]itation: Michael Cervantes DO Protein [Mass/Vol] 7.0 g/dL Normal 6.4-8.3 [facility] Comment on above: Performed By: #### L IPLEÓN, CDP #### [facility] [place] [facility] [place] [address] Superintendent Sanitation: Michael Cervantes DO Sodium [Moles/Vol] 141 mmol/L Normal 135-144 [facility] Comment on above: Performed By: #### L IP, LEÓN, CDP #### [facility] [place] [facility] [place] [place] [address] Superintendent Sanitation: Michael Cervantes DO Urea nitrogen [Mass/Vol] 6 mg/dL Normal 6-20 [facility] Comment on above: Performed By: #### L IP, CP, CDP #### [facility] [place] [place] [address] Superintendent [employer]itation: Michael Cervantes DO Lipaseon 11-15-2022 Lipase [Catalytic activity/Vol] 45 U/L Normal 13-60 [facility] Comment on above: Performed By: #### L IP, CP, CDP #### [facility] [place] [place] [address] [employer]: Michael Cervantes DO Lipase [Catalytic activity/Vol] 45 U/L 13 - 60 U/L [facility] Microscopic Urinalysison Bacteria, UA FEW Abnormal None [facility] Casts UA 0 TO 2 /LPF [facility] Epithelial Cells UA 21 TO 50 /HPF [facility] Interpretation and review of laboratory results Abnormal [facility] RBC clumps Auto (Urine sed) [#/Area] 0 TO 2 /HPF [facility] WBC, UA 6 TO 9 /HPF [facility] No Panel Informationon 11-15 [facility] UA w/Reflex Cultureon 2022 Bilirubin, SemiQt,Ur Negative Normal NEG [facility] Comment on above: Performed By: #### U VERONICA UAX #### [facility] [address] [place] [address] [employer]: Michael Cervantes DO Blood, Urine Negative Normal NEG [facility] Comment on above: Performed By: #### U VERONICA UAX #### [facility] [address] [place] [address] [employer]: Michael Cervantes DO Clarity (U) Cloudy Abnormal CLEAR [facility] Comment on above: Performed By: #### U VERONICA, UAX #### [facility] [address] [place] [address] [employer]: Michael Cervantes DO Color (U) Yellow Normal YEL [facility] Comment on above: Performed By: #### U LUTHERO, UAX #### [facility] [address] [place] [address] [employer]: Michael Cervantes DO Glucose Ql (U) Negative Normal NEG [facility] Comment on above: Performed By: #### U LUTHERO, UAX #### [facility] [address] [facility] [place] [address] Superintendent Sanitation: Michael Cervantes DO Ketones Ql (U) Negative Normal NEG [facility] Comment on above: Performed By: #### U MICAO, UAX #### [facility] [address] [facility] [place] [address] Superintendent Sanitation: Michael Cervantes DO Leukocyte esterase Test strip Ql (U) Negative Normal NEG [facility] Comment on above: Performed By: #### U VERONICA UAX #### [facility] [place] [place] [address] Superintendent Sanitation: Michael Cervantes DO Nitrite,Ur Negative Normal NEG [facility] Comment on above: Performed By: #### Marely MARTIN UAX #### [facility] [address] [place] [id number] Superintendent Sanitation: Michael Cervantes DO PH,Ur 5.5 Normal 5.0-8.0 [facility] Comment on above: Performed By: #### U VERONICA UAX #### [facility] [place] [place] [address] Superintendent Sanitation: Michael Cervantes DO Protein Ql (U) Negative Normal NEG [facility] Comment on above: Performed By: #### U VERONICA UAX #### [facility] [place] [place] [address] Superintendent Sanitation: Michael Cervantes DO Spec. [place],Ur 1.017 Normal 1.000-1.030 [facility] Comment on above: Performed By: #### U VERONICA, UAX #### [facility] [place] [place] [address] Superintendent Sanitation: Michael Cervantes DO Urobilinogen,Ur Normal Normal NORM [facility] Comment on above: Performed By: #### U MICAO, UAX #### [facility] [address] [place], [place] [id number] Superintendent Sanitation: Michael Cervantes DO Urinalysis with Reflex to Cu ltureon 11-15-2022 Bilirubin Urine Negative NEGATIVE [facility] Color, UA Yellow Yellow [facility] Glucose Auto test strip (U) [Mass/Vol] Negative NEGATIVE [facility] Interpretation and review of laboratory results Abnormal [facility] Ketones (U) [Mass/Vol] Negative NEGATIVE [facility] Leukocyte esterase Auto test strip Ql (U) Negative NEGATIVE [facility] Nitrite Auto test strip Ql (U) Negative NEGATIVE [facility] Protein (U) [Mass/Vol] 5.5 mg/dL 5.0 - 8.0 [facility] Protein (U) [Mass/Vol] Negative NEGATIVE [facility] Specific [place], UA 1.017 1.000 - 1.030 [facility] Turbidity UA Cloudy Abnormal Clear [facility] Urine Hgb Negative NEGATIVE [facility] Urobilinogen, Urine Normal Normal [facility] Urinalysis,Microon 3 Bacteria FEW Abnormal NONE [facility] Comment on above: Performed By: #### U LUTHERO, UAX #### [facility] [address] [place], [place] [id number] Superintendent Sanitation: Michael Cervantes DO Casts 0 TO 2 Normal [facility] Comment on above: Performed By: #### Marely MARTIN UAX #### [facility] [address] [place], [place] [id number] Superintendent Sanitation: Michael Cervantes DO Epithelial cells LM Ql (Urine sed) 21 TO 50 Normal [facility] Comment on above: Performed By: #### U LUTHERO, UAX #### [facility] [address] [facility] [place] [address] Superintendent Sanitation: Michael Cervantes DO Urine RBC's 0 TO 2 Normal [facility] Comment on above: Performed By: #### U LUTHERO, UAX #### [facility] [address] [place] [address] Superintendent Sanitation: Michael Cervantes DO Urine WBC's 6 TO 9 Normal [facility] Comment on above: Performed By: #### U LUTHERO, UAX #### [facility] [address] [place] [address] Superintendent Sanitation: Michael Cervantes DO Activated partial thrombopla stin time (aPTT) in platelet poor plasma by coagulation aOrdered By: Lynn Rowe on 11-03-2022 aPTT Coag (PPP) [Time] 49.4 s 25.1-36.5 [facility] Alanine aminotransferase [En zymatic activity/volume] in Serum or PlasmaOrdered By: Lynn Rowe on 11-03-2022 ALT [Catalytic activity/Vol] 12 U/L 7-52 [facility] Albumin [Mass/volume] in Ser um or Plasma by Bromocresol green (BCG) dye binding methoOrdered By: Lynn Rowe on 11-03-2022 Albumin BCG dye [Mass/Vol] 4.1 g/dL 3.5-5.7 [facility] Alkaline phosphatase [Enzyma tic activity/volume] in Serum or PlasmaOrdered By: Lynn Rowe on 11-03-2022 ALP [Catalytic activity/Vol] 111 U/L 34-104 [facility] Aspartate aminotransferase [ Enzymatic activity/volume] in Serum or PlasmaOrdered By: Lynn Rowe on 11-03-2022 AST [Catalytic activity/Vol] 14 U/L 13-39 [facility] Basophils Auto (Bld) [#/Vol] Ordered By: Lynn Rowe on 11-03-2022 Basophils (Bld) [#/Vol] 0.1 10*3/uL 0.0-0.2 [facility] Basophils/100 WBC Auto (Bld) Ordered By: Lynn Rowe on 11-03-2022 Basophils/100 WBC (Bld) 1.0 % . [facility] Bilirubin Test strip Ql (U)O rdered By: Lynn Rowe on 11-03-2022 Bilirubin Ql (U) Negative Negative [facility] Bilirubin.direct [Mass/volum e] in Serum or PlasmaOrdered By: Lynn Rowe on 11-03-2022 Bilirubin.direct [Mass/Vol] 0.00 mg/dL 0.03-0.18 [facility] Comment on above: If the DBIL is less than 0.1, IBIL is not able to becalculated. Bilirubin.total [Mass/volume ] in Serum or PlasmaOrdered By: Lynn Rowe on 11-03-2022 Bilirubin [Mass/Vol] 0.4 mg/dL 0.3-1.0 [facility] Calcium [Mass/volume] in Ser um or PlasmaOrdered By: Lynn Rowe on 11-03-2022 Calcium [Mass/Vol] 9.5 mg/dL 8.6-10.3 [facility] Carbon dioxide, total [Moles /volume] in Serum or PlasmaOrdered By: Lynn Rowe on 11-03-2022 CO2 [Moles/Vol] 25.3 mmol/L 21.0-31.0 [facility] Chloride [Moles/volume] in S terri or PlasmaOrdered By: Lynn Rowe on 11-03-2022 Chloride [Moles/Vol] 108 mmol/L 98-107 [facility] Choriogonadotropin.beta subu nit [Units/volume] in Serum or PlasmaOrdered By: Lynn Rowe on 11-03-2022 HCG.beta subunit Qn 36.63 m[IU]/mL [facility] Comment on above: Approximate Approxim ate hCG Gestational Age Range (mIU/ml) (weeks)0.2-1 5-50 1-2 50-500 2-3 100-5,000 3-4 500-10,000 4-5 1,000-50,000 5-6 10,000-100,000 6-8 15,000-200,000 8-12 10,000-100,000 HCG.beta subunit Qn Positive [facility] Color Auto (U)Ordered By: Me april Rowe on 11-03-2022 Color (U) Yellow Yellow [facility] Creatinine [Mass/volume] in Serum or PlasmaOrdered By: Lynn Rowe on 11-03-2022 Creatinine [Mass/Vol] 0.59 mg/dL 0.60-1.20 [facility] Eosinophils Auto (Bld) [#/Vo l]Ordered By: Lynn Rowe on 11-03-2022 Eosinophils (Bld) [#/Vol] 0.2 10*3/uL 0.0-0.45 [facility] Eosinophils/100 WBC Auto (Bl d)Ordered By: Lynn Rowe on 11-03-2022 Eosinophils/100 WBC (Bld) 2.7 % . [facility] Erythrocyte distribution wid th Auto (RBC) [Ratio]Ordered By: Lynn Rowe on 11-03-2022 Erythrocyte distribution width (RBC) [Ratio] 16.2 % 11.9-15.3 [facility] Globulin Calc (S) [Mass/Vol] Ordered By: Lynn Rowe on 11-03-2022 Globulin (S) [Mass/Vol] 2.5 g/dL [facility] Glucose [Mass/volume] in Ser um or PlasmaOrdered By: Lynn Rowe on 11-03-2022 Glucose [Mass/Vol] 95 mg/dL 70-100 [facility] Comment on above: ADA recommended refe rence rangeRandom Glucose Reference Range is dependent on time and content of last meal. Glucose of more than 200 mg/dL in a nonstressed, ambulatory subject supports the diagnosis of Diabetes Mellitus. Hematocrit Auto (Bld) [Volum e fraction]Ordered By: Lynn Rowe on 11-03-2022 Hematocrit (Bld) [Volume fraction] 38.9 % 34.0-46.4 [facility] Hemoglobin [Mass/volume] in BloodOrdered By: Lynn Rowe on 11-03-2022 Hemoglobin (Bld) [Mass/Vol] 12.9 g/dL 11.8-15.4 [facility] Ketones Auto test strip (U) [Mass/Vol]Ordered By: Lynn Rowe on 11-03-2022 Ketones (U) [Mass/Vol] Negative Negative [facility] - CoagulationOrde red By: Lynn Rowe on 11-03-2022 PT Coag (PPP) [Time] 11.9 s 9.0-12.9 [facility] Leukocytes [#/volume] correc zen for nucleated erythrocytes in Blood by Automated counOrdered By: Lynn Rowe on 11-03-2022 WBC corrected for nucl RBC Auto (Bld) [#/Vol] 8.1 10*3/uL 3.8-11.6 [facility] Lipase [Enzymatic activity/v olume] in Serum or PlasmaOrdered By: Lynn Rowe on 11-03-2022 Lipase [Catalytic activity/Vol] 17.0 U/L 11.0-82.0 [facility] Lymphocytes Auto (Bld) [#/Vo l]Ordered By: Lynn Rowe on 11-03-2022 Lymphocytes (Bld) [#/Vol] 2.5 10*3/uL 1.00-4.8 [facility] Lymphocytes/100 WBC Auto (Bl d)Ordered By: Lynn Rowe on 11-03-2022 Lymphocytes/100 WBC (Bld) 30.7 % . [facility] MCH Auto (RBC) [Entitic mass ]Ordered By: Lynn Rowe on 11-03-2022 MCH (RBC) [Entitic mass] 29.6 pg 24.7-34.3 [facility] MCHC Auto (RBC) [Mass/Vol]Or dered By: Lynn Rowe on 11-03-2022 MCHC (RBC) [Mass/Vol] 33.1 g/dL 32.0-35.0 [facility] MCV Auto (RBC) [Entitic vol] Ordered By: Lynn Rowe on 11-03-2022 MCV (RBC) [Entitic vol] 89.4 fL 80-100 [facility] Monocyte distribution width [Entitic volume] in Blood by AutomatedOrdered By: Lynn Rowe on 11-03-2022 Monocyte distribution width Auto (Bld) [Entitic vol] 17.60 % 0.00-20.00 [facility] Monocytes Auto (Bld) [#/Vol] Ordered By: Lynn Rowe on 11-03-2022 Monocytes (Bld) [#/Vol] 0.6 10*3/uL 0.0-0.8 [facility] Monocytes/100 WBC Auto (Bld) Ordered By: Lynn Rowe on 11-03-2022 Monocytes/100 WBC (Bld) 7.8 % . [facility] Natriuretic peptide B [Mass/ Vol]Ordered By: Lynn Rowe on 11-03-2022 Natriuretic peptide B (Bld) [Mass/Vol] 162.0 pg/mL 5-100 [facility] Neutrophils Auto (Bld) [#/Vo l]Ordered By: Lynn Rowe on 11-03-2022 Neutrophils (Bld) [#/Vol] 4.6 10*3/uL 1.8-7.7 [facility] Neutrophils/100 WBC Auto (Bl d)Ordered By: Lynn Rowe on 11-03-2022 Neutrophils/100 WBC (Bld) 57.8 % . [facility] Nitrite Test strip Ql (U)Ord ered By: Lynn Rowe on 11-03-2022 Nitrite Ql (U) Negative Negative [facility] No Panel InformationOrdered By: Lynn Rowe on 11-03-2022 Estimated GFR (CKD-EPI) > 60.0 mL/Min [facility] Creatinine Clearance (Chem 144.68 [facility] 11.9 s 9.0-12.9 [facility] > 60.0 mL/Min [facility] 144.68 [facility] Nucleated erythrocytes [Pres ence] in Blood by Automated countOrdered By: Lynn Rowe on 11-03-2022 Nucleated RBC Auto Ql (Bld) 0.1 /100{WBC} 0-0.5 [facility] Platelet mean volume Auto (B ld) [Entitic vol]Ordered By: Lynn Rowe on 11-03-2022 Platelet mean volume (Bld) [Entitic vol] 7.8 fL 6.3-10.7 [facility] Platelet poor plasma interna tional normalized ratio (INR) by coagulation assay (relatOrdered By: Lynn Rwoe on 11-03-2022 INR Coag (PPP) [Relative time] 1.0 {INR} [facility] Comment on above: INR Therapeutic Rang e A) Pre- and Peroperative OAT started two weeks before surgery. NOT HIP SURGERY: 1.5 - 2.5 HIP SURGERY: 2 - 3B) Primary and secondary prevention of venous THROMBOSIS: 2 - 3C) Active venous thrombosis, pulmonary embolismand prevention of recurrent venous thrombosis: 2 - 3D) Prevention of arterial thromboembolismincluding patients with mechanical heart valves: 3 - 4.5 Platelets Auto (Bld) [#/Vol] Ordered By: Lynn Rowe on 11-03-2022 Platelets (Bld) [#/Vol] 306 10*3/uL 150-450 [facility] Potassium [Moles/volume] in Serum or PlasmaOrdered By: Lynn Rowe on 11-03-2022 Potassium [Moles/Vol] 4.0 mmol/L 3.5-5.1 [facility] Protein Auto test strip (U) [Mass/Vol]Ordered By: Lynn Rowe on 11-03-2022 Protein (U) [Mass/Vol] Negative Negative Fi [facility] Protein [Mass/volume] in Ser um or PlasmaOrdered By: Lynn Rowe on 11-03-2022 Protein [Mass/Vol] 6.6 g/dL 6.4-8.9 [facility] RBC Auto (Bld) [#/Vol]Ordere d By: Lynn Rowe on 11-03-2022 RBC (Bld) [#/Vol] 4.35 10*6/uL 3.60-5.[address] [facility] Serum or plasma albumin/glob ulin mass ratioOrdered By: Lynn Rowe on 11-03-2022 Albumin/Globulin [Mass ratio] 1.6 {ratio} [facility] Serum or plasma anion gap de terminationOrdered By: Lynn Rowe on 11-03-2022 Anion gap [Moles/Vol] 11.7 mmol/L 6.0-15.0 [facility] Serum or plasma non-glucuron idated bilirubin measurement (mass/volume)Ordered By: Lynn Rowe on 11-03-2022 Bilirubin.indirect [Mass/Vol] 0.4 mg/dL [facility] Sodium [Moles/volume] in Ser um or PlasmaOrdered By: Lynn Rowe on 11-03-2022 Sodium [Moles/Vol] 141 mmol/L 136-145 [facility] Specific gravity Auto test s trip (U) [Rel density]Ordered By: Lynn Rowe on 11-03-2022 Specific gravity (U) [Rel density] 1.008 1.001-1.030 [facility] Troponin I.cardiac [Mass/vol ume] in Serum or Plasma by Detection limit <= 0.01 ng/Ordered By: Lynn Rowe on 11-03-2022 Troponin I.cardiac DL <= 0.01 ng/mL [Mass/Vol] 4.0 pg/mL 0.0-15.0 [facility] Urea nitrogen [Mass/volume] in Serum or PlasmaOrdered By: Lynn Rowe on 11-03-2022 Urea nitrogen [Mass/Vol] 8 mg/dL 7-25 [facility] Urine clarity by refractomet ry automatedOrdered By: Lynn Rowe on 11-03-2022 Clarity Refractometry automated (U) Clear Clear [facility] Urine glucose measurement by automated test strip (mass/volume)Ordered By: Lynn Rowe on 11-03-2022 Glucose Auto test strip (U) [Mass/Vol] Normal mg/dL Normal [facility] Urine hemoglobin detection b y automated test stripOrdered By: Lynn oRwe on 11-03-2022 Hemoglobin Auto test strip Ql (U) Negative Negative [facility] Urine leukocyte esterase det ection by automated test stripOrdered By: Lynn Rowe on 11-03-2022 Leukocyte esterase Auto test strip Ql (U) Negative Negative [facility] Urobilinogen Auto test strip (U) [Mass/Vol]Ordered By: Lynn Rowe on 11-03-2022 Urobilinogen (U) [Mass/Vol] Normal mg/dL Normal [facility] WBC Auto (Bld) [#/Vol]Ordere d By: Lynn Rowe on 11-03-2022 WBC (Bld) [#/Vol] 8.1 10*3/uL 3.8-11.6 [facility] pH Auto test strip (U)Ordere d By: Lynn Rowe on 11-03-2022 pH (U) 6.5 [pH] 5.0-9.0 [facility] Alanine aminotransferase [En zymatic activity/volume] in Serum or PlasmaOrdered By: Maria Teresa Hodge on 11-01-2022 ALT [Catalytic activity/Vol] 10 U/L 7-52 [facility] Albumin [Mass/volume] in Ser um or Plasma by Bromocresol green (BCG) dye binding methoOrdered By: Maria Teresa Hodge on 11-01-2022 Albumin BCG dye [Mass/Vol] 3.9 g/dL 3.5-5.7 [facility] Alkaline phosphatase [Enzyma tic activity/volume] in Serum or PlasmaOrdered By: Maria Teresa Hodge on 11-01-2022 ALP [Catalytic activity/Vol] 93 U/L 34-104 [facility] Aspartate aminotransferase [ Enzymatic activity/volume] in Serum or PlasmaOrdered By: Maria Teresa Hodge on 11-01-2022 AST [Catalytic activity/Vol] 16 U/L 13-39 [facility] Basophils Auto (Bld) [#/Vol] Ordered By: Maria Teresa Hodge on 11-01-2022 Basophils (Bld) [#/Vol] 0.1 10*3/uL 0.0-0.2 [facility] Basophils/100 WBC Auto (Bld) Ordered By: Maria Teresa Hodge on 11-01-2022 Basophils/100 WBC (Bld) 1.5 % . [facility] Bilirubin Test strip Ql (U)O rdered By: Maria Teresa Hodge on 11-01-2022 Bilirubin Ql (U) Negative Negative [facility] Bilirubin.direct [Mass/volum e] in Serum or PlasmaOrdered By: Maria Teresa Hodge on 11-01-2022 Bilirubin.direct [Mass/Vol] 0.10 mg/dL 0.03-0.18 [facility] Bilirubin.total [Mass/volume ] in Serum or PlasmaOrdered By: Maria Teresa Hodge 11-01-2022 Bilirubin [Mass/Vol] 0.4 mg/dL 0.3-1.0 [facility] Calcium [Mass/volume] in Ser um or PlasmaOrdered By: Maria Teresa Hodge 11-01-2022 Calcium [Mass/Vol] 9.2 mg/dL 8.6-10.3 [facility] Carbon dioxide, total [Moles /volume] in Serum or PlasmaOrdered By: Maria Teresa Hodge on 11-01-2022 CO2 [Moles/Vol] 24.9 mmol/L 21.0-31.0 [facility] Chloride [Moles/volume] in S terri or PlasmaOrdered By: Maria Teresa Hodge on 11-01-2022 Chloride [Moles/Vol] 108 mmol/L 98-107 [facility] Choriogonadotropin.beta subu nit [Units/volume] in Serum or PlasmaOrdered By: Maria Teresa Hodge on 11-01-2022 HCG.beta subunit Qn 40.79 m[IU]/mL F [facility] Comment on above: Approximate Approxim ate hCG Gestational Age Range (mIU/ml) (weeks)0.2-1 5-50 1-2 50-500 2-3 100-5,000 3-4 500-10,000 4-5 1,000-50,000 5-6 10,000-100,000 6-8 15,000-200,000 8-12 10,000-100,000 Color Auto (U)Ordered By: Cookie Hodge on 11-01-2022 Color (U) Yellow Yellow [facility] Creatinine [Mass/volume] in Serum or PlasmaOrdered By: Maria Teresa Hodge on 11-01-2022 Creatinine [Mass/Vol] 0.62 mg/dL 0.60-1.20 [facility] Eosinophils Auto (Bld) [#/Vo l]Ordered By: Maria Teresa Hodge on 11-01-2022 Eosinophils (Bld) [#/Vol] 0.2 10*3/uL 0.0-0.45 [facility] Eosinophils/100 WBC Auto (Bl d)Ordered By: Maria Teresa Hodge on 11-01-2022 Eosinophils/100 WBC (Bld) 2.7 % . [facility] Erythrocyte distribution wid th Auto (RBC) [Ratio]Ordered By: Maria Teresa Hodge on 11-01-2022 Erythrocyte distribution width (RBC) [Ratio] 16.2 % 11.9-15.3 [facility] Globulin Calc (S) [Mass/Vol] Ordered By: Maria Teresa Hodge on 11-01-2022 Globulin (S) [Mass/Vol] 2.7 g/dL [facility] Glucose [Mass/volume] in Ser um or PlasmaOrdered By: Maria Teresa Hodge on 11-01-2022 Glucose [Mass/Vol] 90 mg/dL 70-100 [facility] Comment on above: ADA recommended refe rence rangeRandom Glucose Reference Range is dependent on time and content of last meal. Glucose of more than 200 mg/dL in a nonstressed, ambulatory subject supports the diagnosis of Diabetes Mellitus. HCG ( test) IA.rapi d Ql (U)Ordered By: Maria Teresa Hodge on 11-01-2022 HCG ( test) Ql (U) Positive [facility] Hematocrit Auto (Bld) [Volum e fraction]Ordered By: Maria Teresa Hodge on 11-01-2022 Hematocrit (Bld) [Volume fraction] 39.7 % 34.0-46.4 [facility] Hemoglobin [Mass/volume] in BloodOrdered By: Maria Teresa Hodge on 11-01-2022 Hemoglobin (Bld) [Mass/Vol] 13.1 g/dL 11.8-15.4 [facility] Ketones Auto test strip (U) [Mass/Vol]Ordered By: Maria Teresa Hodge on 11-01-2022 Ketones (U) [Mass/Vol] Negative Negative [facility] Leukocytes [#/volume] correc zen for nucleated erythrocytes in Blood by Automated counOrdered By: Maria Teresa Hodge on 11-01-2022 WBC corrected for nucl RBC Auto (Bld) [#/Vol] 7.7 10*3/uL 3.8-11.6 [facility] Lipase [Enzymatic activity/v olume] in Serum or PlasmaOrdered By: Maria Teresa Hodge on 11-01-2022 Lipase [Catalytic activity/Vol] 14.0 U/L 11.0-82.0 [facility] Lymphocytes Auto (Bld) [#/Vo l]Ordered By: Maria Teresa Hodge on 11-01-2022 Lymphocytes (Bld) [#/Vol] 2.7 10*3/uL 1.00-4.8 [facility] Lymphocytes/100 WBC Auto (Bl d)Ordered By: Maria Teresa Hodge on 11-01-2022 Lymphocytes/100 WBC (Bld) 34.7 % . [facility] MCH Auto (RBC) [Entitic mass ]Ordered By: Maria Teresa Hodge on 11-01-2022 MCH (RBC) [Entitic mass] 29.6 pg 24.7-34.3 [facility] MCHC Auto (RBC) [Mass/Vol]Or dered By: Maria Teresa Hodge on 11-01-2022 MCHC (RBC) [Mass/Vol] 32.9 g/dL 32.0-35.0 [facility] MCV Auto (RBC) [Entitic vol] Ordered By: Maria Teresa Hodge on 11-01-2022 MCV (RBC) [Entitic vol] 90.0 fL 80-100 [facility] Monocyte distribution width [Entitic volume] in Blood by AutomatedOrdered By: Maria Teresa Hodge on 11-01-2022 Monocyte distribution width Auto (Bld) [Entitic vol] 20.48 % 0.00-20.00 [facility] Comment on above: For adults in ED, MD W > 20.0 may be associated with a higher risk of sepsis during the first 12 hrs of hospital admission Monocytes Auto (Bld) [#/Vol] Ordered By: Maria Teresa Hodge on 11-01-2022 Monocytes (Bld) [#/Vol] 0.5 10*3/uL 0.0-0.8 [facility] Monocytes/100 WBC Auto (Bld) Ordered By: Maria Teresa Hodge on 11-01-2022 Monocytes/100 WBC (Bld) 6.8 % . [facility] Neutrophils Auto (Bld) [#/Vo l]Ordered By: Maria Teresa Hodge on 11-01-2022 Neutrophils (Bld) [#/Vol] 4.2 10*3/uL 1.8-7.7 [facility] Neutrophils/100 WBC Auto (Bl d)Ordered By: Maria Teresa Hodge on 11-01-2022 Neutrophils/100 WBC (Bld) 54.3 % . [facility] Nitrite Test strip Ql (U)Ord ered By: Maria Teresa Hodge on 11-01-2022 Nitrite Ql (U) Negative Negative [facility] No Panel InformationOrdered By: Maria Teresa Hodge on 11-01-2022 Estimated GFR (CKD-EPI) > 60.0 mL/Min [facility] Creatinine Clearance (Chem 136.58 [facility] > 60.0 mL/Min [facility] 136.58 [facility] Nucleated erythrocytes [Pres ence] in Blood by Automated countOrdered By: Maria Teresa Hodge on 11-01-2022 Nucleated RBC Auto Ql (Bld) 0.1 /100{WBC} 0-0.5 [facility] Platelet mean volume Auto (B ld) [Entitic vol]Ordered By: Maria Teresa Hodge on 11-01-2022 Platelet mean volume (Bld) [Entitic vol] 8.4 fL 6.3-10.7 [facility] Platelets Auto (Bld) [#/Vol] Ordered By: Maria Teresa Hodge on 11-01-2022 Platelets (Bld) [#/Vol] 316 10*3/uL 150-450 [facility] Potassium [Moles/volume] in Serum or PlasmaOrdered By: Maria Teresa Hodge on 11-01-2022 Potassium [Moles/Vol] 3.8 mmol/L 3.5-5.1 [facility] Protein Auto test strip (U) [Mass/Vol]Ordered By: Maria Teresa Hodge on 11-01-2022 Protein (U) [Mass/Vol] Negative Negative [facility] Protein [Mass/volume] in Ser um or PlasmaOrdered By: Maria Teresa Hodge on 11-01-2022 Protein [Mass/Vol] 6.6 g/dL 6.4-8.9 [facility] RBC Auto (Bld) [#/Vol]Ordere d By: Maria Teresa Hodge on 11-01-2022 RBC (Bld) [#/Vol] 4.41 10*6/uL 3.60-5.[address] [facility] Serum or plasma albumin/glob ulin mass ratioOrdered By: Maria Teresa Hodge on 11-01-2022 Albumin/Globulin [Mass ratio] 1.4 {ratio} [facility] Serum or plasma anion gap de terminationOrdered By: Maria Teresa Hodge on 11-01-2022 Anion gap [Moles/Vol] 11.9 mmol/L 6.0-15.0 [facility] Serum or plasma non-glucuron idated bilirubin measurement (mass/volume)Ordered By: Maria Teresa Hodge on 11-01-2022 Bilirubin.indirect [Mass/Vol] 0.3 mg/dL [facility] Sodium [Moles/volume] in Ser um or PlasmaOrdered By: Maria Teresa Hodge on 11-01-2022 Sodium [Moles/Vol] 141 mmol/L 136-145 [facility] Specific gravity Auto test s trip (U) [Rel density]Ordered By: Maria Teresa Hodge on 11-01-2022 Specific gravity (U) [Rel density] 1.011 1.001-1.030 [facility] Troponin I.cardiac [Mass/vol ume] in Serum or Plasma by Detection limit <= 0.01 ng/Ordered By: Maria Teresa Hodge on 11-01-2022 Troponin I.cardiac DL <= 0.01 ng/mL [Mass/Vol] 3.5 pg/mL 0.0-15.0 [facility] Urea nitrogen [Mass/volume] in Serum or PlasmaOrdered By: Maria Teresa Hodge on 11-01-2022 Urea nitrogen [Mass/Vol] 8 mg/dL 7-25 [facility] Urine clarity by refractomet ry automatedOrdered By: Maria Teresa Hodge on 11-01-2022 Clarity Refractometry automated (U) Clear Clear [facility] Urine glucose measurement by automated test strip (mass/volume)Ordered By: Maria Teresa Hodge on 11-01-2022 Glucose Auto test strip (U) [Mass/Vol] Normal mg/dL Normal [facility] Urine hemoglobin detection b y automated test stripOrdered By: Maria Teresa Hodge on 11-01-2022 Hemoglobin Auto test strip Ql (U) Negative Negative [facility] Urine leukocyte esterase det ection by automated test stripOrdered By: Maria Teresa Hodge on 11-01-2022 Leukocyte esterase Auto test strip Ql (U) Negative Negative [facility] Urobilinogen Auto test strip (U) [Mass/Vol]Ordered By: Maria Teresa Hodge on 11-01-2022 Urobilinogen (U) [Mass/Vol] Normal mg/dL Normal [facility] WBC Auto (Bld) [#/Vol]Ordere d By: Maria Teresa Hodge on 11-01-2022 WBC (Bld) [#/Vol] 7.7 10*3/uL 3.8-11.6 [facility] pH Auto test strip (U)Ordere d By: Maria Teresa Hodge on 11-01-2022 pH (U) 6.0 [pH] 5.0-9.0 [facility] Albumin [Mass/volume] in Ser um or PlasmaOrdered By: Lio Spencer on 09-10-2022 Albumin [Mass/Vol] 3.8 g/dL 3.2-5.5 [facility] Alkaline phosphatase [Enzyma tic activity/volume] in Serum or PlasmaOrdered By: Lio Spencer on 09-10-2022 ALP [Catalytic activity/Vol] 91 U/L 32-92 [facility] Aspartate aminotransferase [ Enzymatic activity/volume] in Serum or PlasmaOrdered By: Lio Spencer on 09-10-2022 AST [Catalytic activity/Vol] 16 U/L 10-42 [facility] Basophils Auto (Bld) [#/Vol] Ordered By: Martita Schaeffer on 09-10-2022 Basophils (Bld) [#/Vol] 0.1 10*3/uL 0.0-0.2 [facility] Basophils/100 WBC Auto (Bld) Ordered By: Martita Schaeffer on 09-10-2022 Basophils/100 WBC (Bld) 0.9 % . [facility] Bilirubin.direct [Mass/volum e] in Serum or PlasmaOrdered By: Lio Spencer on 09-10-2022 Bilirubin.direct [Mass/Vol] 0.1 mg/dL 0.0-0.4 [facility] Bilirubin.total [Mass/volume ] in Serum or PlasmaOrdered By: Lio Spencer on 09-10-2022 Bilirubin [Mass/Vol] 0.6 mg/dL 0.3-1.2 [facility] Calcium [Mass/volume] in Ser um or PlasmaOrdered By: Martita Schaeffer on 09-10-2022 Calcium [Mass/Vol] 9.5 mg/dL 8.2-10.2 [facility] Carbon dioxide, total [Moles /volume] in Serum or PlasmaOrdered By: Martita Schaeffer on 09-10-2022 CO2 [Moles/Vol] 23.4 mmol/L 22.0-30.0 [facility] Chloride [Moles/volume] in S terri or PlasmaOrdered By: Martita Schaeffer on 09-10-2022 Chloride [Moles/Vol] 105 mmol/L 95-114 [facility] Creatinine and Glomerular fi ltration rate.predicted panel (S/P/Bld)Ordered By: Martita Schaeffer on 09-10-2022 Creatinine [Mass/Vol] 0.74 mg/dL 0.44-1.03 [facility] Eosinophils Auto (Bld) [#/Vo l]Ordered By: Martita Schaeffer on 09-10-2022 Eosinophils (Bld) [#/Vol] 0.2 10*3/uL 0.0-0.45 [facility] Eosinophils/100 WBC Auto (Bl d)Ordered By: Martita Schaeffer on 09-10-2022 Eosinophils/100 WBC (Bld) 2.3 % . [facility] Erythrocyte distribution wid th Auto (RBC) [Ratio]Ordered By: Martita Schaeffer on 09-10-2022 Erythrocyte distribution width (RBC) [Ratio] 15.7 % 11.9-15.3 [facility] Estimated glomerular filtrat ion rate (GFR) non- AmericanOrdered By: Martita Schaeffer on 09-10-2022 GFR/1.73 sq M.predicted among non-blacks MDRD (S/P/Bld) [Vol rate/Area] > 60 mL/Min [facility] Globulin Calc (S) [Mass/Vol] Ordered By: Lio Spencer on 09-10-2022 Globulin (S) [Mass/Vol] 3.0 g/dL [facility] Glucose [Mass/volume] in Ser um or PlasmaOrdered By: Martita Schaeffer on 09-10-2022 Glucose [Mass/Vol] 102 mg/dL 70-100 [facility] Comment on above: ADA recommended refe rence rangeRandom Glucose Reference Range is dependent on time and content of last meal. Glucose of more than 200 mg/dL in a nonstressed, ambulatory subject supports the diagnosis of Diabetes Mellitus. Hematocrit Auto (Bld) [Volum e fraction]Ordered By: Martita Schaeffer on 09-10-2022 Hematocrit (Bld) [Volume fraction] 40.8 % 34.0-46.4 [facility] Hemoglobin [Mass/volume] in BloodOrdered By: Martita Schaeffer on 09-10-2022 Hemoglobin (Bld) [Mass/Vol] 13.4 g/dL 11.8-15.4 [facility] Laboratory - Chemistry and C hemistry - challengeOrdered By: Martita Schaeffer on 09-10-2022 Lipase [Catalytic activity/Vol] 108.0 U/L 22-51 [facility] Leukocytes [#/volume] correc zen for nucleated erythrocytes in Blood by Automated counOrdered By: Martita Schaeffer on 09-10-2022 WBC corrected for nucl RBC Auto (Bld) [#/Vol] 8.0 10*3/uL 3.8-11.6 [facility] Lymphocytes Auto (Bld) [#/Vo l]Ordered By: Martita Schaeffer on 09-10-2022 Lymphocytes (Bld) [#/Vol] 1.7 10*3/uL 1.00-4.8 [facility] Lymphocytes/100 WBC Auto (Bl d)Ordered By: Martita Schaeffer on 09-10-2022 Lymphocytes/100 WBC (Bld) 21.6 % . [facility] MCH Auto (RBC) [Entitic mass ]Ordered By: Martita Schaeffer on 09-10-2022 MCH (RBC) [Entitic mass] 29.5 pg 24.7-34.3 [facility] MCHC Auto (RBC) [Mass/Vol]Or dered By: Martita Schaeffer on 09-10-2022 MCHC (RBC) [Mass/Vol] 32.8 g/dL 32.0-35.0 [facility] MCV Auto (RBC) [Entitic vol] Ordered By: Martita Schaeffer on 09-10-2022 MCV (RBC) [Entitic vol] 89.9 fL 80-100 [facility] Monocyte distribution width [Entitic volume] in Blood by AutomatedOrdered By: Martita Schaeffer on 09-10-2022 Monocyte distribution width Auto (Bld) [Entitic vol] 17.12 % 0.00-20.00 [facility] Monocytes Auto (Bld) [#/Vol] Ordered By: Martita Schaeffer on 09-10-2022 Monocytes (Bld) [#/Vol] 0.4 10*3/uL 0.0-0.8 [facility] Monocytes/100 WBC Auto (Bld) Ordered By: Martita Schaeffer on 09-10-2022 Monocytes/100 WBC (Bld) 5.2 % . [facility] Neutrophils Auto (Bld) [#/Vo l]Ordered By: Martita Schaeffer on 09-10-2022 Neutrophils (Bld) [#/Vol] 5.6 10*3/uL 1.8-7.7 [facility] Neutrophils/100 WBC Auto (Bl d)Ordered By: Martita Schaeffer on 09-10-2022 Neutrophils/100 WBC (Bld) 70.0 % . [facility] No Panel InformationOrdered By: Martita Schaeffer on 09-10-2022 Estimated GFR () > 60 mL/Min [facility] Comment on above: GFR estimated refere nce range: According to KDOQI guidelines, <60 ml/min/1.73m2 is sufficient to diagnose a patient with chronic kidney disease. Pharmacy Creatinine Clearance (Chem 115.35 [facility] > 60 mL/Min [facility] 108.0 U/L 22-51 [facility] 115.35 [facility] Nucleated erythrocytes [Pres ence] in Blood by Automated countOrdered By: Martita Schaeffer on 09-10-2022 Nucleated RBC Auto Ql (Bld) 0.1 /100{WBC} 0-0.5 [facility] Platelet mean volume Auto (B ld) [Entitic vol]Ordered By: Martita Schaeffer on 09-10-2022 Platelet mean volume (Bld) [Entitic vol] 7.0 fL 6.3-10.7 [facility] Platelets Auto (Bld) [#/Vol] Ordered By: Martita Schaeffer on 09-10-2022 Platelets (Bld) [#/Vol] 377 10*3/uL 150-450 [facility] Potassium [Moles/volume] in Serum or PlasmaOrdered By: Martita Schaeffer on 09-10-2022 Potassium [Moles/Vol] 4.2 mmol/L 3.5-5.1 [facility] Protein [Mass/volume] in Ser um or PlasmaOrdered By: Lio Spencer on 09-10-2022 Protein [Mass/Vol] 6.8 g/dL 6.1-7.9 [facility] RBC Auto (Bld) [#/Vol]Ordere d By: Martita Schaeffer on 09-10-2022 RBC (Bld) [#/Vol] 4.55 10*6/uL 3.60-5.[address] [facility] Serum or plasma alanine calderon otransferase measurement without P-5'-P (enzymatic activiOrdered By: Lio Spencer on 09-10-2022 ALT No additional P-5'-P [Catalytic activity/Vol] 11 U/L 10-60 [facility] Serum or plasma albumin/glob ulin mass ratioOrdered By: Lio Spencer on 09-10-2022 Albumin/Globulin [Mass ratio] 1.3 {ratio} [facility] Serum or plasma anion gap de terminationOrdered By: Martita Schaeffer on 09-10-2022 Anion gap [Moles/Vol] 11.8 mmol/L 6.0-15.0 [facility] Serum or plasma creatinine m easurement with calculation of estimated glomerular filtrOrdered By: Martita Schaeffer on 09-10-2022 Creatinine and Glomerular filtration rate.predicted panel (S/P/Bld) 0.74 mg/dL 0.44-1.03 [facility] Serum or plasma non-glucuron idated bilirubin measurement (mass/volume)Ordered By: Lio Spencer on 09-10-2022 Bilirubin.indirect [Mass/Vol] 0.5 mg/dL [facility] Sodium [Moles/volume] in Ser um or PlasmaOrdered By: Martita Schaeffer on 09-10-2022 Sodium [Moles/Vol] 136 mmol/L 136-146 [facility] Urea nitrogen [Mass/volume] in Serum or PlasmaOrdered By: Mratita Schaeffer on 09-10-2022 Urea nitrogen [Mass/Vol] 6 mg/dL 9-23 [facility] WBC Auto (Bld) [#/Vol]Ordere d By: Martita Schaeffer on 09-10-2022 WBC (Bld) [#/Vol] 8.0 10*3/uL 3.8-11.6 [facility] Albumin [Mass/volume] in Ser um or PlasmaOrdered By: Ronald Ann on 09-03-2022 Albumin [Mass/Vol] 4.0 g/dL 3.2-5.5 [facility] Automated erythrocytes count in urine sediment (number/area)Ordered By: Ronald Ann on 09-03-2022 RBC Auto (Urine sed) [#/Area] 0-1 [HPF] 0-4 [facility] Automated leukocytes count i n urine sediment (number/area)Ordered By: Ronald Ann on 09-03-2022 WBC Auto (Urine sed) [#/Area] 1-2 [HPF] 0-4 [facility] Basophils Auto (Bld) [#/Vol] Ordered By: Ronald Ann on 09-03-2022 Basophils (Bld) [#/Vol] 0.1 10*3/uL 0.0-0.2 [facility] Basophils/100 WBC Auto (Bld) Ordered By: Ronald Ann on 09-03-2022 Basophils/100 WBC (Bld) 1.3 % . [facility] Bilirubin Test strip Ql (U)O rdered By: Ronald Ann on 09-03-2022 Bilirubin Ql (U) Negative Negative [facility] Color Auto (U)Ordered By: Charley Ann on 09-03-2022 Color (U) Yellow Yellow [facility] Creatinine and Glomerular fi ltration rate.predicted panel (S/P/Bld)Ordered By: Ronald Ann on 09-03-2022 Creatinine [Mass/Vol] 0.90 mg/dL 0.44-1.03 [facility] Direct bilirubin measurement Ordered By: Ronald Ann on 09-03-2022 Bilirubin.direct [Mass/Vol] mg/dL 0.0-0.4 [facility] Eosinophils Auto (Bld) [#/Vo l]Ordered By: Ronald Ann on 09-03-2022 Eosinophils (Bld) [#/Vol] 0.2 10*3/uL 0.0-0.45 [facility] Eosinophils/100 WBC Auto (Bl d)Ordered By: Ronald Ann on 09-03-2022 Eosinophils/100 WBC (Bld) 1.8 % . [facility] Erythrocyte distribution wid th Auto (RBC) [Ratio]Ordered By: Ronald Ann on 09-03-2022 Erythrocyte distribution width (RBC) [Ratio] 16.2 % 11.9-15.3 [facility] Estimated glomerular filtrat ion rate (GFR) non- AmericanOrdered By: Ronald Ann on 09-03-2022 GFR/1.73 sq M.predicted among non-blacks MDRD (S/P/Bld) [Vol rate/Area] > 60 mL/Min [facility] Globulin Calc (S) [Mass/Vol] Ordered By: Ronald Ann on 09-03-2022 Globulin (S) [Mass/Vol] 2.9 g/dL [facility] Hematocrit Auto (Bld) [Volum e fraction]Ordered By: Ronald Ann on 09-03-2022 Hematocrit (Bld) [Volume fraction] 41.8 % 34.0-46.4 [facility] Hemoglobin [Mass/volume] in BloodOrdered By: Ronald Ann on 09-03-2022 Hemoglobin (Bld) [Mass/Vol] 13.8 g/dL 11.8-15.4 [facility] Ketones Auto test strip (U) [Mass/Vol]Ordered By: Ronald Ann on 09-03-2022 Ketones (U) [Mass/Vol] Negative Negative Fi [facility] Laboratory - Chemistry and C hemistry - challengeOrdered By: Ronald Ann on 09-03-2022 Lipase [Catalytic activity/Vol] 147.0 U/L 22-51 [facility] Laboratory - UrinalysisOrder ed By: Ronald Ann on 09-03-2022 Hyaline casts LM Ql (Urine sed) 0-8 [LPF] 0-8 [facility] Leukocytes [#/volume] correc zen for nucleated erythrocytes in Blood by Automated counOrdered By: Ronald Ann on 09-03-2022 WBC corrected for nucl RBC Auto (Bld) [#/Vol] 10.1 10*3/uL 3.8-11.6 [facility] Lymphocytes Auto (Bld) [#/Vo l]Ordered By: Ronald Ann on 09-03-2022 Lymphocytes (Bld) [#/Vol] 1.9 10*3/uL 1.00-4.8 [facility] Lymphocytes/100 WBC Auto (Bl d)Ordered By: Ronald Ann on 09-03-2022 Lymphocytes/100 WBC (Bld) 19.3 % . [facility] MCH Auto (RBC) [Entitic mass ]Ordered By: Ronald Ann on 09-03-2022 MCH (RBC) [Entitic mass] 29.9 pg 24.7-34.3 [facility] MCHC Auto (RBC) [Mass/Vol]Or dered By: Ronald Ann on 09-03-2022 MCHC (RBC) [Mass/Vol] 33.0 g/dL 32.0-35.0 [facility] MCV Auto (RBC) [Entitic vol] Ordered By: Ronald Ann on 09-03-2022 MCV (RBC) [Entitic vol] 90.7 fL 80-100 [facility] Monocyte distribution width [Entitic volume] in Blood by AutomatedOrdered By: Ronald Ann on 09-03-2022 Monocyte distribution width Auto (Bld) [Entitic vol] 16.45 % 0.00-20.00 [facility] Monocytes Auto (Bld) [#/Vol] Ordered By: Ronald Ann on 09-03-2022 Monocytes (Bld) [#/Vol] 0.7 10*3/uL 0.0-0.8 [facility] Monocytes/100 WBC Auto (Bld) Ordered By: Ronald Ann on 09-03-2022 Monocytes/100 WBC (Bld) 6.5 % . [facility] Neutrophils Auto (Bld) [#/Vo l]Ordered By: Ronald Ann on 09-03-2022 Neutrophils (Bld) [#/Vol] 7.2 10*3/uL 1.8-7.7 [facility] Neutrophils/100 WBC Auto (Bl d)Ordered By: Ronald Ann on 09-03-2022 Neutrophils/100 WBC (Bld) 71.1 % . [facility] Nitrite Test strip Ql (U)Ord ered By: Ronald Ann on 09-03-2022 Nitrite Ql (U) Negative Negative [facility] No Panel InformationOrdered By: Ronald Ann on 09-03-2022 Estimated GFR () > 60 mL/Min [facility] Comment on above: GFR estimated refere nce range: According to KDOQI guidelines, <60 ml/min/1.73m2 is sufficient to diagnose a patient with chronic kidney disease. Pharmacy Creatinine Clearance (Chem 94.57 [facility] 0-8 [LPF] 0-8 [facility] > 60 mL/Min [facility] 147.0 U/L 22-51 [facility] 94.57 [facility] Nucleated erythrocytes [Pres ence] in Blood by Automated countOrdered By: Ronald Ann on 09-03-2022 Nucleated RBC Auto Ql (Bld) 0.1 /100{WBC} 0-0.5 [facility] Platelet mean volume Auto (B ld) [Entitic vol]Ordered By: Ronald Ann on 09-03-2022 Platelet mean volume (Bld) [Entitic vol] 7.4 fL 6.3-10.7 [facility] Platelets Auto (Bld) [#/Vol] Ordered By: Ronald Ann on 09-03-2022 Platelets (Bld) [#/Vol] 421 10*3/uL 150-450 [facility] Protein Auto test strip (U) [Mass/Vol]Ordered By: Ronald Ann on 09-03-2022 Protein (U) [Mass/Vol] Negative Negative Fi [facility] Protein [Mass/volume] in Ser um or PlasmaOrdered By: Ronald Ann on 09-03-2022 Protein [Mass/Vol] 6.9 g/dL 6.1-7.9 [facility] RBC Auto (Bld) [#/Vol]Ordere d By: Ronald Ann on 09-03-2022 RBC (Bld) [#/Vol] 4.61 10*6/uL 3.60-5.[address] [facility] Serum or plasma alanine calderon otransferase measurement without P-5'-P (enzymatic activiOrdered By: Ronald Ann on 09-03-2022 ALT No additional P-5'-P [Catalytic activity/Vol] 12 U/L 10-60 [facility] Serum or plasma albumin/glob ulin mass ratioOrdered By: Ronald Ann on 09-03-2022 Albumin/Globulin [Mass ratio] 1.4 {ratio} [facility] Serum or plasma alkaline keaton sphatase measurement (enzymatic activity/volume)Ordered By: Ronald Ann on 09-03-2022 ALP [Catalytic activity/Vol] 88 U/L 32-92 [facility] Serum or plasma anion gap de terminationOrdered By: Ronald Ann on 09-03-2022 Anion gap [Moles/Vol] 11.4 mmol/L 6.0-15.0 [facility] Serum or plasma aspartate am inotransferase measurement (enzymatic activity/volume)Ordered By: Ronald Ann on 09-03-2022 AST [Catalytic activity/Vol] 15 U/L 10-42 [facility] Serum or plasma calcium paul urement (mass/volume)Ordered By: Ronald Ann on 09-03-2022 Calcium [Mass/Vol] 9.8 mg/dL 8.2-10.2 [facility] Serum or plasma chloride radha surement (moles/volume)Ordered By: Ronald Ann on 09-03-2022 Chloride [Moles/Vol] 99 mmol/L 95-114 [facility] Serum or plasma creatinine m easurement with calculation of estimated glomerular filtrOrdered By: Ronald Ann on 09-03-2022 Creatinine and Glomerular filtration rate.predicted panel (S/P/Bld) 0.90 mg/dL 0.44-1.03 [facility] Serum or plasma glucose paul urement (mass/volume)Ordered By: Ronald Ann on 09-03-2022 Glucose [Mass/Vol] 109 mg/dL 70-100 [facility] Comment on above: ADA recommended refe rence rangeRandom Glucose Reference Range is dependent on time and content of last meal. Glucose of more than 200 mg/dL in a nonstressed, ambulatory subject supports the diagnosis of Diabetes Mellitus. Serum or plasma non-glucuron idated bilirubin measurement (mass/volume)Ordered By: Ronald Ann on 09-03-2022 Bilirubin.indirect [Mass/Vol] TNP [facility] Comment on above: Test not performed Serum or plasma potassium me asurement (moles/volume)Ordered By: Ronald Ann on 09-03-2022 Potassium [Moles/Vol] 3.8 mmol/L 3.5-5.1 [facility] Serum or plasma sodium measu rement (moles/volume)Ordered By: Ronald Ann on 09-03-2022 Sodium [Moles/Vol] 138 mmol/L 136-146 [facility] Serum or plasma total biliru bin measurement (mass/volume)Ordered By: Ronald Ann on 09-03-2022 Bilirubin [Mass/Vol] 0.4 mg/dL 0.3-1.2 [facility] Serum or plasma total carbon dioxide measurement (moles/volume)Ordered By: Ronald Ann on 09-03-2022 CO2 [Moles/Vol] 31.4 mmol/L 22.0-30.0 [facility] Serum or plasma urea nitroge n measurement (mass/volume)Ordered By: Ronald Ann on 09-03-2022 Urea nitrogen [Mass/Vol] 6 mg/dL 9-23 [facility] Specific gravity Auto test s trip (U) [Rel density]Ordered By: Ronald Ann on 09-03-2022 Specific gravity (U) [Rel density] 1.010 1.001-1.030 [facility] Squamous epithelial cells de tection in urine sediment by light microscopyOrdered By: Ronald Ann on 09-03-2022 Epithelial cells.squamous LM Ql (Urine sed) 3-4 [HPF] 0-2 [facility] Urine bacteria detection by automated methodOrdered By: Ronald Ann on 09-03-2022 Bacteria Auto Ql (U) None seen None Seen [facility] Urine clarity by refractomet ry automatedOrdered By: Ronald Ann on 09-03-2022 Clarity Refractometry automated (U) Cloudy Clear [facility] Urine glucose measurement by automated test strip (mass/volume)Ordered By: Ronald Ann on 09-03-2022 Glucose Auto test strip (U) [Mass/Vol] Normal mg/dL Normal [facility] Urine hemoglobin detection b y automated test stripOrdered By: Ronald Ann on 09-03-2022 Hemoglobin Auto test strip Ql (U) Negative Negative [facility] Urine leukocyte esterase det ection by automated test stripOrdered By: Ronald Ann on 09-03-2022 Leukocyte esterase Auto test strip Ql (U) Negative Negative [facility] Urobilinogen Auto test strip (U) [Mass/Vol]Ordered By: Ronald Ann on 09-03-2022 Urobilinogen (U) [Mass/Vol] Normal mg/dL Normal [facility] WBC Auto (Bld) [#/Vol]Ordere d By: Ronald Ann on 09-03-2022 WBC (Bld) [#/Vol] 10.1 10*3/uL 3.8-11.[address] [facility] pH Auto test strip (U)Ordere d By: Ronald Ann on 09-03-2022 pH (U) 7.5 [pH] 5.0-9.0 [facility] Automated erythrocytes count in urine sediment (number/area)Ordered By: Jez Watters on 08-29-2022 RBC Auto (Urine sed) [#/Area] 5-9 [HPF] 0-4 [facility] Automated leukocytes count i n urine sediment (number/area)Ordered By: Jez Watters on 08-29-2022 WBC Auto (Urine sed) [#/Area] 3-4 [HPF] 0-4 [facility] Automated urine sediment rolando cium oxalate crystal count by microscopy (number/high powOrdered By: Jez Watters on 08-29-2022 Calcium oxalate crystals LM.HPF (Urine sed) [#/Area] 2+ [HPF] [facility] Basophils Auto (Bld) [#/Vol] Ordered By: Jez Watters on 08-29-2022 Basophils (Bld) [#/Vol] 0.1 10*3/uL 0.0-0.2 [facility] Basophils/100 WBC Auto (Bld) Ordered By: Jez Watters on 08-29-2022 Basophils/100 WBC (Bld) 1.0 % . [facility] Bilirubin Test strip Ql (U)O rdered By: Jez Watters on 08-29-2022 Bilirubin Ql (U) 1+ Negative [facility] Body fluid albumin measureme nt (mass/volume)Ordered By: Jez Watters on 08-29-2022 Albumin (Body fld) [Mass/Vol] 4.1 g/dL 3.2-5.5 [facility] Color Auto (U)Ordered By: Hemant Watters on 08-29-2022 Color (U) Dark yellow Yellow [facility] Creatinine and Glomerular fi ltration rate.predicted panel (S/P/Bld)Ordered By: Jez Watters on 08-29-2022 Creatinine [Mass/Vol] 0.92 mg/dL 0.44-1.03 [facility] Eosinophils Auto (Bld) [#/Vo l]Ordered By: Jez Watters on 08-29-2022 Eosinophils (Bld) [#/Vol] 0.1 10*3/uL 0.0-0.45 [facility] Eosinophils/100 WBC Auto (Bl d)Ordered By: Jez Watters on 08-29-2022 Eosinophils/100 WBC (Bld) 1.3 % . [facility] Erythrocyte distribution wid th Auto (RBC) [Ratio]Ordered By: Jez Watters on 08-29-2022 Erythrocyte distribution width (RBC) [Ratio] 15.5 % 11.9-15.3 [facility] Estimated glomerular filtrat ion rate (GFR) non- AmericanOrdered By: Jez Watters on 08-29-2022 GFR/1.73 sq M.predicted among non-blacks MDRD (S/P/Bld) [Vol rate/Area] > 60 mL/Min [facility] Globulin Calc (S) [Mass/Vol] Ordered By: Jez Watters on 08-29-2022 Globulin (S) [Mass/Vol] 3.1 g/dL [facility] HCG ( test) IA.rapi d Ql (U)Ordered By: Jez Watters on 08-29-2022 HCG ( test) Ql (U) Positive [facility] Hematocrit Auto (Bld) [Volum e fraction]Ordered By: Jez Watters on 08-29-2022 Hematocrit (Bld) [Volume fraction] 42.5 % 34.0-46.4 [facility] Hemoglobin [Mass/volume] in BloodOrdered By: Jez Watters on 08-29-2022 Hemoglobin (Bld) [Mass/Vol] 14.1 g/dL 11.8-15.4 [facility] Ketones Auto test strip (U) [Mass/Vol]Ordered By: Jez Watters on 08-29-2022 Ketones (U) [Mass/Vol] Negative Negative [facility] - Chemistry and C hemistry - challengeOrdered By: Jez Watters on 08-29-2022 Lipase [Catalytic activity/Vol] 31.0 U/L 22-51 [facility] Laboratory - UrinalysisOrder ed By: Jez Watters on 08-29-2022 Hyaline casts LM Ql (Urine sed) 9-19 [LPF] 0-8 [facility] Leukocytes [#/volume] correc zen for nucleated erythrocytes in Blood by Automated counOrdered By: Jez Watters on 08-29-2022 WBC corrected for nucl RBC Auto (Bld) [#/Vol] 11.9 10*3/uL 3.8-11.6 [facility] Lymphocytes Auto (Bld) [#/Vo l]Ordered By: Jez Watters on 08-29-2022 Lymphocytes (Bld) [#/Vol] 2.3 10*3/uL 1.00-4.8 [facility] Lymphocytes/100 WBC Auto (Bl d)Ordered By: Jez Watters on 08-29-2022 Lymphocytes/100 WBC (Bld) 19.3 % . [facility] MCH Auto (RBC) [Entitic mass ]Ordered By: Jez Watters on 08-29-2022 MCH (RBC) [Entitic mass] 29.7 pg 24.7-34.3 [facility] MCHC Auto (RBC) [Mass/Vol]Or dered By: Jez Watters on 08-29-2022 MCHC (RBC) [Mass/Vol] 33.2 g/dL 32.0-35.0 [facility] MCV Auto (RBC) [Entitic vol] Ordered By: Jez Watters on 08-29-2022 MCV (RBC) [Entitic vol] 89.6 fL 80-100 [facility] Monocyte distribution width [Entitic volume] in Blood by AutomatedOrdered By: Jez Watters on 08-29-2022 Monocyte distribution width Auto (Bld) [Entitic vol] 18.87 % 0.00-20.00 [facility] Monocytes Auto (Bld) [#/Vol] Ordered By: Jez Watters on 08-29-2022 Monocytes (Bld) [#/Vol] 0.7 10*3/uL 0.0-0.8 [facility] Monocytes/100 WBC Auto (Bld) Ordered By: Jez Watters on 08-29-2022 Monocytes/100 WBC (Bld) 6.0 % . [facility] Neutrophils Auto (Bld) [#/Vo l]Ordered By: Jez Watters on 08-29-2022 Neutrophils (Bld) [#/Vol] 8.6 10*3/uL 1.8-7.7 [facility] Neutrophils/100 WBC Auto (Bl d)Ordered By: Jez Watters on 08-29-2022 Neutrophils/100 WBC (Bld) 72.4 % . [facility] Nitrite Test strip Ql (U)Ord ered By: Jez Watters on 08-29-2022 Nitrite Ql (U) Negative Negative [facility] No Panel InformationOrdered By: Jez Watters on 08-29-2022 9-19 [LPF] 0-8 [facility] Estimated GFR () > 60 mL/Min [facility] Comment on above: GFR estimated refere nce range: According to KDOQI guidelines, <60 ml/min/1.73m2 is sufficient to diagnose a patient with chronic kidney disease. Pharmacy Creatinine Clearance (Chem 92.42 [facility] > 60 mL/Min [facility] 31.0 U/L 22-51 [facility] 92.42 [facility] Nucleated erythrocytes [Pres ence] in Blood by Automated countOrdered By: Jez Watters on 08-29-2022 Nucleated RBC Auto Ql (Bld) 0.0 /100{WBC} 0-0.5 [facility] Platelet mean volume Auto (B ld) [Entitic vol]Ordered By: Jez Watters on 08-29-2022 Platelet mean volume (Bld) [Entitic vol] 7.6 fL 6.3-10.7 [facility] Platelets Auto (Bld) [#/Vol] Ordered By: Jez Watters on 08-29-2022 Platelets (Bld) [#/Vol] 463 10*3/uL 150-450 [facility] Protein Auto test strip (U) [Mass/Vol]Ordered By: Jez Watters on 08-29-2022 Protein (U) [Mass/Vol] 30 mg/dL Negative [facility] Protein [Mass/volume] in Ser um or PlasmaOrdered By: Jez Watters on 08-29-2022 Protein [Mass/Vol] 7.2 g/dL 6.1-7.9 [facility] RBC Auto (Bld) [#/Vol]Ordere d By: Jez Watters on 08-29-2022 RBC (Bld) [#/Vol] 4.75 10*6/uL 3.60-5.[address] [facility] Serum or plasma alanine calderon otransferase measurement without P-5'-P (enzymatic activiOrdered By: Jez Watters on 08-29-2022 ALT No additional P-5'-P [Catalytic activity/Vol] 18 U/L 10-60 [facility] Serum or plasma albumin/glob ulin mass ratioOrdered By: Jez Watters on 08-29-2022 Albumin/Globulin [Mass ratio] 1.3 {ratio} [facility] Serum or plasma alkaline keaton sphatase measurement (enzymatic activity/volume)Ordered By: Jez Watters on 08-29-2022 ALP [Catalytic activity/Vol] 83 U/L 32-92 [facility] Serum or plasma anion gap de terminationOrdered By: Jez Watters on 08-29-2022 Anion gap [Moles/Vol] 14.1 mmol/L 6.0-15.0 [facility] Serum or plasma aspartate am inotransferase measurement (enzymatic activity/volume)Ordered By: Jez Watters on 08-29-2022 AST [Catalytic activity/Vol] 17 U/L 10-42 [facility] Serum or plasma calcium paul urement (mass/volume)Ordered By: Jez Watters on 08-29-2022 Calcium [Mass/Vol] 10.2 mg/dL 8.2-10.2 [facility] Serum or plasma chloride radha surement (moles/volume)Ordered By: Jez Watters on 08-29-2022 Chloride [Moles/Vol] 96 mmol/L 95-114 [facility] Serum or plasma creatinine m easurement with calculation of estimated glomerular filtrOrdered By: Jez Watters on 08-29-2022 Creatinine and Glomerular filtration rate.predicted panel (S/P/Bld) 0.92 mg/dL 0.44-1.03 [facility] Serum or plasma glucose paul urement (mass/volume)Ordered By: Jez Watters on 08-29-2022 Glucose [Mass/Vol] 128 mg/dL 70-100 [facility] Comment on above: ADA recommended refe rence rangeRandom Glucose Reference Range is dependent on time and content of last meal. Glucose of more than 200 mg/dL in a nonstressed, ambulatory subject supports the diagnosis of Diabetes Mellitus. Serum or plasma potassium me asurement (moles/volume)Ordered By: Jez Watters on 08-29-2022 Potassium [Moles/Vol] 3.4 mmol/L 3.5-5.1 [facility] Serum or plasma sodium measu rement (moles/volume)Ordered By: Jez Watters on 08-29-2022 Sodium [Moles/Vol] 136 mmol/L 136-146 [facility] Serum or plasma total biliru bin measurement (mass/volume)Ordered By: Jez Watters on 08-29-2022 Bilirubin [Mass/Vol] 0.7 mg/dL 0.3-1.2 [facility] Serum or plasma total carbon dioxide measurement (moles/volume)Ordered By: Jez Watters on 08-29-2022 CO2 [Moles/Vol] 29.3 mmol/L 22.0-30.0 [facility] Serum or plasma urea nitroge n measurement (mass/volume)Ordered By: Jez Watters on 08-29-2022 Urea nitrogen [Mass/Vol] 8 mg/dL 9-23 [facility] Specific gravity Auto test s trip (U) [Rel density]Ordered By: Jez Watters on 08-29-2022 Specific gravity (U) [Rel density] 1.033 1.001-1.030 [facility] Squamous epithelial cells de tection in urine sediment by light microscopyOrdered By: Jez Watters on 08-29-2022 Epithelial cells.squamous LM Ql (Urine sed) 5-9 [HPF] 0-2 [facility] Urine bacteria detection by automated methodOrdered By: Jez Watters on 08-29-2022 Bacteria Auto Ql (U) None seen None Seen [facility] Urine clarity by refractomet ry automatedOrdered By: Jez Watters on 08-29-2022 Clarity Refractometry automated (U) Cloudy Clear [facility] Urine glucose measurement by automated test strip (mass/volume)Ordered By: Jez Watters on 08-29-2022 Glucose Auto test strip (U) [Mass/Vol] Normal mg/dL Normal [facility] Urine hemoglobin detection b y automated test stripOrdered By: Jez Watters on 08-29-2022 Hemoglobin Auto test strip Ql (U) Negative Negative [facility] Urine leukocyte esterase det ection by automated test stripOrdered By: Jez Watetrs on 08-29-2022 Leukocyte esterase Auto test strip Ql (U) Negative Negative [facility] Urine sediment crystal ident ification by light microscopyOrdered By: Jez Watters on 08-29-2022 Crystals LM Nom (Urine sed) None seen [HPF] [facility] Urobilinogen Auto test strip (U) [Mass/Vol]Ordered By: Jez Watters on 08-29-2022 Urobilinogen (U) [Mass/Vol] Normal mg/dL Normal [facility] WBC Auto (Bld) [#/Vol]Ordere d By: Jez Watters on 08-29-2022 WBC (Bld) [#/Vol] 11.9 10*3/uL 3.8-11.[address] [facility] pH Auto test strip (U)Ordere d By: Jez Watters on 08-29-2022 pH (U) 5.5 [pH] 5.0-9.0 [facility] Albumin [Mass/volume] in Ser um or PlasmaOrdered By: Yojana Yap on 08-27-2022 Albumin [Mass/Vol] 4.1 g/dL 3.2-5.5 [facility] Automated erythrocytes count in urine sediment (number/area)Ordered By: Yojana Yap on 08-27-2022 RBC Auto (Urine sed) [#/Area] 0-1 [HPF] 0-4 [facility] Automated leukocytes count i n urine sediment (number/area)Ordered By: Yojana Yap on 08-27-2022 WBC Auto (Urine sed) [#/Area] 10-19 [HPF] 0-4 [facility] Automated urine hyaline cast s count (number/volume)Ordered By: Yojana Yap on 08-27-2022 Hyaline casts Auto (U) [#/Vol] 3-4 [LPF] 0-1 [facility] Automated urine sediment rolando cium oxalate crystal count by microscopy (number/high powOrdered By: Yojana Yap on 08-27-2022 Calcium oxalate crystals LM.HPF (Urine sed) [#/Area] 1+ [HPF] [facility] Basophils Auto (Bld) [#/Vol] Ordered By: Yojana Yap on 08-27-2022 Basophils (Bld) [#/Vol] 0.0 10*3/uL 0.0-0.2 [facility] Basophils/100 WBC Auto (Bld) Ordered By: Yojana Yap on 08-27-2022 Basophils/100 WBC (Bld) 0.4 % . [facility] Bilirubin Test strip Ql (U)O rdered By: Yojana Yap on 08-27-2022 Bilirubin Ql (U) 1+ Negative [facility] Casts typing in urine sedime nt by light microscopyOrdered By: Yojana Yap on 08-27-2022 Casts LM Nom (Urine sed) None seen [LPF] None Seen [facility] Color Auto (U)Ordered By: Pj Yap on 08-27-2022 Color (U) Dark yellow Yellow [facility] Creatinine and Glomerular fi ltration rate.predicted panel (S/P/Bld)Ordered By: Yojana Yap on 08-27-2022 Creatinine [Mass/Vol] 0.80 mg/dL 0.44-1.03 [facility] Eosinophils Auto (Bld) [#/Vo l]Ordered By: Yojana Yap on 08-27-2022 Eosinophils (Bld) [#/Vol] 0.1 10*3/uL 0.0-0.45 [facility] Eosinophils/100 WBC Auto (Bl d)Ordered By: Yojana Yap on 08-27-2022 Eosinophils/100 WBC (Bld) 0.4 % . [facility] Erythrocyte distribution wid th Auto (RBC) [Ratio]Ordered By: Yojana Yap on 08-27-2022 Erythrocyte distribution width (RBC) [Ratio] 15.7 % 11.9-15.3 [facility] Estimated glomerular filtrat ion rate (GFR) non- AmericanOrdered By: Yojana Yap on 08-27-2022 GFR/1.73 sq M.predicted among non-blacks MDRD (S/P/Bld) [Vol rate/Area] > 60 mL/Min [facility] Globulin Calc (S) [Mass/Vol] Ordered By: Yojana Yap on 08-27-2022 Globulin (S) [Mass/Vol] 3.2 g/dL [facility] HCG ( test) IA.rapi d Ql (U)Ordered By: Yojana Yap on 08-27-2022 HCG ( test) Ql (U) Positive [facility] Hematocrit Auto (Bld) [Volum e fraction]Ordered By: Yojana Yap on 08-27-2022 Hematocrit (Bld) [Volume fraction] 42.6 % 34.0-46.4 [facility] Hemoglobin [Mass/volume] in BloodOrdered By: Yojana Yap on 08-27-2022 Hemoglobin (Bld) [Mass/Vol] 14.4 g/dL 11.8-15.4 [facility] Ketones Auto test strip (U) [Mass/Vol]Ordered By: Yojana Yap on 08-27-2022 Ketones (U) [Mass/Vol] Trace Negative [facility] - Chemistry and C hemistry - challengeOrdered By: Yojana Yap on 08-27-2022 Lipase [Catalytic activity/Vol] 24.0 U/L 22-51 [facility] Leukocytes [#/volume] correc zen for nucleated erythrocytes in Blood by Automated counOrdered By: Yojana Yap on 08-27-2022 WBC corrected for nucl RBC Auto (Bld) [#/Vol] 14.1 10*3/uL 3.8-11.6 [facility] Lymphocytes Auto (Bld) [#/Vo l]Ordered By: Yojana Yap on 08-27-2022 Lymphocytes (Bld) [#/Vol] 3.2 10*3/uL 1.00-4.8 [facility] Lymphocytes/100 WBC Auto (Bl d)Ordered By: Yojana Yap on 08-27-2022 Lymphocytes/100 WBC (Bld) 22.6 % . [facility] MCH Auto (RBC) [Entitic mass ]Ordered By: Yojana Yap on 08-27-2022 MCH (RBC) [Entitic mass] 30.0 pg 24.7-34.3 [facility] MCHC Auto (RBC) [Mass/Vol]Or dered By: Yojana Yap on 08-27-2022 MCHC (RBC) [Mass/Vol] 33.7 g/dL 32.0-35.0 [facility] MCV Auto (RBC) [Entitic vol] Ordered By: Yojana Yap on 08-27-2022 MCV (RBC) [Entitic vol] 89.2 fL 80-100 [facility] Monocyte distribution width [Entitic volume] in Blood by AutomatedOrdered By: Yojana Yap on 08-27-2022 Monocyte distribution width Auto (Bld) [Entitic vol] 17.24 % 0.00-20.00 [facility] Monocytes Auto (Bld) [#/Vol] Ordered By: Yojana Yap on 08-27-2022 Monocytes (Bld) [#/Vol] 0.8 10*3/uL 0.0-0.8 [facility] Monocytes/100 WBC Auto (Bld) Ordered By: Yojana Yap on 08-27-2022 Monocytes/100 WBC (Bld) 5.4 % . [facility] Neutrophils Auto (Bld) [#/Vo l]Ordered By: Yojana Yap on 08-27-2022 Neutrophils (Bld) [#/Vol] 10.1 10*3/uL 1.8-7.7 [facility] Neutrophils/100 WBC Auto (Bl d)Ordered By: Yojana Yap on 08-27-2022 Neutrophils/100 WBC (Bld) 71.2 % . [facility] Nitrite Test strip Ql (U)Ord ered By: Yojana Yap on 08-27-2022 Nitrite Ql (U) Negative Negative [facility] No Panel InformationOrdered By: Yojana Yap on 08-27-2022 Estimated GFR () > 60 mL/Min [facility] Comment on above: GFR estimated refere nce range: According to KDOQI guidelines, <60 ml/min/1.73m2 is sufficient to diagnose a patient with chronic kidney disease. Pharmacy Creatinine Clearance (Chem 105.91 [facility] > 60 mL/Min [facility] 24.0 U/L 22-51 [facility] 105.91 [facility] Nucleated erythrocytes [Pres ence] in Blood by Automated countOrdered By: Yojana Yap on 08-27-2022 Nucleated RBC Auto Ql (Bld) 0.1 /100{WBC} 0-0.5 [facility] Platelet mean volume Auto (B ld) [Entitic vol]Ordered By: Yojana Yap on 08-27-2022 Platelet mean volume (Bld) [Entitic vol] 7.5 fL 6.3-10.7 [facility] Platelets Auto (Bld) [#/Vol] Ordered By: Yojana Yap on 08-27-2022 Platelets (Bld) [#/Vol] 433 10*3/uL 150-450 [facility] Protein Auto test strip (U) [Mass/Vol]Ordered By: Yojana Yap on 08-27-2022 Protein (U) [Mass/Vol] 100 mg/dL Negative [facility] Protein [Mass/volume] in Ser um or PlasmaOrdered By: Yojana Yap on 08-27-2022 Protein [Mass/Vol] 7.3 g/dL 6.1-7.9 [facility] RBC Auto (Bld) [#/Vol]Ordere d By: Yojana Yap on 08-27-2022 RBC (Bld) [#/Vol] 4.78 10*6/uL 3.60-5.[address] [facility] Serum or plasma alanine calderon otransferase measurement without P-5'-P (enzymatic activiOrdered By: Yojana Yap on 08-27-2022 ALT No additional P-5'-P [Catalytic activity/Vol] 19 U/L 10-60 [facility] Serum or plasma albumin/glob ulin mass ratioOrdered By: Yojana Yap on 08-27-2022 Albumin/Globulin [Mass ratio] 1.3 {ratio} [facility] Serum or plasma alkaline keaton sphatase measurement (enzymatic activity/volume)Ordered By: Yojana Yap on 08-27-2022 ALP [Catalytic activity/Vol] 92 U/L 32-92 [facility] Serum or plasma anion gap de terminationOrdered By: Yojana Yap on 08-27-2022 Anion gap [Moles/Vol] 12.6 mmol/L 6.0-15.0 [facility] Serum or plasma aspartate am inotransferase measurement (enzymatic activity/volume)Ordered By: Yojana Yap on 08-27-2022 AST [Catalytic activity/Vol] 21 U/L 10-42 [facility] Serum or plasma calcium paul urement (mass/volume)Ordered By: Yojana Yap on 08-27-2022 Calcium [Mass/Vol] 9.9 mg/dL 8.2-10.2 [facility] Serum or plasma chloride radha surement (moles/volume)Ordered By: Yojana Yap on 08-27-2022 Chloride [Moles/Vol] 95 mmol/L 95-114 [facility] Serum or plasma creatinine m easurement with calculation of estimated glomerular filtrOrdered By: Yojana Yap on 08-27-2022 Creatinine and Glomerular filtration rate.predicted panel (S/P/Bld) 0.80 mg/dL 0.44-1.03 [facility] Serum or plasma glucose paul urement (mass/volume)Ordered By: Yojana Yap on 08-27-2022 Glucose [Mass/Vol] 120 mg/dL 70-100 [facility] Comment on above: ADA recommended refe rence rangeRandom Glucose Reference Range is dependent on time and content of last meal. Glucose of more than 200 mg/dL in a nonstressed, ambulatory subject supports the diagnosis of Diabetes Mellitus. Serum or plasma potassium me asurement (moles/volume)Ordered By: Yojana Yap on 08-27-2022 Potassium [Moles/Vol] 2.9 mmol/L 3.5-5.1 [facility] Comment on above: Results calledat 125 4 on 08/27/22 Serum or plasma sodium measu rement (moles/volume)Ordered By: Yojana Yap on 08-27-2022 Sodium [Moles/Vol] 134 mmol/L 136-146 [facility] Serum or plasma total biliru bin measurement (mass/volume)Ordered By: Yojana Yap on 08-27-2022 Bilirubin [Mass/Vol] 0.9 mg/dL 0.3-1.2 [facility] Serum or plasma total carbon dioxide measurement (moles/volume)Ordered By: Yojana Yap on 08-27-2022 CO2 [Moles/Vol] 29.3 mmol/L 22.0-30.0 [facility] Serum or plasma urea nitroge n measurement (mass/volume)Ordered By: Yojana Yap on 08-27-2022 Urea nitrogen [Mass/Vol] 6 mg/dL - [facility] Specific gravity Auto test s trip (U) [Rel density]Ordered By: Yojana Yap on 08-27-2022 Specific gravity (U) [Rel density] 1.026 1.001-1.030 [facility] Squamous epithelial cells de tection in urine sediment by light microscopyOrdered By: Yojana Yap on 08-27-2022 Epithelial cells.squamous LM Ql (Urine sed) 20-30 [HPF] 0-2 [facility] Urine bacteria detection by automated methodOrdered By: Yojana Yap on 08-27-2022 Bacteria Auto Ql (U) 1+ None Seen [facility] Urine clarity by refractomet ry automatedOrdered By: Yojana Yap on 08-27-2022 Clarity Refractometry automated (U) Cloudy Clear [facility] Urine culture routineOrdered By: Yojana Yap on 08-27-2022 Bacteria identified Cx Nom (U) 2 Days [facility] Bacteria identified Cx Nom (U) 2 Days [facility] Urine glucose measurement by automated test strip (mass/volume)Ordered By: Yojana Yap on 08-27-2022 Glucose Auto test strip (U) [Mass/Vol] Normal mg/dL Normal [facility] Urine hemoglobin detection b y automated test stripOrdered By: Yojana Yap on 08-27-2022 Hemoglobin Auto test strip Ql (U) Negative Negative [facility] Urine leukocyte esterase det ection by automated test stripOrdered By: Yojana Yap on 08-27-2022 Leukocyte esterase Auto test strip Ql (U) 1+ Negative [facility] Urine sediment crystal ident ification by light microscopyOrdered By: Yojana Yap on 08-27-2022 Crystals LM Nom (Urine sed) None seen [HPF] [facility] Urobilinogen Auto test strip (U) [Mass/Vol]Ordered By: Yojana Yap on 08-27-2022 Urobilinogen (U) [Mass/Vol] Normal mg/dL Normal [facility] WBC Auto (Bld) [#/Vol]Ordere d By: Yojana Yap on 08-27-2022 WBC (Bld) [#/Vol] 14.1 10*3/uL 3.8-11.[address] [facility] pH Auto test strip (U)Ordere d By: Yojana Yap on 08-27-2022 pH (U) 5.5 [pH] 5.0-9.0 [facility] Albumin [Mass/volume] in Ser um or PlasmaOrdered By: Lio Spencer on 08-25-2022 Albumin [Mass/Vol] 4.3 g/dL 3.2-5.5 [facility] Basophils Auto (Bld) [#/Vol] Ordered By: Lio Spencer on 08-25-2022 Basophils (Bld) [#/Vol] 0.1 10*3/uL 0.0-0.2 [facility] Basophils/100 WBC Auto (Bld) Ordered By: Lio Spencer on 08-25-2022 Basophils/100 WBC (Bld) 0.8 % . [facility] Creatinine and Glomerular fi ltration rate.predicted panel (S/P/Bld)Ordered By: Lio Spencer on 08-25-2022 Creatinine [Mass/Vol] 1.14 mg/dL 0.44-1.03 [facility] Direct bilirubin measurement Ordered By: Lio Spencer on 08-25-2022 Bilirubin.direct [Mass/Vol] 0.2 mg/dL 0.0-0.4 [facility] Eosinophils Auto (Bld) [#/Vo l]Ordered By: Lio Spencer on 08-25-2022 Eosinophils (Bld) [#/Vol] 0.2 10*3/uL 0.0-0.45 [facility] Eosinophils/100 WBC Auto (Bl d)Ordered By: Lio Spencer on 08-25-2022 Eosinophils/100 WBC (Bld) 1.2 % . [facility] Erythrocyte distribution wid th Auto (RBC) [Ratio]Ordered By: Lio Spencer on 08-25-2022 Erythrocyte distribution width (RBC) [Ratio] 15.6 % 11.9-15.3 [facility] Estimated glomerular filtrat ion rate (GFR) non- AmericanOrdered By: Lio Spencer on 08-25-2022 GFR/1.73 sq M.predicted among non-blacks MDRD (S/P/Bld) [Vol rate/Area] 52 mL/Min [facility] Globulin Calc (S) [Mass/Vol] Ordered By: Lio Spencer on 08-25-2022 Globulin (S) [Mass/Vol] 3.2 g/dL [facility] Hematocrit Auto (Bld) [Volum e fraction]Ordered By: Lio Spencer on 08-25-2022 Hematocrit (Bld) [Volume fraction] 43.0 % 34.0-46.4 [facility] Hemoglobin [Mass/volume] in BloodOrdered By: Lio Spencer on 08-25-2022 Hemoglobin (Bld) [Mass/Vol] 14.1 g/dL 11.8-15.4 [facility] Laboratory - Chemistry and C hemistry - challengeOrdered By: Lio Spencer on 08-25-2022 Lipase [Catalytic activity/Vol] 30.0 U/L 22-51 [facility] Leukocytes [#/volume] correc zen for nucleated erythrocytes in Blood by Automated counOrdered By: Lio Spencer on 08-25-2022 WBC corrected for nucl RBC Auto (Bld) [#/Vol] 17.4 10*3/uL 3.8-11.6 [facility] Lymphocytes Auto (Bld) [#/Vo l]Ordered By: Lio Spencer on 08-25-2022 Lymphocytes (Bld) [#/Vol] 4.1 10*3/uL 1.00-4.8 [facility] Lymphocytes/100 WBC Auto (Bl d)Ordered By: Lio Spencer on 08-25-2022 Lymphocytes/100 WBC (Bld) 23.9 % . [facility] MCH Auto (RBC) [Entitic mass ]Ordered By: Lio Spencer on 08-25-2022 MCH (RBC) [Entitic mass] 29.4 pg 24.7-34.3 [facility] MCHC Auto (RBC) [Mass/Vol]Or dered By: Lio Spencer on 08-25-2022 MCHC (RBC) [Mass/Vol] 32.8 g/dL 32.0-35.0 [facility] MCV Auto (RBC) [Entitic vol] Ordered By: Lio Spencer on 08-25-2022 MCV (RBC) [Entitic vol] 89.6 fL 80-100 [facility] Monocyte distribution width [Entitic volume] in Blood by AutomatedOrdered By: Lio Spencer on 08-25-2022 Monocyte distribution width Auto (Bld) [Entitic vol] 18.97 % 0.00-20.00 [facility] Monocytes Auto (Bld) [#/Vol] Ordered By: Lio Spencer on 08-25-2022 Monocytes (Bld) [#/Vol] 1.4 10*3/uL 0.0-0.8 [facility] Monocytes/100 WBC Auto (Bld) Ordered By: Lio Spencer on 08-25-2022 Monocytes/100 WBC (Bld) 8.0 % . [facility] Neutrophils Auto (Bld) [#/Vo l]Ordered By: Lio Spencer on 08-25-2022 Neutrophils (Bld) [#/Vol] 11.5 10*3/uL 1.8-7.7 [facility] Neutrophils/100 WBC Auto (Bl d)Ordered By: Lio Spencer on 08-25-2022 Neutrophils/100 WBC (Bld) 66.1 % . [facility] No Panel InformationOrdered By: Lio Spencer on 08-25-2022 Estimated GFR () > 60 mL/Min [facility] Comment on above: GFR estimated refere nce range: According to KDOQI guidelines, <60 ml/min/1.73m2 is sufficient to diagnose a patient with chronic kidney disease. Pharmacy Creatinine Clearance (Chem 74.88 [facility] > 60 mL/Min [facility] 30.0 U/L 22-51 [facility] 74.88 [facility] Nucleated erythrocytes [Pres ence] in Blood by Automated countOrdered By: Lio Spencer on 08-25-2022 Nucleated RBC Auto Ql (Bld) 0.1 /100{WBC} 0-0.5 [facility] Platelet mean volume Auto (B ld) [Entitic vol]Ordered By: Lio Spencer on 08-25-2022 Platelet mean volume (Bld) [Entitic vol] 7.6 fL 6.3-10.7 [facility] Platelets Auto (Bld) [#/Vol] Ordered By: Lio Spencer on 08-25-2022 Platelets (Bld) [#/Vol] 450 10*3/uL 150-450 [facility] Protein [Mass/volume] in Ser um or PlasmaOrdered By: Lio Spencer on 08-25-2022 Protein [Mass/Vol] 7.5 g/dL 6.1-7.9 [facility] RBC Auto (Bld) [#/Vol]Ordere d By: Lio Spencer on 08-25-2022 RBC (Bld) [#/Vol] 4.80 10*6/uL 3.60-5.[address] [facility] Serum or plasma alanine calderon otransferase measurement without P-5'-P (enzymatic activiOrdered By: Lio Spencer on 08-25-2022 ALT No additional P-5'-P [Catalytic activity/Vol] 23 U/L 1060 [facility] Serum or plasma albumin/glob ulin mass ratioOrdered By: Lio Spencer on 08-25-2022 Albumin/Globulin [Mass ratio] 1.3 {ratio} [facility] Serum or plasma alkaline keaton sphatase measurement (enzymatic activity/volume)Ordered By: Lio Spencer on 08-25-2022 ALP [Catalytic activity/Vol] 103 U/L 32-92 [facility] Serum or plasma anion gap de terminationOrdered By: Lio Spencer on 08-25-2022 Anion gap [Moles/Vol] 14.0 mmol/L 6.0-15.0 [facility] Serum or plasma aspartate am inotransferase measurement (enzymatic activity/volume)Ordered By: Lio Spencer on 08-25-2022 AST [Catalytic activity/Vol] 29 U/L 10-42 [facility] Serum or plasma calcium paul urement (mass/volume)Ordered By: Lio Spencer on 08-25-2022 Calcium [Mass/Vol] 10.0 mg/dL 8.2-10.2 [facility] Serum or plasma chloride radha surement (moles/volume)Ordered By: Lio Spencer on 08-25-2022 Chloride [Moles/Vol] 95 mmol/L 95-114 [facility] Serum or plasma creatinine m easurement with calculation of estimated glomerular filtrOrdered By: Lio Spencer on 08-25-2022 Creatinine and Glomerular filtration rate.predicted panel (S/P/Bld) 1.14 mg/dL 0.44-1.03 [facility] Serum or plasma glucose paul urement (mass/volume)Ordered By: Lio Spencer on 08-25-2022 Glucose [Mass/Vol] 140 mg/dL 70-100 [facility] Comment on above: ADA recommended refe rence rangeRandom Glucose Reference Range is dependent on time and content of last meal. Glucose of more than 200 mg/dL in a nonstressed, ambulatory subject supports the diagnosis of Diabetes Mellitus. Serum or plasma non-glucuron idated bilirubin measurement (mass/volume)Ordered By: Lio Spencer on 08-25-2022 Bilirubin.indirect [Mass/Vol] 0.7 mg/dL [facility] Serum or plasma potassium me asurement (moles/volume)Ordered By: Lio Spencer on 08-25-2022 Potassium [Moles/Vol] 3.1 mmol/L 3.5-5.1 [facility] Serum or plasma sodium measu rement (moles/volume)Ordered By: Lio Spencer on 08-25-2022 Sodium [Moles/Vol] 134 mmol/L 136-146 [facility] Serum or plasma total biliru bin measurement (mass/volume)Ordered By: Lio Spencer on 08-25-2022 Bilirubin [Mass/Vol] 0.9 mg/dL 0.3-1.2 [facility] Serum or plasma total carbon dioxide measurement (moles/volume)Ordered By: Lio Spencer on 08-25-2022 CO2 [Moles/Vol] 28.1 mmol/L 22.0-30.0 [facility] Serum or plasma urea nitroge n measurement (mass/volume)Ordered By: Lio Spencer on 08-25-2022 Urea nitrogen [Mass/Vol] 10 mg/dL 9- [facility] WBC Auto (Bld) [#/Vol]Ordere d By: Lio Spencer on 08-25-2022 WBC (Bld) [#/Vol] 17.4 10*3/uL 3.8-11.[address] [facility] Albumin [Mass/volume] in Ser um or PlasmaOrdered By: Ronald Ann on 08-23-2022 Albumin [Mass/Vol] 4.0 g/dL 3.2-5.5 [facility] Basophils Auto (Bld) [#/Vol] Ordered By: Ronald Ann on 08-23-2022 Basophils (Bld) [#/Vol] 0.1 10*3/uL 0.0-0.2 [facility] Basophils/100 WBC Auto (Bld) Ordered By: Ronald Ann on 08-23-2022 Basophils/100 WBC (Bld) 1.3 % . [facility] Creatinine and Glomerular fi ltration rate.predicted panel (S/P/Bld)Ordered By: Ronald Ann on 08-23-2022 Creatinine [Mass/Vol] 0.87 mg/dL 0.44-1.03 [facility] Direct bilirubin measurement Ordered By: Ronald Ann on 08-23-2022 Bilirubin.direct [Mass/Vol] mg/dL 0.0-0.4 [facility] Eosinophils Auto (Bld) [#/Vo l]Ordered By: Ronald Ann on 08-23-2022 Eosinophils (Bld) [#/Vol] 0.3 10*3/uL 0.0-0.45 [facility] Eosinophils/100 WBC Auto (Bl d)Ordered By: Ronald Ann on 08-23-2022 Eosinophils/100 WBC (Bld) 2.7 % . [facility] Erythrocyte distribution wid th Auto (RBC) [Ratio]Ordered By: Ronald Ann on 08-23-2022 Erythrocyte distribution width (RBC) [Ratio] 15.9 % 11.9-15.3 [facility] Estimated glomerular filtrat ion rate (GFR) non- AmericanOrdered By: Ronald Ann on 08-23-2022 GFR/1.73 sq M.predicted among non-blacks MDRD (S/P/Bld) [Vol rate/Area] > 60 mL/Min [facility] Globulin Calc (S) [Mass/Vol] Ordered By: Ronald Ann on 08-23-2022 Globulin (S) [Mass/Vol] 3.3 g/dL [facility] Hematocrit Auto (Bld) [Volum e fraction]Ordered By: Ronald Ann on 08-23-2022 Hematocrit (Bld) [Volume fraction] 42.0 % 34.0-46.4 [facility] Hemoglobin [Mass/volume] in BloodOrdered By: Ronald Ann on 08-23-2022 Hemoglobin (Bld) [Mass/Vol] 13.8 g/dL 11.8-15.4 [facility] Laboratory - Chemistry and C hemistry - challengeOrdered By: Ronald Ann on 08-23-2022 Lipase [Catalytic activity/Vol] 35.0 U/L 22-51 [facility] Leukocytes [#/volume] correc zen for nucleated erythrocytes in Blood by Automated counOrdered By: Ronald Ann on 08-23-2022 WBC corrected for nucl RBC Auto (Bld) [#/Vol] 11.9 10*3/uL 3.8-11.6 [facility] Lymphocytes Auto (Bld) [#/Vo l]Ordered By: Ronald Ann on 08-23-2022 Lymphocytes (Bld) [#/Vol] 3.6 10*3/uL 1.00-4.8 [facility] Lymphocytes/100 WBC Auto (Bl d)Ordered By: Ronald Ann on 08-23-2022 Lymphocytes/100 WBC (Bld) 30.3 % . [facility] MCH Auto (RBC) [Entitic mass ]Ordered By: Ronald Ann on 08-23-2022 MCH (RBC) [Entitic mass] 29.4 pg 24.7-34.3 [facility] MCHC Auto (RBC) [Mass/Vol]Or dered By: Ronald Ann on 08-23-2022 MCHC (RBC) [Mass/Vol] 32.9 g/dL 32.0-35.0 [facility] MCV Auto (RBC) [Entitic vol] Ordered By: Ronald Ann on 08-23-2022 MCV (RBC) [Entitic vol] 89.4 fL 80-100 [facility] Monocyte distribution width [Entitic volume] in Blood by AutomatedOrdered By: Ronald Ann on 08-23-2022 Monocyte distribution width Auto (Bld) [Entitic vol] 18.29 % 0.00-20.00 [facility] Monocytes Auto (Bld) [#/Vol] Ordered By: Ronald Ann on 08-23-2022 Monocytes (Bld) [#/Vol] 1.1 10*3/uL 0.0-0.8 [facility] Monocytes/100 WBC Auto (Bld) Ordered By: Ronald Ann on 08-23-2022 Monocytes/100 WBC (Bld) 9.5 % . [facility] Neutrophils Auto (Bld) [#/Vo l]Ordered By: Ronald Ann on 08-23-2022 Neutrophils (Bld) [#/Vol] 6.7 10*3/uL 1.8-7.7 [facility] Neutrophils/100 WBC Auto (Bl d)Ordered By: Ronald Ann on 08-23-2022 Neutrophils/100 WBC (Bld) 56.2 % . [facility] No Panel InformationOrdered By: Ronald Ann on 08-23-2022 Estimated GFR () > 60 mL/Min [facility] Comment on above: GFR estimated refere nce range: According to KDOQI guidelines, <60 ml/min/1.73m2 is sufficient to diagnose a patient with chronic kidney disease. Pharmacy Creatinine Clearance (Chem 99.00 [facility] > 60 mL/Min [facility] 35.0 U/L 22-51 [facility] 99.00 [facility] Nucleated erythrocytes [Pres ence] in Blood by Automated countOrdered By: Ronlad Ann on 08-23-2022 Nucleated RBC Auto Ql (Bld) 0.0 /100{WBC} 0-0.5 [facility] Platelet mean volume Auto (B ld) [Entitic vol]Ordered By: Ronald Ann on 08-23-2022 Platelet mean volume (Bld) [Entitic vol] 7.1 fL 6.3-10.7 [facility] Platelets Auto (Bld) [#/Vol] Ordered By: Ronald Ann on 08-23-2022 Platelets (Bld) [#/Vol] 433 10*3/uL 150-450 [facility] Protein [Mass/volume] in Ser um or PlasmaOrdered By: Ronald Ann on 08-23-2022 Protein [Mass/Vol] 7.3 g/dL 6.1-7.9 [facility] RBC Auto (Bld) [#/Vol]Ordere d By: Ronald Ann on 08-23-2022 RBC (Bld) [#/Vol] 4.70 10*6/uL 3.60-5.[address] [facility] Serum or plasma alanine calderon otransferase measurement without P-5'-P (enzymatic activiOrdered By: Ronald Ann on 08-23-2022 ALT No additional P-5'-P [Catalytic activity/Vol] 19 U/L 10-60 [facility] Serum or plasma albumin/glob ulin mass ratioOrdered By: Ronald Ann on 08-23-2022 Albumin/Globulin [Mass ratio] 1.2 {ratio} [facility] Serum or plasma alkaline keaton sphatase measurement (enzymatic activity/volume)Ordered By: Ronald Ann on 08-23-2022 ALP [Catalytic activity/Vol] 96 U/L 32-92 [facility] Serum or plasma anion gap de terminationOrdered By: Ronald Ann on 08-23-2022 Anion gap [Moles/Vol] 13.3 mmol/L 6.0-15.0 [facility] Serum or plasma aspartate am inotransferase measurement (enzymatic activity/volume)Ordered By: Ronald Ann on 08-23-2022 AST [Catalytic activity/Vol] 25 U/L 10-42 [facility] Serum or plasma calcium paul urement (mass/volume)Ordered By: Ronald Ann on 08-23-2022 Calcium [Mass/Vol] 9.8 mg/dL 8.2-10.2 [facility] Serum or plasma chloride radha surement (moles/volume)Ordered By: Ronald Ann on 08-23-2022 Chloride [Moles/Vol] 100 mmol/L 95-114 [facility] Serum or plasma creatinine m easurement with calculation of estimated glomerular filtrOrdered By: Ronald Ann on 08-23-2022 Creatinine and Glomerular filtration rate.predicted panel (S/P/Bld) 0.87 mg/dL 0.44-1.03 [facility] Serum or plasma glucose paul urement (mass/volume)Ordered By: Ronald Ann on 08-23-2022 Glucose [Mass/Vol] 110 mg/dL 70-100 [facility] Comment on above: ADA recommended refe rence rangeRandom Glucose Reference Range is dependent on time and content of last meal. Glucose of more than 200 mg/dL in a nonstressed, ambulatory subject supports the diagnosis of Diabetes Mellitus. Serum or plasma non-glucuron idated bilirubin measurement (mass/volume)Ordered By: Ronald Ann on 08-23-2022 Bilirubin.indirect [Mass/Vol] TNP [facility] Comment on above: Test not performed Serum or plasma potassium me asurement (moles/volume)Ordered By: Ronald Ann on 08-23-2022 Potassium [Moles/Vol] 3.6 mmol/L 3.5-5.1 [facility] Serum or plasma sodium measu rement (moles/volume)Ordered By: Ronald Ann on 08-23-2022 Sodium [Moles/Vol] 138 mmol/L 136-146 [facility] Serum or plasma total biliru bin measurement (mass/volume)Ordered By: Ronald Ann on 08-23-2022 Bilirubin [Mass/Vol] 0.5 mg/dL 0.3-1.2 [facility] Serum or plasma total carbon dioxide measurement (moles/volume)Ordered By: Ronald Ann on 08-23-2022 CO2 [Moles/Vol] 28.3 mmol/L 22.0-30.0 [facility] Serum or plasma urea nitroge n measurement (mass/volume)Ordered By: Ronald Ann on 08-23-2022 Urea nitrogen [Mass/Vol] 10 mg/dL 9-23 [facility] WBC Auto (Bld) [#/Vol]Ordere d By: Ronald Ann on 08-23-2022 WBC (Bld) [#/Vol] 11.9 10*3/uL 3.8-11.[address] [facility] Automated erythrocytes count in urine sediment (number/area)Ordered By: Maria Teresa Hodge on 08-21-2022 RBC Auto (Urine sed) [#/Area] 0-1 [HPF] 0-4 [facility] Automated leukocytes count i n urine sediment (number/area)Ordered By: Maria Teresa Hodge on 08-21-2022 WBC Auto (Urine sed) [#/Area] 0-1 [HPF] 0-4 [facility] Basophils Auto (Bld) [#/Vol] Ordered By: Maria Teresa Hodge on 08-21-2022 Basophils (Bld) [#/Vol] 0.1 10*3/uL 0.0-0.2 [facility] Basophils/100 WBC Auto (Bld) Ordered By: Maria Teresa Hodge on 08-21-2022 Basophils/100 WBC (Bld) 0.6 % . [facility] Bilirubin Test strip Ql (U)O rdered By: Maria Teresa Hodge on 08-21-2022 Bilirubin Ql (U) Negative Negative [facility] Body fluid albumin measureme nt (mass/volume)Ordered By: Maria Teresa Hodge on 08-21-2022 Albumin (Body fld) [Mass/Vol] 4.3 g/dL 3.2-5.5 [facility] Color Auto (U)Ordered By: Cookie Hodge on 08-21-2022 Color (U) Yellow Yellow [facility] Creatinine and Glomerular fi ltration rate.predicted panel (S/P/Bld)Ordered By: Maria Teresa Hodge on 08-21-2022 Creatinine [Mass/Vol] 0.74 mg/dL 0.44-1.03 [facility] Eosinophils Auto (Bld) [#/Vo l]Ordered By: Maria Teresa Hodge on 08-21-2022 Eosinophils (Bld) [#/Vol] 0.0 10*3/uL 0.0-0.45 [facility] Eosinophils/100 WBC Auto (Bl d)Ordered By: Maria Teresa Hodge on 08-21-2022 Eosinophils/100 WBC (Bld) 0.1 % . [facility] Erythrocyte distribution wid th Auto (RBC) [Ratio]Ordered By: Maria Teresa Hodge on 08-21-2022 Erythrocyte distribution width (RBC) [Ratio] 15.9 % 11.9-15.3 [facility] Estimated glomerular filtrat ion rate (GFR) non- AmericanOrdered By: Maria Teresa Hodge on 08-21-2022 GFR/1.73 sq M.predicted among non-blacks MDRD (S/P/Bld) [Vol rate/Area] > 60 mL/Min [facility] Globulin Calc (S) [Mass/Vol] Ordered By: Maria Teresa Hodge on 08-21-2022 Globulin (S) [Mass/Vol] 3.1 g/dL [facility] HCG ( test) IA.rapi d Ql (U)Ordered By: Maria Teresa Hodge on 08-21-2022 HCG ( test) Ql (U) Positive [facility] Hematocrit Auto (Bld) [Volum e fraction]Ordered By: Maria Teresa Hodge on 08-21-2022 Hematocrit (Bld) [Volume fraction] 40.4 % 34.0-46.4 [facility] Hemoglobin [Mass/volume] in BloodOrdered By: Maria Teresa Hodge on 08-21-2022 Hemoglobin (Bld) [Mass/Vol] 13.4 g/dL 11.8-15.4 [facility] Ketones Auto test strip (U) [Mass/Vol]Ordered By: Maria Teresa Hodge on 08-21-2022 Ketones (U) [Mass/Vol] Negative Negative [facility] Laboratory - Chemistry and C hemistry - challengeOrdered By: Maria Teresa Hodge on 08-21-2022 Lipase [Catalytic activity/Vol] 30.0 U/L 22-51 [facility] Magnesium [Mass/Vol] 1.5 mg/dL 1.6-2.6 [facility] - UrinalysisOrder ed By: Maria Teresa Hodge on 08-21-2022 Hyaline casts LM Ql (Urine sed) 0-8 [LPF] 0-8 [facility] Leukocytes [#/volume] correc zen for nucleated erythrocytes in Blood by Automated counOrdered By: Maria Teresa Hodge on 08-21-2022 WBC corrected for nucl RBC Auto (Bld) [#/Vol] 15.7 10*3/uL 3.8-11.6 [facility] Lymphocytes Auto (Bld) [#/Vo l]Ordered By: Maria Teresa Hodge on 08-21-2022 Lymphocytes (Bld) [#/Vol] 1.3 10*3/uL 1.00-4.8 [facility] Lymphocytes/100 WBC Auto (Bl d)Ordered By: Maria Teresa Hodge on 08-21-2022 Lymphocytes/100 WBC (Bld) 8.5 % . [facility] MCH Auto (RBC) [Entitic mass ]Ordered By: Maria Teresa Hodge on 08-21-2022 MCH (RBC) [Entitic mass] 29.5 pg 24.7-34.3 [facility] MCHC Auto (RBC) [Mass/Vol]Or dered By: Maria Teresa Hodge on 08-21-2022 MCHC (RBC) [Mass/Vol] 33.1 g/dL 32.0-35.0 [facility] MCV Auto (RBC) [Entitic vol] Ordered By: Maria Teresa Hodge on 08-21-2022 MCV (RBC) [Entitic vol] 89.0 fL 80-100 [facility] Monocyte distribution width [Entitic volume] in Blood by AutomatedOrdered By: Maria Teresa Hodge on 08-21-2022 Monocyte distribution width Auto (Bld) [Entitic vol] 16.71 % 0.00-20.00 [facility] Monocytes Auto (Bld) [#/Vol] Ordered By: Maria Teresa Hodge on 08-21-2022 Monocytes (Bld) [#/Vol] 0.6 10*3/uL 0.0-0.8 [facility] Monocytes/100 WBC Auto (Bld) Ordered By: Maria Teresa Hodge on 08-21-2022 Monocytes/100 WBC (Bld) 3.6 % . [facility] Neutrophils Auto (Bld) [#/Vo l]Ordered By: Maria Teresa Hodge on 08-21-2022 Neutrophils (Bld) [#/Vol] 13.7 10*3/uL 1.8-7.7 [facility] Neutrophils/100 WBC Auto (Bl d)Ordered By: Maria Teresa Hodge on 08-21-2022 Neutrophils/100 WBC (Bld) 87.2 % . [facility] Nitrite Test strip Ql (U)Ord ered By: Maria Teresa Hodge on 08-21-2022 Nitrite Ql (U) Negative Negative [facility] No Panel InformationOrdered By: Maria Teresa Hodge on 08-21-2022 0-8 [LPF] 0-8 [facility] Estimated GFR () > 60 mL/Min [facility] Comment on above: GFR estimated refere nce range: According to KDOQI guidelines, <60 ml/min/1.73m2 is sufficient to diagnose a patient with chronic kidney disease. Pharmacy Creatinine Clearance (Chem 115.02 [facility] > 60 mL/Min [facility] 1.5 mg/dL 1.6-2.6 [facility] 30.0 U/L 22-51 [facility] 115.02 [facility] Nucleated erythrocytes [Pres ence] in Blood by Automated countOrdered By: Maria Teresa Hodge on 08-21-2022 Nucleated RBC Auto Ql (Bld) 0.1 /100{WBC} 0-0.5 [facility] Platelet mean volume Auto (B ld) [Entitic vol]Ordered By: Maria Teresa Hodge on 08-21-2022 Platelet mean volume (Bld) [Entitic vol] 7.4 fL 6.3-10.7 [facility] Platelets Auto (Bld) [#/Vol] Ordered By: Maria Teresa Hodge on 08-21-2022 Platelets (Bld) [#/Vol] 389 10*3/uL 150-450 [facility] Protein Auto test strip (U) [Mass/Vol]Ordered By: Maria Teresa Hodge on 08-21-2022 Protein (U) [Mass/Vol] 30 mg/dL Negative [facility] Protein [Mass/volume] in Ser um or PlasmaOrdered By: Maria Teresa Hodge on 08-21-2022 Protein [Mass/Vol] 7.4 g/dL 6.1-7.9 [facility] RBC Auto (Bld) [#/Vol]Ordere d By: Maria Teresa Hodge on 08-21-2022 RBC (Bld) [#/Vol] 4.55 10*6/uL 3.60-5.[address] [facility] Serum or plasma alanine calderon otransferase measurement without P-5'-P (enzymatic activiOrdered By: Maria Teresa Hodge on 08-21-2022 ALT No additional P-5'-P [Catalytic activity/Vol] 17 U/L 10-60 [facility] Serum or plasma albumin/glob ulin mass ratioOrdered By: Maria Teresa Hodge on 08-21-2022 Albumin/Globulin [Mass ratio] 1.4 {ratio} [facility] Serum or plasma alkaline keaton sphatase measurement (enzymatic activity/volume)Ordered By: Maria Teresa Hodge on 08-21-2022 ALP [Catalytic activity/Vol] 94 U/L 32-92 [facility] Serum or plasma anion gap de terminationOrdered By: Maria Teresa Hodge on 08-21-2022 Anion gap [Moles/Vol] 16.8 mmol/L 6.0-15.0 [facility] Serum or plasma aspartate am inotransferase measurement (enzymatic activity/volume)Ordered By: Maria Teresa Hodge on 08-21-2022 AST [Catalytic activity/Vol] 18 U/L 10-42 [facility] Serum or plasma beta choriog onadotropin measurement (units/volume)Ordered By: Maria Teresa Hodge on 08-21-2022 HCG.beta subunit Qn 29.06 m[IU]/mL [facility] Comment on above: Approximate Approxim ate hCG Gestational Age Range (mIU/ml) (weeks)0.2-1 5-50 1-2 50-500 2-3 100-5,000 3-4 500-10,000 4-5 1,000-50,000 5-6 10,000-100,000 6-8 15,000-200,000 8-12 10,000-100,000 Serum or plasma calcium paul urement (mass/volume)Ordered By: Maria Teresa Hodge on 08-21-2022 Calcium [Mass/Vol] 10.4 mg/dL 8.2-10.2 [facility] Serum or plasma chloride radha surement (moles/volume)Ordered By: Maria Teresa Hodge on 08-21-2022 Chloride [Moles/Vol] 100 mmol/L 95-114 [facility] Serum or plasma creatinine m easurement with calculation of estimated glomerular filtrOrdered By: Maria Teresa Hodge on 08-21-2022 Creatinine and Glomerular filtration rate.predicted panel (S/P/Bld) 0.74 mg/dL 0.44-1.03 [facility] Serum or plasma glucose paul urement (mass/volume)Ordered By: Maria Teresa Hodge on 08-21-2022 Glucose [Mass/Vol] 136 mg/dL 70-100 [facility] Comment on above: ADA recommended refe rence rangeRandom Glucose Reference Range is dependent on time and content of last meal. Glucose of more than 200 mg/dL in a nonstressed, ambulatory subject supports the diagnosis of Diabetes Mellitus. Serum or plasma potassium me asurement (moles/volume)Ordered By: Maria Teresa Hodge on 08-21-2022 Potassium [Moles/Vol] 3.6 mmol/L 3.5-5.1 [facility] Serum or plasma sodium measu rement (moles/volume)Ordered By: Maria Teresa Hodge on 08-21-2022 Sodium [Moles/Vol] 138 mmol/L 136-146 [facility] Serum or plasma total biliru bin measurement (mass/volume)Ordered By: Maria Teresa Hodge on 08-21-2022 Bilirubin [Mass/Vol] 0.8 mg/dL 0.3-1.2 [facility] Serum or plasma total carbon dioxide measurement (moles/volume)Ordered By: Maria Teresa Hodge on 08-21-2022 CO2 [Moles/Vol] 24.8 mmol/L 22.0-30.0 [facility] Serum or plasma urea nitroge n measurement (mass/volume)Ordered By: Maria Teresa Hodge on 08-21-2022 Urea nitrogen [Mass/Vol] 9 mg/dL 9-23 [facility] Specific gravity Auto test s trip (U) [Rel density]Ordered By: Maria Teresa Hodge on 08-21-2022 Specific gravity (U) [Rel density] 1.016 1.001-1.030 [facility] Squamous epithelial cells de tection in urine sediment by light microscopyOrdered By: Maria Teresa Hodge on 08-21-2022 Epithelial cells.squamous LM Ql (Urine sed) 3-4 [HPF] 0-2 [facility] Troponin I.cardiac [Mass/vol ume] in Serum or Plasma by High sensitivity methodOrdered By: Maria Teresa Hodge on 08-21-2022 Troponin I.cardiac High sensitivity method [Mass/Vol] 14 pg/mL 0-15 [facility] Urine bacteria detection by automated methodOrdered By: Maria Teresa Hodge on 08-21-2022 Bacteria Auto Ql (U) None seen None Seen [facility] Urine clarity by refractomet ry automatedOrdered By: Maria Teresa Hodge on 08-21-2022 Clarity Refractometry automated (U) Turbid Clear [facility] Urine glucose measurement by automated test strip (mass/volume)Ordered By: Maria Teresa Hodge on 08-21-2022 Glucose Auto test strip (U) [Mass/Vol] 100 mg/dL Normal [facility] Urine hemoglobin detection b y automated test stripOrdered By: Maria Teresa Hodge on 08-21-2022 Hemoglobin Auto test strip Ql (U) Negative Negative [facility] Urine leukocyte esterase det ection by automated test stripOrdered By: Maria Teresa Hodge on 08-21-2022 Leukocyte esterase Auto test strip Ql (U) Negative Negative [facility] Urobilinogen Auto test strip (U) [Mass/Vol]Ordered By: Maria Teresa Hodge on 08-21-2022 Urobilinogen (U) [Mass/Vol] Normal mg/dL Normal [facility] WBC Auto (Bld) [#/Vol]Ordere d By: Maria Teresa Hodge on 08-21-2022 WBC (Bld) [#/Vol] 15.7 10*3/uL 3.8-11.[address] [facility] pH Auto test strip (U)Ordere d By: Maria Teresa Hodge on 08-21-2022 pH (U) 8.5 [pH] 5.0-9.0 [facility] ELECTROMYOGRAMon 05-26-[address] [address] ELECTROMYOGRAM REPORT PATIENT NAME: CHRISSY DANGELO : 1980 MED REC NO: [id number] ROOM: ACCOUNT NO: [id number] ADMIT DATE: 05/26/2022 PROVIDER: Aaron Guillory MD DATE OF EM05/26/2022 REFERRING PROVIDER: Dr. Baum. REASON FOR STUDY: The patient was having symptoms of peripheral neuropathy, especially in the lower extremities. FINDINGS: Motor nerve conduction velocities are normal in all the nerves tested. F-wave latencies are delayed in all the nerves tested. Distal motor latencies are normal in all the nerves tested. Distal sensory latency could not be obtained in the left superficial peroneal nerve and are normal in other nerves tested. Amplitudes of motor and sensory responses are decreased in all the nerves tested. On concentric needle electrode examination, denervation changes are present in the extensor digitorum brevis muscles bilaterally. CLINICAL INTERPRETATION: Electromyography studies are consistent with the patient's diagnosis of peripheral neuropathy. We shall screen the patient for causes of peripheral neuropathy such as diabetes mellitus, hypothyroidism, exposure to toxins, autoimmune disorder, etc. If clinically indicated, I may repeat the study in a year. Thank you Dr. Baum for allowing me to see this patient. Please feel free to call me if I can be of any further assistance regarding this patient's evaluation. AARON GUILLORY MD [id number] Doc#: [id number] CC: Normal [facility] EMGon 05-26-2022 Aaron Guillory MD - 05/26/2022 3:48 PM EST [address] [address] ELECTROMYOGRAM REPORT PATIENT NAME: CHRISSY DANGELO : 1980 MED REC NO: [id number] ROOM: ACCOUNT NO: [id number] ADMIT DATE: 05/26/2022 PROVIDER: Aaron Guillory MD DATE OF EM05/26/2022 REFERRING PROVIDER: Dr. Baum. REASON FOR STUDY: The patient was having symptoms of peripheral neuropathy, especially in the lower extremities. FINDINGS: Motor nerve conduction velocities are normal in all the nerves tested. F-wave latencies are delayed in all the nerves tested. Distal motor latencies are normal in all the nerves tested. Distal sensory latency could not be obtained in the left superficial peroneal nerve and are normal in other nerves tested. Amplitudes of motor and sensory responses are decreased in all the nerves tested. On concentric needle electrode examination, denervation changes are present in the extensor digitorum brevis muscles bilaterally. CLINICAL INTERPRETATION: Electromyography studies are consistent with the patient's diagnosis of peripheral neuropathy. We shall screen the patient for causes of peripheral neuropathy such as diabetes mellitus, hypothyroidism, exposure to toxins, autoimmune disorder, etc. If clinically indicated, I may repeat the study in a year. Thank you Dr. Baum for allowing me to see this patient. Please feel free to call me if I can be of any further assistance regarding this patient's evaluation. AARON GUILLORY MD [id number] Doc#: [id number] CC: [facility] Work Phone: [facility] [employer] Phone: Amphetamine Screen Ql (U)Ord ered By: Michael Purcell on 05-24-2022 Amphetamines Ql (U) Negative Negative [facility] Barbiturates [Presence] in U rineOrdered By: Michael Purcell on 05-24-2022 Barbiturates Ql (U) Negative Negative [facility] Benzodiazepines [Presence] i n UrineOrdered By: Michael Purcell on 05-24-2022 Benzodiazepines Ql (U) Negative Negative [facility] Cannabinoids [Presence] in U rine by Screen methodOrdered By: Michael Purcell on 05-24-2022 Cannabinoids Screen Ql (U) Positive Negative [facility] Comment on above: These are unconfirme d results and should not be used for legal purposes. Drug Cut-Off Concentration: AMPH 1000 ng/mL LIZ 200 ng/mL DAVID 200 ng/mL COCM 300 ng/mL OP 300 ng/mL PCP 25 ng/mL THC 20 ng/mL HCG ( test) IA.rapi d Ql (U)Ordered By: Michael Purcell on 05-24-2022 HCG ( test) Ql (U) Positive [facility] - Drug toxicology Ordered By: Michael Purcell on 05-24-2022 Opiates Ql (U) Negative Negative [facility] Phencyclidine Screen Ql (U)O rdered By: Michael Purcell on 05-24-2022 Phencyclidine Ql (U) Negative Negative [facility] Serum or plasma beta choriog onadotropin measurement (units/volume)Ordered By: Michael Purcell on 05-24-2022 HCG.beta subunit Qn 37.42 m[IU]/mL [facility] Comment on above: Approximate Approxim ate hCG Gestational Age Range (mIU/ml) (weeks)0.2-1 5-50 1-2 50-500 2-3 100-5,000 3-4 500-10,000 4-5 1,000-50,000 5-6 10,000-100,000 6-8 15,000-200,000 8-12 10,000-100,000 Urine cocaine detectionOrder ed By: Michael Purcell on 05-24-2022 Cocaine Ql (U) Negative Negative [facility] COVID-19 Positive/NegativeOr dered By: Michael Purcell on 05-22-2022 SARS-CoV-2 (COVID-19) N gene YAZ+probe Ql (Resp) Negative Negative [facility] Comment on above: Testing for SARS-CoV -2 by RT-PCRThis test was developed and its performance characteristics determined by [employer] and validated at the [facility]. This test has not been FDA cleared or approved. This test has been authorized by FDA under an Emergency Use Authorization (EUA). This test has been validated in accordance with the FDA's Guidance Document (Policy for Diagnostics Testing in Laboratories Certified to Perform High Complexity Testing under CLIA prior to Emergency Use Authorization for Coronavirus Disease-2019 during the Public Health Emergency) issued on October 16, 2019. This test is only authorized for the duration of time the declaration that circumstances exist justifying the authorization of the emergency use of in vitro diagnostic tests for detection of SARS-CoV-2 virus and/or diagnosis of COVID-19 infection under section 564(b)(1) of the Act, 21 U.S.C. 360bbb-3(b)(1), unless the authorization is terminated or revoked sooner. AMYLASEon 05-20-2022 Amylase [Catalytic activity/Vol] 57 U/L Normal 25-115 [facility] Comment on above: Performed By: #### L IPA, GARY, HSTROPN, CMP #### [facility] [address] [place] [address] Dr. Paras Grover CBC AUTO DIFFon 05-20-2022 BASO # 0.1 103/ul Normal 0.0-0.1 [facility] Comment on above: Performed By: #### C BC #### [facility] [address] [place] [address] Dr. Paras Grover Basophils/100 WBC (Bld) 0.7 % Normal 0.2-2.0 [facility] Comment on above: Performed By: #### C BC #### [facility] [address] [place] [address] Dr. Paras Grover EO # 0.0 103/ul Normal 0.0-0.7 [facility] Comment on above: Performed By: #### C BC #### [facility] [address] [place] [address] Dr. Paras Grover Eosinophils/100 WBC (Bld) 0.3 % Critically low 0.9-7.0 [facility] Comment on above: Performed By: #### C BC #### [facility] [address] [place] [address] Dr. Paras Grover Erythrocyte distribution width (RBC) [Ratio] 15.9 % Critically high 11.0-15.0 [facility] Comment on above: Performed By: #### C BC #### [facility] [address] [place] [address] Dr. Paras Grover Hematocrit (Bld) [Volume fraction] 43.6 % Normal 36.0-48.0 [facility] Comment on above: Performed By: #### C BC #### [facility] [address] [place] [address] Dr. Paras Grover Hemoglobin (Bld) [Mass/Vol] 14.3 g/dL Normal 12.0-16.0 [facility] Comment on above: Performed By: #### C BC #### [facility] [address] [place] [address] Dr. Paras Grover IG # 0.04 10e3/ul Critically high 0.00-0.03 [facility] Comment on above: Performed By: #### C BC #### [facility] [address] [place] [address] Dr. Paras Grover IG % 0.4 % Normal 0.0-0.5 [facility] Comment on above: Performed By: #### C BC #### [facility] [address] [place] [address] Dr. Paras Grover LYMPH # 2.1 103/ul Normal 1.2-3.8 [facility] Comment on above: Performed By: #### C BC #### [facility] [address] [place] [address] Dr. Paras Grover Lymphocytes/100 WBC (Bld) 20.2 % Critically low 20.5-60.0 [facility] Comment on above: Performed By: #### C BC #### [facility] [address] [place] [address] Dr. Paras Grover MANUAL DIFF REQ NO Normal [facility] Comment on above: Performed By: #### C BC #### [facility] [address] [place] [address] Dr. Paras Grover MCH (RBC) [Entitic mass] 28.4 pg Normal 26.7-34.0 [facility] Comment on above: Performed By: #### C BC #### [facility] [address] [place] [address] Dr. Paras Grover MCHC (RBC) [Mass/Vol] 32.8 g/dL Normal 29.9-35.2 [facility] Comment on above: Performed By: #### C BC #### [facility] [address] [address] [address] Paras Grover MCV (RBC) [Entitic vol] 86.5 fL Normal 81.0-99.0 [facility] Comment on above: Performed By: #### C BC #### [facility] [address] [address] [address] Paras Grover MONO # 0.5 103/ul Normal 0.3-0.8 [facility] Comment on above: Performed By: #### C BC #### [facility] [address] [address] [address] Paras Grover Monocytes/100 WBC (Bld) 4.8 % Normal 1.7-12.0 [facility] Comment on above: Performed By: #### C BC #### [facility] [address] [place] [address] Dr. Paras Grover NEUT # 7.8 103/ul Critically high 1.4-6.5 [facility] Comment on above: Performed By: #### C BC #### [facility] [address] [place] [address] Dr. Paras Grover Neutrophils/100 WBC (Bld) 73.6 % Normal 43.0-75.0 [facility] Comment on above: Performed By: #### C BC #### [facility] [address] [address] [address] Paras Grover Platelet mean volume (Bld) [Entitic vol] 9.6 fL Normal 9.5-13.5 [facility] Comment on above: Performed By: #### C BC #### [facility] [address] [address] [address] Paras Grover PLT 457 103/ul Critically high 150-450 [facility] Comment on above: Performed By: #### C BC #### [facility] [address] [address] [address] Paras Grover RBC 5.04 106/ul Normal 4.20-5.40 [facility] Comment on above: Performed By: #### C BC #### [facility] [address] [place] [address] Dr. Paras Grover WBC 10.6 103/ul Normal 4.0-11.0 [facility] Comment on above: Performed By: #### C BC #### [facility] [address] [place] [address] Dr. Paras Grover DRUG SCREEN RAPID (URINE)on 05-20-2022 AMP Negative Normal NEGATIVE [facility] Comment on above: Performed By: #### C BC #### [facility] [address] [place] [address] Dr. Parsa Grover BAR Negative Normal NEGATIVE [facility] Comment on above: Performed By: #### C BC #### [facility] [address] [place] [address] Dr. Paras Grover BUP Negative Normal NEGATIVE [facility] Comment on above: Performed By: #### C BC #### [facility] [address] [place] [address] Dr. Paras Grover BZO Negative Normal NEGATIVE [facility] Comment on above: Performed By: #### C BC #### [facility] [address] [place] [address] Dr. Paras Grover TALAT Negative Normal NEGATIVE [facility] Comment on above: Performed By: #### C BC #### [facility] [address] [place] [address] Dr. Paras Grover CUT-OFFS SEE BELOW Normal [facility] Comment on above: Result Comment: AMP (Amphetamine): 500ng/mL, BAR (Barbituates): 200 ng/mL, BZO (Benzodiazepines): 150 ng/mL, BUP (Buprenorphine): 10 ng/mL, TALAT (Cocaine): 150 ng/mL, mAMP (Methamphetamine): 500 ng/mL, MTD (Methadone): 200 ng/mL, OPI (Opiates): 100 ng/mL, OXY (Oxycodone): 100 ng/mL, PCP (Phencyclidine): 25 ng/mL, PPX (Propoxyphene): 300 ng/mL, THC (Cannabinoids): 50 ng/mL, TCA (Trycyclic Antidepressants): 300 ng/mL Performed By: #### C BC #### [facility] [address] [place] [address] Dr. Paras Grover DRUG CUT HEADER DRUG CLASS TEST SYST EM CUT-OFF CONCENTRATIONS ARE FOLLOWS: Normal [facility] Comment on above: Performed By: #### C BC #### [facility] [address] [place] [address] Dr. Paras Grover mAMP Negative Normal NEGATIVE [facility] Comment on above: Performed By: #### C BC #### [facility] [address] [place] [address] Dr. Paras Grover MTD Negative Normal NEGATIVE [facility] Comment on above: Performed By: #### C BC #### [facility] [address] [place] [address] Dr. Paras Grover OPI Negative Normal NEGATIVE [facility] Comment on above: Performed By: #### C BC #### [facility] [address] [place] [address] Dr. Paras Grover OXY Negative Normal NEGATIVE [facility] Comment on above: Performed By: #### C BC #### [facility] [address] [place] [address] Dr. Paras Grover PCP Negative Normal NEGATIVE [facility] Comment on above: Performed By: #### C BC #### [facility] [address] [place] [address] Dr. Paras Grover PPX Negative Normal NEGATIVE [facility] Comment on above: Performed By: #### C BC #### [facility] [address] [place] [address] Dr. Paras Grover TCA Negative Normal NEGATIVE [facility] Comment on above: Performed By: #### C BC #### [facility] [address] [place] [address] Dr. Paras Grover THC Positive Abnormal NEGATIVE [facility] Comment on above: Performed By: #### C BC #### [facility] [address] [place] [address] Dr. Paras Grover ER URINE PROFILEon 2 Bilirubin Ql (U) Negative Normal NEGATIVE [facility] Comment on above: Performed By: #### C BC #### [facility] [address] [place] [address] Dr. Paras Grover Clarity (U) CLEAR Normal CLEAR [facility] Comment on above: Performed By: #### C BC #### [facility] [address] [place] [address] Dr. Paras Grover Color (U) LT. YELLOW Normal YELLOW [facility] Comment on above: Performed By: #### C BC #### [facility] [address] [place] [address] Dr. Paras Grover ERUAHD A micrscopic examina tion will be performed if indicated. Normal [facility] Comment on above: Performed By: #### C BC #### [facility] [address] [place] [address] Dr. Paras Grover Glucose Ql (U) Negative Normal NEGATIVE [facility] Comment on above: Performed By: #### C BC #### [facility] [address] [place] [address] Dr. Paras Grover Hemoglobin Ql (U) Negative Normal NEGATIVE [facility] Comment on above: Performed By: #### C BC #### [facility] [address] [place] [address] Dr. Paras Grover Ketones Ql (U) Negative Normal NEGATIVE [facility] Comment on above: Performed By: #### C BC #### [facility] [address] [place] [address] Dr. Paras Grover LEUKOCYTES Negative Normal NEGATIVE [facility] Comment on above: Performed By: #### C BC #### [facility] [address] [place] [address] Dr. Paras Grover Nitrite Ql (U) Negative Normal NEGATIVE [facility] Comment on above: Performed By: #### C BC #### [facility] [address] [place] [address] Dr. Paras Grover pH (U) 8.5 [pH] Normal 5-9 [facility] Comment on above: Performed By: #### C BC #### [facility] [address] [place] [address] Dr. Paras Grover SPEC GRAVITY 1.015 Normal 1.005-<=1.0 25 [facility] Comment on above: Performed By: #### C BC #### [facility] [address] [place] [address] Dr. Paras Grover UA PROTEIN Negative Normal NEGATIVE/ TRACE [facility] Comment on above: Performed By: #### C BC #### [facility] [address] [place] [address] Dr. Paras Grover UR MICRO IND NOT INDICATED Normal [facility] Comment on above: Performed By: #### C BC #### [facility] [address] [place] [address] Dr. Paras Grover Urobilinogen Qn (U) 0.2 {Jennifer'U}/dL Normal 0.2 - 1. 0 [facility] Comment on above: Performed By: #### C BC #### [facility] [address] [place] [address] Dr. Paras Grover LIPASEon 05-20-2022 Lipase [Catalytic activity/Vol] 150.0 U/L Normal 73.0-393.0 [facility] Comment on above: Performed By: #### L PIPO GARY, HSTROPN, CMP #### [facility] [address] [place] [address] Dr. Paras Grover URon 05-20-2022 , QUAL Negative Normal NEGATIVE [facility] Comment on above: Performed By: #### C BC #### [facility] [address] [place] [address] Dr. Paras Grover PROF 14(COMP METB)on 022 Albumin [Mass/Vol] 4.3 g/dL Normal 3.4-5.0 [facility] Comment on above: Performed By: #### L IPA GARY, HSTROPN, CMP #### [facility] [address] [place] [address] Dr. Paras Grover Albumin/Globulin [Mass ratio] 1.0 {ratio} Normal [facility] Comment on above: Performed By: #### L IPA GARY, HSTROPN, CMP #### [facility] [address] [address] [address] Paras Grover ALP [Catalytic activity/Vol] 124 U/L Critically high 46-116 [facility] Comment on above: Performed By: #### L IPA, GARY, HSTROPN, CMP #### [facility] [address] [address] [address] Paras Grover ALT [Catalytic activity/Vol] 23 U/L Normal 14-59 [facility] Comment on above: Performed By: #### L IPA, GARY, HSTROPN, CMP #### [facility] [address] [place] [address] Dr. Paras Grover Anion gap [Moles/Vol] 10.4 mmol/L Normal [facility] Comment on above: Performed By: #### L IPA, GARY, HSTROPN, CMP #### [facility] [address] [place] [address] Dr. Paras Grover AST [Catalytic activity/Vol] 22 U/L Normal 15-37 [facility] Comment on above: Performed By: #### L IPA, GARY, HSTROPN, CMP #### [facility] [address] [place] [address] Dr. Paras Grover Bilirubin [Mass/Vol] 0.4 mg/dL Normal 0.2-1.0 [facility] Comment on above: Performed By: #### L IPA, GARY, HSTROPN, CMP #### [facility] [address] [place] [address] Dr. Paras Grover Calcium [Mass/Vol] 10.4 mg/dL Critically high 8.5-10.1 [facility] Comment on above: Performed By: #### L IPA, GARY, HSTROPN, CMP #### [facility] [address] [place] [address] Dr. Paras Grover Chloride [Moles/Vol] 102 mmol/L Normal 98-107 [facility] Comment on above: Performed By: #### L IPA, GARY, HSTROPN, CMP #### [facility] [address] [place] [address] Dr. Paras Grover CO2 [Moles/Vol] 27.6 mmol/L Normal 21.0-32.0 [facility] Comment on above: Performed By: #### L IPA, GARY, HSTROPN, CMP #### [facility] [address] [address] [address] Paras Grover Creatinine [Mass/Vol] 0.77 mg/dL Normal 0.55-1.02 [facility] Comment on above: Performed By: #### L IPA, GARY, HSTROPN, CMP #### [facility] [address] [address] [address] Paras Grover EGFR-AF GUINEAN >60 Normal >=60 [facility] Comment on above: Performed By: #### L IPA, GARY, HSTROPN, CMP #### [facility] [address] [address] [address] Paras Grover EGFR-NON AF GUINEAN >60 Normal >=60 [facility] Comment on above: Performed By: #### L IPA, GARY, HSTROPN, CMP #### [facility] [address] [address] [address] Paras Grover Globulin (S) [Mass/Vol] 4.2 g/dL Normal [facility] Comment on above: Performed By: #### L IPA, GARY, HSTROPN, CMP #### [facility] [address] [address] [address] Paras Grover Glucose [Mass/Vol] 119 mg/dL Critically high 74-106 [facility] Comment on above: Performed By: #### L IPA, GARY, HSTROPN, CMP #### [facility] [address] [address] [address] Paras Grover Potassium [Moles/Vol] 4.0 mmol/L Normal 3.5-5.1 [facility] Comment on above: Performed By: #### L IPA, GARY, HSTROPN, CMP #### [facility] [address] [address] [address] Paras Grover Protein [Mass/Vol] 8.5 g/dL Critically high 6.4-8.2 [facility] Comment on above: Performed By: #### L IPA, GARY, HSTROPN, CMP #### [facility] [address] [address] [address] Paras Grover Sodium [Moles/Vol] 136 mmol/L Normal 136-145 [facility] Comment on above: Performed By: #### L IPA, GARY, HSTROPN, CMP #### [facility] [address] [address] [address] Paras Grover Urea nitrogen [Mass/Vol] 10.0 mg/dL Normal 7.0-18.0 [facility] Comment on above: Performed By: #### L IPA, GARY, HSTROPN, CMP #### [facility] [address] [place] [address] Dr. Paras Grover Urea nitrogen/Creatinine [Mass ratio] 13.0 mg/mg Normal [facility] Comment on above: Performed By: #### L IPA, GARY, HSTROPN, CMP #### [facility] [address] [place] [address] Dr. Paras Grover TROPONIN, HIGH SENSITIVITYon 05-20-2022 HSTROP 6.5 pg/mL Normal 4.0-51.3 [facility] Comment on above: Result Comment: CUT- OFF POINTS HAVE BEEN ESTABLISHED BASED ON THE FOURTH UNIVERSAL DEFINITIONS OF MYOCARDIAL INFARCTION. THE UPPER REFERENCE LIMIT (URL) OF TROPONIN, DEFINED THE 99TH PERCENTILE OF cTnI DISTRIBUTION IN A REFERENCE POPULATION, HAS BEEN CONFIRMED THE DECISION THRESHOLD FOR PR DIAGNOSIS. Performed By: #### C BC #### [facility] [address] [place] [address] Dr. Paras Grover HSTROP 5.2 pg/mL Normal 4.0-51.3 [facility] Comment on above: Result Comment: CUT- OFF POINTS HAVE BEEN ESTABLISHED BASED ON THE FOURTH UNIVERSAL DEFINITIONS OF MYOCARDIAL INFARCTION. THE UPPER REFERENCE LIMIT (URL) OF TROPONIN, DEFINED THE 99TH PERCENTILE OF cTnI DISTRIBUTION IN A REFERENCE POPULATION, HAS BEEN CONFIRMED THE DECISION THRESHOLD FOR PR DIAGNOSIS. Performed By: #### L IPA, GARY, HSTROPN, CMP #### [facility] [address] [address] [address] Paras Grover XR ABD FLAT UP_PA [place] 05-20 XR ABD FLAT UP_PA CH EXAMINATION: XR ABD FLAT UP_PA CH, 05/20/2022 7:57 AM EDT HISTORY: NAUSEA WITH VOMITING, UNSPECIFIED COMPARISON: CT 05/08/2022 TECHNIQUE: Single AP view of the chest. Supine and upright AP views of the abdomen and pelvis. FINDINGS: Cholecystectomy clips are noted. Procedure change projects over the right lower quadrant from previous bowel resection. Lungs are clear. Cardiomediastinal silhouette is within normal limits. No pleural effusion or pneumothorax. Nonobstructive bowel gas pattern. Minimal density projects over the right mid abdomen likely relating to enteric contents; appreciable urolithiasis. No definite free intraperitoneal gas. Degenerative change of the lower lumbar spine. IMPRESSION: 1. Nonobstructive bowel gas pattern. Electronically authenticated by: ESPINOZA SANCHEZ Date: 2022-05-20 09:02 Normal [facility] AMYLASEon 05-17-2022 Amylase [Catalytic activity/Vol] 93 U/L Normal 25-115 [facility] Comment on above: Performed By: #### C BC #### [facility] [address] [address] [address] Paras Grover CBC AUTO DIFFon 05-17-2022 BASO # 0.1 103/ul Normal 0.0-0.1 [facility] Comment on above: Performed By: #### C BC #### [facility] [address] [address] [address] Paras Grover Basophils/100 WBC (Bld) 0.7 % Normal 0.2-2.0 [facility] Comment on above: Performed By: #### C BC #### [facility] [address] [address] [address] Paras Grover EO # 0.0 103/ul Normal 0.0-0.7 [facility] Comment on above: Performed By: #### C BC #### [facility] [address] [address] [address] Paras Grover Eosinophils/100 WBC (Bld) 0.1 % Critically low 0.9-7.0 [facility] Comment on above: Performed By: #### C BC #### [facility] [address] [place] [address] Dr. Paras Grover Erythrocyte distribution width (RBC) [Ratio] 15.9 % Critically high 11.0-15.0 [facility] Comment on above: Performed By: #### C BC #### [facility] [address] [place] [address] Dr. Paras Grover Hematocrit (Bld) [Volume fraction] 44.9 % Normal 36.0-48.0 [facility] Comment on above: Performed By: #### C BC #### [facility] [address] [place] [address] Dr. Paras Grover Hemoglobin (Bld) [Mass/Vol] 14.6 g/dL Normal 12.0-16.0 [facility] Comment on above: Performed By: #### C BC #### [facility] [address] [place] [address] Dr. Paras Grover IG # 0.03 10e3/ul Normal 0.00-0.03 [facility] Comment on above: Performed By: #### C BC #### [facility] [address] [place] [address] Dr. Paras Grover IG % 0.3 % Normal 0.0-0.5 [facility] Comment on above: Performed By: #### C BC #### [facility] [address] [place] [address] Dr. Paras Grover LYMPH # 2.1 103/ul Normal 1.2-3.8 [facility] Comment on above: Performed By: #### C BC #### [facility] [address] [place] [address] Dr. Paras Grover Lymphocytes/100 WBC (Bld) 23.3 % Normal 20.5-60.0 [facility] Comment on above: Performed By: #### C BC #### [facility] [address] [place] [address] Dr. Paras Grover MANUAL DIFF REQ NO Normal [facility] Comment on above: Performed By: #### C BC #### [facility] [address] [place] [address] Dr. Paras Grover MCH (RBC) [Entitic mass] 28.1 pg Normal 26.7-34.0 [facility] Comment on above: Performed By: #### C BC #### [facility] [address] [place] [address] Dr. Paras Grover MCHC (RBC) [Mass/Vol] 32.5 g/dL Normal 29.9-35.2 [facility] Comment on above: Performed By: #### C BC #### [facility] [address] [place] [address] Dr. Paras Grover MCV (RBC) [Entitic vol] 86.5 fL Normal 81.0-99.0 [facility] Comment on above: Performed By: #### C BC #### [facility] [address] [place] [address] Dr. Paras Grover MONO # 0.5 103/ul Normal 0.3-0.8 [facility] Comment on above: Performed By: #### C BC #### [facility] [address] [place] [address] Dr. Paras Grover Monocytes/100 WBC (Bld) 6.0 % Normal 1.7-12.0 [facility] Comment on above: Performed By: #### C BC #### [facility] [address] [place] [address] Dr. Paras Grover NEUT # 6.3 103/ul Normal 1.4-6.5 [facility] Comment on above: Performed By: #### C BC #### [facility] [address] [place] [address] Dr. Paras Grover Neutrophils/100 WBC (Bld) 69.6 % Normal 43.0-75.0 [facility] Comment on above: Performed By: #### C BC #### [facility] [address] [place] [address] Dr. Paras Grover Platelet mean volume (Bld) [Entitic vol] 9.2 fL Critically low 9.5-13.5 [facility] Comment on above: Performed By: #### C BC #### [facility] [address] [place] [address] Dr. Paras Grover PLT 451 103/ul Critically high 150-450 [facility] Comment on above: Performed By: #### C BC #### [facility] [address] [place] [address] Dr. Paras Grover RBC 5.19 106/ul Normal 4.20-5.40 [facility] Comment on above: Performed By: #### C BC #### [facility] [address] [place] [address] Dr. Paras Grover WBC 9.0 103/ul Normal 4.0-11.0 [facility] Comment on above: Performed By: #### C BC #### [facility] [address] [place] [address] Dr. Paras Grover ER URINE PROFILEon 2 Bilirubin Ql (U) Negative Normal NEGATIVE [facility] Comment on above: Performed By: #### E RUR #### [facility] [address] [place] [address] Dr. Paras Grover Clarity (U) CLEAR Normal CLEAR [facility] Comment on above: Performed By: #### E RUR #### [facility] [address] [place] [address] Dr. Paras Grover Color (U) LT. YELLOW Normal YELLOW [facility] Comment on above: Performed By: #### E RUR #### [facility] [address] [place] [address] Dr. Paras Grover ERUAHD A micrscopic examina tion will be performed if indicated. Normal [facility] Comment on above: Performed By: #### E RUR #### [facility] [address] [place] [address] Dr. Paras Grover Glucose Ql (U) Negative Normal NEGATIVE [facility] Comment on above: Performed By: #### E RUR #### [facility] [address] [place] [address] Dr. Paras Grover Hemoglobin Ql (U) Negative Normal NEGATIVE [facility] Comment on above: Performed By: #### E RUR #### [facility] [address] [place] [address] Dr. Paras Grover Ketones Ql (U) Negative Normal NEGATIVE [facility] Comment on above: Performed By: #### E RUR #### [facility] [address] [place] [address] Dr. Paras Grover LEUKOCYTES Negative Normal NEGATIVE [facility] Comment on above: Performed By: #### E RUR #### [facility] [address] [place] [address] Dr. Paras Grover Nitrite Ql (U) Negative Normal NEGATIVE [facility] Comment on above: Performed By: #### E RUR #### [facility] [address] [place] [address] Dr. Paras Grover pH (U) 7.0 [pH] Normal 5-9 [facility] Comment on above: Performed By: #### E RUR #### [facility] [address] [place] [address] Dr. Paras Grover SPEC GRAVITY 1.020 Normal 1.005-<=1.0 25 [facility] Comment on above: Performed By: #### E RUR #### [facility] [address] [place] [address] Dr. Paras Grover UA PROTEIN Negative Normal NEGATIVE/ TRACE [facility] Comment on above: Performed By: #### E RUR #### [facility] [address] [place] [address] Dr. Paras Grover UR MICRO IND NOT INDICATED Normal [facility] Comment on above: Performed By: #### E RUR #### [facility] [address] [place] [address] Dr. Paras Grover Urobilinogen Qn (U) 0.2 {Jennifer'U}/dL Normal 0.2 - 1. 0 [facility] Comment on above: Performed By: #### E RUR #### [facility] [address] [place] [address] Dr. Paras Grover LIPASEon 05-17-2022 Lipase [Catalytic activity/Vol] 449.0 U/L Critically high 73.0-393.0 [facility] Comment on above: Performed By: #### C BC #### [facility] [address] [place] [address] Dr. Paras Grover PROF 14(COMP METB)on 022 Albumin [Mass/Vol] 4.2 g/dL Normal 3.4-5.0 [facility] Comment on above: Performed By: #### C BC #### [facility] [address] [place] [address] Dr. Paras Grover Albumin/Globulin [Mass ratio] 1.0 {ratio} Normal [facility] Comment on above: Performed By: #### C BC #### [facility] [address] [place] [address] Dr. Paras Grover ALP [Catalytic activity/Vol] 136 U/L Critically high 46-116 [facility] Comment on above: Performed By: #### C BC #### [facility] [address] [place] [address] Dr. Paras Grover ALT [Catalytic activity/Vol] 21 U/L Normal 14-59 [facility] Comment on above: Performed By: #### C BC #### [facility] [address] [place] [address] Dr. Paras Grover Anion gap [Moles/Vol] 14.5 mmol/L Normal [facility] Comment on above: Performed By: #### C BC #### [facility] [address] [place] [address] Dr. Paras Grover AST [Catalytic activity/Vol] 15 U/L Normal 15-37 [facility] Comment on above: Performed By: #### C BC #### [facility] [address] [place] [address] Dr. Paras Grover Bilirubin [Mass/Vol] 0.3 mg/dL Normal 0.2-1.0 [facility] Comment on above: Performed By: #### C BC #### [facility] [address] [place] [address] Dr. Paras Grover Calcium [Mass/Vol] 10.3 mg/dL Critically high 8.5-10.1 [facility] Comment on above: Performed By: #### C BC #### [facility] [address] [address] [address] Paras Grover Chloride [Moles/Vol] 105 mmol/L Normal 98-107 [facility] Comment on above: Performed By: #### C BC #### [facility] [address] [address] [address] Paras Grover CO2 [Moles/Vol] 25.3 mmol/L Normal 21.0-32.0 [facility] Comment on above: Performed By: #### C BC #### [facility] [address] [address] [address] Paras Grover Creatinine [Mass/Vol] 0.74 mg/dL Normal 0.55-1.02 [facility] Comment on above: Performed By: #### C BC #### [facility] [address] [place] [address] Dr. Paras Grover EGFR-AF GUINEAN >60 Normal >=60 [facility] Comment on above: Performed By: #### C BC #### [facility] [address] [place] [address] Dr. Paras Grover EGFR-NON AF GUINEAN >60 Normal >=60 [facility] Comment on above: Performed By: #### C BC #### [facility] [address] [place] [address] Dr. Paras Grover Globulin (S) [Mass/Vol] 4.0 g/dL Normal [facility] Comment on above: Performed By: #### C BC #### [facility] [address] [place] [address] Dr. Paras Grover Glucose [Mass/Vol] 126 mg/dL Critically high 74-106 [facility] Comment on above: Performed By: #### C BC #### [facility] [address] [place] [address] Dr. Paras Grover Potassium [Moles/Vol] 3.8 mmol/L Normal 3.5-5.1 [facility] Comment on above: Performed By: #### C BC #### [facility] [address] [place], [place] [address] Dr. Paras Grover Protein [Mass/Vol] 8.2 g/dL Normal 6.4-8.2 [facility] Comment on above: Performed By: #### C BC #### [facility] [address] [address] [address] Paras Grover Sodium [Moles/Vol] 141 mmol/L Normal 136-145 [facility] Comment on above: Performed By: #### C BC #### [facility] [address] [place], [place] [address] Dr. Paras Grover Urea nitrogen [Mass/Vol] 8.0 mg/dL Normal 7.0-18.0 [facility] Comment on above: Performed By: #### C BC #### [facility] [id number] Paras Grover Urea nitrogen/Creatinine [Mass ratio] 10.8 mg/mg Normal [facility] Comment on above: Performed By: #### C BC #### [facility] [id number] Paras Grover Protein Electrophoresis [facility] 05-13-2022 Albumin [Mass/Vol] 3.79 g/dL Normal 3.75-5.01 [facility] Comment on above: Order Comment: CALL doctor [id number] tel. [phone], fax result to [phone] Alpha 1 Globulin 0.37 g/dL Normal 0.19-0.46 [facility] Comment on above: Order Comment: CALL doctor [id number] tel. [phone], fax result to [phone] Alpha 2 Globulin 1.07 g/dL Critically high 0.48-1.05 [facility] Comment on above: Order Comment: CALL doctor [id number] tel. [phone], fax result to [phone] Beta Globulin 0.89 g/dL Normal 0.48-1.10 [facility] Comment on above: Order Comment: CALL doctor [id number] tel. [phone], fax result to [phone] EER Protein Electrophoresis, Serum See Note Normal [facility] Comment on above: Order Comment: CALL doctor [id number] tel. [phone], fax result to [phone] Result Comment: Auth orized individuals can access the [employer] Enhanced Report using the following link: [email or web address] Performed By: [facility] [address] [place] [address] Teacher [employer] Development: Timur Skinner MD, PhD Gamma 0.67 g/dL Normal 0.62-1.51 [facility] Comment on above: Order Comment: CALL doctor [id number] tel. [phone], fax result to [phone] Protein [Mass/Vol] 6.8 g/dL Normal 6.3-8.2 [facility] Comment on above: Order Comment: CALL doctor [id number] tel. [phone], fax result to [phone] SPEP/AZUCENA Interpretation See Note Normal [facility] Comment on above: Order Comment: CALL doctor [id number] tel. [phone], fax result to [phone] Result Comment: Norm al SPEP pattern. Immunofixation electrophoresis (AZUCENA) is a more sensitive technique for the identification of small M-proteins. B12/Folate Panelon Cobalamin (Vitamin B12) [Mass/Vol] 589 pg/mL Normal 232-1245 [facility] Comment on above: Order Comment: CALL doctor [id number] tel. [phone], fax result to [phone] Folic Acid 4.6 ng/mL Low >4.8 [facility] Comment on above: Order Comment: CALL doctor [id number] tel. [phone], fax result to [phone] Result Comment: [employer] [facility] [place] [address] ([phone] CBC With Platelet No Differe ntialon 05-10-2022 Erythrocyte distribution width (RBC) [Ratio] 16.6 % Critically high 11.5-14.5 [facility] Comment on above: Order Comment: CALL doctor [id number] tel. [phone], fax result to [phone] Performed By: #### C BCND #### [facility] [address] [place] [address] Hematocrit (Bld) [Volume fraction] 37.8 % Normal 37.0-47.0 [facility] Comment on above: Order Comment: CALL doctor [id number] tel. [phone], fax result to [phone] Performed By: #### C BCND #### [facility] [address] [place] [address] Hemoglobin (Bld) [Mass/Vol] 12.5 g/dL Normal 12.0-16.0 [facility] Comment on above: Order Comment: CALL doctor [id number] tel. [phone], fax result to [phone] Performed By: #### C BCND #### [facility] [address] [place] [address] MCH (RBC) [Entitic mass] 28.8 pg Normal 27.0-31.3 [facility] Comment on above: Order Comment: CALL doctor [id number] tel. [phone], fax result to [phone] Performed By: #### C BCND #### [facility] [address] [place] [address] MCHC 33.0 % Normal 33.0-37.0 [facility] Comment on above: Order Comment: CALL doctor [id number] tel. [phone], fax result to [phone] Performed By: #### C BCND #### [facility] [address] [place] [address] MCV (RBC) [Entitic vol] 87.2 fL Normal 79.4-94.8 [facility] Comment on above: Order Comment: CALL doctor [id number] tel. [phone], fax result to [phone] Performed By: #### C BCND #### [facility] [address] [place] [address] Platelets (Bld) [#/Vol] 341 10*3/uL Normal 130-400 [facility] Comment on above: Order Comment: CALL doctor [id number] tel. [phone], fax result to [phone] Performed By: #### C BCND #### [facility] [address] [place] [address] RBC (Bld) [#/Vol] 4.33 10*6/uL Normal 4.20-5.40 [facility] Comment on above: Order Comment: CALL doctor [id number] tel. [phone], fax result to [phone] Performed By: #### C BCND #### [facility] [address] [place] [address] WBC (Bld) [#/Vol] 10.1 10*3/uL Normal 4.8-10.8 [facility] Comment on above: Order Comment: CALL doctor [id number] tel. [phone], fax result to [phone] Performed By: #### C BCND #### [facility] [address] [place] [address] Comprehensive Metabolic Pane tony 05-10-2022 Albumin [Mass/Vol] 3.9 g/dL Normal 3.5-4.6 [facility] Comment on above: Order Comment: CALL doctor [id number] tel. [phone], fax result to [phone] Performed By: #### C MP #### [facility] [address] [place] [address] ALP [Catalytic activity/Vol] 106 U/L Normal 40-130 [facility] Comment on above: Order Comment: CALL doctor [id number] tel. [phone], fax result to [phone] Performed By: #### C MP #### [facility] [address] [place] [address] ALT [Catalytic activity/Vol] 26 U/L Normal 0-33 [facility] Comment on above: Order Comment: CALL doctor [id number] tel. [phone], fax result to [phone] Performed By: #### C MP #### [facility] [address] [place] [address] Anion gap [Moles/Vol] 13 mmol/L Normal 9-15 [facility] Comment on above: Order Comment: CALL doctor [id number] tel. [phone], fax result to [phone] Performed By: #### C MP #### [facility] [address] [place] [address] AST [Catalytic activity/Vol] 25 U/L Normal 0-35 [facility] Comment on above: Order Comment: CALL doctor [id number] tel. [phone], fax result to [phone] Performed By: #### C MP #### [facility] [address] [place] [address] Bilirubin [Mass/Vol] 0.5 mg/dL Normal 0.2-0.7 [facility] Comment on above: Order Comment: CALL doctor [id number] tel. [phone], fax result to [phone] Performed By: #### C MP #### [facility] [address] [place] [address] Calcium [Mass/Vol] 9.5 mg/dL Normal 8.5-9.9 [facility] Comment on above: Order Comment: CALL doctor [id number] tel. [phone], fax result to [phone] Performed By: #### C MP #### [facility] [address] [place] [address] Chloride [Moles/Vol] 101 mmol/L Normal 95-107 [facility] Comment on above: Order Comment: CALL doctor [id number] tel. [phone], fax result to [phone] Performed By: #### C MP #### [facility] [address] [place] [address] CO2 [Moles/Vol] 23 mmol/L Normal 20-31 [facility] Comment on above: Order Comment: CALL doctor [id number] tel. [phone], fax result to [phone] Performed By: #### C MP #### [facility] [address] [place] [address] Creatinine [Mass/Vol] 0.78 mg/dL Normal 0.50-0.90 [facility] Comment on above: Order Comment: CALL doctor [id number] tel. [phone], fax result to [phone] Performed By: #### C MP #### [facility] [address] [place] [address] GFR >60.0 Normal >60 [facility] Comment on above: Order Comment: CALL doctor [id number] tel. [phone], fax result to [phone] Result Comment: Dori atric calculator link [email or web address].org/[email or web address]_[email or web address] Effective Apr 17, 2022 These results are not intended for use in patients <18 years of age. eGFR results are calculated without a race factor using the 2020 CKD-EPI equation. Careful clinical correlation is recommended, particularly when comparing to results calculated using previous equations. The CKD-EPI equation is less accurate in patients with extremes of muscle mass, extra-renal metabolism of creatinine, excessive creatinine ingestion, or following therapy that affects renal tubular secretion. Performed By: #### C MP #### [facility] [address] [place] [address] Globulin (S) [Mass/Vol] 2.8 g/dL Normal 2.3-3.5 [facility] Comment on above: Order Comment: CALL doctor [id number] tel. [phone], fax result to [phone] Performed By: #### C MP #### [facility] [address] [place] [address] Glucose [Mass/Vol] 87 mg/dL Normal 70-99 [facility] Comment on above: Order Comment: CALL doctor [id number] tel. [phone], fax result to [phone] Performed By: #### C MP #### [facility] [address] [place] [address] Potassium [Moles/Vol] 4.0 mmol/L Normal 3.4-4.9 [facility] Comment on above: Order Comment: CALL doctor [id number] tel. [phone], fax result to [phone] Performed By: #### C MP #### [facility] [address] [place] [address] Protein [Mass/Vol] 6.7 g/dL Normal 6.3-8.0 [facility] Comment on above: Order Comment: CALL doctor [id number] tel. [phone], fax result to [phone] Performed By: #### C MP #### [facility] [address] [place] [address] Sodium [Moles/Vol] 137 mmol/L Normal 135-144 [facility] Comment on above: Order Comment: CALL doctor [id number] tel. [phone], fax result to [phone] Performed By: #### C MP #### [facility] [address] [place] [address] Urea nitrogen [Mass/Vol] 4 mg/dL Low 6-20 [facility] Comment on above: Order Comment: CALL doctor [id number] tel. [phone], fax result to [phone] Performed By: #### C MP #### [facility] [address] [place] [address] Hemoglobin A1con 05-10-2022 HbA1c (Bld) [Mass fraction] 5.7 % Normal 4.8-5.9 [facility] Comment on above: Order Comment: CALL doctor [id number] tel. [phone], fax result to [phone] Performed By: #### A 1C #### [facility] [address] [place] [address] TSH w/out Reflexon TSH w/out Reflex 0.279 uIU/mL Low 0.440-3.86 [facility] Comment on above: Order Comment: CALL doctor [id number] tel. [phone], fax result to [phone] Performed By: #### T #### [facility] [address] [place] [address] Vitamin D 25 OHon 05-10-2022 Vitamin D 25 [place] 13.1 ng/mL Low >29.9 [facility] Comment on above: Order Comment: CALL doctor [id number] tel. [phone], fax result to [phone] Result Comment: Reference Range: Vitamin D status Range Deficiency <20 ng/mL Mild Deficiency 20-30 ng/mL Sufficiency 30-100 ng/mL Toxicity >100 ng/mL [address] [address] ([phone] LACTATE/LACTIC ACIDon 2021 Lactate [Moles/Vol] 1.4 mmol/L Normal 0.4-1.9 [facility] Comment on above: Performed By: #### C BC #### [facility] [address] [place] [address] Dr. Paras Grover CBC AUTO DIFFon 05-08-2022 BASO # 0.1 103/ul Normal 0.0-0.1 [facility] Comment on above: Performed By: #### C BC #### [facility] [address] [place] [address] Dr. Paras Grover Basophils/100 WBC (Bld) 0.6 % Normal 0.2-2.0 [facility] Comment on above: Performed By: #### C BC #### [facility] [address] [place] [address] Dr. Paras Grover EO # 0.0 103/ul Normal 0.0-0.7 [facility] Comment on above: Performed By: #### C BC #### [facility] [address] [place] [address] Dr. Paras Grover Eosinophils/100 WBC (Bld) 0.0 % Critically low 0.9-7.0 [facility] Comment on above: Performed By: #### C BC #### [facility] [address] [place] [address] Dr. Paras Grover Erythrocyte distribution width (RBC) [Ratio] 15.1 % Critically high 11.0-15.0 [facility] Comment on above: Performed By: #### C BC #### [facility] [address] [place] [address] Dr. Paras Grover Hematocrit (Bld) [Volume fraction] 47.1 % Normal 36.0-48.0 [facility] Comment on above: Performed By: #### C BC #### [facility] [address] [place] [address] Dr. Paras Grover Hemoglobin (Bld) [Mass/Vol] 15.6 g/dL Normal 12.0-16.0 [facility] Comment on above: Performed By: #### C BC #### [facility] [address] [place] [address] Dr. Paras Grover IG # 0.07 10e3/ul Critically high 0.00-0.03 [facility] Comment on above: Performed By: #### C BC #### [facility] [address] [place] [address] Dr. Paras Grover IG % 0.4 % Normal 0.0-0.5 [facility] Comment on above: Performed By: #### C BC #### [facility] [address] [place] [address] Dr. Paras Grover LYMPH # 3.0 103/ul Normal 1.2-3.8 [facility] Comment on above: Performed By: #### C BC #### [facility] [address] [place] [address] Dr. Paras Grover Lymphocytes/100 WBC (Bld) 16.8 % Critically low 20.5-60.0 [facility] [facility] Comment on above: Performed By: #### C BC #### [facility] [address] [place] [address] Dr. Paras Grover MANUAL DIFF REQ NO Normal [facility] Comment on above: Performed By: #### C BC #### [facility] [address] [place] [address] Dr. Paras Grover MCH (RBC) [Entitic mass] 28.3 pg Normal 26.7-34.0 [facility] Comment on above: Performed By: #### C BC #### [facility] [address] [place] [address] Dr. Paras Grover MCHC (RBC) [Mass/Vol] 33.1 g/dL Normal 29.9-35.2 [facility] Comment on above: Performed By: #### C BC #### [facility] [address] [place] [address] Dr. Paras Grover MCV (RBC) [Entitic vol] 85.5 fL Normal 81.0-99.0 [facility] Comment on above: Performed By: #### C BC #### [facility] [address] [place] [address] Dr. Paras Grover MONO # 1.4 103/ul Critically high 0.3-0.8 [facility] Comment on above: Performed By: #### C BC #### [facility] [address] [place] [address] Dr. Paras Grover Monocytes/100 WBC (Bld) 7.8 % Normal 1.7-12.0 [facility] Comment on above: Performed By: #### C BC #### [facility] [address] [place] [address] Dr. Paras Grover NEUT # 13.3 103/ul Critically high 1.4-6.5 [facility] Comment on above: Performed By: #### C BC #### [facility] [address] [place] [address] Dr. Paras Grover Neutrophils/100 WBC (Bld) 74.4 % Normal 43.0-75.0 [facility] Comment on above: Performed By: #### C BC #### [facility] [address] [place] [address] Dr. Paras Grover Platelet mean volume (Bld) [Entitic vol] 9.4 fL Critically low 9.5-13.5 [facility] Comment on above: Performed By: #### C BC #### [facility] [address] [place] [address] Dr. Paras Grover PLT 533 103/ul Critically high 150-450 [facility] Comment on above: Performed By: #### C BC #### [facility] [address] [address] [address] Paras Grover RBC 5.51 106/ul Critically high 4.20-5.40 [facility] Comment on above: Performed By: #### C BC #### [facility] [id number] Paras Grover WBC 17.9 103/ul Critically high 4.0-11.0 [facility] Comment on above: Performed By: #### C BC #### [facility] [id number] Paras Grover CT ABD/PELV W CONon 05-08-20 CT ABD/PELV W CON Indication: Generali zed abdominal pain. Comparison: 03/09/2022 exam. Procedure: Axial images were made from the diaphragms through the symphysis pubis. No oral contrast was given prior to scanning. 100 mL Omnipaque 300 Intravenous contrast was given. Dose reduction techniques were achieved by using automated exposure control and/or adjustment of mA and/or kV according to patient size and/or use of iterative reconstruction technique. Findings: Liver/Biliary System: Mild diffuse fatty infiltration of the liver. No liver masses. No intra or extrahepatic biliary dilatation. Status postcholecystectomy. Pancreas/Spleen: No pancreatic masses. Pancreatic duct is not dilated. No evidence of pancreatitis. No splenomegaly or splenic lesions. Kidneys/Adrenals: Normal symmetrical nephrograms. No renal masses. No renal or ureteral stones are seen. Stable 1.4 cm left adrenal nodule and stable 7 mm right adrenal nodule, probably adenomas. Aorta/Vessels: No evidence of aortic aneurysm. Patent IVC, renal veins, hepatic veins and portal venous system. Bowel/Fluid/Nodes: Colonic diverticulosis with no evidence of diverticulitis. No ascites or fluid collections. No adenopathy. Lung bases: Clear. Other findings: No aggressive osseous lesions are seen. Pelvis: No pelvic masses or adenopathy. No free fluid seen in the pelvis. Bladder, uterus and right adnexa grossly unremarkable. Small left ovarian follicles are seen measuring up to 2 cm. Stable metallic density along the anterior vaginal/posterior bladder wall. Other Findings: No aggressive osseous lesions are seen. Degenerative disc disease of the lumbosacral spine. Impression: 1. No evidence of acute abdominal or pelvic process. No CT findings to explain patient's abdominal pain. 2. Colonic diverticulosis with no evidence of diverticulitis. Mild diffuse fatty infiltration of the liver. Stable adrenal nodules, probably adenomas. Small left ovarian follicles measuring up to 2 cm, probably physiological. Degenerative disc disease of the lumbosacral spine. Stable metallic density along the anterior vaginal/posterior bladder wall, for clinical correlation. Electronically authenticated by: HAIR GASTON Date: 2022-05-08 20:36 Normal [facility] LACTATE/LACTIC ACIDon 2021 Lactate [Moles/Vol] 3.1 mmol/L Critically high 0.4-1.9 [facility] Comment on above: Performed By: #### C BC #### [facility] [address] [place] [address] Dr. Paras Grover LIPASEon 05-08-2022 Lipase [Catalytic activity/Vol] 66.0 U/L Critically low 73.0-393.0 [facility] Comment on above: Performed By: #### C BC #### [facility] [address] [place] [address] Dr. Paras Grover PROF 14(COMP METB)on 022 Albumin [Mass/Vol] 4.4 g/dL Normal 3.4-5.0 [facility] Comment on above: Performed By: #### C BC #### [facility] [address] [place] [address] Dr. Paras Grover Albumin/Globulin [Mass ratio] 1.0 {ratio} Normal [facility] Comment on above: Performed By: #### C BC #### [facility] [address] [place] [address] Dr. Paras Grover ALP [Catalytic activity/Vol] 161 U/L Critically high 46-116 [facility] Comment on above: Performed By: #### C BC #### [facility] [address] [place] [address] Dr. Paras Grover ALT [Catalytic activity/Vol] 57 U/L Normal 14-59 [facility] Comment on above: Performed By: #### C BC #### [facility] [address] [address] [address] Paras Grover Anion gap [Moles/Vol] 17.2 mmol/L Normal [facility] Comment on above: Performed By: #### C BC #### [facility] [address] [address] [address] Paras Grover AST [Catalytic activity/Vol] 45 U/L Critically high 15-37 [facility] Comment on above: Performed By: #### C BC #### [facility] [address] [address] [address] Paras Grover Bilirubin [Mass/Vol] 0.7 mg/dL Normal 0.2-1.0 [facility] Comment on above: Performed By: #### C BC #### [facility] [address] [address] [address] Paras Grover Calcium [Mass/Vol] 10.5 mg/dL Critically high 8.5-10.1 [facility] Comment on above: Performed By: #### C BC #### [facility] [address] [place] [address] Dr. Paras Grovre Chloride [Moles/Vol] 97 mmol/L Critically low 98-107 [facility] Comment on above: Performed By: #### C BC #### [facility] [address] [address] [address] Paras Grover CO2 [Moles/Vol] 23.3 mmol/L Normal 21.0-32.0 [facility] Comment on above: Performed By: #### C BC #### [facility] [address] [address] [address] Paras Grover Creatinine [Mass/Vol] 1.08 mg/dL Critically high 0.55-1.02 [facility] Comment on above: Performed By: #### C BC #### [facility] [address] [address] [address] Paras Grover EGFR-AF GUINEAN >60 Normal >=60 [facility] Comment on above: Performed By: #### C BC #### [facility] [address] [address] [address] Paras Grover EGFR-NON AF GUINEAN 55 mL/min/1.73m2 Critically low >=60 [facility] Comment on above: Performed By: #### C BC #### [facility] [address] [address] [address] Paras Grover Globulin (S) [Mass/Vol] 4.4 g/dL Normal [facility] Comment on above: Performed By: #### C BC #### [facility] [address] [address] [address] Paras Grover Glucose [Mass/Vol] 178 mg/dL Critically high 74-106 [facility] Comment on above: Performed By: #### C BC #### [facility] [address] [address] [address] Paras Grover Potassium [Moles/Vol] 3.5 mmol/L Normal 3.5-5.1 [facility] Comment on above: Performed By: #### C BC #### [facility] [address] [address] [address] Paras Grover Protein [Mass/Vol] 8.8 g/dL Critically high 6.4-8.2 [facility] Comment on above: Performed By: #### C BC #### [facility] [address] [address] [address] Paras Grover Sodium [Moles/Vol] 134 mmol/L Critically low 136-145 [facility] Comment on above: Performed By: #### C BC #### [facility] [address] [address] [address] Paras Grover Urea nitrogen [Mass/Vol] 8.0 mg/dL Normal 7.0-18.0 [facility] Comment on above: Performed By: #### C BC #### [facility] [address] [address] [address] Paras Grover Urea nitrogen/Creatinine [Mass ratio] 7.4 mg/mg [facility] Comment on above: Performed By: #### C BC #### [facility] [address] [address] [address] Paras Grover Albumin [Mass/volume] in Ser um or PlasmaOrdered By: Jae Song on 04-28-2022 Albumin [Mass/Vol] 4.4 g/dL 3.2-5.5 [facility] Amphetamine Screen Ql (U)Ord ered By: Jae Song on 04-28-2022 Amphetamines Ql (U) Negative Negative [facility] Automated erythrocytes count in urine sediment (number/area)Ordered By: Jae Song on 04-28-2022 RBC Auto (Urine sed) [#/Area] 0-1 [HPF] 0-4 [facility] Automated leukocytes count i n urine sediment (number/area)Ordered By: Jae Song on 04-28-2022 WBC Auto (Urine sed) [#/Area] 5-9 [HPF] 0-4 [facility] Automated urine hyaline cast s count (number/volume)Ordered By: Jae Song on 04-28-2022 Hyaline casts Auto (U) [#/Vol] None seen [LPF] 0-1 [facility] Barbiturates [Presence] in U rineOrdered By: Jae Song on 04-28-2022 Barbiturates Ql (U) Positive Negative [facility] Basophils Auto (Bld) [#/Vol] Ordered By: Jae Song on 04-28-2022 Basophils (Bld) [#/Vol] 0.2 10*3/uL 0.0-0.2 [facility] Basophils/100 WBC Auto (Bld) Ordered By: Jae Song on 04-28-2022 Basophils/100 WBC (Bld) 0.9 % . [facility] Benzodiazepines [Presence] i n UrineOrdered By: Jae Song on 04-28-2022 Benzodiazepines Ql (U) Negative Negative [facility] Bilirubin Test strip Ql (U)O rdered By: Jae Song on 04-28-2022 Bilirubin Ql (U) Negative Negative [facility] Cannabinoids [Presence] in U rine by Screen methodOrdered By: Jae Song on 04-28-2022 Cannabinoids Screen Ql (U) Positive Negative [facility] Comment on above: These are unconfirme d results and should not be used for legal purposes. Drug Cut-Off Concentration: AMPH 1000 ng/mL LIZ 200 ng/mL DAVID 200 ng/mL COCM 300 ng/mL OP 300 ng/mL PCP 25 ng/mL THC 20 ng/mL Casts typing in urine sedime nt by light microscopyOrdered By: Jae Song on 04-28-2022 Casts LM Nom (Urine sed) None seen [LPF] None Seen [facility] Color Auto (U)Ordered By: Heladio Song on 04-28-2022 Color (U) Yellow Yellow [facility] Creatinine and Glomerular fi ltration rate.predicted panel (S/P/Bld)Ordered By: Jae Song on 04-28-2022 Creatinine [Mass/Vol] 0.77 mg/dL 0.44-1.03 [facility] Direct bilirubin measurement Ordered By: Jae Song on 04-28-2022 Bilirubin.direct [Mass/Vol] 0.1 mg/dL 0.0-0.4 [facility] Eosinophils Auto (Bld) [#/Vo l]Ordered By: Jae Song on 04-28-2022 Eosinophils (Bld) [#/Vol] 0.0 10*3/uL 0.0-0.45 [facility] Eosinophils/100 WBC Auto (Bl d)Ordered By: Jae Song on 04-28-2022 Eosinophils/100 WBC (Bld) 0.1 % . [facility] Erythrocyte distribution wid th Auto (RBC) [Ratio]Ordered By: Jae Song on 04-28-2022 Erythrocyte distribution width (RBC) [Ratio] 16.1 % 11.9-15.3 [facility] Estimated glomerular filtrat ion rate (GFR) non- AmericanOrdered By: Jae Song on 04-28-2022 GFR/1.73 sq M.predicted among non-blacks MDRD (S/P/Bld) [Vol rate/Area] > 60 mL/Min [facility] Globulin Calc (S) [Mass/Vol] Ordered By: Jae Song on 04-28-2022 Globulin (S) [Mass/Vol] 3.4 g/dL [facility] HCG ( test) IA.rapi d Ql (U)Ordered By: Jae Song on 04-28-2022 HCG ( test) Ql (U) Negative [facility] Hematocrit Auto (Bld) [Volum e fraction]Ordered By: Jae Song on 04-28-2022 Hematocrit (Bld) [Volume fraction] 43.9 % 34.0-46.4 [facility] Hemoglobin [Mass/volume] in BloodOrdered By: Jae Song on 04-28-2022 Hemoglobin (Bld) [Mass/Vol] 14.1 g/dL 11.8-15.4 [facility] Ketones Auto test strip (U) [Mass/Vol]Ordered By: Jae Song on 04-28-2022 Ketones (U) [Mass/Vol] Negative Negative [facility] - Chemistry and C hemistry - challengeOrdered By: Jae Song on 04-28-2022 Lipase [Catalytic activity/Vol] 42.0 U/L 22-51 [facility] Magnesium [Mass/Vol] 1.7 mg/dL 1.6-2.6 [facility] - Drug toxicology Ordered By: Jae Song on 04-28-2022 Opiates Ql (U) Negative Negative [facility] - Hematology and Cell countsOrdered By: Jae Song on 04-28-2022 Nucleated RBC/100 WBC (Bld) [Ratio] 0.0 % 0-0.5 [facility] Leukocytes [#/volume] in Blo od by Automated countOrdered By: Jae Song on 04-28-2022 WBC (Bld) [#/Vol] 17.4 10*3/uL 4.5-11.[address] [facility] Lymphocytes Auto (Bld) [#/Vo l]Ordered By: Jae Song on 04-28-2022 Lymphocytes (Bld) [#/Vol] 3.8 10*3/uL 1.00-4.8 [facility] Lymphocytes/100 WBC Auto (Bl d)Ordered By: Jae Song on 04-28-2022 Lymphocytes/100 WBC (Bld) 21.9 % . [facility] MCH Auto (RBC) [Entitic mass ]Ordered By: Jae Song on 04-28-2022 MCH (RBC) [Entitic mass] 28.3 pg 24.7-34.3 [facility] MCHC Auto (RBC) [Mass/Vol]Or dered By: Jae Song on 04-28-2022 MCHC (RBC) [Mass/Vol] 32.2 g/dL 32.0-35.0 [facility] MCV Auto (RBC) [Entitic vol] Ordered By: Jae Song on 04-28-2022 MCV (RBC) [Entitic vol] 87.9 fL 80-100 [facility] Monocytes Auto (Bld) [#/Vol] Ordered By: Jae Song on 04-28-2022 Monocytes (Bld) [#/Vol] 1.4 10*3/uL 0.0-0.8 [facility] Monocytes/100 WBC Auto (Bld) Ordered By: Jae Song on 04-28-2022 Monocytes/100 WBC (Bld) 7.9 % . [facility] Neutrophils Auto (Bld) [#/Vo l]Ordered By: Jae Song on 04-28-2022 Neutrophils (Bld) [#/Vol] 12.0 10*3/uL 1.8-7.7 [facility] Neutrophils/100 WBC Auto (Bl d)Ordered By: Jae Song on 04-28-2022 Neutrophils/100 WBC (Bld) 69.2 % . [facility] Nitrite Test strip Ql (U)Ord ered By: Jae Song on 04-28-2022 Nitrite Ql (U) Negative Negative [facility] No Panel InformationOrdered By: Jae Song on 04-28-2022 Estimated GFR () > 60 mL/Min [facility] Comment on above: GFR estimated refere nce range: According to KDOQI guidelines, <60 ml/min/1.73m2 is sufficient to diagnose a patient with chronic kidney disease. Pharmacy Creatinine Clearance (Chem 113.21 [facility] Phencyclidine Screen Ql (U)O rdered By: Jae Song on 04-28-2022 Phencyclidine Ql (U) Negative Negative [facility] Platelet mean volume Auto (B ld) [Entitic vol]Ordered By: Jae Song on 04-28-2022 Platelet mean volume (Bld) [Entitic vol] 7.9 fL 6.3-10.7 [facility] Platelets Auto (Bld) [#/Vol] Ordered By: Jae Song on 04-28-2022 Platelets (Bld) [#/Vol] 532 10*3/uL 150-450 [facility] Protein Auto test strip (U) [Mass/Vol]Ordered By: Jae Song on 04-28-2022 Protein (U) [Mass/Vol] Trace mg/dL Negative [facility] Protein [Mass/volume] in Ser um or PlasmaOrdered By: Jae Song on 04-28-2022 Protein [Mass/Vol] 7.8 g/dL 6.1-7.9 [facility] RBC Auto (Bld) [#/Vol]Ordere d By: Jae Song on 04-28-2022 RBC (Bld) [#/Vol] 4.99 10*6/uL 3.60-5.[address] [facility] Serum or plasma alanine calderon otransferase measurement without P-5'-P (enzymatic activiOrdered By: Jae Song on 04-28-2022 ALT No additional P-5'-P [Catalytic activity/Vol] 20 U/L [facility] Serum or plasma albumin/glob ulin mass ratioOrdered By: Jae Song on 04-28-2022 Albumin/Globulin [Mass ratio] 1.3 {ratio} [facility] Serum or plasma alkaline keaton sphatase measurement (enzymatic activity/volume)Ordered By: Jae Song on 04-28-2022 ALP [Catalytic activity/Vol] 115 U/L 32-92 [facility] Serum or plasma anion gap de terminationOrdered By: Jae Song on 04-28-2022 Anion gap [Moles/Vol] 16.1 mmol/L 6.0-15.0 [facility] Serum or plasma aspartate am inotransferase measurement (enzymatic activity/volume)Ordered By: Jae Song on 04-28-2022 AST [Catalytic activity/Vol] 28 U/L 10 [facility] Serum or plasma calcium paul urement (mass/volume)Ordered By: Jae Song on 04-28-2022 Calcium [Mass/Vol] 10.6 mg/dL 8.2-10.2 [facility] Serum or plasma chloride radha surement (moles/volume)Ordered By: Jae Song on 04-28-2022 Chloride [Moles/Vol] 100 mmol/L 95-114 [facility] Serum or plasma glucose paul urement (mass/volume)Ordered By: Jae Song on 04-28-2022 Glucose [Mass/Vol] 114 mg/dL 70-100 [facility] Comment on above: ADA recommended refe rence rangeRandom Glucose Reference Range is dependent on time and content of last meal. Glucose of more than 200 mg/dL in a nonstressed, ambulatory subject supports the diagnosis of Diabetes Mellitus. Serum or plasma non-glucuron idated bilirubin measurement (mass/volume)Ordered By: Jae Song on 04-28-2022 Bilirubin.indirect [Mass/Vol] 0.4 mg/dL [facility] Serum or plasma potassium me asurement (moles/volume)Ordered By: Jae Song on 04-28-2022 Potassium [Moles/Vol] 3.9 mmol/L 3.5-5.1 [facility] Serum or plasma sodium measu rement (moles/volume)Ordered By: Jae Song on 04-28-2022 Sodium [Moles/Vol] 138 mmol/L 136-146 [facility] Serum or plasma total biliru bin measurement (mass/volume)Ordered By: Jae Song 04-28-2022 Bilirubin [Mass/Vol] 0.5 mg/dL 0.3-1.2 [facility] Serum or plasma total carbon dioxide measurement (moles/volume)Ordered By: Jae Song on 04-28-2022 CO2 [Moles/Vol] 25.8 mmol/L 22.0-30.0 [facility] Serum or plasma urea nitroge n measurement (mass/volume)Ordered By: Jae Song on 04-28-2022 Urea nitrogen [Mass/Vol] 9 mg/dL 9-23 [facility] Specific gravity Auto test s trip (U) [Rel density]Ordered By: Jae Song on 04-28-2022 Specific gravity (U) [Rel density] > 1.050 1.001-1.030 [facility] Squamous epithelial cells de tection in urine sediment by light microscopyOrdered By: Jae Song on 04-28-2022 Epithelial cells.squamous LM Ql (Urine sed) 10-19 [HPF] 0-2 [facility] Urine bacteria detection by automated methodOrdered By: Jae Song on 04-28-2022 Bacteria Auto Ql (U) None seen None Seen [facility] Urine clarity by refractomet ry automatedOrdered By: Jae Song on 04-28-2022 Clarity Refractometry automated (U) Clear Clear [facility] Urine cocaine detectionOrder ed By: Jae Song on 04-28-2022 Cocaine Ql (U) Positive Negative [facility] Urine glucose measurement by automated test strip (mass/volume)Ordered By: Jae Song on 04-28-2022 Glucose Auto test strip (U) [Mass/Vol] Normal mg/dL Normal [facility] Urine hemoglobin detection b y automated test stripOrdered By: Jae Song on 04-28-2022 Hemoglobin Auto test strip Ql (U) Negative Negative [facility] Urine leukocyte esterase det ection by automated test stripOrdered By: Jae Song on 04-28-2022 Leukocyte esterase Auto test strip Ql (U) Negative Negative [facility] Urobilinogen Auto test strip (U) [Mass/Vol]Ordered By: Jae Song on 04-28-2022 Urobilinogen (U) [Mass/Vol] Normal mg/dL Normal [facility] pH Auto test strip (U)Ordere d By: Jae Song on 04-28-2022 pH (U) 7.5 [pH] 5.0-9.0 [facility] Albumin [Mass/volume] in Ser um or PlasmaOrdered By: Vern Foster on 04-26-2022 Albumin [Mass/Vol] 4.0 g/dL 3.2-5.5 [facility] Basophils Auto (Bld) [#/Vol] Ordered By: Vern Foster on 04-26-2022 Basophils (Bld) [#/Vol] 0.1 10*3/uL 0.0-0.2 [facility] Basophils/100 WBC Auto (Bld) Ordered By: Vern Foster on 04-26-2022 Basophils/100 WBC (Bld) 0.9 % . [facility] Creatinine and Glomerular fi ltration rate.predicted panel (S/P/Bld)Ordered By: Vern Foster on 04-26-2022 Creatinine [Mass/Vol] 0.73 mg/dL 0.44-1.03 [facility] Eosinophils Auto (Bld) [#/Vo l]Ordered By: Vern Foster on 04-26-2022 Eosinophils (Bld) [#/Vol] 0.0 10*3/uL 0.0-0.45 [facility] Eosinophils/100 WBC Auto (Bl d)Ordered By: Vern Foster on 04-26-2022 Eosinophils/100 WBC (Bld) 0.2 % . [facility] Erythrocyte distribution wid th Auto (RBC) [Ratio]Ordered By: Vern Foster on 04-26-2022 Erythrocyte distribution width (RBC) [Ratio] 15.8 % 11.9-15.3 [facility] Estimated glomerular filtrat ion rate (GFR) non- AmericanOrdered By: Vern Foster on 04-26-2022 GFR/1.73 sq M.predicted among non-blacks MDRD (S/P/Bld) [Vol rate/Area] > 60 mL/Min [facility] Globulin Calc (S) [Mass/Vol] Ordered By: Vern Foster on 04-26-2022 Globulin (S) [Mass/Vol] 3.7 g/dL [facility] Hematocrit Auto (Bld) [Volum e fraction]Ordered By: Vern Foster on 04-26-2022 Hematocrit (Bld) [Volume fraction] 43.3 % 34.0-46.4 [facility] Hemoglobin [Mass/volume] in BloodOrdered By: Vern Foster on 04-26-2022 Hemoglobin (Bld) [Mass/Vol] 14.2 g/dL 11.8-15.4 [facility] - Chemistry and C hemistry - challengeOrdered By: Vern Foster on 04-26-2022 Lipase [Catalytic activity/Vol] 31.0 U/L 22-51 [facility] - Hematology and Cell countsOrdered By: Vern Foster on 04-26-2022 Nucleated RBC/100 WBC (Bld) [Ratio] 0.1 % 0-0.5 [facility] Leukocytes [#/volume] in Blo od by Automated countOrdered By: Vern Foster on 04-26-2022 WBC (Bld) [#/Vol] 11.6 10*3/uL 4.5-11.[address] [facility] Lymphocytes Auto (Bld) [#/Vo l]Ordered By: Vern Foster on 04-26-2022 Lymphocytes (Bld) [#/Vol] 1.7 10*3/uL 1.00-4.8 [facility] Lymphocytes/100 WBC Auto (Bl d)Ordered By: Vern Foster on 04-26-2022 Lymphocytes/100 WBC (Bld) 15.1 % . [facility] MCH Auto (RBC) [Entitic mass ]Ordered By: Vern Foster on 04-26-2022 MCH (RBC) [Entitic mass] 28.7 pg 24.7-34.3 [facility] MCHC Auto (RBC) [Mass/Vol]Or dered By: Vern Foster on 04-26-2022 MCHC (RBC) [Mass/Vol] 32.8 g/dL 32.0-35.0 [facility] MCV Auto (RBC) [Entitic vol] Ordered By: Vern Foster on 04-26-2022 MCV (RBC) [Entitic vol] 87.5 fL 80-100 [facility] Monocytes Auto (Bld) [#/Vol] Ordered By: Vern Foster on 04-26-2022 Monocytes (Bld) [#/Vol] 0.5 10*3/uL 0.0-0.8 [facility] Monocytes/100 WBC Auto (Bld) Ordered By: Vern Foster on 04-26-2022 Monocytes/100 WBC (Bld) 4.7 % . [facility] Neutrophils Auto (Bld) [#/Vo l]Ordered By: Vern Foster on 04-26-2022 Neutrophils (Bld) [#/Vol] 9.2 10*3/uL 1.8-7.7 [facility] Neutrophils/100 WBC Auto (Bl d)Ordered By: Vern Foster on 04-26-2022 Neutrophils/100 WBC (Bld) 79.1 % . [facility] No Panel InformationOrdered By: Vern Foster on 04-26-2022 Estimated GFR () > 60 mL/Min [facility] Comment on above: GFR estimated refere nce range: According to KDOQI guidelines, <60 ml/min/1.73m2 is sufficient to diagnose a patient with chronic kidney disease. Pharmacy Creatinine Clearance (Chem 119.41 [facility] Platelet mean volume Auto (B ld) [Entitic vol]Ordered By: Vern Foster on 04-26-2022 Platelet mean volume (Bld) [Entitic vol] 7.5 fL 6.3-10.7 [facility] Platelets Auto (Bld) [#/Vol] Ordered By: Vern Foster on 04-26-2022 Platelets (Bld) [#/Vol] 500 10*3/uL 150-450 [facility] Protein [Mass/volume] in Ser um or PlasmaOrdered By: Vern Foster on 04-26-2022 Protein [Mass/Vol] 7.7 g/dL 6.1-7.9 [facility] RBC Auto (Bld) [#/Vol]Ordere d By: Vern Foster on 04-26-2022 RBC (Bld) [#/Vol] 4.95 10*6/uL 3.60-5.[address] [facility] Serum or plasma alanine calderon otransferase measurement without P-5'-P (enzymatic activiOrdered By: Vern Foster on 04-26-2022 ALT No additional P-5'-P [Catalytic activity/Vol] 16 U/L 10-60 [facility] Serum or plasma albumin/glob ulin mass ratioOrdered By: Vern Foster on 04-26-2022 Albumin/Globulin [Mass ratio] 1.1 {ratio} [facility] Serum or plasma alkaline keaton sphatase measurement (enzymatic activity/volume)Ordered By: Vern Foster on 04-26-2022 ALP [Catalytic activity/Vol] 118 U/L 32-92 [facility] Serum or plasma anion gap de terminationOrdered By: Vern Foster on 04-26-2022 Anion gap [Moles/Vol] 17.8 mmol/L 6.0-15.0 [facility] Serum or plasma aspartate am inotransferase measurement (enzymatic activity/volume)Ordered By: Vern Foster on 04-26-2022 AST [Catalytic activity/Vol] 18 U/L 10-42 [facility] Serum or plasma calcium paul urement (mass/volume)Ordered By: Vern Foster on 04-26-2022 Calcium [Mass/Vol] 10.3 mg/dL 8.2-10.2 [facility] Serum or plasma chloride radha surement (moles/volume)Ordered By: Vern Foster on 04-26-2022 Chloride [Moles/Vol] 99 mmol/L 95-114 [facility] Serum or plasma glucose paul urement (mass/volume)Ordered By: Vern Foster on 04-26-2022 Glucose [Mass/Vol] 131 mg/dL 70-100 [facility] Comment on above: ADA recommended refe rence rangeRandom Glucose Reference Range is dependent on time and content of last meal. Glucose of more than 200 mg/dL in a nonstressed, ambulatory subject supports the diagnosis of Diabetes Mellitus. Serum or plasma potassium me asurement (moles/volume)Ordered By: Vern Foster on 04-26-2022 Potassium [Moles/Vol] 4.0 mmol/L 3.5-5.1 [facility] Serum or plasma sodium measu rement (moles/volume)Ordered By: Vern Foster on 04-26-2022 Sodium [Moles/Vol] 137 mmol/L 136-146 [facility] Serum or plasma total biliru bin measurement (mass/volume)Ordered By: Vern Foster on 04-26-2022 Bilirubin [Mass/Vol] 0.7 mg/dL 0.3-1.2 [facility] Serum or plasma total carbon dioxide measurement (moles/volume)Ordered By: Vern Foster on 04-26-2022 CO2 [Moles/Vol] 24.2 mmol/L 22.0-30.0 [facility] Serum or plasma urea nitroge n measurement (mass/volume)Ordered By: Vern Foster on 04-26-2022 Urea nitrogen [Mass/Vol] 7 mg/dL 04-07 [facility] Urine lactic acid measuremen tOrdered By: Jez Watters on 04-26-2022 Lactate (U) [Moles/Vol] 1.9 mmol/L 0.5-2.2 [facility] Urine culture routineOrdered By: Lio Spencer on 04-25-2022 Bacteria identified Cx Nom (U) 2 Days [facility] Albumin [Mass/volume] in Ser um or PlasmaOrdered By: Lio Spencer on 04-23-2022 Albumin [Mass/Vol] 3.6 g/dL 3.2-5.5 [facility] Automated erythrocytes count in urine sediment (number/area)Ordered By: Lio Spencer on 04-23-2022 RBC Auto (Urine sed) [#/Area] 0-1 [HPF] 0-4 [facility] Automated leukocytes count i n urine sediment (number/area)Ordered By: Lio Spencer on 04-23-2022 WBC Auto (Urine sed) [#/Area] 5-9 [HPF] 0-4 [facility] Basophils Auto (Bld) [#/Vol] Ordered By: Lio Spencer on 04-23-2022 Basophils (Bld) [#/Vol] 0.0 10*3/uL 0.0-0.2 [facility] Basophils/100 WBC Auto (Bld) Ordered By: Lio Spencer on 04-23-2022 Basophils/100 WBC (Bld) 0.5 % . [facility] Bilirubin Test strip Ql (U)O rdered By: Lio Spencer on 04-23-2022 Bilirubin Ql (U) Negative Negative [facility] Blood hemoglobin measurement (mass/volume)Ordered By: Lio Spencer on 04-23-2022 Hemoglobin (Bld) [Mass/Vol] 13.0 g/dL 11.8-15.4 [facility] Blood leukocytes automated c ount (number/volume)Ordered By: Lio Spencer on 04-23-2022 WBC (Bld) [#/Vol] 8.8 10*3/uL 4.5-11.0 [facility] Color Auto (U)Ordered By: Adithya Spencer on 04-23-2022 Color (U) Yellow Yellow [facility] Creatinine and Glomerular fi ltration rate.predicted panel (S/P/Bld)Ordered By: Lio Spencer on 04-23-2022 Creatinine [Mass/Vol] 0.77 mg/dL 0.44-1.03 [facility] Direct bilirubin measurement Ordered By: Lio Spencer on 04-23-2022 Bilirubin.direct [Mass/Vol] mg/dL 0.0-0.4 [facility] Eosinophils Auto (Bld) [#/Vo l]Ordered By: Lio Spencer on 04-23-2022 Eosinophils (Bld) [#/Vol] 0.1 10*3/uL 0.0-0.45 [facility] Eosinophils/100 WBC Auto (Bl d)Ordered By: Lio Specner on 04-23-2022 Eosinophils/100 WBC (Bld) 1.3 % . [facility] Erythrocyte distribution wid th Auto (RBC) [Ratio]Ordered By: Lio Spencer on 04-23-2022 Erythrocyte distribution width (RBC) [Ratio] 15.6 % 11.9-15.3 [facility] Estimated glomerular filtrat ion rate (GFR) non- AmericanOrdered By: Lio Spencer on 04-23-2022 GFR/1.73 sq M.predicted among non-blacks MDRD (S/P/Bld) [Vol rate/Area] > 60 mL/Min [facility] Globulin Calc (S) [Mass/Vol] Ordered By: Lio Spencre on 04-23-2022 Globulin (S) [Mass/Vol] 2.8 g/dL [facility] HCG ( test) IA.rapi d Ql (U)Ordered By: Lio Spencer on 04-23-2022 HCG ( test) Ql (U) Negative [facility] Hematocrit Auto (Bld) [Volum e fraction]Ordered By: Lio Spencer on 04-23-2022 Hematocrit (Bld) [Volume fraction] 39.2 % 34.0-46.4 [facility] Ketones Auto test strip (U) [Mass/Vol]Ordered By: Lio Spencer on 04-23-2022 Ketones (U) [Mass/Vol] Negative Negative [facility] - Chemistry and C hemistry - challengeOrdered By: Lio Spencer on 04-23-2022 Lipase [Catalytic activity/Vol] 94.0 U/L 22-51 [facility] Laboratory - Hematology and Cell countsOrdered By: Lio Spencer on 04-23-2022 Nucleated RBC/100 WBC (Bld) [Ratio] 0.0 % 0-0.5 [facility] Laboratory - UrinalysisOrder ed By: Lio Spencer on 04-23-2022 Hyaline casts LM Ql (Urine sed) 0-8 [LPF] 0-8 [facility] Lymphocytes Auto (Bld) [#/Vo l]Ordered By: Lio Spencer on 04-23-2022 Lymphocytes (Bld) [#/Vol] 1.9 10*3/uL 1.00-4.8 [facility] Lymphocytes/100 WBC Auto (Bl d)Ordered By: Lio Spencer on 04-23-2022 Lymphocytes/100 WBC (Bld) 22.2 % . [facility] MCH Auto (RBC) [Entitic mass ]Ordered By: Lio Spencer on 04-23-2022 MCH (RBC) [Entitic mass] 29.1 pg 24.7-34.3 [facility] MCHC Auto (RBC) [Mass/Vol]Or dered By: Lio Spencer on 04-23-2022 MCHC (RBC) [Mass/Vol] 33.2 g/dL 32.0-35.0 [facility] MCV Auto (RBC) [Entitic vol] Ordered By: Lio Spencer on 04-23-2022 MCV (RBC) [Entitic vol] 87.9 fL 80-100 [facility] Monocytes Auto (Bld) [#/Vol] Ordered By: Lio Spencer on 04-23-2022 Monocytes (Bld) [#/Vol] 0.6 10*3/uL 0.0-0.8 [facility] Monocytes/100 WBC Auto (Bld) Ordered By: Lio Spencer on 04-23-2022 Monocytes/100 WBC (Bld) 7.1 % . [facility] Neutrophils Auto (Bld) [#/Vo l]Ordered By: Lio Spencer on 04-23-2022 Neutrophils (Bld) [#/Vol] 6.0 10*3/uL 1.8-7.7 [facility] Neutrophils/100 WBC Auto (Bl d)Ordered By: Lio Spencer on 04-23-2022 Neutrophils/100 WBC (Bld) 68.9 % . [facility] Nitrite Test strip Ql (U)Ord ered By: Lio Spencer on 04-23-2022 Nitrite Ql (U) Negative Negative [facility] No Panel InformationOrdered By: Lio Spencer on 04-23-2022 Estimated GFR () > 60 mL/Min [facility] Comment on above: GFR estimated refere nce range: According to KDOQI guidelines, <60 ml/min/1.73m2 is sufficient to diagnose a patient with chronic kidney disease. Pharmacy Creatinine Clearance (Chem 113.10 [facility] Platelet mean volume Auto (B ld) [Entitic vol]Ordered By: Lio Spencer on 04-23-2022 Platelet mean volume (Bld) [Entitic vol] 7.1 fL 6.3-10.7 [facility] Platelets Auto (Bld) [#/Vol] Ordered By: Lio Spencer on 04-23-2022 Platelets (Bld) [#/Vol] 374 10*3/uL 150-450 [facility] Protein Auto test strip (U) [Mass/Vol]Ordered By: Lio Spencer on 04-23-2022 Protein (U) [Mass/Vol] Negative Negative [facility] Protein [Mass/volume] in Ser um or PlasmaOrdered By: Lio Spencer on 04-23-2022 Protein [Mass/Vol] 6.4 g/dL 6.1-7.9 [facility] RBC Auto (Bld) [#/Vol]Ordere d By: Lio Spencer on 04-23-2022 RBC (Bld) [#/Vol] 4.46 10*6/uL 3.60-5.[address] [facility] Serum or plasma alanine calderon otransferase measurement without P-5'-P (enzymatic activiOrdered By: Lio Spencer on 04-23-2022 ALT No additional P-5'-P [Catalytic activity/Vol] 16 U/L 1060 [facility] Serum or plasma albumin/glob ulin mass ratioOrdered By: Lio Spencer on 04-23-2022 Albumin/Globulin [Mass ratio] 1.3 {ratio} [facility] Serum or plasma alkaline keaton sphatase measurement (enzymatic activity/volume)Ordered By: Lio Spencer on 04-23-2022 ALP [Catalytic activity/Vol] 98 U/L 32-92 [facility] Serum or plasma anion gap de terminationOrdered By: Lio Spencer on 04-23-2022 Anion gap [Moles/Vol] 11.1 mmol/L 6.0-15.0 [facility] Serum or plasma aspartate am inotransferase measurement (enzymatic activity/volume)Ordered By: Lio Spencer on 04-23-2022 AST [Catalytic activity/Vol] 21 U/L 1042 [facility] Serum or plasma calcium paul urement (mass/volume)Ordered By: Lio Spencer on 04-23-2022 Calcium [Mass/Vol] 9.9 mg/dL 8.2-10.2 [facility] Serum or plasma chloride radha surement (moles/volume)Ordered By: Lio Spencer on 04-23-2022 Chloride [Moles/Vol] 102 mmol/L 95-114 [facility] Serum or plasma glucose paul urement (mass/volume)Ordered By: Lio Spencer on 04-23-2022 Glucose [Mass/Vol] 103 mg/dL 70-100 [facility] Comment on above: ADA recommended refe rence rangeRandom Glucose Reference Range is dependent on time and content of last meal. Glucose of more than 200 mg/dL in a nonstressed, ambulatory subject supports the diagnosis of Diabetes Mellitus. Serum or plasma non-glucuron idated bilirubin measurement (mass/volume)Ordered By: Lio Spencer on 04-23-2022 Bilirubin.indirect [Mass/Vol] TNP [facility] Comment on above: Test not performed Serum or plasma potassium me asurement (moles/volume)Ordered By: Lio Spencer on 04-23-2022 Potassium [Moles/Vol] 4.0 mmol/L 3.5-5.1 [facility] Serum or plasma sodium measu rement (moles/volume)Ordered By: Lio Spencer on 04-23-2022 Sodium [Moles/Vol] 138 mmol/L 136-146 [facility] Serum or plasma total biliru bin measurement (mass/volume)Ordered By: Lio Spencer on 04-23-2022 Bilirubin [Mass/Vol] 0.5 mg/dL 0.3-1.2 [facility] Serum or plasma total carbon dioxide measurement (moles/volume)Ordered By: Lio Spencer on 04-23-2022 CO2 [Moles/Vol] 28.9 mmol/L 22.0-30.0 [facility] Serum or plasma urea nitroge n measurement (mass/volume)Ordered By: Lio Spencer on 04-23-2022 Urea nitrogen [Mass/Vol] 7 mg/dL 9- [facility] Specific gravity Auto test s trip (U) [Rel density]Ordered By: Lio Spencer on 04-23-2022 Specific gravity (U) [Rel density] 1.019 1.001-1.030 [facility] Squamous epithelial cells de tection in urine sediment by light microscopyOrdered By: Lio Spencer on 04-23-2022 Epithelial cells.squamous LM Ql (Urine sed) 5-9 [HPF] 0-2 [facility] Urine bacteria detection by automated methodOrdered By: Lio Spencer on 04-23-2022 Bacteria Auto Ql (U) 1+ None Seen [facility] Urine clarity by refractomet ry automatedOrdered By: Lio Spencer on 04-23-2022 Clarity Refractometry automated (U) Cloudy Clear [facility] Urine glucose measurement by automated test strip (mass/volume)Ordered By: Lio Spencer on 04-23-2022 Glucose Auto test strip (U) [Mass/Vol] Normal mg/dL Normal [facility] Urine hemoglobin detection b y automated test stripOrdered By: Lio Spencer on 04-23-2022 Hemoglobin Auto test strip Ql (U) Negative Negative [facility] Urine leukocyte esterase det ection by automated test stripOrdered By: Lio Spencer on 04-23-2022 Leukocyte esterase Auto test strip Ql (U) 1+ Negative [facility] Urobilinogen Auto test strip (U) [Mass/Vol]Ordered By: Lio Spencer on 04-23-2022 Urobilinogen (U) [Mass/Vol] Normal mg/dL Normal [facility] pH Auto test strip (U)Ordere d By: Lio Spencer on 04-23-2022 pH (U) 6.5 [pH] 5.0-9.0 [facility] Albumin [Mass/volume] in Ser um or PlasmaOrdered By: Vern Foster on 04-09-2022 Albumin [Mass/Vol] 3.7 g/dL 3.2-5.5 [facility] Basophils Auto (Bld) [#/Vol] Ordered By: Vern Foster on 04-09-2022 Basophils (Bld) [#/Vol] 0.1 10*3/uL 0.0-0.2 [facility] Basophils/100 WBC Auto (Bld) Ordered By: Vern Foster on 04-09-2022 Basophils/100 WBC (Bld) 1.0 % . [facility] Bilirubin Test strip Ql (U)O rdered By: Vern Foster on 04-09-2022 Bilirubin Ql (U) Negative Negative [facility] Blood hemoglobin measurement (mass/volume)Ordered By: Vern Foster on 04-09-2022 Hemoglobin (Bld) [Mass/Vol] 12.6 g/dL 11.8-15.4 [facility] Blood leukocytes automated c ount (number/volume)Ordered By: Vern Foster on 04-09-2022 WBC (Bld) [#/Vol] 8.5 10*3/uL 4.5-11.0 [facility] Color Auto (U)Ordered By: Raul Foster on 04-09-2022 Color (U) Yellow Yellow [facility] Creatinine and Glomerular fi ltration rate.predicted panel (S/P/Bld)Ordered By: Vern Foster on 04-09-2022 Creatinine [Mass/Vol] 0.74 mg/dL 0.44-1.03 [facility] Eosinophils Auto (Bld) [#/Vo l]Ordered By: Vern Foster on 04-09-2022 Eosinophils (Bld) [#/Vol] 0.1 10*3/uL 0.0-0.45 [facility] Eosinophils/100 WBC Auto (Bl d)Ordered By: Vern Foster on 04-09-2022 Eosinophils/100 WBC (Bld) 1.7 % . [facility] Erythrocyte distribution wid th Auto (RBC) [Ratio]Ordered By: Vern Foster on 04-09-2022 Erythrocyte distribution width (RBC) [Ratio] 15.3 % 11.9-15.3 [facility] Estimated glomerular filtrat ion rate (GFR) non- AmericanOrdered By: Vern Foster on 04-09-2022 GFR/1.73 sq M.predicted among non-blacks MDRD (S/P/Bld) [Vol rate/Area] > 60 mL/Min [facility] Globulin Calc (S) [Mass/Vol] Ordered By: Vern Foster on 04-09-2022 Globulin (S) [Mass/Vol] 2.9 g/dL [facility] HCG ( test) IA.rapi d Ql (U)Ordered By: Vern Foster on 04-09-2022 HCG ( test) Ql (U) Positive [facility] Hematocrit Auto (Bld) [Volum e fraction]Ordered By: Vern Foster on 04-09-2022 Hematocrit (Bld) [Volume fraction] 38.6 % 34.0-46.4 [facility] Ketones Auto test strip (U) [Mass/Vol]Ordered By: Vern Foster on 04-09-2022 Ketones (U) [Mass/Vol] Negative Negative [facility] - Hematology and Cell countsOrdered By: Vern Foster on 04-09-2022 Nucleated RBC/100 WBC (Bld) [Ratio] 0.1 % 0-0.5 [facility] Lymphocytes Auto (Bld) [#/Vo l]Ordered By: Vern Foster on 09-25-2022 Lymphocytes (Bld) [#/Vol] 2.3 10*3/uL 1.00-4.8 [facility] Lymphocytes/100 WBC Auto (Bl d)Ordered By: Vern Foster on 04-09-2022 Lymphocytes/100 WBC (Bld) 26.7 % . [facility] MCH Auto (RBC) [Entitic mass ]Ordered By: Vern Foster on 04-09-2022 MCH (RBC) [Entitic mass] 28.8 pg 24.7-34.3 [facility] MCHC Auto (RBC) [Mass/Vol]Or dered By: Vern Foster on 04-09-2022 MCHC (RBC) [Mass/Vol] 32.7 g/dL 32.0-35.0 [facility] MCV Auto (RBC) [Entitic vol] Ordered By: Vern Foster on 04-09-2022 MCV (RBC) [Entitic vol] 88.3 fL 80-100 [facility] Monocytes Auto (Bld) [#/Vol] Ordered By: Vern Foster on 04-09-2022 Monocytes (Bld) [#/Vol] 0.5 10*3/uL 0.0-0.8 [facility] Monocytes/100 WBC Auto (Bld) Ordered By: Vern Foster on 04-09-2022 Monocytes/100 WBC (Bld) 5.7 % . [facility] Neutrophils Auto (Bld) [#/Vo l]Ordered By: Vern Foster on 04-09-2022 Neutrophils (Bld) [#/Vol] 5.5 10*3/uL 1.8-7.7 [facility] Neutrophils/100 WBC Auto (Bl d)Ordered By: Vern Foster on 04-09-2022 Neutrophils/100 WBC (Bld) 64.9 % . [facility] Nitrite Test strip Ql (U)Ord ered By: Vern Foster on 04-09-2022 Nitrite Ql (U) Negative Negative [facility] No Panel InformationOrdered By: Vern Foster on 04-09-2022 Estimated GFR () > 60 mL/Min [facility] Comment on above: GFR estimated refere nce range: According to KDOQI guidelines, <60 ml/min/1.73m2 is sufficient to diagnose a patient with chronic kidney disease. Pharmacy Creatinine Clearance (Chem 120.43 [facility] Platelet mean volume Auto (B ld) [Entitic vol]Ordered By: Vern Foster on 04-09-2022 Platelet mean volume (Bld) [Entitic vol] 7.3 fL 6.3-10.7 [facility] Platelets Auto (Bld) [#/Vol] Ordered By: Vern Foster on 04-09-2022 Platelets (Bld) [#/Vol] 401 10*3/uL 150-450 [facility] Protein Auto test strip (U) [Mass/Vol]Ordered By: Vern Foster on 04-09-2022 Protein (U) [Mass/Vol] Negative Negative [facility] Protein [Mass/volume] in Ser um or PlasmaOrdered By: Vern Foster on 04-09-2022 Protein [Mass/Vol] 6.6 g/dL 6.1-7.9 [facility] RBC Auto (Bld) [#/Vol]Ordere d By: Vern Foster on 04-09-2022 RBC (Bld) [#/Vol] 4.37 10*6/uL 3.60-5.[address] [facility] Serum or plasma alanine calderon otransferase measurement without P-5'-P (enzymatic activiOrdered By: Vern Foster on 04-09-2022 ALT No additional P-5'-P [Catalytic activity/Vol] 17 U/L 10-60 [facility] Serum or plasma albumin/glob ulin mass ratioOrdered By: Vern Foster on 04-09-2022 Albumin/Globulin [Mass ratio] 1.3 {ratio} [facility] Serum or plasma alkaline keaton sphatase measurement (enzymatic activity/volume)Ordered By: Vern Foster on 04-09-2022 ALP [Catalytic activity/Vol] 100 U/L 32-92 [facility] Serum or plasma anion gap de terminationOrdered By: Vern Foster on 04-09-2022 Anion gap [Moles/Vol] 14.2 mmol/L 6.0-15.0 [facility] Serum or plasma aspartate am inotransferase measurement (enzymatic activity/volume)Ordered By: Vern Foster on 04-09-2022 AST [Catalytic activity/Vol] 21 U/L 10-42 [facility] Serum or plasma beta choriog onadotropin measurement (units/volume)Ordered By: Dereje Bentley on 04-09-2022 HCG.beta subunit Qn 38.61 m[IU]/mL [facility] Comment on above: Approximate Approxim ate hCG Gestational Age Range (mIU/ml) (weeks)0.2-1 5-50 1-2 50-500 2-3 100-5,000 3-4 500-10,000 4-5 1,000-50,000 5-6 10,000-100,000 6-8 15,000-200,000 8-12 10,000-100,000 Serum or plasma calcium paul urement (mass/volume)Ordered By: Vern Foster on 04-09-2022 Calcium [Mass/Vol] 9.9 mg/dL 8.2-10.2 [facility] Serum or plasma chloride radha surement (moles/volume)Ordered By: Vern Foster on 04-09-2022 Chloride [Moles/Vol] 101 mmol/L 95-114 [facility] Serum or plasma glucose paul urement (mass/volume)Ordered By: Vern Foster on 04-09-2022 Glucose [Mass/Vol] 98 mg/dL 70-100 [facility] Comment on above: ADA recommended refe rence range Random Glucose Reference Range is dependent on time and content of last meal. Glucose of more than 200 mg/dL in a nonstressed, ambulatory subject supports the diagnosis of Diabetes Mellitus. ADA recommended refe rence rangeRandom Glucose Reference Range is dependent on time and content of last meal. Glucose of more than 200 mg/dL in a nonstressed, ambulatory subject supports the diagnosis of Diabetes Mellitus. Serum or plasma potassium me asurement (moles/volume)Ordered By: Vern Foster on 04-09-2022 Potassium [Moles/Vol] 4.3 mmol/L 3.5-5.1 [facility] Serum or plasma sodium measu rement (moles/volume)Ordered By: Vern Foster on 04-09-2022 Sodium [Moles/Vol] 140 mmol/L 136-146 [facility] Serum or plasma total biliru bin measurement (mass/volume)Ordered By: Vern Foster on 04-09-2022 Bilirubin [Mass/Vol] 0.4 mg/dL 0.3-1.2 [facility] Serum or plasma total carbon dioxide measurement (moles/volume)Ordered By: Vern Foster on 04-09-2022 CO2 [Moles/Vol] 29.1 mmol/L 22.0-30.0 [facility] Serum or plasma urea nitroge n measurement (mass/volume)Ordered By: Vern Foster on 04-09-2022 Urea nitrogen [Mass/Vol] 6 mg/dL 04-07 [facility] Specific gravity Auto test s trip (U) [Rel density]Ordered By: Vern Foster on 04-09-2022 Specific gravity (U) [Rel density] 1.030 1.001-1.030 [facility] Urine clarity by refractomet ry automatedOrdered By: Vern Foster on 04-09-2022 Clarity Refractometry automated (U) Clear Clear [facility] Urine glucose measurement by automated test strip (mass/volume)Ordered By: Vern Foster on 04-09-2022 Glucose Auto test strip (U) [Mass/Vol] Normal mg/dL Normal [facility] Urine hemoglobin detection b y automated test stripOrdered By: Vern Foster on 04-09-2022 Hemoglobin Auto test strip Ql (U) Negative Negative [facility] Urine leukocyte esterase det ection by automated test stripOrdered By: Vern Foster on 04-09-2022 Leukocyte esterase Auto test strip Ql (U) Negative Negative [facility] Urobilinogen Auto test strip (U) [Mass/Vol]Ordered By: Vern Foster on 04-09-2022 Urobilinogen (U) [Mass/Vol] Normal mg/dL Normal [facility] pH Auto test strip (U)Ordere d By: Vern Foster on 04-09-2022 pH (U) 6.0 [pH] 5.0-9.0 [facility] Urine culture routineOrdered By: Maria Teresa Hodge on 03-15-2022 Bacteria identified Cx Nom (U) 2 Days [facility] Albumin [Mass/volume] in Ser um or PlasmaOrdered By: Maria Teresa Hodge on 03-13-2022 Albumin [Mass/Vol] 3.8 g/dL 3.2-5.5 [facility] Automated erythrocytes count in urine sediment (number/area)Ordered By: Maria Teresa Hodge on 03-13-2022 RBC Auto (Urine sed) [#/Area] 0-1 [HPF] 0-4 [facility] Automated leukocytes count i n urine sediment (number/area)Ordered By: Maria Teresa Hodge on 03-13-2022 WBC Auto (Urine sed) [#/Area] 10-19 [HPF] 0-4 [facility] Basophils Auto (Bld) [#/Vol] Ordered By: Maria Teresa Hodge on 03-13-2022 Basophils (Bld) [#/Vol] 0.0 10*3/uL 0.0-0.2 [facility] Basophils/100 WBC Auto (Bld) Ordered By: Maria Teresa Hodge on 03-13-2022 Basophils/100 WBC (Bld) 0.4 % . [facility] Bilirubin Test strip Ql (U)O rdered By: Maria Teresa Hodge on 03-13-2022 Bilirubin Ql (U) Negative Negative [facility] Blood hemoglobin measurement (mass/volume)Ordered By: Maria Teresa Hodge on 03-13-2022 Hemoglobin (Bld) [Mass/Vol] 13.5 g/dL 11.8-15.4 [facility] Blood leukocytes automated c ount (number/volume)Ordered By: Maria Teresa Hodge on 03-13-2022 WBC (Bld) [#/Vol] 10.1 10*3/uL 4.5-11.[address] [facility] Center Color Auto (U)Ordered By: Cookie Hodge on 03-13-2022 Color (U) Yellow Yellow [facility] Creatinine and Glomerular fi ltration rate.predicted panel (S/P/Bld)Ordered By: Maria Teresa Hodge on 03-13-2022 Creatinine [Mass/Vol] 0.72 mg/dL 0.44-1.03 [facility] Eosinophils Auto (Bld) [#/Vo l]Ordered By: Maria Teresa Hodge on 03-13-2022 Eosinophils (Bld) [#/Vol] 0.0 10*3/uL 0.0-0.45 [facility] Eosinophils/100 WBC Auto (Bl d)Ordered By: Maria Teresa Hodge on 03-13-2022 Eosinophils/100 WBC (Bld) 0.1 % . [facility] Erythrocyte distribution wid th Auto (RBC) [Ratio]Ordered By: Maria Teresa Hodge on 03-13-2022 Erythrocyte distribution width (RBC) [Ratio] 14.2 % 11.9-15.3 [facility] Estimated glomerular filtrat ion rate (GFR) non- AmericanOrdered By: Maria Teresa Hodge on 03-13-2022 GFR/1.73 sq M.predicted among non-blacks MDRD (S/P/Bld) [Vol rate/Area] > 60 mL/Min [facility] Globulin Calc (S) [Mass/Vol] Ordered By: Maria Teresa Hodge on 03-13-2022 Globulin (S) [Mass/Vol] 3.5 g/dL [facility] HCG ( test) IA.rapi d Ql (U)Ordered By: Maria Teresa Hodge on 03-13-2022 HCG ( test) Ql (U) Negative [facility] HCG ( test) Ql (U) Positive [facility] Hematocrit Auto (Bld) [Volum e fraction]Ordered By: Maria Teresa Hodge on 03-13-2022 Hematocrit (Bld) [Volume fraction] 42.0 % 34.0-46.4 [facility] Ketones Auto test strip (U) [Mass/Vol]Ordered By: Maria Teresa Hodge on 03-13-2022 Ketones (U) [Mass/Vol] Negative Negative [facility] - Chemistry and C hemistry - challengeOrdered By: Maria Teresa Hodge on 03-13-2022 Lipase [Catalytic activity/Vol] 33.0 U/L 22-51 [facility] - Hematology and Cell countsOrdered By: Maria Teresa Hdoge on 03-13-2022 Nucleated RBC/100 WBC (Bld) [Ratio] 0.0 % 0-0.5 [facility] - UrinalysisOrder ed By: Maria Teresa Hodge on 03-13-2022 Hyaline casts LM Ql (Urine sed) 0-8 [LPF] 0-8 [facility] Lymphocytes Auto (Bld) [#/Vo l]Ordered By: Maria Teresa Hodge on 03-13-2022 Lymphocytes (Bld) [#/Vol] 1.3 10*3/uL 1.00-4.8 [facility] Lymphocytes/100 WBC Auto (Bl d)Ordered By: Maria Teresa Hodge on 03-13-2022 Lymphocytes/100 WBC (Bld) 12.7 % . [facility] MCH Auto (RBC) [Entitic mass ]Ordered By: Maria Teresa Hodge on 03-13-2022 MCH (RBC) [Entitic mass] 28.8 pg 24.7-34.3 [facility] MCHC Auto (RBC) [Mass/Vol]Or dered By: Maria Teresa Hodge on 03-13-2022 MCHC (RBC) [Mass/Vol] 32.3 g/dL 32.0-35.0 [facility] MCV Auto (RBC) [Entitic vol] Ordered By: Maria Teresa Hodge on 03-13-2022 MCV (RBC) [Entitic vol] 89.2 fL 80-100 [facility] Monocytes Auto (Bld) [#/Vol] Ordered By: Maria Teresa Hodge on 03-13-2022 Monocytes (Bld) [#/Vol] 0.4 10*3/uL 0.0-0.8 [facility] Monocytes/100 WBC Auto (Bld) Ordered By: Maria Teresa Hodge on 03-13-2022 Monocytes/100 WBC (Bld) 4.2 % . [facility] Neutrophils Auto (Bld) [#/Vo l]Ordered By: Maria Teresa Hodge on 03-13-2022 Neutrophils (Bld) [#/Vol] 8.4 10*3/uL 1.8-7.7 [facility] Neutrophils/100 WBC Auto (Bl d)Ordered By: Maria Teresa Hodge on 03-13-2022 Neutrophils/100 WBC (Bld) 82.6 % . [facility] Nitrite Test strip Ql (U)Ord ered By: Maria Teresa Hodge on 03-13-2022 Nitrite Ql (U) Negative Negative [facility] No Panel InformationOrdered By: Maria Teresa Hodge on 03-13-2022 Estimated GFR () > 60 mL/Min [facility] Comment on above: GFR estimated refere nce range: According to KDOQI guidelines, <60 ml/min/1.73m2 is sufficient to diagnose a patient with chronic kidney disease. Pharmacy Creatinine Clearance (Chem 124.15 [facility] Platelet mean volume Auto (B ld) [Entitic vol]Ordered By: Maria Teresa Hodge on 03-13-2022 Platelet mean volume (Bld) [Entitic vol] 7.3 fL 6.3-10.7 [facility] Platelets Auto (Bld) [#/Vol] Ordered By: Maria Teresa Hodge on 03-13-2022 Platelets (Bld) [#/Vol] 406 10*3/uL 150-450 [facility] Protein Auto test strip (U) [Mass/Vol]Ordered By: Maria Teresa Hodge on 03-13-2022 Protein (U) [Mass/Vol] Negative Negative [facility] Protein [Mass/volume] in Ser um or PlasmaOrdered By: Maria Teresa Hodge on 03-13-2022 Protein [Mass/Vol] 7.3 g/dL 6.1-7.9 [facility] RBC Auto (Bld) [#/Vol]Ordere d By: Maria Teresa Hodge on 03-13-2022 RBC (Bld) [#/Vol] 4.71 10*6/uL 3.60-5.[address] [facility] Serum or plasma alanine calderon otransferase measurement without P-5'-P (enzymatic activiOrdered By: Maria Teresa Hodge on 03-13-2022 ALT No additional P-5'-P [Catalytic activity/Vol] 20 U/L 10-60 [facility] Serum or plasma albumin/glob ulin mass ratioOrdered By: Maria Teresa Hodge on 03-13-2022 Albumin/Globulin [Mass ratio] 1.1 {ratio} [facility] Serum or plasma alkaline keaton sphatase measurement (enzymatic activity/volume)Ordered By: Maria Teresa Hodge on 03-13-2022 ALP [Catalytic activity/Vol] 117 U/L 32-92 [facility] Serum or plasma anion gap de terminationOrdered By: Maria Teresa Hodge on 03-13-2022 Anion gap [Moles/Vol] 12.4 mmol/L 6.0-15.0 [facility] Serum or plasma aspartate am inotransferase measurement (enzymatic activity/volume)Ordered By: Maria Teresa Hodge on 03-13-2022 AST [Catalytic activity/Vol] 25 U/L 10-42 [facility] Serum or plasma calcium paul urement (mass/volume)Ordered By: Maria Teresa Hodge on 03-13-2022 Calcium [Mass/Vol] 9.8 mg/dL 8.2-10.2 [facility] Serum or plasma chloride radha surement (moles/volume)Ordered By: Maria Teresa Hodge on 03-13-2022 Chloride [Moles/Vol] 100 mmol/L 95-114 [facility] Serum or plasma glucose paul urement (mass/volume)Ordered By: Maria Teresa Hodge on 03-13-2022 Glucose [Mass/Vol] 109 mg/dL 70-100 [facility] Comment on above: ADA recommended refe rence range Random Glucose Reference Range is dependent on time and content of last meal. Glucose of more than 200 mg/dL in a nonstressed, ambulatory subject supports the diagnosis of Diabetes Mellitus. ADA recommended refe rence rangeRandom Glucose Reference Range is dependent on time and content of last meal. Glucose of more than 200 mg/dL in a nonstressed, ambulatory subject supports the diagnosis of Diabetes Mellitus. Serum or plasma potassium me asurement (moles/volume)Ordered By: Maria Teresa Hodge on 03-13-2022 Potassium [Moles/Vol] 4.4 mmol/L 3.5-5.1 [facility] Serum or plasma sodium measu rement (moles/volume)Ordered By: Maria Teresa Hodge on 03-13-2022 Sodium [Moles/Vol] 136 mmol/L 136-146 [facility] Serum or plasma total biliru bin measurement (mass/volume)Ordered By: Maria Teresa Hodge on 03-13-2022 Bilirubin [Mass/Vol] 0.5 mg/dL 0.3-1.2 [facility] Serum or plasma total carbon dioxide measurement (moles/volume)Ordered By: Maria Teresa Hodge on 03-13-2022 CO2 [Moles/Vol] 28.0 mmol/L 22.0-30.0 [facility] Serum or plasma urea nitroge n measurement (mass/volume)Ordered By: Maria Teresa Hodge on 03-13-2022 Urea nitrogen [Mass/Vol] 6 mg/dL 9-23 [facility] Specific gravity Auto test s trip (U) [Rel density]Ordered By: Maria Teresa Hodge on 03-13-2022 Specific gravity (U) [Rel density] 1.012 1.001-1.030 [facility] Squamous epithelial cells de tection in urine sediment by light microscopyOrdered By: Maria Teresa Hodge on 03-13-2022 Epithelial cells.squamous LM Ql (Urine sed) 10-19 [HPF] 0-2 [facility] Urine bacteria detection by automated methodOrdered By: Maria Teresa Hodge on 03-13-2022 Bacteria Auto Ql (U) 2+ None Seen [facility] Urine clarity by refractomet ry automatedOrdered By: Maria Teresa Hodge on 03-13-2022 Clarity Refractometry automated (U) Turbid Clear [facility] Urine glucose measurement by automated test strip (mass/volume)Ordered By: Maria Teresa Hodge on 03-13-2022 Glucose Auto test strip (U) [Mass/Vol] Normal mg/dL Normal [facility] Urine hemoglobin detection b y automated test stripOrdered By: Maria Teresa Hodge on 03-13-2022 Hemoglobin Auto test strip Ql (U) Negative Negative [facility] Urine leukocyte esterase det ection by automated test stripOrdered By: Maria Teresa Hodge on 03-13-2022 Leukocyte esterase Auto test strip Ql (U) 1+ Negative [facility] Urobilinogen Auto test strip (U) [Mass/Vol]Ordered By: Maria Teresa Hodge on 03-13-2022 Urobilinogen (U) [Mass/Vol] Normal mg/dL Normal [facility] pH Auto test strip (U)Ordere d By: Maria Teresa Viktorhali on 03-13-2022 pH (U) 8.5 [pH] 5.0-9.0 [facility] AMYLASEon 03-09-2022 Amylase [Catalytic activity/Vol] 49 U/L Normal 25-115 [facility] Comment on above: Performed By: #### L IVER, LIPA, BMP, GARY #### [facility] [address] [place] [address] Dr. Paras Grover CBC AUTO DIFFon 03-09-2022 BASO # 0.1 103/ul Normal 0.0-0.1 [facility] Comment on above: Performed By: #### C BC #### [facility] [address] [place] [address] Dr. Paras Grover Basophils/100 WBC (Bld) 0.6 % Normal 0.2-2.0 [facility] Comment on above: Performed By: #### C BC #### [facility] [address] [place] [address] Dr. Paras Grover EO # 0.1 103/ul Normal 0.0-0.7 [facility] Comment on above: Performed By: #### C BC #### [facility] [address] [place] [address] Dr. Paras Grover Eosinophils/100 WBC (Bld) 0.5 % Critically low 0.9-7.0 [facility] Comment on above: Performed By: #### C BC #### [facility] [address] [place] [address] Dr. Paras Grover Erythrocyte distribution width (RBC) [Ratio] 13.2 % Normal 11.0-15.0 [facility] Comment on above: Performed By: #### C BC #### [facility] [address] [place] [address] Dr. Paras Grover Hematocrit (Bld) [Volume fraction] 43.7 % Normal 36.0-48.0 [facility] Comment on above: Performed By: #### C BC #### [facility] [address] [place] [address] Dr. Paras Grover Hemoglobin (Bld) [Mass/Vol] 14.1 g/dL Normal 12.0-16.0 [facility] Comment on above: Performed By: #### C BC #### [facility] [address] [place] [address] Dr. Paras Grover IG # 0.05 10e3/ul Critically high 0.00-0.03 [facility] Comment on above: Performed By: #### C BC #### [facility] [address] [place] [address] Dr. Paras Grover IG % 0.4 % Normal 0.0-0.5 [facility] Comment on above: Performed By: #### C BC #### [facility] [address] [place] [address] Dr. Paras Grover LYMPH # 2.6 103/ul Normal 1.2-3.8 [facility] Comment on above: Performed By: #### C BC #### [facility] [address] [place] [address] Dr. Paras Grover Lymphocytes/100 WBC (Bld) 20.2 % Critically low 20.5-60.0 [facility] Comment on above: Performed By: #### C BC #### [facility] [address] [place] [address] Dr. Paras Grover MANUAL DIFF REQ NO Normal [facility] Comment on above: Performed By: #### C BC #### [facility] [address] [place] [address] Dr. Paras Grover MCH (RBC) [Entitic mass] 29.4 pg Normal 26.7-34.0 [facility] Comment on above: Performed By: #### C BC #### [facility] [address] [place] [address] Dr. Paras Grover MCHC (RBC) [Mass/Vol] 32.3 g/dL Normal 29.9-35.2 [facility] Comment on above: Performed By: #### C BC #### [facility] [address] [place] [address] Dr. Paras Grover MCV (RBC) [Entitic vol] 91.2 fL Normal 81.0-99.0 [facility] Comment on above: Performed By: #### C BC #### [facility] [address] [place] [address] Dr. Paras Grover MONO # 0.9 103/ul Critically high 0.3-0.8 [facility] Comment on above: Performed By: #### C BC #### [facility] [address] [place] [address] Dr. Paras Grover Monocytes/100 WBC (Bld) 6.7 % Normal 1.7-12.0 [facility] Comment on above: Performed By: #### C BC #### [facility] [address] [place] [address] Dr. Paras Grover NEUT # 9.3 103/ul Critically high 1.4-6.5 [facility] Comment on above: Performed By: #### C BC #### [facility] [address] [place] [address] Dr. Paras Grover Neutrophils/100 WBC (Bld) 71.6 % Normal 43.0-75.0 [facility] Comment on above: Performed By: #### C BC #### [facility] [address] [place] [address] Dr. Paras Grover Platelet mean volume (Bld) [Entitic vol] 8.6 fL Critically low 9.5-13.5 [facility] Comment on above: Performed By: #### C BC #### [facility] [address] [place] [address] Dr. Paras Grover PLT 479 103/ul Critically high 150-450 [facility] Comment on above: Performed By: #### C BC #### [facility] [address] [place] [address] Dr. Paras Grover RBC 4.79 106/ul Normal 4.20-5.40 [facility] Comment on above: Performed By: #### C BC #### [facility] [address] [place] [address] Dr. Paras Grover WBC 13.0 103/ul Critically high 4.0-11.0 [facility] Comment on above: Performed By: #### C BC #### [facility] [address] [place] [address] ABD/PELV W CONon 03-09-20 CT ABD/PELV W CON EXAMINATION: CT ABD/ PELV W CON, 03/09/2022 11:14 AM PDT HISTORY: UNSPECIFIED ABDOMINAL PAIN COMPARISON: None TECHNIQUE: CT scan of the abdomen and pelvis was performed with IV contrast. CT dose reduction technique was used, including Automated Exposure Control. FINDINGS: Lung: No significant finding. Liver: Hepatic steatosis. Gallbladder: Absent. Spleen: No significant finding. Pancreas: No significant finding. Adrenal glands: Bilateral adreniform thickening. Kidneys, ureters and bladder: No significant finding. Bowel: Colonic diverticulosis. Prior appendectomy noted. Peritoneum/retroperitoneum : No significant finding. Lymph nodes: No significant finding. Vessels: No significant finding. Body wall: No significant finding. Reproductive: 4.5 cm multi septated left adnexal cyst. 5 mm metallic density in the region of the anterior vaginal wall and posterior bladder wall. Bones: Degenerative changes of the spine. IMPRESSION: No acute findings. 4.5 cm multi septated left adnexal cyst. Nonemergent ultrasound is recommended to further characterize. Metallic density along the anterior vagina/posterior bladder wall. Clinically correlate. Hepatic steatosis Electronically authenticated by: ALYX FIGUEROA Date: 2022-03-09 15:01 Normal [facility] LIPASEon 03-09-2022 Lipase [Catalytic activity/Vol] 97.0 U/L Normal 73.0-393.0 [facility] Comment on above: Performed By: #### L IVER, LIPA, BMP, GARY #### [facility] [address] [address] [address] Paras Grover LIVER PROFILEon 03-09-2022 Albumin [Mass/Vol] 4.2 g/dL Normal 3.4-5.0 [facility] Comment on above: Performed By: #### L IVER, LIPA, BMP, GARY #### [facility] [address] [address] [address] Paras Grover Albumin/Globulin [Mass ratio] 1.0 {ratio} Normal [facility] Comment on above: Performed By: #### L IVER, LIPA, BMP, GARY #### [facility] [address] [place] [address] Dr. Paras Grover ALP [Catalytic activity/Vol] 160 U/L Critically high 46-116 [facility] Comment on above: Performed By: #### L IVER, LIPA, BMP, GARY #### [facility] [address] [place] [address] Dr. Paras Grover ALT [Catalytic activity/Vol] 26 U/L Normal 14-59 [facility] Comment on above: Performed By: #### L IVER, LIPA, BMP, GARY #### [facility] [address] [place] [address] Dr. Paras Grover AST [Catalytic activity/Vol] 27 U/L Normal 15-37 [facility] Comment on above: Performed By: #### L IVER, LIPA, BMP, GARY #### [facility] [address] [place] [address] Dr. Paras Grover BILI, CONJUGATED 0.1 mg/dL Normal 0.0-0.2 [facility] Comment on above: Performed By: #### L IVER, LIPA, BMP, GARY #### [facility] [address] [place] [address] Dr. Paras Grover Bilirubin [Mass/Vol] 0.4 mg/dL Normal 0.2-1.0 [facility] Comment on above: Performed By: #### L IVER, LIPA, BMP, GARY #### [facility] [address] [place] [address] Dr. Paras Grover Globulin (S) [Mass/Vol] 4.1 g/dL Normal [facility] Comment on above: Performed By: #### L IVER, LIPA, BMP, GARY #### [facility] [address] [place] [address] Dr. Paras Grover Protein [Mass/Vol] 8.3 g/dL Critically high 6.4-8.2 [facility] Comment on above: Performed By: #### L IVER, LIPA, BMP, GARY #### [facility] [address] [address] [address] Paras Grover PREG HCG QUALon 03-09-2022 , QUAL Positive Abnormal NEGATIVE [facility] Comment on above: Performed By: #### C BC #### [facility] [id number] Paras Grover PREG QUANT HCGon 03-09-2022 HCG QUANT 37 mIU/mL Normal [facility] Comment on above: Performed By: #### C BC #### [facility] [address] [address] [address] Paras Grover HCG RANGE SEE BELOW Normal [facility] Comment on above: Result Comment: 5-50 0.2-1 WEEK 50-500 1-2 WEEKS 100-5,000 2-3 WEEKS 500-10,000 3-4 WEEKS 1,000-50,000 4-5 WEEKS 10,000-100,000 5-6 WEEKS 15,000-200,000 6-8 WEEKS 10,000-100,000 2-3 MONTHS Performed By: #### C BC #### [facility] [address] [place] [address] Dr. Paras Grover Result Comment: TEST PERFORMED AT: [facility] [address] [place], [place] [address] [address] PROF CHEM 8 (BAS METB)on Anion gap [Moles/Vol] 15.0 mmol/L Normal [facility] Comment on above: Performed By: #### C BC #### [facility] [address] [place] [address] Dr. Paras Grover Calcium [Mass/Vol] 9.7 mg/dL Normal 8.5-10.1 [facility] Comment on above: Performed By: #### C BC #### [facility] [address] [place] [address] Dr. Paras Grover Chloride [Moles/Vol] 99 mmol/L Normal 98-107 [facility] Comment on above: Performed By: #### C BC #### [facility] [address] [address] [address] Paras Grover CO2 [Moles/Vol] 26.5 mmol/L Normal 21.0-32.0 [facility] Comment on above: Performed By: #### C BC #### [facility] [address] [address] [address] Paras Grover Creatinine [Mass/Vol] 0.76 mg/dL Normal 0.55-1.02 [facility] Comment on above: Performed By: #### C BC #### [facility] [address] [place] [address] Dr. Paras Grover EGFR-AF GUINEAN >60 Normal >=60 [facility] Comment on above: Performed By: #### C BC #### [facility] [address] [place] [address] Dr. Paras Grover EGFR-NON AF GUINEAN >60 Normal >=60 [facility] Comment on above: Performed By: #### C BC #### [facility] [address] [address] [address] Paras Grover Glucose [Mass/Vol] 117 mg/dL Critically high 74-106 T [facility] Comment on above: Performed By: #### C BC #### [facility] [address] [place] [address] Dr. Paras Grover Potassium [Moles/Vol] 3.5 mmol/L Normal 3.5-5.1 [facility] Comment on above: Performed By: #### C BC #### [facility] [address] [address] [address] Paras Grover Sodium [Moles/Vol] 137 mmol/L Normal 136-145 [facility] Comment on above: Performed By: #### C BC #### [facility] [address] [place] [address] Dr. Paras Grover Urea nitrogen [Mass/Vol] 7.0 mg/dL Normal 7.0-18.0 [facility] Comment on above: Performed By: #### C BC #### [facility] [address] [place] [address] Dr. Paras Grover Urea nitrogen/Creatinine [Mass ratio] 9.2 mg/mg Normal [facility] Comment on above: Performed By: #### C BC #### [facility] [address] [address] [address] Paras Grover Serum or plasma beta choriog onadotropin measurement (units/volume)Ordered By: NON STAFF on 03-09-2022 HCG.beta subunit Qn 37.42 m[IU]/mL F [facility] Comment on above: Approximate Approxim ate hCG Gestational Age Range (mIU/ml) (weeks) 0.2-1 5-50 1-2 50-500 2-3 100-5,000 3-4 500-10,000 4-5 1,000-50,000 5-6 10,000-100,000 6-8 15,000-200,000 8-12 10,000-100,000 Approximate Approxim ate hCG Gestational Age Range (mIU/ml) (weeks)0.2-1 5-50 1-2 50-500 2-3 100-5,000 3-4 500-10,000 4-5 1,000-50,000 5-6 10,000-100,000 6-8 15,000-200,000 8-12 10,000-100,000 Albumin [Mass/volume] in Ser um or PlasmaOrdered By: Violetta Bah on 02-02-2022 Albumin [Mass/Vol] 3.3 g/dL 3.2-5.5 [facility] Amphetamine Screen Ql (U)Ord ered By: Violetta Bah on 02-02-2022 Amphetamines Ql (U) Negative Negative [facility] Automated erythrocytes count in urine sediment (number/area)Ordered By: Violetta Bah on 02-02-2022 RBC Auto (Urine sed) [#/Area] 0-1 [HPF] 0-4 [facility] Automated leukocytes count i n urine sediment (number/area)Ordered By: Violetta Bah on 02-02-2022 WBC Auto (Urine sed) [#/Area] 3-4 [HPF] 0-4 [facility] Barbiturates [Presence] in U rineOrdered By: Violetta Bah on 02-02-2022 Barbiturates Ql (U) Negative Negative [facility] Basophils Auto (Bld) [#/Vol] Ordered By: Violetta Bah on 02-02-2022 Basophils (Bld) [#/Vol] 0.1 10*3/uL 0.0-0.2 [facility] Basophils/100 WBC Auto (Bld) Ordered By: Violetta Bah on 02-02-2022 Basophils/100 WBC (Bld) 1.3 % . [facility] Benzodiazepines [Presence] i n UrineOrdered By: Violetta Bah on 02-02-2022 Benzodiazepines Ql (U) Negative Negative [facility] Bilirubin Test strip Ql (U)O rdered By: Violetta Bah on 02-02-2022 Bilirubin Ql (U) Negative Negative [facility] Blood hemoglobin measurement (mass/volume)Ordered By: Violetta Bah on 02-02-2022 Hemoglobin (Bld) [Mass/Vol] 12.4 g/dL 11.8-15.4 [facility] Blood leukocytes automated c ount (number/volume)Ordered By: Violetta Bah on 02-02-2022 WBC (Bld) [#/Vol] 9.9 10*3/uL 4.5-11.0 [facility] Cannabinoids [Presence] in U rine by Screen methodOrdered By: Violetta Bah on 02-02-2022 Cannabinoids Screen Ql (U) Positive Negative [facility] Comment on above: These are unconfirme d results and should not be used for legal purposes. Drug Cut-Off Concentration: AMPH 1000 ng/mL LIZ 200 ng/mL DAVID 200 ng/mL COCM 300 ng/mL OP 300 ng/mL PCP 25 ng/mL THC 20 ng/mL These are unconfirme d results and should not be used for legal purposes. Drug Cut-Off Concentration: AMPH 1000 ng/mL LIZ 200 ng/mL DAVID 200 ng/mL COCM 300 ng/mL OP 300 ng/mL PCP 25 ng/mL THC 20 ng/mL Color Auto (U)Ordered By: Shila Bah on 02-02-2022 Color (U) Yellow Yellow [facility] Creatinine and Glomerular fi ltration rate.predicted panel (S/P/Bld)Ordered By: Violetta Bah on 02-02-2022 Creatinine [Mass/Vol] 0.72 mg/dL 0.44-1.03 [facility] Eosinophils Auto (Bld) [#/Vo l]Ordered By: Violetta Bah on 02-02-2022 Eosinophils (Bld) [#/Vol] 0.3 10*3/uL 0.0-0.45 [facility] Eosinophils/100 WBC Auto (Bl d)Ordered By: Violetta Bah on 02-02-2022 Eosinophils/100 WBC (Bld) 2.6 % . [facility] Erythrocyte distribution wid th Auto (RBC) [Ratio]Ordered By: Violetta Bah on 02-02-2022 Erythrocyte distribution width (RBC) [Ratio] 13.8 % 11.9-15.3 [facility] Estimated glomerular filtrat ion rate (GFR) non- AmericanOrdered By: Violetta Bah on 02-02-2022 GFR/1.73 sq M.predicted among non-blacks MDRD (S/P/Bld) [Vol rate/Area] > 60 mL/Min [facility] Globulin Calc (S) [Mass/Vol] Ordered By: Violetta Bah on 02-02-2022 Globulin (S) [Mass/Vol] 2.9 g/dL [facility] Hematocrit Auto (Bld) [Volum e fraction]Ordered By: Violetta Bah on 02-02-2022 Hematocrit (Bld) [Volume fraction] 36.4 % 34.0-46.4 [facility] Ketones Auto test strip (U) [Mass/Vol]Ordered By: Violetta Bah on 02-02-2022 Ketones (U) [Mass/Vol] Negative Negative [facility] - Drug toxicology Ordered By: Violetta Bah on 02-02-2022 Opiates Ql (U) Negative Negative [facility] Laboratory - Hematology and Cell countsOrdered By: Violetta aBh on 02-02-2022 Nucleated RBC/100 WBC (Bld) [Ratio] 0.0 % 0-0.5 [facility] Laboratory - UrinalysisOrder ed By: Violetta Ritchiewolf on 02-02-2022 Hyaline casts LM Ql (Urine sed) 0-8 [LPF] 0-8 [facility] Lymphocytes Auto (Bld) [#/Vo l]Ordered By: Violetta Bullimore on 02-02-2022 Lymphocytes (Bld) [#/Vol] 2.0 10*3/uL 1.00-4.8 [facility] Lymphocytes/100 WBC Auto (Bl d)Ordered By: Violetta Bullimore on 02-02-2022 Lymphocytes/100 WBC (Bld) 20.5 % . [facility] MCH Auto (RBC) [Entitic mass ]Ordered By: Violetta Masseyimore on 02-02-2022 MCH (RBC) [Entitic mass] 32.2 pg 24.7-34.3 [facility] MCHC Auto (RBC) [Mass/Vol]Or dered By: Violetta Bullimore on 02-02-2022 MCHC (RBC) [Mass/Vol] 34.2 g/dL 32.0-35.0 [facility] MCV Auto (RBC) [Entitic vol] Ordered By: Violetta Bullimore on 02-02-2022 MCV (RBC) [Entitic vol] 94.2 fL 80-100 [facility] Monocytes Auto (Bld) [#/Vol] Ordered By: Violetta Bullimore on 02-02-2022 Monocytes (Bld) [#/Vol] 0.5 10*3/uL 0.0-0.8 [facility] Monocytes/100 WBC Auto (Bld) Ordered By: Violetta Bullimore on 02-02-2022 Monocytes/100 WBC (Bld) 5.0 % . [facility] Neutrophils Auto (Bld) [#/Vo l]Ordered By: Violetta Masseyimore on 02-02-2022 Neutrophils (Bld) [#/Vol] 7.0 10*3/uL 1.8-7.7 [facility] Neutrophils/100 WBC Auto (Bl d)Ordered By: Violetta Bullimore on 02-02-2022 Neutrophils/100 WBC (Bld) 70.6 % . [facility] Nitrite Test strip Ql (U)Ord ered By: Violetta Bah on 02-02-2022 Nitrite Ql (U) Negative Negative [facility] No Panel InformationOrdered By: Violetta aBh on 02-02-2022 Estimated GFR () > 60 mL/Min [facility] Comment on above: GFR estimated refere nce range: According to KDOQI guidelines, <60 ml/min/1.73m2 is sufficient to diagnose a patient with chronic kidney disease. Pharmacy Creatinine Clearance (Chem 106.40 [facility] Phencyclidine Screen Ql (U)O rdered By: Violetta Bah on 02-02-2022 Phencyclidine Ql (U) Negative Negative [facility] Platelet mean volume Auto (B ld) [Entitic vol]Ordered By: Violetta Bah on 02-02-2022 Platelet mean volume (Bld) [Entitic vol] 6.7 fL 6.3-10.7 [facility] Platelets Auto (Bld) [#/Vol] Ordered By: Violetta Bah on 02-02-2022 Platelets (Bld) [#/Vol] 554 10*3/uL 150-450 [facility] Protein Auto test strip (U) [Mass/Vol]Ordered By: Violetta Bah on 02-02-2022 Protein (U) [Mass/Vol] Negative Negative [facility] Protein [Mass/volume] in Ser um or PlasmaOrdered By: Violetta Bah on 02-02-2022 Protein [Mass/Vol] 6.2 g/dL 6.1-7.9 [facility] RBC Auto (Bld) [#/Vol]Ordere d By: Violetta Bah on 02-02-2022 RBC (Bld) [#/Vol] 3.86 10*6/uL 3.60-5.[address] [facility] Serum or plasma alanine calderon otransferase measurement without P-5'-P (enzymatic activiOrdered By: Violetta Bah on 02-02-2022 ALT No additional P-5'-P [Catalytic activity/Vol] 13 U/L 10-60 [facility] Serum or plasma albumin/glob ulin mass ratioOrdered By: Violetta Bah on 02-02-2022 Albumin/Globulin [Mass ratio] 1.1 {ratio} [facility] Serum or plasma alkaline keaton sphatase measurement (enzymatic activity/volume)Ordered By: Violetta Masseyjabari on 02-02-2022 ALP [Catalytic activity/Vol] 93 U/L 32-92 [facility] Serum or plasma aspartate am inotransferase measurement (enzymatic activity/volume)Or[facility] By: [facility] on 02-02-2022 AST [Catalytic activity/Vol] 16 U/L 10-42 [facility] Serum or plasma calcium paul urement (mass/volume)Ordered By: [facility]tapj [facility] on 02-02-2022 Calcium [Mass/Vol] 9.3 mg/dL 8.2-10.2 [facility] Serum or plasma chloride radha surement (moles/volume)Ordered By: [facility] on 02-02-2022 Chloride [Moles/Vol] 101 mmol/L 95-114 [facility] Serum or plasma glucose paul urement (mass/volume)Ordered By: [facility]tap[facility] on 02-02-2022 Glucose [Mass/Vol] 102 mg/dL 70-100 [facility] Comment on above: ADA recommended refe rence range Random Glucose Reference Range is dependent on time and content of last meal. Glucose of more than 200 mg/dL in a nonstressed, ambulatory subject supports the diagnosis of Diabetes Mellitus. ADA recommended refe rence rangeRandom Glucose Reference Range is dependent on time and content of last meal. Glucose of more than 200 mg/dL in a nonstressed, ambulatory subject supports the diagnosis of Diabetes Mellitus. Serum or plasma potassium me asurement (moles/volume)Ordered By: Violetta [facility] on 02-02-2022 Potassium [Moles/Vol] 3.4 mmol/L 3.5-5.1 [facility] Serum or plasma sodium measu rement (moles/volume)Ordered By: [facility] on 02-02-2022 Sodium [Moles/Vol] 137 mmol/L 136-146 [facility] Serum or plasma total biliru bin measurement (mass/volume)Ordered By: [facility]tapj [facility] on 02-02-2022 Bilirubin [Mass/Vol] 0.6 mg/dL 0.3-1.2 [facility] Serum or plasma total carbon dioxide measurement (moles/volume)Ordered By: Violetta Bah on 02-02-2022 CO2 [Moles/Vol] 26.1 mmol/L 22.0-30.0 [facility] Serum or plasma urea nitroge n measurement (mass/volume)Ordered By: Violetta Bah on 02-02-2022 Urea nitrogen [Mass/Vol] 6 mg/dL 9-23 [facility] Specific gravity Auto test s trip (U) [Rel density]Ordered By: Violetta Bah on 02-02-2022 Specific gravity (U) [Rel density] 1.020 1.001-1.030 [facility] Squamous epithelial cells de tection in urine sediment by light microscopyOrdered By: Violetta Bah on 02-02-2022 Epithelial cells.squamous LM Ql (Urine sed) 10-19 [HPF] 0-2 [facility] Urine bacteria detection by automated methodOrdered By: Violetta Bah on 02-02-2022 Bacteria Auto Ql (U) 1+ None Seen [facility] Urine clarity by refractomet ry automatedOrdered By: Violetta Bah on 02-02-2022 Clarity Refractometry automated (U) Cloudy Clear [facility] Urine cocaine detectionOrder ed By: Violetta Bah on 02-02-2022 Cocaine Ql (U) Positive Negative [facility] Urine glucose measurement by automated test strip (mass/volume)Ordered By: Violetta Bah on 02-02-2022 Glucose Auto test strip (U) [Mass/Vol] Normal mg/dL Normal [facility] Urine hemoglobin detection b y automated test stripOrdered By: Violetta Bah on 02-02-2022 Hemoglobin Auto test strip Ql (U) Negative Negative [facility] Urine leukocyte esterase det ection by automated test stripOrdered By: Violetta Bah on 02-02-2022 Leukocyte esterase Auto test strip Ql (U) Negative Negative [facility] Urobilinogen Auto test strip (U) [Mass/Vol]Ordered By: Violetta Bah on 02-02-2022 Urobilinogen (U) [Mass/Vol] Normal mg/dL Normal [facility] pH Auto test strip (U)Ordere d By: Violetta Chauwolf on 02-02-2022 pH (U) 7.5 [pH] 5.0-9.0 [facility] Albumin [Mass/volume] in Ser um or PlasmaOrdered By: Vern Foster on 01-31-2022 Albumin [Mass/Vol] 3.4 g/dL 3.2-5.5 [facility] Automated erythrocytes count in urine sediment (number/area)Ordered By: Vern Foster on 01-31-2022 RBC Auto (Urine sed) [#/Area] 1-2 [HPF] 0-4 [facility] Automated leukocytes count i n urine sediment (number/area)Ordered By: Vern Foster on 01-31-2022 WBC Auto (Urine sed) [#/Area] 10-19 [HPF] 0-4 [facility] Basophils Auto (Bld) [#/Vol] Ordered By: Vern Foster on 01-31-2022 Basophils (Bld) [#/Vol] 0.1 10*3/uL 0.0-0.2 [facility] Basophils/100 WBC Auto (Bld) Ordered By: Vern Foster on 01-31-2022 Basophils/100 WBC (Bld) 0.8 % . [facility] Bilirubin Test strip Ql (U)O rdered By: Vern Foster on 01-31-2022 Bilirubin Ql (U) Negative Negative [facility] Blood hemoglobin measurement (mass/volume)Ordered By: Vern Foster on 01-31-2022 Hemoglobin (Bld) [Mass/Vol] 10.7 g/dL 11.8-15.4 [facility] Blood leukocytes automated c ount (number/volume)Ordered By: Venr Fsoter on 01-31-2022 WBC (Bld) [#/Vol] 11.7 10*3/uL 4.5-11.[address] [facility] Color Auto (U)Ordered By: Raul Foster on 01-31-2022 Color (U) Yellow Yellow [facility] Creatinine and Glomerular fi ltration rate.predicted panel (S/P/Bld)Ordered By: Vern Foster on 01-31-2022 Creatinine [Mass/Vol] 0.75 mg/dL 0.44-1.03 [facility] Eosinophils Auto (Bld) [#/Vo l]Ordered By: Vern Foster on 01-31-2022 Eosinophils (Bld) [#/Vol] 0.3 10*3/uL 0.0-0.45 [facility] Eosinophils/100 WBC Auto (Bl d)Ordered By: Vern Foster on 01-31-2022 Eosinophils/100 WBC (Bld) 2.5 % . [facility] Erythrocyte distribution wid th Auto (RBC) [Ratio]Ordered By: Vern Foster on 01-31-2022 Erythrocyte distribution width (RBC) [Ratio] 13.6 % 11.9-15.3 [facility] Estimated glomerular filtrat ion rate (GFR) non- AmericanOrdered By: Vern Foster on 01-31-2022 GFR/1.73 sq M.predicted among non-blacks MDRD (S/P/Bld) [Vol rate/Area] > 60 mL/Min [facility] Globulin Calc (S) [Mass/Vol] Ordered By: Vern Foster on 01-31-2022 Globulin (S) [Mass/Vol] 2.7 g/dL [facility] HCG ( test) IA.rapi d Ql (U)Ordered By: Vern Foster on 01-31-2022 HCG ( test) Ql (U) Positive [facility] Hematocrit Auto (Bld) [Volum e fraction]Ordered By: Vern Foster on 01-31-2022 Hematocrit (Bld) [Volume fraction] 31.9 % 34.0-46.4 [facility] Ketones Auto test strip (U) [Mass/Vol]Ordered By: Vern Foster on 01-31-2022 Ketones (U) [Mass/Vol] Negative Negative [facility] Laboratory - Chemistry and C hemistry - challengeOrdered By: Vern Foster on 01-31-2022 Lipase [Catalytic activity/Vol] 32.0 U/L 22-51 [facility] Laboratory - Hematology and Cell countsOrdered By: Vern Foster on 01-31-2022 Nucleated RBC/100 WBC (Bld) [Ratio] 0.0 % 0-0.5 [facility] Laboratory - UrinalysisOrder ed By: Vern Foster on 01-31-2022 Hyaline casts LM Ql (Urine sed) 0-8 [LPF] 0-8 [facility] Lymphocytes Auto (Bld) [#/Vo l]Ordered By: Vern Foster on 01-31-2022 Lymphocytes (Bld) [#/Vol] 3.3 10*3/uL 1.00-4.8 [facility] Lymphocytes/100 WBC Auto (Bl d)Ordered By: Vern Foster on 01-31-2022 Lymphocytes/100 WBC (Bld) 28.1 % . [facility] MCH Auto (RBC) [Entitic mass ]Ordered By: Vern Foster on 01-31-2022 MCH (RBC) [Entitic mass] 31.7 pg 24.7-34.3 [facility] MCHC Auto (RBC) [Mass/Vol]Or dered By: Vern Foster on 01-31-2022 MCHC (RBC) [Mass/Vol] 33.4 g/dL 32.0-35.0 [facility] MCV Auto (RBC) [Entitic vol] Ordered By: Vern Foster on 01-31-2022 MCV (RBC) [Entitic vol] 94.8 fL 80-100 [facility] Monocytes Auto (Bld) [#/Vol] Ordered By: Vern Foster on 01-31-2022 Monocytes (Bld) [#/Vol] 0.7 10*3/uL 0.0-0.8 [facility] Monocytes/100 WBC Auto (Bld) Ordered By: Vern Foster on 01-31-2022 Monocytes/100 WBC (Bld) 6.0 % . [facility] Neutrophils Auto (Bld) [#/Vo l]Ordered By: Vern Foster on 01-31-2022 Neutrophils (Bld) [#/Vol] 7.3 10*3/uL 1.8-7.7 [facility] Neutrophils/100 WBC Auto (Bl d)Ordered By: Vern Foster on 01-31-2022 Neutrophils/100 WBC (Bld) 62.6 % . [facility] Nitrite Test strip Ql (U)Ord ered By: Vern Foster on 01-31-2022 Nitrite Ql (U) Negative Negative [facility] No Panel InformationOrdered By: Vern Foster on 01-31-2022 Estimated GFR () > 60 mL/Min [facility] Comment on above: GFR estimated refere nce range: According to KDOQI guidelines, <60 ml/min/1.73m2 is sufficient to diagnose a patient with chronic kidney disease. Pharmacy Creatinine Clearance (Chem 122.31 [facility] Platelet mean volume Auto (B ld) [Entitic vol]Ordered By: Vern Foster on 01-31-2022 Platelet mean volume (Bld) [Entitic vol] 7.2 fL 6.3-10.7 [facility] Platelets Auto (Bld) [#/Vol] Ordered By: Vern Foster on 01-31-2022 Platelets (Bld) [#/Vol] 572 10*3/uL 150-450 [facility] Protein Auto test strip (U) [Mass/Vol]Ordered By: Vern Foster on 01-31-2022 Protein (U) [Mass/Vol] Negative Negative [facility] Protein [Mass/volume] in Ser um or PlasmaOrdered By: Vern Foster on 01-31-2022 Protein [Mass/Vol] 6.1 g/dL 6.1-7.9 [facility] RBC Auto (Bld) [#/Vol]Ordere d By: Vern Foster on 01-31-2022 RBC (Bld) [#/Vol] 3.37 10*6/uL 3.60-5.[address] [facility] Serum or plasma alanine calderon otransferase measurement without P-5'-P (enzymatic activiOrdered By: Vern Foster on 01-31-2022 ALT No additional P-5'-P [Catalytic activity/Vol] 12 U/L 10-60 [facility] Serum or plasma albumin/glob ulin mass ratioOrdered By: Vern Foster on 01-31-2022 Albumin/Globulin [Mass ratio] 1.3 {ratio} [facility] Serum or plasma alkaline keaton sphatase measurement (enzymatic activity/volume)Ordered By: Vern Foster on 01-31-2022 ALP [Catalytic activity/Vol] 91 U/L 32-92 [facility] Serum or plasma aspartate am inotransferase measurement (enzymatic activity/volume)Ordered By: Vern Foster on 01-31-2022 AST [Catalytic activity/Vol] 14 U/L 10-42 [facility] Serum or plasma beta choriog onadotropin measurement (units/volume)Ordered By: Vern Foster on 01-31-2022 HCG.beta subunit Qn 41.68 m[IU]/mL F [facility] Comment on above: Approximate Approxim ate hCG Gestational Age Range (mIU/ml) (weeks) 0.2-1 5-50 1-2 50-500 2-3 100-5,000 3-4 500-10,000 4-5 1,000-50,000 5-6 10,000-100,000 6-8 15,000-200,000 8-12 10,000-100,000 Approximate Approxim ate hCG Gestational Age Range (mIU/ml) (weeks)0.2-1 5-50 1-2 50-500 2-3 100-5,000 3-4 500-10,000 4-5 1,000-50,000 5-6 10,000-100,000 6-8 15,000-200,000 8-12 10,000-100,000 Serum or plasma calcium paul urement (mass/volume)Ordered By: Vern Foster on 01-31-2022 Calcium [Mass/Vol] 9.5 mg/dL 8.2-10.2 [facility] Serum or plasma chloride radha surement (moles/volume)Ordered By: Vern Foster on 01-31-2022 Chloride [Moles/Vol] 101 mmol/L 95-114 [facility] Serum or plasma glucose paul urement (mass/volume)Ordered By: Vern Foster on 01-31-2022 Glucose [Mass/Vol] 93 mg/dL 70-100 [facility] Comment on above: ADA recommended refe rence range Random Glucose Reference Range is dependent on time and content of last meal. Glucose of more than 200 mg/dL in a nonstressed, ambulatory subject supports the diagnosis of Diabetes Mellitus. ADA recommended refe rence rangeRandom Glucose Reference Range is dependent on time and content of last meal. Glucose of more than 200 mg/dL in a nonstressed, ambulatory subject supports the diagnosis of Diabetes Mellitus. Serum or plasma potassium me asurement (moles/volume)Ordered By: Vern Foster on 01-31-2022 Potassium [Moles/Vol] 3.1 mmol/L 3.5-5.1 [facility] Serum or plasma sodium measu rement (moles/volume)Ordered By: Vern Foster on 01-31-2022 Sodium [Moles/Vol] 141 mmol/L 136-146 [facility] Serum or plasma total biliru bin measurement (mass/volume)Ordered By: Vern Foster on 01-31-2022 Bilirubin [Mass/Vol] 0.6 mg/dL 0.3-1.2 [facility] Serum or plasma total carbon dioxide measurement (moles/volume)Ordered By: Vern Foster on 01-31-2022 CO2 [Moles/Vol] 28.3 mmol/L 22.0-30.0 [facility] Serum or plasma urea nitroge n measurement (mass/volume)Ordered By: Vern Foster on 01-31-2022 Urea nitrogen [Mass/Vol] 7 mg/dL 9- [facility] Specific gravity Auto test s trip (U) [Rel density]Ordered By: Vern Foster 01-31-2022 Specific gravity (U) [Rel density] 1.020 1.001-1.030 [facility] Squamous epithelial cells de tection in urine sediment by light microscopyOrdered By: Vern Foster on 01-31-2022 Epithelial cells.squamous LM Ql (Urine sed) 20-30 [HPF] 0-2 [facility] Urine bacteria detection by automated methodOrdered By: Vern Foster on 01-31-2022 Bacteria Auto Ql (U) 1+ None Seen [facility] Urine clarity by refractomet ry automatedOrdered By: Vern Foster on 01-31-2022 Clarity Refractometry automated (U) Cloudy Clear [facility] Urine glucose measurement by automated test strip (mass/volume)Ordered By: Vern Foster on 01-31-2022 Glucose Auto test strip (U) [Mass/Vol] Normal mg/dL Normal [facility] Urine hemoglobin detection b y automated test stripOrdered By: Vern Foster on 01-31-2022 Hemoglobin Auto test strip Ql (U) Negative Negative [facility] Urine leukocyte esterase det ection by automated test stripOrdered By: Vern Foster on 01-31-2022 Leukocyte esterase Auto test strip Ql (U) Negative Negative [facility] Urobilinogen Auto test strip (U) [Mass/Vol]Ordered By: Vern Foster on 01-31-2022 Urobilinogen (U) [Mass/Vol] Normal mg/dL Normal [facility] pH Auto test strip (U)Ordere d By: Vern Foster on 01-31-2022 pH (U) 6.0 [pH] 5.0-9.0 [facility] Urine culture routineOrdered By: Rian Shoemaker on 12-11-2021 Bacteria identified Cx Nom (U) 2 Days [facility] Automated erythrocytes count in urine sediment (number/area)Ordered By: Rian Shoemaker on 12-09-2021 RBC Auto (Urine sed) [#/Area] 3-4 [HPF] 0-4 [facility] Automated leukocytes count i n urine sediment (number/area)Ordered By: Rian Shoemaker on 12-09-2021 WBC Auto (Urine sed) [#/Area] 5-9 [HPF] 0-4 [facility] Basophils Auto (Bld) [#/Vol] Ordered By: Rian Shoemaker on 12-09-2021 Basophils (Bld) [#/Vol] 0.1 10*3/uL 0.0-0.2 [facility] Basophils/100 WBC Auto (Bld) Ordered By: Rian Shoemaker on 12-09-2021 Basophils/100 WBC (Bld) 0.6 % . [facility] Bilirubin Test strip Ql (U)O rdered By: Rian Shoemaker on 12-09-2021 Bilirubin Ql (U) Negative Negative [facility] Blood hemoglobin measurement (mass/volume)Ordered By: Rian Shoemaker on 12-09-2021 Hemoglobin (Bld) [Mass/Vol] 17.4 g/dL 11.8-15.4 [facility] Blood leukocytes automated c ount (number/volume)Ordered By: Rian Shoemaker on 12-09-2021 WBC (Bld) [#/Vol] 15.8 10*3/uL 4.5-11.[address] [facility] Body fluid albumin measureme nt (mass/volume)Ordered By: Rian Shoemaker on 12-09-2021 Albumin (Body fld) [Mass/Vol] 4.1 g/dL 3.2-5.5 [facility] Color Auto (U)Ordered By: Chalino Shoemaker on 12-09-2021 Color (U) Yellow Yellow [facility] Creatinine and Glomerular fi ltration rate.predicted panel (S/P/Bld)Ordered By: Rian Shoemaker on 12-09-2021 Creatinine [Mass/Vol] 0.90 mg/dL 0.44-1.03 [facility] Eosinophils Auto (Bld) [#/Vo l]Ordered By: Rian Shoemaker on 12-09-2021 Eosinophils (Bld) [#/Vol] 0.0 10*3/uL 0.0-0.45 [facility] Eosinophils/100 WBC Auto (Bl d)Ordered By: Rian Shoemaker on 12-09-2021 Eosinophils/100 WBC (Bld) 0.2 % . [facility] Erythrocyte distribution wid th Auto (RBC) [Ratio]Ordered By: Rian Shoemaker on 12-09-2021 Erythrocyte distribution width (RBC) [Ratio] 13.9 % 11.9-15.3 [facility] Estimated glomerular filtrat ion rate (GFR) non- AmericanOrdered By: Rian Shoemaker on 12-09-2021 GFR/1.73 sq M.predicted among non-blacks MDRD (S/P/Bld) [Vol rate/Area] > 60 mL/Min [facility] Globulin Calc (S) [Mass/Vol] Ordered By: Rian Shoemaker on 12-09-2021 Globulin (S) [Mass/Vol] 4.0 g/dL [facility] HCG ( test) IA.rapi d Ql (U)Ordered By: Rian Shoemaker on 12-09-2021 HCG ( test) Ql (U) Positive [facility] Hematocrit Auto (Bld) [Volum e fraction]Ordered By: Rian Shoemaker on 12-09-2021 Hematocrit (Bld) [Volume fraction] 50.2 % 34.0-46.4 [facility] Ketones Auto test strip (U) [Mass/Vol]Ordered By: Rian Shoemaker on 12-09-2021 Ketones (U) [Mass/Vol] Trace Negative [facility] Laboratory - Chemistry and C hemistry - challengeOrdered By: Rian Shoemaker on 12-09-2021 Lipase [Catalytic activity/Vol] 80.0 U/L 22-51 [facility] Laboratory - Hematology and Cell countsOrdered By: Rian Shoemaker on 12-09-2021 Nucleated RBC/100 WBC (Bld) [Ratio] 0.0 % 0-0.5 [facility] Laboratory - UrinalysisOrder ed By: Rian Shoemaker on 12-09-2021 Hyaline casts LM Ql (Urine sed) 9-19 [LPF] 0-8 [facility] Lymphocytes Auto (Bld) [#/Vo l]Ordered By: Rian Shoemaker on 12-09-2021 Lymphocytes (Bld) [#/Vol] 2.7 10*3/uL 1.00-4.8 [facility] Lymphocytes/100 WBC Auto (Bl d)Ordered By: Rian Shoemaker on 12-09-2021 Lymphocytes/100 WBC (Bld) 17.2 % . [facility] MCH Auto (RBC) [Entitic mass ]Ordered By: Rian Shoemaker on 12-09-2021 MCH (RBC) [Entitic mass] 31.8 pg 24.7-34.3 [facility] MCHC Auto (RBC) [Mass/Vol]Or dered By: Rian Shoemaker on 12-09-2021 MCHC (RBC) [Mass/Vol] 34.7 g/dL 32.0-35.0 [facility] MCV Auto (RBC) [Entitic vol] Ordered By: Rian Shoemaker on 12-09-2021 MCV (RBC) [Entitic vol] 91.6 fL 80-100 [facility] Monocytes Auto (Bld) [#/Vol] Ordered By: Rian Shoemakre on 12-09-2021 Monocytes (Bld) [#/Vol] 0.8 10*3/uL 0.0-0.8 [facility] Monocytes/100 WBC Auto (Bld) Ordered By: Rian Shoemaker on 12-09-2021 Monocytes/100 WBC (Bld) 5.1 % . [facility] Neutrophils Auto (Bld) [#/Vo l]Ordered By: Rian Shoemaker on 12-09-2021 Neutrophils (Bld) [#/Vol] 12.2 10*3/uL 1.8-7.7 [facility] Neutrophils/100 WBC Auto (Bl d)Ordered By: Rian Shoemaker on 12-09-2021 Neutrophils/100 WBC (Bld) 76.9 % . [facility] Nitrite Test strip Ql (U)Ord ered By: Rian Shoemaker on 12-09-2021 Nitrite Ql (U) Negative Negative [facility] [facility] No Panel InformationOrdered By: Rian Shoemaker on 12-09-2021 Estimated GFR () > 60 mL/Min [facility] Comment on above: GFR estimated refere nce range: According to KDOQI guidelines, <60 ml/min/1.73m2 is sufficient to diagnose a patient with chronic kidney disease. Pharmacy Creatinine Clearance (Chem 100.70 [facility] Platelet mean volume Auto (B ld) [Entitic vol]Ordered By: Rian Shoemaker on 12-09-2021 Platelet mean volume (Bld) [Entitic vol] 7.8 fL 6.3-10.7 [facility] Platelets Auto (Bld) [#/Vol] Ordered By: Rian Shoemaker on 12-09-2021 Platelets (Bld) [#/Vol] 391 10*3/uL 150-450 [facility] Protein Auto test strip (U) [Mass/Vol]Ordered By: Rian Shoemaker on 12-09-2021 Protein (U) [Mass/Vol] 30 mg/dL Negative Fi [facility] Protein [Mass/volume] in Ser um or PlasmaOrdered By: Rian Shoemaker on 12-09-2021 Protein [Mass/Vol] 8.1 g/dL 6.1-7.9 [facility] RBC Auto (Bld) [#/Vol]Ordere d By: Rian Shoemaker on 12-09-2021 RBC (Bld) [#/Vol] 5.49 10*6/uL 3.60-5.[address] [facility] Serum or plasma alanine calderon otransferase measurement without P-5'-P (enzymatic activiOrdered By: Rian Shoemaker on 12-09-2021 ALT No additional P-5'-P [Catalytic activity/Vol] 23 U/L 10-60 [facility] Serum or plasma albumin/glob ulin mass ratioOrdered By: Rian Shoemaker on 12-09-2021 Albumin/Globulin [Mass ratio] 1.0 {ratio} [facility] Serum or plasma alkaline keaton sphatase measurement (enzymatic activity/volume)Ordered By: Rian Shoemaker on 12-09-2021 ALP [Catalytic activity/Vol] 95 U/L 32-92 [facility] Serum or plasma aspartate am inotransferase measurement (enzymatic activity/volume)Ordered By: Rian Shoemaker on 12-09-2021 AST [Catalytic activity/Vol] 29 U/L 10-42 [facility] Serum or plasma beta choriog onadotropin measurement (units/volume)Ordered By: Rian Shoemaker on 12-09-2021 HCG.beta subunit Qn 45.26 m[IU]/mL [facility] Comment on above: Approximate Approxim ate hCG Gestational Age Range (mIU/ml) (weeks) 0.2-1 5-50 1-2 50-500 2-3 100-5,000 3-4 500-10,000 4-5 1,000-50,000 5-6 10,000-100,000 6-8 15,000-200,000 8-12 10,000-100,000 Serum or plasma calcium paul urement (mass/volume)Ordered By: Rian Shoemaker on 12-09-2021 Calcium [Mass/Vol] 10.4 mg/dL 8.2-10.2 [facility] Serum or plasma chloride radha surement (moles/volume)Ordered By: Rian Shoemaker on 12-09-2021 Chloride [Moles/Vol] 97 mmol/L 95-114 [facility] Serum or plasma glucose paul urement (mass/volume)Ordered By: Rian Shoemaker on 12-09-2021 Glucose [Mass/Vol] 147 mg/dL 70-100 [facility] Comment on above: ADA recommended refe rence range Random Glucose Reference Range is dependent on time and content of last meal. Glucose of more than 200 mg/dL in a nonstressed, ambulatory subject supports the diagnosis of Diabetes Mellitus. Serum or plasma potassium me asurement (moles/volume)Ordered By: Rian Shoemaker on 12-09-2021 Potassium [Moles/Vol] 2.6 mmol/L 3.5-5.1 [facility] Comment on above: Results called at 0518 on 12/09/21 Serum or plasma sodium measu rement (moles/volume)Ordered By: Rian Shoemaker on 12-09-2021 Sodium [Moles/Vol] 137 mmol/L 136-146 [facility] Serum or plasma total biliru bin measurement (mass/volume)Ordered By: Rian Shoemaker on 12-09-2021 Bilirubin [Mass/Vol] 1.2 mg/dL 0.3-1.2 [facility] Serum or plasma total carbon dioxide measurement (moles/volume)Ordered By: Rian Shoemaker on 12-09-2021 CO2 [Moles/Vol] 24.3 mmol/L 22.0-30.0 [facility] Serum or plasma urea nitroge n measurement (mass/volume)Ordered By: Rian Shoemaker on 12-09-2021 Urea nitrogen [Mass/Vol] 11 mg/dL 9- [facility] Specific gravity Auto test s trip (U) [Rel density]Ordered By: Rian Shoemaker on 12-09-2021 Specific gravity (U) [Rel density] 1.017 1.001-1.030 [facility] Squamous epithelial cells de tection in urine sediment by light microscopyOrdered By: Rian Shoemaker on 12-09-2021 Epithelial cells.squamous LM Ql (Urine sed) 5-9 [HPF] 0-2 [facility] Urine bacteria detection by automated methodOrdered By: Rian Shoemaker on 12-09-2021 Bacteria Auto Ql (U) 1+ None Seen [facility] Urine clarity by refractomet ry automatedOrdered By: Rian Shoemaker on 12-09-2021 Clarity Refractometry automated (U) Clear Clear [facility] Urine glucose measurement by automated test strip (mass/volume)Ordered By: Rian Shoemaker on 12-09-2021 Glucose Auto test strip (U) [Mass/Vol] Normal mg/dL Normal [facility] Urine hemoglobin detection b y automated test stripOrdered By: Rian Shoemaker on 12-09-2021 Hemoglobin Auto test strip Ql (U) Negative Negative [facility] Urine lactic acid measuremen tOrdered By: Rian Shoemaker on 12-09-2021 Lactate (U) [Moles/Vol] 1.9 mmol/L 0.5-2.2 [facility] Urine leukocyte esterase det ection by automated test stripOrdered By: Rian Shoemaker on 12-09-2021 Leukocyte esterase Auto test strip Ql (U) 1+ Negative [facility] Urobilinogen Auto test strip (U) [Mass/Vol]Ordered By: Rian Shoemaker on 12-09-2021 Urobilinogen (U) [Mass/Vol] Normal mg/dL Normal [facility] pH Auto test strip (U)Ordere d By: Rian Shoemaker on 12-09-2021 pH (U) 6.0 [pH] 5.0-9.0 [facility] Message - General Officeon 0 07-29-2018 Message - General Office From: Davon VelezForest Fire LookoutAnnie Posadas To: Rose PLAZA, Scott Penn; [facility] Inbox; Sent: 07/26/2018 10:40:30 EST Subject: Dr. Mayorga notes Dr. Mayorga's notes in chart and ready for review pdfCD:[id number] [id number] 1Ji2HgPv7ODTjR0QxLCHdOSKqq 2RlIAovTGVu Z3TiEXM2ENASGm5Mn0TlNBGhRp uknZ6LQ9VZMKEx/wm45KWj0Xud yi3Q1JuMKYlgKel7Vvm5/hZD oYKOMTMwb+YN3+AKCfIhkWTQyw bGj1tNHwYqmBuMzaqoxn+zUwmd M8KE4xI1DQA75bubLCQXj/l7 fIuABsY2V87/o0MKJSAVJv3l54 2rV6NYFPFLvNekw5ukPHYKL6fY tlxgl66tpEEg7IZWYyZI525/ j39UEwKrQMM8ekVasBsrfyNdBs mWIqZoQV5nfjs5HAsfEIMiVY69 QQcuIWFENOLNE37hXQniZj18 PBsrPRGzFpAmEFz6Mt5rCv4YqG JrLC7XKSyaSNvuZcUbd2BpQ3Jz IGr6Vg8Es9sjvvWhDVKeDFt8 Mm6LWLCxpVt4FtmPTZNbRQZNXE A+FdeuJ7Tcw7EJDILxVr7COMKy U0JifPGyVN0Eh761DFl8Do5K k1XuUXPxNONrRiYlJ7xvdXInRP AwIFIgID4+Dex+FwduGn4Pi809 UL58jiO3MTCkGzBdGt8+CmVu XA5tdrl5CJZyd9EkGkf9Eb9JRL JlbnQgMiAwIFIgIAovVHlwZSAv MHSqEECiSk0Hi7SpcXHnLFph N2hsllQtWpAeSJOwKEy+Pgplbm WoHrpDPiXvOG6xaui6SEqqRWvk NSMuGIVxQDHdYl0Zj4KgtQDx JMdiZ6quepUbBrOsLYZdWZb+Pg plbmRvYmoKMTEgMCBvYmoKPDwK No5MJN4jx4OqWqChTLXqIvxI AYnNA7PnOOgftxArCEAmgvXxT7 FgPXWnVVTnUzCkKh0TOPmbdaTp WZDjQsYpXu4OzYNpnN0zicLx ODUwYoWxVa2DmTNoZC3BNNOaxO 2zVSiiQLRoDY5eEVDuO5HeMG3r bmUgCj4+RxReCK8uxov8OKBi t5IyOacsLUCXGqFrPUVvVMAxDA FrYLBLDG7ak4QdQeZgNVEaQtnQ OSfBY9KliAPdtkQvXcctgJBA FSYhRUVtCf2KTN8zoDlrGcU4Sf TDM55lSvALCk8Lh4UcQJKkFqyi tNI0QUZVOazSyNk4RLHVmpAL t0kZMzwBhNjZAvceYNTYhPBRMo HJPIPGMWHbFYEv0QNpA1YrBmuD WMGf5lIUGCCfgOVcqrlahPna vHnvzZvfH/d+a5+7y76r217Xxa CQ/FLCsqnZAAEWmKlP7zhSyS2M U5JEOLdrTFGuZFFnl3UJVfzN ApkCfNiMbJkT+Ev7sj2a+fsq0z +MwQD/r7F5PFHgHKRVcAls+Nlc GXmPCV4FpXM7U7hUahOLuqMO ivVZfsJMg0HxFQd73gyxPwzmPp M4UycmtnHk4SUmB+ONORK+jJFg SDdfAGg0Fi3cY7J1ABMUfe/k iZw1FeZNVWSfSuUfW5MtQDSRNC QTHgL9MONPeW/p0q5YzQ7Pup/F mhvqIgZoj6jFPudQnk2ZN9up c50Z34bLgODVN97c6sTLtCbERU FyAGbP/TsYvN0FiaQ07Ff1GJOo LW2+KNR/Zpsjhtf3op2Ik+4Z RB/4w/ZXfpkNALCmZbXZ+odtaR YYFzvUNAi7u64oDlSWhe36Jb8i Bsy4TgKL9roxQ9mm3UwFON3a KS/o7/dlFi1JV8qMNa7k9+VheP KLDPZ9VZVpB05omhZInXtA1sK9 DOafh/gfB/51HhYR/CS+iC+U OTUXexxpZIv2E8iUiKIXJqLZ+J +a+A/D/dFCaQcQ0gnN8LYMNwTm GkB+MkIjJiLpNPqmU1VmyHaJ XqE2iLxHsJrf+8+C/n1XuEz+yB Fyz68qP2OryMGGfhli/FoCNCAA BCST5pTf3AFYkZC7uBX6RV/g XvZSFSsWwOMy8GINaMTMWEjCoS MlGKZRvOUqpHE3oFA2lvZgCITV Y+L6SPbofxriWYbOErOPftXw 8ArMQBCEhcgQFVKHdCBDyByyhV iQG+QDBUMRUByUCCVDQkgCFUDr mAWzZCeP5sBq3DmrNKWwokMW O4njYLuN+rH4GkPvTlxIZfOZcB FcRI19FI8XT8NT7ZZ3Nu1Mw8KJ kLY2DE8FE5XQ6NGSYr+BpxGA KIS7swwcTVhTVhFUpIJHETFufE CxNkzF0dYjjZ+9mpjSj8rjBBDL ZQFGCDCWct4GgrQuqcOOhVnq wgCNKC4aJxSP3SqdEzRWRVYuwn 9AqlfQyLj6AZ7GIxNTmZjISnwz 0VJ4DCpBXrOqV7slovr/TBwm KmVOrmwcN2GJRIZOlifruyXXlN cSHRrPSmPkuGHhLjVAqzR4ZriR L253kqTecMX2RX8cUZ8TW0XL 9MmfA9BXaBG2NzgH6qLvzJ/F8/ YS5LS7PdnZahp/tm8eKYHIKm6V NJQrCU1mebJMYXa6O8iHMRY0 aX1TxSNHdKEWKOpJQR6cPc1vNN dyOWSkvPBtcZLaD07f8AT9YAYU JkXOxdtYII2MjtasIy6yu0Ux XsncPOjeCUIx0Sq8XaoDfQrKRq HP9MFnvPwoRLO8AJZH6rkSBpiK dl6WTEjyYCX4XPyM8uZqRcsI OLY7L7ewsiirLkJWRDwLhHIX8Q TRAYavLwygODVeR2JAwkP16Niv Gng8SDWkooNSXincjQ6ib1Qo XPaFhAo8Or1TcqrhCMojfNsWV+ uu1AK7Bxj4+goJOQSEGu8jVzM1 9Kzpj7ZruXhg9tUC0DoROrPx rJRDyzZE1Ivkl4ei59ZybUwRu+ Sc3GX7k/N7Sp5FspaleYO1o+fc 3iV4xHXjTGke3vMs9PyO5ooh 76zRpvQ6h/WGp50dwA2ndWC3mG mvKnBSQStif1YtcE9hkkiNy5TU rSP1HmE0GJU2wOF67cmHjtF5 uhvJqnK81An18Pt2QF0r/R36vf aLKcuSJMKFHb6Xze6gaghWMQGa ko0Bs34FkMZXAim4CL7cPbYZ CP67zpP+u8I9gUjVZoJuky2FW6 hqNUGgfUoZMJftK7tenkAjYseX GemC0fzWmj7ZXv5MEiiOzoxB ObQAkdLuKM6a0o4ZSSeczalsDG lYxVtts+q3+gkgr39e3Il6c9Kk Y7eToOMm08yraJ8Hnap63yuh XN+5q+s6g51xG71Eb1pnk1Jfcr 9iv8G+1/3Tt7NRfWFUZcDEpMYC mhvhMpnEFnEmIs91Ked1Qx07 Lsm68jfZHxn54UjXN5VMvirHb7 J3jzD74beueymnyUNb415zosx7 TAn8zlD7CQaBg2F9Rd03I57B s1cHg4ayahrVq8yl1x7rjx0d41 sx9ju8ZU/E28+7xHvQh+IT5VPt e11XbckNq9T8mq/oc1FkHK+0 f5D/Vy4xBKqL5YYuoFpOn8DVrR 1XuUHRUnUAV7IErdGNVMPyJEKD 9tR81i1tB+p3aJGJrUXhcxnK qFTVsK3dttkML30UtzmwX9FX4v +YcbMGtrIRbfW7Ashz20GWCUlh apXJgkBuz0Tvt5kDzLmOV43e O6QwtiWNU3X8e9Zkx+Ob4qcX+i tdyUD1cN8uGHC6TxBZdYikERLD nL74+BLFJZwlRxLRiTGJLYnv ToXcYn002xHwqTayvEsjVn7Hpl dvB2+T18ua416kqIeUOk5Isd3m lucM4r9ZpgMJxRCCG03r+qfW pn8VY61lt/EdAYl1XVFEhCniVV bRscb2ApKy6mHLk0sdmbQys1kF 6Sm1GSoBJFRG9Efij4V19r/U vFNVbo9cwhATF9FuKdm502bgag 1ur8K93xGPoagnayQ/PqHvoJ7R Z2TksWTcfTZaqehT4Pcjj5sM 775hBt7+xm/QwbPWhOklrwn3Ko eleBaeEg7RiYuAhhJp8Q6kN3eO liNTAew9wGsxoAnu3Il8fh7v ni8bJ4zcA8cvQsoA02/cap87cg 6LsR372wI8HcNXyWgQDasJ4dej 46x4YMvQPj3uV3yvxx5kK8YU aW7AT5hikMPhA9Y6w0VKztzlWP mWWUXPduKymSNN5RvBC540iMax vufXd2w1f+ig8DTHi4AMGehm d0FheSj/+y3Tn9xBzUs7TldnRk Y39n/N+nr0FzCwuGrMzsS+6YGI X17Zyi2YPTagYx4az3C54lBH wcvfeH/N4zFde7+qq3qiFurfug 5/m/rx9sEYs3rMtY13fHf4WP9J taOkE+bg1vxPyaQa4Z2uYb7g tXF2n6Uj86pS5/be2e8Aw1ellJ aWqapsH30J8w+uBpN35gsb6XZy gBt629cBEZQdU0jt1RhQ5cSz fM+s2gttH8ea0kbzI53Mhn3dMj h30FBcu9E+oOMH+l69Wt7ON7xu b5bpY69bNL63oBGS+6GDL79x kzzAaM8UtNvH7ebF56/eSLghvc m7+ehW+j8cc7Pge3lSypi8k+Se 0r2K+0k6U166/dGy5jK1Kux5 AlJqeMU1H4rkTa8y//R+vOgh+W UZmN6V3dZpV8npaCmcZ491cRqH 5uXIq5M/K/9c+8zk2Xe/ePwy MXL8Sh3m0LuOe9bubJ/Y/9LuZe 599GG6RffgZu6ExSB/c+At623/ b7p5NqC530IbXu+Ubps6BQMq 3hbHR27+A/eE8/kTBM1tm0ChEH McRgKxUL5qqtwwPHXzx4BlXrw8 Cj4+DmEtMM7rsacwPEJvUI5z yft8PUvaJbRqNVElD148bkKYF8 Cjg2YPt512JR2Oi8BntYIsUJug QKcaDTVnCc1mxMZQN7S9HfW4 mOAeY8H2dFUcPDjiML1nr8Hwvl ymQ9xxruLnu1cBvyUpVXptSgPF Rh0MEN5bq8LhEtktSDRiXlqD VClEW04xaOWdF4zdcPJvOk5TZD BjOv3oeXQaPDYpkhP4fHPjHEeq MCqnKLXqXo5skQIDD5V4MtU4 uIAoB9F8nCMtCFiaRS6ll4Dmoa naX1lfsuErg4nGsnFzFYueUvBF Rd0XLH4hb7NuGyTlINTgn2Ul Spf8Ug6Ixs7tuFLeogIvAYUswU PDEUZsE0OfVZYegkX4MqnyFW5r Bkq0DbpdZ2yULyGmUS1EXEEL J12yVRQqiMHxHNL3WsSsTWGpMK QbCJOvBDOvVGPzAHIgFJTEI3Qz EZS7kB2zTSI1JKWdHGbuLHZ4 MDExMTEwNDAwNSstNScwMCcpIA o+PgplbmRvYmoKeHJlZgowIDEz FsKoYRJxNCMpEJRyPoJ0HeDa ZiAKMDAwMDAwMDYxOSAwMDAwMC NnTFbuHXLfORXgBQD5KDDrSTRx GE0pAbNfZBGiREN5GYgsADRy MDAgbiAKMDAwMDAwMDczNyAwMD AwMCBuIAowMDAwMDAwNzcyIDAw PEVbQP7bDmBcICFdBLHoFFqa ZGXxAVXzewWVGJKePAArWWB5XR AwMDAwMCBuIAowMDAwMDAwMDIw JEOkVSHmXZ6hYzObVQFiTUA7 ODMgMDAwMDAgbiAKMDAwMDAwMz G7UOZkMFOxJWDiYGciAHMbOTLc ZVi8QUSzXPEfQG0lAaClDIMm WGX4YZobGCYkGFInylOOuUVxdY tgvsc8MYtnR9a1WGUlIuEDS2br Zo5qHMXiZQZFHMPCM7Wrp1Yv MSAwIFIgCj4+CuM7PKO9hUYgXt xiDYQ0ZeEiYM4VSe== From: Rose PLAZA, Scott Penn To: [employer]nie; Sent: 07/29/2018 12:22:24 EST Subject: RE: Dr. Mayorga notes reviewed Normal [facility] Message - General Officeon 1 08-26-2017 Message - General Office From: Lala DAWN, Doreen Martinez ([facility] Nursing Inbox) To: Rose PLAZA, Scott Penn; Sent: 06/25/2018 08:56:57 EST Subject: DAFNE note Please review [facility]AF[facility] note from 06-24-18 scanned into pt's chart. From: Olga Leong PA-C To: [facility] Pain Nursing Inbox; Sent: 06/25/2018 13:03:08 EST Subject: RE: DAFNE note reviewed Normal [facility] Consultation Noteon 06-17-20 Consultation Note HOSPITAL REGULATIONS : ALL Positive Important Negative Findings Shall Be Recorded. Date of 05/28/2018 Consultation: Attending Physician: Consulting Scott Rose M.D. Physician: NEW PATIENT EVALUATION REQUESTING PROVIDER: Moise Baum CHIEF COMPLAINT: Whole body pain, especially left-sided, including face. HISTORY OF PRESENT ILLNESS: This is a 38 year old female with an over ten year history of pain that started when she took Chantix, which she did not tolerate. She rates the pain as 9/10. The pain has worsened over the years, described as burning, aching and stabbing. Any sort of movement worsens her pain. She notes that she has been diagnosed with fibromyalgia in the past and has had treatments including injections at the [facility] without benefit. She has gone through physical therapy at [facility], which made the pain worse. She was under the care of Dr. Patel, and was apparently discharged from that practice. The patient states that Dr. Patel discharged her because she did not want to have injections. I do not have those records for evaluation today. Treatments have also included numerous non-steroidal anti-inflammatories including ongoing Celebrex, Gabapentin, numerous opioids, of which only Dilaudid provided excellent relief. She goes to the Emergency Room periodically to help her pain. She does admit to smoking marijuana regularly as well as tobacco. She is intermittently tearful throughout the entire visit today and then cheerful at other times. She denies any falling or stumbling. She is subjectively weak, generally speaking. Past medical history, family history, surgical history, psychosocial history, medication list, allergies and a complete review of systems were obtained and reviewed. Pertinent findings are noted in the HISTORY OF PRESENT ILLNESS. PHYSICAL EXAMINATION: Constitutional: No acute distress, tearful at times, joyful at other times, well nourished, well developed. Eyes: No exudate or deformity. Extraocular muscles are intact. Ears, Nose, Mouth and Throat: Ears and nose are without deformity. Normal appearing tongue and teeth. Neck: No noticeable masses, tracheal deviation or asymmetry. No thyromegaly on inspection. Respiratory: No gasping or shortness of breath. No accessory muscle use. Cardiovascular: Pulses in extremities are palpable. No noticeable lower extremity edema or varicosities. Gastrointestinal: No distention. No pain with palpation. Lymphatic: There is no supraclavicular or cervical lymphadenopathy. Skin: Inspection of the skin reveals no rashes, lesions or ulcers. Normal skin turgor. Psychiatric: Oriented to time, place and person. Fluctuating mood. Musculoskeletal: Diffusely tender in greater than 11 of the typical fibromyalgia tender points. There is a lipoma in the left thoracic region which is also tender to palpation. Neurological: No focal neurologic deficits in the upper or lower extremities. Cranial nerves 2 through 12 are grossly intact. Normal gait. ASSESSMENT/PLAN: A 38 year old female with chronic neuropathic pain on the left side including face. It is questionable whether or not she has had a full neurologic work-up. I will refer her to Neurology for further evaluation. Her widespread pain is consistent with, though, with fibromyalgia. She does have known bipolar disorder and is under the care of Dr. Gardner. I instructed the patient that I believe she needs to follow through with her care with Dr. Gardner to get her depression under greater control as it probably is playing a role. At that point the patient became very upset with me, stating the pain is making her crazy and that being crazy is not what causes her pain. I informed the patient that I never did call her crazy, but that depression can certainly implant chronic pain. I offered her referral to our [facility]. She is interested in giving it a try. She will follow up here in three months for a reassessment. I instructed the patient that I do not feel any other medications would be of significant benefit since she has basically tried all the appropriate medications having to do with treatment for fibromyalgia. The patient then stated to me that they are telling me that there is no hope then . I instructed the patient that I had suggested the treatment options as mentioned above, and that is certainly did not say that there is no hope. The visit was ended at that point. Scott Rose M.D. aek Dictated: 05/28/2018 #[id number] Typed: 05/29/2018 #[id number] cc: Scott Rose M.D. *Moise Baum [facility] Comment on above: Result Comment: Elec tronically Signed By: Scott Rose MD\.br\Date and Time Signed: 06/17/18 10:03 EST Message - General Officeon 1 08-18-2017 [employer] Office From: Lala DAWN, Doreen Martinez ([facility] Nursing Inbox) To: Scott Rose MD; [facility] Nursing Inbox; Sent: 06/13/2018 14:23:11 EST Subject: DAFNE consult note Please review Dr. Mayorga's, DAFNE, note scanned into pt's chart. From: Scott Rose MD To: [facility] Inbox; Sent: 06/17/2018 07:49:46 EST Subject: RE: DAFNE consult note reviewed. [facility] Coding Summary.on 05-30-2018 Coding Summary. CODING DATE: 018 [facility] STATUS: Home (Routine DC) PAYOR: Medicare ADMIT DX: REASON FOR VISIT DX: R52 Pain, unspecified FINAL DX: PRINCIPAL: G89.29 Other chronic pain SECONDARY: F31.9 Bipolar disorder, unspecified F17.200 Nicotine dependence, unspecified, uncomplicated Z79.899 Other intermediate (current) drug therapy PROCEDURES DOCTOR NAME DATE NOTE: The code number assigned matches the documented diagnosis and / or procedure in the patient's chart. However, the narrative phrase printed from the coding software may appear abbreviated, or result in slightly different terminology. Coded By: Misty Barnhart Date Saved: 05/30/2018 07:15 am [facility] Message - General Officeon 1 07-29-2017 Message [facility] Consulting Office From: Sun Abdalla To: [facility] Pain Referrals Out; Sent: 05/28/2018 11:30:10 EST Subject: Referral to Neurology From: Roz Simon ([facility] Pain Referrals Out) To: [facility] Pain Referrals Out; Sent: 05/28/2018 13:43:01 EST Subject: Requested office notes- Referral to Neurology requested office notes from Medical Records/[facility] From: Robert Salvador ([facility] Pain Referrals Out) To: [facility] Pain Referrals Out; Sent: 05/29/2018 08:46:39 EST Subject: Referral to [facility] Referral faxed to [facility] 9 pages @[phone] Normal [facility] [employer] Officeon 1 07-28-2017 [employer] Office From: Kiko RN, Jennifer Stoddard ([facility] Inbox) To: Zunilda Conklin RN; Sent: 05/28/2018 11:23:40 EST Subject: [facility] Pt needs to be signed up for [employer]aware. From: Zunilda Conklin RN To: [facility]; Sent: 05/28/2018 12:06:41 EST Subject: RE: Breath[employer] Patient registered. Please let patient know that they will receive an e-mail prompting them to complete the questionnaire and begin using. Normal [facility] Vital Signs Date Time Vital Sign Value Performing Clinician Facility 12-17-2023 22:32-0400 Body height 175.26 cm [facility] Work Phone: [facility] 12-17-2023 22:32-0400 Body temperature 98 [degF] [facility] Work Phone: [facility] 12-17-2023 22:32-0400 Body weight 92.15 kg [facility] Work Phone: [facility] 12-17-2023 22:32-0400 Diastolic blood pressure 104 mm[Hg] [facility] Work Phone: [facility] 12-17-2023 22:32-0400 Heart rate 78 /min [facility] Work Phone: [facility] 12-17-2023 22:32-0400 Respiratory rate 22 /min [facility] Work Phone: [facility] 12-17-2023 22:32-0400 SaO2% (BldA) [Mass fraction] 95 % [facility] Work Phone: [facility] 12-17-2023 22:32-0400 Systolic blood pressure 181 mm[Hg] [facility] Work Phone: [facility] 12-07-2023 09:39-0400 Diastolic blood pressure 100 mm[Hg] [facility] Work Phone: [facility] 12-07-2023 09:39-0400 Systolic blood pressure 205 mm[Hg] [facility] Work Phone: [facility] 12-07-2023 08:48-0400 Heart rate 54 /min [facility] Work Phone: [facility] 12-07-2023 08:48-0400 Respiratory rate 16 /min [facility] Work Phone: [facility] 12-07-2023 08:48-0400 SaO2% (BldA) [Mass fraction] 96 % [facility] Work Phone: [facility] 12-07-2023 07:29-0400 Body temperature 98.1 [degF] [facility] Work Phone: [facility] 12-07-2023 07:28-0400 Body height 177.8 cm [facility] Work Phone: [facility] 12-07-2023 07:28-0400 Body weight 92.5 kg [facility] Work Phone: [facility] 10-09-2023 23:35-0400 Body height 175.26 cm [facility] Work Phone: [facility] 10-09-2023 23:35-0400 Body temperature 98 [degF] [facility] Work Phone: [facility] 10-09-2023 23:35-0400 Body weight 90.71 kg [facility] Work Phone: [facility] 10-09-2023 23:35-0400 Diastolic blood pressure 68 mm[Hg] [facility] Work Phone: [facility] 10-09-2023 23:35-0400 Heart rate 54 /min [facility] Work Phone: [facility] 10-09-2023 23:35-0400 Respiratory rate 20 /min [facility] Work Phone: [facility] 10-09-2023 23:35-0400 SaO2% (BldA) [Mass fraction] 98 % [facility] Work Phone: [facility] 10-09-2023 23:35-0400 Systolic blood pressure 116 mm[Hg] [facility] Work Phone: [facility] 06-22-2023 09:21-0500 Diastolic blood pressure 98 mm[Hg] [facility] Work Phone: [facility] 06-22-2023 09:21-0500 Systolic blood pressure 160 mm[Hg] [facility] Work Phone: [facility] 06-22-2023 08:53-0500 Heart rate 55 /min [facility] Work Phone: [facility] 06-22-2023 08:53-0500 Respiratory rate 16 /min [facility] Work Phone: [facility] 06-22-2023 08:53-0500 SaO2% (BldA) [Mass fraction] 98 % [facility] Work Phone: [facility] 06-22-2023 07:10-0500 Body height 175.26 cm [facility] Work Phone: [facility] 06-22-2023 07:10-0500 Body temperature 97 [degF] [facility] Work Phone: [facility] 06-22-2023 07:10-0500 Body weight 87.8 kg [facility] Work Phone: [facility] 06-17-2023 18:18-0500 Body height 175.26 cm [facility] Work Phone: [facility] 06-17-2023 18:18-0500 Body temperature 98.2 [degF] [facility] Work Phone: [facility] 06-17-2023 18:18-0500 Body weight 89.4 kg [facility] Phone: [facility] 06-17-2023 18:18-0500 Diastolic blood pressure 88 mm[Hg] [facility] Work Phone: [facility] 06-17-2023 18:18-0500 Heart rate 100 /min [facility] Work Phone: [facility] 06-17-2023 18:18-0500 Respiratory rate 16 /min [facility] Work Phone: [facility] 06-17-2023 18:18-0500 SaO2% (BldA) [Mass fraction] 97 % [facility] Work Phone: [facility] 06-17-2023 18:18-0500 Systolic blood pressure 128 mm[Hg] [facility] Work Phone: [facility] 06-01-2023 10:03-0500 Body temperature 96.8 [degF] [facility] Work Phone: [facility] 06-01-2023 10:03-0500 Diastolic blood pressure 75 mm[Hg] Services [employer] Work Phone: [facility] 06-01-2023 10:03-0500 Heart rate 90 /min [facility] [employer] Work Phone: [facility] 06-01-2023 10:03-0500 Respiratory rate 16 /min [facility] [employer] Work Phone: [facility] 06-01-2023 10:03-0500 SaO2% (BldA) [Mass fraction] 96 % [facility] [employer] Work Phone: [facility] 06-01-2023 10:03-0500 Systolic blood pressure 180 mm[Hg] [facility] [employer] Work Phone: [facility] 06-01-2023 05:40-0500 Body height 175.26 cm [facility] [employer] Work Phone: [facility] 06-01-2023 05:40-0500 Body weight 88.7 kg [facility] [employer] Work Phone: [facility] 05-10-2023 11:52-0400 Diastolic blood pressure 90 mm[Hg] MD Misty Guallpa Work Phone: [facility] 05-10-2023 11:52-0400 Heart rate 78 /min MD Misty Guallpa Work Phone: [facility] 05-10-2023 11:52-0400 Respiratory rate 18 /min MD Misty Guallpa Work Phone: [facility] 05-10-2023 11:52-0400 SaO2% (BldA) [Mass fraction] 98 % MD Misty Guallpa Work Phone: [facility] 05-10-2023 11:52-0400 Systolic blood pressure 189 mm[Hg] MD Misty Guallpa Work Phone: [facility] 05-10-2023 08:49-0400 Body height 175.26 cm MD Misty Guallpa Work Phone: [facility] 05-10-2023 08:49-0400 Body temperature 97.2 [degF] MD Misty Guallpa Work Phone: [facility] 05-10-2023 08:49-0400 Body weight 86.4 kg MD Misty Guallpa Work Phone: [facility] 04-13-2023 09:44-0400 Diastolic blood pressure 81 mm[Hg] [facility] Work Phone: [facility] 04-13-2023 09:44-0400 Heart rate 55 /min [facility] Work Phone: [facility] 04-13-2023 09:44-0400 Respiratory rate 18 /min [facility] Work Phone: [facility] 04-13-2023 09:44-0400 SaO2% (BldA) [Mass fraction] 98 % [facility] Work Phone: [facility] 04-13-2023 09:44-0400 Systolic blood pressure 175 mm[Hg] [facility] Work Phone: [facility] 04-13-2023 06:30-0400 Body height 175.26 cm [facility] Work Phone: [facility] 04-13-2023 06:30-0400 Body weight 88.45 kg [facility] Work Phone: [facility] 04-13-2023 06:29-0400 Body temperature 97.1 [degF] [facility] Work Phone: [facility] 03-06-2023 13:28-0400 Heart rate 65 /min [facility] Work Phone: [facility] 03-06-2023 13:28-0400 Respiratory rate 20 /min [facility] Work Phone: [facility] 03-06-2023 13:28-0400 SaO2% (BldA) [Mass fraction] 100 % [facility] Work Phone: [facility] 03-06-2023 11:32-0400 Diastolic blood pressure 76 mm[Hg] [facility] Work Phone: [facility] 03-06-2023 11:32-0400 Systolic blood pressure 190 mm[Hg] [facility] Work Phone: [facility] 03-06-2023 09:54-0400 Body height 175.26 cm [facility] Work Phone: [facility] 03-06-2023 09:54-0400 Body temperature 97.2 [degF] [facility] Work Phone: [facility] 03-06-2023 09:54-0400 Body weight 92.98 kg [facility] Work Phone: [facility] 02-04-2023 17:48-0400 Body height 175.26 cm [facility] Work Phone: [facility] 02-04-2023 17:48-0400 Body temperature 97.7 [degF] [facility] Work Phone: [facility] 02-04-2023 17:48-0400 Body weight 88.63 kg [facility] Work Phone: [facility] 02-04-2023 17:48-0400 Diastolic blood pressure 95 mm[Hg] [facility] Work Phone: [facility] 02-04-2023 17:48-0400 Heart rate 122 /min [facility] Work Phone: [facility] 02-04-2023 17:48-0400 Respiratory rate 16 /min [facility] Work Phone: [facility] 02-04-2023 17:48-0400 SaO2% (BldA) [Mass fraction] 96 % [facility] Work Phone: [facility] 02-04-2023 17:48-0400 Systolic blood pressure 168 mm[Hg] [facility] Work Phone: [facility] 01-16-2023 08:44-0400 Diastolic blood pressure 106 mm[Hg] [facility] Work Phone: [facility] 01-16-2023 08:44-0400 Heart rate 60 /min [facility] Work Phone: [facility] 01-16-2023 08:44-0400 Respiratory rate 16 /min [facility] Work Phone: [facility] 01-16-2023 08:44-0400 SaO2% (BldA) [Mass fraction] 98 % [facility] Work Phone: [facility] 01-16-2023 08:44-0400 Systolic blood pressure 199 mm[Hg] [facility] Work Phone: [facility] 01-16-2023 04:50-0400 Body height 175.26 cm [facility] Work Phone: [facility] 01-16-2023 04:50-0400 Body weight 91.8 kg [facility] Work Phone: [facility] 01-16-2023 04:49-0400 Body temperature 97.9 [degF] [facility] Work Phone: [facility] 01-14-2023 18:29-0400 Diastolic blood pressure 100 mm[Hg] [facility] Work Phone: [facility] 01-14-2023 18:29-0400 Heart rate 70 /min [facility] Work Phone: [facility] 01-14-2023 18:29-0400 Respiratory rate 18 /min [facility] Work Phone: [facility] 01-14-2023 18:29-0400 SaO2% (BldA) [Mass fraction] 96 % [facility] Work Phone: [facility] 01-14-2023 18:29-0400 Systolic blood pressure 157 mm[Hg] [facility] Work Phone: [facility] 01-14-2023 17:34-0400 Body temperature 98.3 [degF] [facility] Work Phone: [facility] 01-14-2023 15:53-0400 Body height 175.26 cm [facility] Work Phone: [facility] 01-14-2023 15:53-0400 Body weight 90.71 kg [facility] Work Phone: [facility] 01-14-2023 07:17-0400 Diastolic blood pressure 102 mm[Hg] [facility] Work Phone: [facility] 01-14-2023 07:17-0400 Heart rate 60 /min [facility] Work Phone: [facility] 01-14-2023 07:17-0400 Respiratory rate 16 /min [facility] Work Phone: [facility] 01-14-2023 07:17-0400 SaO2% (BldA) [Mass fraction] 99 % [facility] Work Phone: [facility] 01-14-2023 07:17-0400 Systolic blood pressure 188 mm[Hg] [facility] Work Phone: [facility] 01-14-2023 05:53-0400 Body height 175.26 cm [facility] Work Phone: [facility] 01-14-2023 05:53-0400 Body temperature 97.9 [degF] [facility] Work Phone: [facility] 01-14-2023 05:53-0400 Body weight 90.71 kg [facility] Work Phone: [facility] 12-20-2022 20:57-0400 Diastolic blood pressure 63 mm[Hg] [facility] Work Phone: [facility] 12-20-2022 20:57-0400 Heart rate 69 /min [facility] Work Phone: [facility] 12-20-2022 20:57-0400 Respiratory rate 18 /min [facility] Work Phone: [facility] 12-20-2022 20:57-0400 SaO2% (BldA) [Mass fraction] 96 % [facility] Work Phone: [facility] 12-20-2022 20:57-0400 Systolic blood pressure 140 mm[Hg] [facility] Work Phone: [facility] 12-20-2022 16:39-0400 Body height 175.26 cm [facility] Work Phone: [facility] 12-20-2022 16:39-0400 Body temperature 98.1 [degF] [facility] Work Phone: [facility] 12-20-2022 16:39-0400 Body weight 95.6 kg [facility] Work Phone: [facility] 12-08-2022 22:16-0400 Body height 175.26 cm [facility] Work Phone: [facility] 12-08-2022 22:16-0400 Body temperature 98.1 [degF] [facility] Work Phone: [facility] 12-08-2022 22:16-0400 Body weight 86.18 kg [facility] Work Phone: [facility] 12-08-2022 22:16-0400 Diastolic blood pressure 90 mm[Hg] [facility] Work Phone: [facility] 12-08-2022 22:16-0400 Heart rate 78 /min [facility] Work Phone: [facility] 12-08-2022 22:16-0400 Respiratory rate 20 /min [facility] Work Phone: [facility] 12-08-2022 22:16-0400 SaO2% (BldA) [Mass fraction] 100 % [facility] Work Phone: [facility] 12-08-2022 22:16-0400 Systolic blood pressure 162 mm[Hg] [facility] Work Phone: [facility] 12-08-2022 18:15-0400 Diastolic blood pressure 88 mm[Hg] [facility] Work Phone: [facility] 12-08-2022 18:15-0400 Heart rate 63 /min [facility] Work Phone: [facility] 12-08-2022 18:15-0400 Respiratory rate 18 /min [facility] Work Phone: [facility] 12-08-2022 18:15-0400 SaO2% (BldA) [Mass fraction] 99 % [facility] Work Phone: [facility] 12-08-2022 18:15-0400 Systolic blood pressure 195 mm[Hg] [facility] Work Phone: [facility] 12-08-2022 14:07-0400 Body temperature 97.5 [degF] [facility] Work Phone: [facility] 12-08-2022 12:29-0400 Body height 175.26 cm [facility] Work Phone: [facility] 12-08-2022 12:29-0400 Body weight 86.18 kg [facility] Work Phone: [facility] 12-03-2022 08:58-0400 Body temperature 97.9 [degF] [facility] Work Phone: [facility] 12-03-2022 08:58-0400 Diastolic blood pressure 74 mm[Hg] [facility] Work Phone: [facility] 12-03-2022 08:58-0400 Heart rate 61 /min [facility] Work Phone: [facility] 12-03-2022 08:58-0400 Respiratory rate 18 /min [facility] Work Phone: [facility] 12-03-2022 08:58-0400 SaO2% (BldA) [Mass fraction] 99 % [facility] Work Phone: [facility] 12-03-2022 08:58-0400 Systolic blood pressure 134 mm[Hg] [facility] Work Phone: [facility] 12-03-2022 03:43-0400 Body height 175.26 cm [facility] Work Phone: [facility] 12-03-2022 03:43-0400 Body weight 86.18 kg [facility] Work Phone: [facility] 11-17-2022 20:11-0400 Body height 175.26 cm [facility] Work Phone: [facility] 11-17-2022 20:11-0400 Body temperature 98.1 [degF] [facility] Work Phone: [facility] 11-17-2022 20:11-0400 Body weight 88.2 kg [facility] Work Phone: [facility] 11-17-2022 20:11-0400 Diastolic blood pressure 87 mm[Hg] [facility] Work Phone: [facility] 11-17-2022 20:11-0400 Heart rate 96 /min [facility] Work Phone: [facility] 11-17-2022 20:11-0400 Respiratory rate 18 /min [facility] Work Phone: [facility] 11-17-2022 20:11-0400 SaO2% (BldA) [Mass fraction] 98 % [facility] Work Phone: [facility] 11-17-2022 20:11-0400 Systolic blood pressure 138 mm[Hg] [facility] Work Phone: [facility] 11-15-2022 11:37-0400 Diastolic blood pressure 92 mm[Hg] Nishant Bernardo MD Work Phone: [facility] 11-15-2022 11:37-0400 Heart rate 63 /min Nishant Bernardo MD Work Phone: [facility] 11-15-2022 11:37-0400 Respiratory rate 14 /min Nishant Bernardo MD Work Phone: [facility] 11-15-2022 11:37-0400 SaO2% (BldA) [Mass fraction] 97 % Nishant Bernardo MD Work Phone: [facility] 11-15-2022 11:37-0400 Systolic blood pressure 119 mm[Hg] Nishant Bernardo MD Work Phone: [facility] 11-15-2022 10:08-0400 Body height 175.3 cm Nishant Bernardo MD Work Phone: [facility] 11-15-2022 10:08-0400 Body mass index (BMI) [Ratio] 28.06 kg/m2 Nishant Bernardo MD Work Phone: [facility] 11-15-2022 10:08-0400 Body temperature 98.2 [degF] Nishant Bernardo MD Work Phone: [facility] 11-15-2022 10:08-0400 Body weight 86.18 kg Nishant Bernardo MD Work Phone: [facility] 11-13-2022 14:59-0400 Body height 175.26 cm Services [facility] Work Phone: [facility] 11-13-2022 14:59-0400 Body temperature 98.6 [degF] [facility] Work Phone: [facility] 11-13-2022 14:59-0400 Body weight 84.9 kg [facility] Work Phone: [facility] 11-13-2022 14:59-0400 Diastolic blood pressure 86 mm[Hg] [facility] Work Phone: [facility] 11-13-2022 14:59-0400 Heart rate 87 /min [facility] Work Phone: [facility] 11-13-2022 14:59-0400 Respiratory rate 20 /min [facility] Work Phone: [facility] 11-13-2022 14:59-0400 SaO2% (BldA) [Mass fraction] 96 % [facility] Work Phone: [facility] 11-13-2022 14:59-0400 Systolic blood pressure 142 mm[Hg] [facility] Work Phone: [facility] 11-03-2022 15:41-0400 Diastolic blood pressure 74 mm[Hg] [facility] Work Phone: [facility] 11-03-2022 15:41-0400 Heart rate 74 /min [facility] Work Phone: [facility] 11-03-2022 15:41-0400 Respiratory rate 20 /min [facility] Work Phone: [facility] 11-03-2022 15:41-0400 SaO2% (BldA) [Mass fraction] 98 % [facility] Work Phone: [facility] 11-03-2022 15:41-0400 Systolic blood pressure 128 mm[Hg] [facility] Work Phone: [facility] 11-03-2022 13:09-0400 Body temperature 98.7 [degF] [facility] Work Phone: [facility] 11-03-2022 13:08-0400 Body height 175.26 cm [facility] Work Phone: [facility] 11-03-2022 13:08-0400 Body weight 89 kg [facility] Work Phone: [facility] 11-01-2022 17:59-0400 Body temperature 98.2 [degF] [facility] Work Phone: [facility] 11-01-2022 17:59-0400 Diastolic blood pressure 84 mm[Hg] [facility] Work Phone: [facility] 11-01-2022 17:59-0400 Heart rate 74 /min [facility] Work Phone: [facility] 11-01-2022 17:59-0400 Respiratory rate 20 /min [facility] Work Phone: [facility] 11-01-2022 17:59-0400 SaO2% (BldA) [Mass fraction] 99 % [facility] Work Phone: [facility] 11-01-2022 17:59-0400 Systolic blood pressure 127 mm[Hg] [facility] Work Phone: [facility] 11-01-2022 13:41-0400 Body height 175.26 cm [facility] Work Phone: [facility] 11-01-2022 13:41-0400 Body weight 87.5 kg [facility] Work Phone: [facility] 09-10-2022 09:42-0500 Diastolic blood pressure 80 mm[Hg] [facility] Work Phone: [facility] 09-10-2022 09:42-0500 Heart rate 84 /min [facility] Work Phone: [facility] 09-10-2022 09:42-0500 Respiratory rate 16 /min [facility] Work Phone: [facility] 09-10-2022 09:42-0500 SaO2% (BldA) [Mass fraction] 98 % [facility] Work Phone: [facility] 09-10-2022 09:42-0500 Systolic blood pressure 176 mm[Hg] [facility] Work Phone: [facility] 09-10-2022 06:37-0500 Body height 175.26 cm [facility] Work Phone: [facility] 09-10-2022 06:37-0500 Body temperature 96.9 [degF] [facility] Work Phone: [facility] 09-10-2022 06:37-0500 Body weight 89 kg [facility] Work Phone: [facility] 09-03-2022 08:43-0500 Body temperature 97.4 [degF] [facility] Work Phone: [facility] 09-03-2022 08:43-0500 Diastolic blood pressure 98 mm[Hg] [facility] Work Phone: [facility] 09-03-2022 08:43-0500 Heart rate 84 /min [facility] Work Phone: [facility] 09-03-2022 08:43-0500 Respiratory rate 18 /min [facility] Work Phone: [facility] 09-03-2022 08:43-0500 SaO2% (BldA) [Mass fraction] 94 % [facility] Work Phone: [facility] 09-03-2022 08:43-0500 Systolic blood pressure 148 mm[Hg] [facility] Work Phone: [facility] 09-03-2022 05:00-0500 Body height 175.26 cm [facility] Work Phone: [facility] 09-03-2022 05:00-0500 Body weight 88.45 kg [facility] Work Phone: [facility] 08-29-2022 19:54-0500 Diastolic blood pressure 111 mm[Hg] [facility] Work Phone: [facility] 08-29-2022 19:54-0500 Systolic blood pressure 190 mm[Hg] [facility] Work Phone: [facility] 08-29-2022 19:53-0500 Body height 175.26 cm [facility] Work Phone: [facility] 08-29-2022 19:53-0500 Body weight 88.9 kg [facility] Work Phone: [facility] 08-29-2022 19:52-0500 Body temperature 99.1 [degF] [facility] Work Phone: [facility] 08-29-2022 19:52-0500 Heart rate 101 /min [facility] Work Phone: [facility] 08-29-2022 19:52-0500 Respiratory rate 22 /min [facility] Work Phone: [facility] 08-29-2022 19:52-0500 SaO2% (BldA) [Mass fraction] 94 % [facility] Work Phone: [facility] 08-29-2022 14:18-0500 Diastolic blood pressure 66 mm[Hg] [facility] Work Phone: [facility] 08-29-2022 14:18-0500 Heart rate 74 /min [facility] Work Phone: [facility] 08-29-2022 14:18-0500 Respiratory rate 18 /min [facility] Work Phone: [facility] 08-29-2022 14:18-0500 SaO2% (BldA) [Mass fraction] 99 % [facility] Work Phone: [facility] 08-29-2022 14:18-0500 Systolic blood pressure 118 mm[Hg] [facility] Work Phone: [facility] 08-29-2022 13:40-0500 Body temperature 98 [degF] [facility] Work Phone: [facility] 08-29-2022 10:04-0500 Body height 175.26 cm [facility] Work Phone: [facility] 08-29-2022 10:04-0500 Body weight 88.25 kg [facility] Work Phone: [facility] 08-27-2022 16:14-0500 Diastolic blood pressure 110 mm[Hg] [facility] Work Phone: [facility] 08-27-2022 16:14-0500 Systolic blood pressure 190 mm[Hg] [facility] Work Phone: [facility] 08-27-2022 13:00-0500 Heart rate 98 /min [facility] Work Phone: [facility] 08-27-2022 13:00-0500 Respiratory rate 20 /min [facility] Work Phone: [facility] 08-27-2022 13:00-0500 SaO2% (BldA) [Mass fraction] 98 % [facility] Work Phone: [facility] 08-27-2022 11:28-0500 Body height 175.26 cm [facility] Work Phone: [facility] 08-27-2022 11:28-0500 Body temperature 97.7 [degF] [facility] Work Phone: [facility] 08-27-2022 11:28-0500 Body weight 87.6 kg [facility] Work Phone: [facility] 08-25-2022 04:35-0500 Body temperature 97 [degF] [facility] Work Phone: [facility] 08-25-2022 03:38-0500 Diastolic blood pressure 113 mm[Hg] [facility] Work Phone: [facility] 08-25-2022 03:38-0500 Heart rate 93 /min [facility] Work Phone: [facility] 08-25-2022 03:38-0500 Respiratory rate 18 /min [facility] Work Phone: [facility] 08-25-2022 03:38-0500 SaO2% (BldA) [Mass fraction] 93 % [facility] Work Phone: [facility] 08-25-2022 03:38-0500 Systolic blood pressure 166 mm[Hg] [facility] Work Phone: [facility] 08-25-2022 03:37-0500 Body height 175.26 cm [facility] Work Phone: [facility] 08-25-2022 03:37-0500 Body weight 89 kg [facility] Work Phone: [facility] 08-23-2022 10:59-0500 Diastolic blood pressure 102 mm[Hg] [facility] Work Phone: [facility] 08-23-2022 10:59-0500 Heart rate 65 /min [facility] Work Phone: [facility] 08-23-2022 10:59-0500 Respiratory rate 20 /min [facility] Work Phone: [facility] 08-23-2022 10:59-0500 SaO2% (BldA) [Mass fraction] 96 % [facility] Work Phone: [facility] 08-23-2022 10:59-0500 Systolic blood pressure 189 mm[Hg] [facility] Work Phone: [facility] 08-23-2022 08:38-0500 Body height 175.26 cm [facility] Work Phone: [facility] 08-23-2022 08:38-0500 Body temperature 97.1 [degF] [facility] Work Phone: [facility] 08-23-2022 08:38-0500 Body weight 90.7 kg [facility] Work Phone: [facility] 08-21-2022 17:35-0500 Diastolic blood pressure 81 mm[Hg] [facility] Work Phone: [facility] 08-21-2022 17:35-0500 Heart rate 94 /min [facility] Work Phone: [facility] 08-21-2022 17:35-0500 Respiratory rate 18 /min [facility] Work Phone: [facility] 08-21-2022 17:35-0500 SaO2% (BldA) [Mass fraction] 98 % [facility] Work Phone: [facility] 08-21-2022 17:35-0500 Systolic blood pressure 129 mm[Hg] [facility] Work Phone: [facility] 08-21-2022 13:14-0500 Body height 175.26 cm Services [employer] Work Phone: [facility] 08-21-2022 13:14-0500 Body temperature 98 [degF] Services [employer] Work Phone: [facility] 08-21-2022 13:14-0500 Body weight 88.45 kg Services [employer] Work Phone: [facility] 06-15-2022 14:00-0500 Body height 175.26 cm Michael Purcell Other [employer] Other 06-15-2022 14:00-0500 Body mass index (BMI) [Ratio] 28.5 kg/m2 Michael Purcell Other [employer] Other 06-15-2022 14:00-0500 Body weight 87.54 kg Michael Purcell Other [employer] Other 06-15-2022 14:00-0500 Diastolic blood pressure 64 mm[Hg] Michael Purcell Other [employer] Other 06-15-2022 14:00-0500 Systolic blood pressure 91 mm[Hg] Michael Purcell Other Located [facility] [employer] [facility] 05-24-2022 15:30-0500 Diastolic blood pressure 63 mm[Hg] [facility] Work Phone: [facility] 05-24-2022 15:30-0500 Heart rate 70 /min [facility] Work Phone: [facility] 05-24-2022 15:30-0500 Respiratory rate 16 /min [facility] Work Phone: [facility] 05-24-2022 15:30-0500 SaO2% (BldA) [Mass fraction] 98 % [facility] Work Phone: [facility] 05-24-2022 15:30-0500 Systolic blood pressure 122 mm[Hg] [facility] Work Phone: [facility] 05-24-2022 12:55-0500 Body height 175.26 cm [facility] Work Phone: [facility] 05-24-2022 12:55-0500 Body weight 90.71 kg [facility] Work Phone: [facility] 04-28-2022 13:17-0400 Diastolic blood pressure 105 mm[Hg] [facility] Work Phone: [facility] 04-28-2022 13:17-0400 Heart rate 87 /min [facility] Work Phone: [facility] 04-28-2022 13:17-0400 Respiratory rate 18 /min [facility] Work Phone: [facility] 04-28-2022 13:17-0400 SaO2% (BldA) [Mass fraction] 99 % [facility] Work Phone: [facility] 04-28-2022 13:17-0400 Systolic blood pressure 146 mm[Hg] [facility] Work Phone: [facility] 04-28-2022 08:35-0400 Body height 175.26 cm [facility] Work Phone: [facility] 04-28-2022 08:35-0400 Body temperature 97.7 [degF] [facility] Work Phone: [facility] 04-28-2022 08:35-0400 Body weight 92.98 kg [facility] Work Phone: [facility] 04-26-2022 09:09-0400 Diastolic blood pressure 91 mm[Hg] [facility] Work Phone: [facility] 04-26-2022 09:09-0400 Heart rate 100 /min [facility] Work Phone: [facility] 04-26-2022 09:09-0400 Respiratory rate 18 /min [facility] Work Phone: [facility] 04-26-2022 09:09-0400 SaO2% (BldA) [Mass fraction] 96 % [facility] Work Phone: [facility] 04-26-2022 09:09-0400 Systolic blood pressure 161 mm[Hg] [facility] Work Phone: [facility] 04-26-2022 07:42-0400 Body height 175.26 cm [facility] Work Phone: [facility] 04-26-2022 07:42-0400 Body temperature 97.4 [degF] [facility] Work Phone: [facility] 04-26-2022 07:42-0400 Body weight 92.98 kg [facility] Work Phone: [facility] 04-26-2022 06:00-0400 Diastolic blood pressure 85 mm[Hg] [facility] Work Phone: [facility] 04-26-2022 06:00-0400 Heart rate 79 /min [facility] Work Phone: [facility] 04-26-2022 06:00-0400 Respiratory rate 20 /min [facility] Work Phone: [facility] 04-26-2022 06:00-0400 SaO2% (BldA) [Mass fraction] 98 % [facility] Work Phone: [facility] 04-26-2022 06:00-0400 Systolic blood pressure 173 mm[Hg] [facility] Work Phone: [facility] 04-26-2022 05:30-0400 Body height 175.26 cm [facility] Work Phone: [facility] 04-26-2022 05:30-0400 Body temperature 97.2 [degF] [facility] Work Phone: [facility] 04-26-2022 05:30-0400 Body weight 92.98 kg [facility] Work Phone: [facility] 04-23-2022 05:30-0400 Diastolic blood pressure 81 mm[Hg] [facility] Work Phone: [facility] 04-23-2022 05:30-0400 Heart rate 89 /min [facility] Work Phone: [facility] 04-23-2022 05:30-0400 Respiratory rate 20 /min [facility] Work Phone: [facility] 04-23-2022 05:30-0400 SaO2% (BldA) [Mass fraction] 97 % [facility] Work Phone: [facility] 04-23-2022 05:30-0400 Systolic blood pressure 131 mm[Hg] [facility] Work Phone: [facility] 04-23-2022 03:25-0400 Body height 175.26 cm [facility] Work Phone: [facility] 04-23-2022 03:25-0400 Body temperature 97.7 [degF] [facility] Work Phone: [facility] 04-23-2022 03:25-0400 Body weight 92.8 kg [facility] Work Phone: [facility] 04-09-2022 06:44-0400 Diastolic blood pressure 87 mm[Hg] [facility] Work Phone: [facility] 04-09-2022 06:44-0400 Heart rate 92 /min [facility] Work Phone: [facility] 04-09-2022 06:44-0400 Respiratory rate 22 /min [facility] Work Phone: [facility] 04-09-2022 06:44-0400 SaO2% (BldA) [Mass fraction] 98 % [facility] Work Phone: [facility] 04-09-2022 06:44-0400 Systolic blood pressure 139 mm[Hg] [facility] Work Phone: [facility] 04-09-2022 04:50-0400 Body height 175.26 cm [facility] Work Phone: [facility] 04-09-2022 04:50-0400 Body temperature 97.9 [degF] [facility] Work Phone: [facility] 04-09-2022 04:50-0400 Body weight 95.25 kg [facility] Work Phone: [facility] 04-03-2022 01:12-0400 Body height 177.8 cm [facility] Work Phone: [facility] 04-03-2022 01:12-0400 Body temperature 97.1 [degF] [facility] Work Phone: [facility] 04-03-2022 01:12-0400 Body weight 93.95 kg [facility] Work Phone: [facility] 04-03-2022 01:12-0400 Diastolic blood pressure 88 mm[Hg] [facility] Work Phone: [facility] 04-03-2022 01:12-0400 Heart rate 82 /min [facility] Work Phone: [facility] 04-03-2022 01:12-0400 Respiratory rate 22 /min [facility] Work Phone: [facility] 04-03-2022 01:12-0400 SaO2% (BldA) [Mass fraction] 100 % [facility] Work Phone: [facility] 04-03-2022 01:12-0400 Systolic blood pressure 134 mm[Hg] [facility] Work Phone: [facility] 03-22-2022 13:50-0400 Body height 177.8 cm [facility] Work Phone: [facility] 03-22-2022 13:50-0400 Body temperature 98.1 [degF] [facility] Work Phone: [facility] 03-22-2022 13:50-0400 Body weight 106.59 kg [facility] Work Phone: [facility] 03-22-2022 13:50-0400 Diastolic blood pressure 103 mm[Hg] [facility] Work Phone: [facility] 03-22-2022 13:50-0400 Heart rate 130 /min [facility] Work Phone: [facility] 03-22-2022 13:50-0400 Respiratory rate 20 /min [facility] Work Phone: [facility] 03-22-2022 13:50-0400 SaO2% (BldA) [Mass fraction] 100 % [facility] Work Phone: [facility] 03-22-2022 13:50-0400 Systolic blood pressure 131 mm[Hg] [facility] Work Phone: [facility] 03-13-2022 19:05-0400 Diastolic blood pressure 85 mm[Hg] [facility] Work Phone: [facility] 03-13-2022 19:05-0400 Heart rate 70 /min [facility] Work Phone: [facility] 03-13-2022 19:05-0400 Respiratory rate 16 /min [facility] Work Phone: [facility] 03-13-2022 19:05-0400 SaO2% (BldA) [Mass fraction] 100 % [facility] Work Phone: [facility] 03-13-2022 19:05-0400 Systolic blood pressure 148 mm[Hg] [facility] Work Phone: [facility] 03-13-2022 15:28-0400 Body height 177.8 cm [facility] Work Phone: [facility] 03-13-2022 15:28-0400 Body temperature 97.8 [degF] [facility] Work Phone: [facility] 03-13-2022 15:28-0400 Body weight 92.4 kg [facility] Work Phone: [facility] 02-02-2022 11:14-0400 Body temperature 98.5 [degF] [facility] Work Phone: [facility] 02-02-2022 10:45-0400 Diastolic blood pressure 88 mm[Hg] [facility] Work Phone: [facility] 02-02-2022 10:45-0400 Heart rate 60 /min [facility] Work Phone: [facility] 02-02-2022 10:45-0400 Respiratory rate 18 /min [facility] Work Phone: [facility] 02-02-2022 10:45-0400 SaO2% (BldA) [Mass fraction] 100 % [facility] Work Phone: [facility] 02-02-2022 10:45-0400 Systolic blood pressure 169 mm[Hg] [facility] Work Phone: [facility] 02-02-2022 09:03-0400 Body height 170.18 cm [facility] Work Phone: [facility] 02-02-2022 09:03-0400 Body weight 74.84 kg [facility] Work Phone: [facility] 01-31-2022 11:40-0400 Diastolic blood pressure 97 mm[Hg] [facility] Work Phone: [facility] 01-31-2022 11:40-0400 Heart rate 76 /min [facility] Work Phone: [facility] 01-31-2022 11:40-0400 Respiratory rate 18 /min [facility] Work Phone: [facility] 01-31-2022 11:40-0400 SaO2% (BldA) [Mass fraction] 96 % [facility] Work Phone: [facility] 01-31-2022 11:40-0400 Systolic blood pressure 198 mm[Hg] [facility] Work Phone: [facility] 01-31-2022 08:16-0400 Inhaled oxygen flow rate 2 L/min [facility] Work Phone: [facility] 01-31-2022 05:17-0400 Body height 177.8 cm [facility] Work Phone: [facility] 01-31-2022 05:17-0400 Body mass index (BMI) [Ratio] 30.8 kg/m2 [facility] Work Phone: [facility] 01-31-2022 05:17-0400 Body weight 97.52 kg [facility] Work Phone: [facility] 01-31-2022 05:11-0400 Body temperature 98.3 [degF] [facility] Work Phone: [facility] 12-09-2021 09:18-0400 Diastolic blood pressure 77 mm[Hg] [facility] Work Phone: [facility] 12-09-2021 09:18-0400 Heart rate 99 /min [facility] Work Phone: [facility] 12-09-2021 09:18-0400 Respiratory rate 16 /min [facility] Work Phone: [facility] 12-09-2021 09:18-0400 SaO2% (BldA) [Mass fraction] 96 % [facility] Work Phone: [facility] 12-09-2021 09:18-0400 Systolic blood pressure 177 mm[Hg] [facility] Work Phone: [facility] 12-09-2021 03:43-0400 Body height 177.8 cm [facility] Work Phone: [facility] 12-09-2021 03:43-0400 Body mass index (BMI) [Ratio] 30 kg/m2 [facility] Work Phone: [facility] 12-09-2021 03:43-0400 Body temperature 97.1 [degF] [facility] Work Phone: [facility] 12-09-2021 03:43-0400 Body weight 95.1 kg [facility] Work Phone: [facility] 12-07-2021 14:37-0400 Body height 177.8 cm [facility] Work Phone: [facility] 12-07-2021 14:37-0400 Body mass index (BMI) [Ratio] 30.4 kg/m2 [facility] Work Phone: [facility] 12-07-2021 14:37-0400 Body temperature 98.1 [degF] [facility] Work Phone: [facility] 12-07-2021 14:37-0400 Body weight 96.1 kg [facility] Work Phone: [facility] 12-07-2021 14:37-0400 Diastolic blood pressure 100 mm[Hg] [facility] Work Phone: [facility] 12-07-2021 14:37-0400 Heart rate 92 /min [facility] Work Phone: [facility] 12-07-2021 14:37-0400 Respiratory rate 20 /min [facility] Work Phone: [facility] 12-07-2021 14:37-0400 SaO2% (BldA) [Mass fraction] 98 % [facility] Work Phone: [facility] 12-07-2021 14:37-0400 Systolic blood pressure 176 mm[Hg] [facility] Work Phone: [facility] 12-05-2021 13:51-0400 Body height 177.8 cm [facility] Work Phone: [facility] 12-05-2021 13:51-0400 Body mass index (BMI) [Ratio] 30.1 kg/m2 [facility] Work Phone: [facility] 12-05-2021 13:51-0400 Body temperature 97.5 [degF] [facility] Work Phone: [facility] 12-05-2021 13:51-0400 Body weight 95.25 kg [facility] Work Phone: [facility] 12-05-2021 13:51-0400 Diastolic blood pressure 120 mm[Hg] [facility] Work Phone: [facility] 12-05-2021 13:51-0400 Heart rate 61 /min [facility] Work Phone: [facility] 12-05-2021 13:51-0400 Respiratory rate 20 /min [facility] Work Phone: [facility] 12-05-2021 13:51-0400 SaO2% (BldA) [Mass fraction] 100 % [facility] Work Phone: [facility] 12-05-2021 13:51-0400 Systolic blood pressure 198 mm[Hg] [facility] Work Phone: [facility] Encounters Encounter Date Encounter Type Care Provider Facility Start: 12-17-2023 End: 12-17-2023 Emergency department patient visit [facility] Work Phone: [facility] Work Phone: Start: 12-07-2023 End: 12-07-2023 Emergency department patient visit [facility] Work Phone: [facility] Work Phone: Start: 10-09-2023 End: 10-10-2023 Emergency department patient visit [facility] Work Phone: [facility] Work Phone: Start: 06-22-2023 End: 06-22-2023 Emergency department patient visit [facility] Work Phone: [facility] Work Phone: Start: 06-17-2023 End: 06-17-2023 Emergency department patient visit [facility] Work Phone: [facility] Work Phone: Start: 06-01-2023 End: 06-01-2023 Emergency department patient visit [facility] Work Phone: [facility] Work Phone: Start: 05-10-2023 End: 05-10-2023 Emergency department patient visit MD Misty Guallpa Work Phone: [facility] Work Phone: Start: 04-13-2023 End: 04-13-2023 Emergency department patient visit [facility] Work Phone: [facility] Work Phone: Start: 03-06-2023 End: 03-06-2023 Emergency department patient visit [facility] Work Phone: [facility] Work Phone: Start: 02-04-2023 End: 02-04-2023 Emergency department patient visit [facility] Work Phone: [facility] Work Phone: Start: 01-16-2023 End: 01-16-2023 Emergency department patient visit [facility] Work Phone: [facility] Work Phone: Start: 01-16-2023 End: 01-16-2023 [facility] Work Phone: [facility] Work Phone: Start: 01-14-2023 End: 01-14-2023 [facility] Work Phone: [facility] Work Phone: Start: 01-14-2023 End: 01-14-2023 Emergency department patient visit [facility] Work Phone: [facility] Work Phone: Start: 01-14-2023 End: 01-14-2023 Emergency department patient visit [facility] Work Phone: [facility] Work Phone: Start: 01-14-2023 End: 01-14-2023 [facility] Work Phone: [facility] Work Phone: Start: 01-08-[address] Yojana Torrez Fa [facility]ility[facility] Start: 01-05-[address] Yojana Torrez Fa cility:[id number] Start: 01-05-2023 End: 01-05-2023 Patient encounter procedure [facility] Work Phone: [facility] Work Phone: Start: 01-05-2023 End: 01-05-2023 [facility] Work Phone: [facility] Work Phone: Start: 01-05-2023 End: 01-05-2023 ambulatory [facility] Work Phone: [facility] Work Phone: Start: 12-20-2022 End: 12-20-2022 Emergency department patient visit [facility] Work Phone: [facility] Work Phone: Start: 12-20-2022 End: 12-20-2022 [facility] Work Phone: [facility] Work Phone: Start: 12-10-2022 End: 12-10-2022 [facility] Start: 12-09-2022 End: 12-09-2022 Emergency department patient visit Robson Spangler ashlyn Facility:[facility] Start: 12-08-2022 End: 12-08-2022 Emergency department patient visit [facility] Work Phone: [facility] Work Phone: Start: 12-08-2022 End: 12-08-2022 [facility] Work Phone: [facility] Work Phone: Start: 12-08-2022 End: 12-08-2022 Emergency department patient visit [facility] Work Phone: [facility] Work Phone: Start: 12-08-2022 End: 12-08-2022 [facility] Work Phone: [facility] Work Phone: Start: 12-06-2022 End: 12-06-2022 Patient encounter procedure [facility] Work Phone: [facility] [place] Work Phone: Start: 12-03-2022 End: 12-03-2022 Emergency department patient visit [facility] Work Phone: [facility] Work Phone: Start: 12-03-2022 End: 12-03-2022 [facility] Work Phone: [facility] Work Phone: Start: 11-17-2022 End: 11-17-2022 Emergency department patient visit [facility] Work Phone: [facility] Work Phone: Start: 11-17-2022 End: 11-17-2022 [facility] Work Phone: [facility] Work Phone: Start: 11-15-2022 End: 11-15-2022 Emergency department patient visit MOISE BAUM [facility] Start: 11-15-2022 End: 11-15-2022 Emergency department patient visit Nishant Bernardo MD Work Phone: [facility] Comment on above: Chronic abdominal pa in (Primary Dx) Start: 11-13-2022 End: 11-13-2022 Emergency department patient visit [facility] Work Phone: [facility] Work Phone: Start: 11-13-2022 End: 11-13-2022 [facility] Work Phone: [facility] Work Phone: Start: 11-03-2022 End: 11-03-2022 Emergency department patient visit [facility] Work Phone: [facility] Work Phone: Start: 11-03-2022 End: 11-03-2022 [facility] Work Phone: [facility] Work Phone: Start: 11-01-2022 End: 11-01-2022 Emergency department patient visit [facility] Work Phone: [facility] Work Phone: Start: 11-01-2022 End: 11-01-2022 [facility] Work Phone: [facility] Work Phone: Start: 09-10-2022 End: 09-10-2022 Emergency department patient visit [facility] Work Phone: [facility] Work Phone: Start: 09-10-2022 End: 09-10-2022 [facility] Work Phone: [facility] Work Phone: Start: 09-03-2022 End: 09-03-2022 Emergency department patient visit [facility] Work Phone: [facility] Work Phone: Start: 09-03-2022 End: 09-03-2022 [facility] Work Phone: [facility] Work Phone: Start: 08-30-2022 End: 08-30-2022 ambulatory Michael Purcell Other [employer] Other Start: 08-30-2022 Telephone encounter Michael Snyder [facility] Start: 08-29-2022 End: 08-29-2022 Emergency department patient visit [facility] Work Phone: [facility] Work Phone: Start: 08-29-2022 End: 08-29-2022 [facility] Work Phone: [facility] Work Phone: Start: 08-29-2022 End: 08-29-2022 Emergency department patient visit [facility] Work Phone: [facility] Work Phone: Start: 08-29-2022 End: 08-29-2022 [facility] Work Phone: [facility] Work Phone: Start: 08-27-2022 End: 08-27-2022 Emergency department patient visit [facility] Work Phone: [facility] Work Phone: Start: 08-27-2022 End: 08-27-2022 [facility] Work Phone: [facility] Work Phone: Start: 08-25-2022 End: 08-25-2022 Emergency department patient visit [facility] Work Phone: [facility] Work Phone: Start: 08-25-2022 End: 08-25-2022 [facility] Work Phone: [facility] Work Phone: Start: 08-23-2022 End: 08-23-2022 Emergency department patient visit [facility] Work Phone: [facility] Work Phone: Start: 08-23-2022 End: 08-23-2022 [facility] Work Phone: [facility] Work Phone: Start: 08-21-2022 End: 08-21-2022 Emergency department patient visit [facility] Work Phone: [facility] Work Phone: Start: 08-21-2022 End: 08-21-2022 [facility] Work Phone: [facility] Work Phone: Start: 08-15-2022 End: 08-15-2022 ambulatory Michael Purcell Other [employer] Other Start: 08-15-2022 Telephone encounter Michael roberts [facility] Start: 07-11-2022 End: 07-11-2022 ambulatory Michael Purcell Other [employer] Other Start: 07-11-2022 Telephone encounter Michael roberts [facility] Start: 06-15-2022 End: 06-15-2022 ambulatory Michael Purcell Other [employer] Other Start: 06-15-2022 Office outpatient visit 25 minutes Michael Alan [facility] Start: 05-26-2022 End: 05-27-2022 ambulatory AARON GUILLORY [facility] Start: 05-26-2022 End: 05-26-2022 Subsequent hospital visit by physician Aaron Guillory MD Work Phone: [facility] Comment on above: Hereditary sensory-m otor neuropathy, type III Start: 05-25-2022 End: 05-25-2022 ambulatory Michael Purcell Other [employer] Other Start: 05-25-2022 Telephone encounter Michael Snyder amrando [facility] Start: 05-24-2022 End: 05-24-2022 Admission to same day surgery center [facility] Work Phone: [facility] Work Phone: Start: 05-22-2022 End: 05-22-2022 ambulatory [facility] Work Phone: [facility] Work Phone: Start: 05-22-2022 End: 05-22-2022 Patient encounter procedure Services [facility] Work Phone: [facility]Pre[facility] Start: 05-20-2022 End: 05-20-[address] [facility] Start: 05-18-2022 ambulatory MOISE Marly Brito [facility] Start: 05-17-2022 End: 05-17-[address] ERIK BENTLEY Facility:[facility] Start: 05-11-2022 End: 05-11-2022 ambulatory Michael Purcell Other Located Within [employer] [facility] Other Start: 05-11-2022 Telephone encounter Michael Snyder ck [facility] Gastroenterology Start: 05-08-2022 End: 05-09-2022 ambulatory TEJ BATES Facility:H1 Start: 05-06-2022 End: 05-06-[address] JORDIN YANG Facility:H1 Start: 04-28-2022 End: 04-28-2022 Emergency department patient visit Services [facility] Work Phone: [facility] Start: 04-26-2022 End: 04-26-2022 Emergency department patient visit Services [facility] Work Phone: [facility] Start: 04-26-2022 End: 04-26-2022 Emergency department patient visit Services [facility] Work Phone: [facility] Start: 04-23-2022 End: 04-23-2022 Emergency department patient visit Services [facility] Work Phone: [facility] Start: 04-09-2022 End: 04-09-2022 Emergency department patient visit Services [facility] Work Phone: [facility] Start: 04-03-2022 End: 04-03-2022 Emergency department patient visit Services [facility] Work Phone: [facility] Start: 03-22-2022 End: 03-22-2022 Emergency department patient visit Services [facility] Work Phone: [facility] Start: 03-13-2022 End: 03-13-2022 Emergency department patient visit Services [facility] Work Phone: [facility] Start: 03-13-2022 End: 03-13-2022 Emergency department patient visit Services [employer] Work Phone: [facility] Start: 03-09-2022 End: 03-09-2022 ambulatory GENOVEVA Isamar MCKEON Facility: Start: 03-09-2022 End: 03-09-2022 Departed Referred Services [employer] Work Phone: [facility] Main [place] Start: 02-02-2022 End: 02-02-2022 Emergency department patient visit Services [employer] Work Phone: [facility] Start: 01-31-2022 End: 01-31-2022 Emergency department patient visit Services [employer] Phone: [facility] Start: 12-09-2021 End: 12-09-2021 Emergency department patient visit Services [employer] Work Phone: [facility] Start: 12-07-2021 End: 12-07-2021 Emergency department patient visit Services [employer] Phone: [facility] Start: 12-05-2021 End: 12-05-2021 Emergency department patient visit Services [employer] Phone: [facility] Start: 05-28-2018 End: 05-29-2018 Patient encounter procedure Scott Rose Facility:[facility] Procedures Date Procedure Procedure Detail Performing Clinician Start: 12-07-2023 Urine culture Services [employer] Work Phone: Start: 06-22-2023 CT of abdomen and pelvis without contrast Services [employer] Phone: Start: 03-06-2023 CT of abdomen and pelvis without contrast Services [employer] Phone: Start: 01-16-2023 CT of abdomen and pelvis without contrast Services [employer] Phone: Start: 01-14-2023 CT of abdomen and pelvis without contrast Services [employer] Phone: Start: 12-20-2022 Plain chest X-ray Services [employer] Work Phone: Start: 12-03-2022 CT of abdomen and pelvis without contrast Services [employer] Work Phone: Start: 11-15-2022 Urinalysis microscopic only Nishant paul MD Work Phone: Start: 11-15-2022 Urnls dip stick/tablet rgnt auto w/o microscopy Nishant Bernardo MD Work Phone: Start: 11-15-2022 Comprehensive metabolic panel Nishant lin MD Work Phone: Start: 11-03-2022 Plain chest X-ray Services [employer] Work Phone: Start: 11-01-2022 CT of abdomen and pelvis without contrast Services [employer] Phone: Start: 09-03-2022 Computed tomography of abdomen and pelvis with contrast Services [employer] Work Phone: Start: 09-03-2022 Plain chest X-ray Services [employer] Phone: Start: 08-29-2022 Computed tomography angiography of abdominal and/or pelvic blood vessel Services [employer] Phone: Start: 08-29-2022 CT angiography of thorax Services [employer] Phone: Start: 08-27-2022 Urine culture Services [employer] Phone: Start: 08-27-2022 Computed tomography of abdomen and pelvis with contrast Services [employer] Phone: Start: 08-23-2022 Plain chest X-ray Services [employer] Phone: Start: 08-21-2022 Computed tomography of abdomen and pelvis with contrast Services [employer] Phone: Start: 05-26-2022 WAYLON Guillory MD Work Phone: Start: 05-24-2022 Esophagogastroduodenoscopy Services [facility] Work Phone: Start: 04-28-2022 Computed tomography of abdomen and pelvis with contrast Services [employer] Phone: Start: 04-26-2022 Computed tomography of abdomen and pelvis with contrast Services [employer] Phone: Start: 04-09-2022 Pelvic echography Services [employer] Phone: Start: 04-09-2022 Transvaginal echography Services [employer] Phone: Start: 04-03-2022 CT cervical spine without contrast Servi kamini [employer] Phone: Start: 04-03-2022 Plain X-ray of left shoulder Services [employer] Phone: Start: 03-22-2022 Plain X-ray of left hip Services [employer] Phone: Start: 03-22-2022 Radiography of thoracic spine Services [facility] [employer] Phone: Start: 03-22-2022 X-ray of cervical spine Services [employer] Phone: Start: 03-13-2022 Computed tomography of abdomen and pelvis with contrast Services [employer] Phone: Start: 01-31-2022 Computed tomography of abdomen and pelvis with contrast Services [employer] Phone: Start: 12-09-2021 Computed tomography of abdomen and pelvis with contrast Services [employer] Phone: Screening for occult blood in feces Services [employer] Work Phone: Urine culture Services [facility] Work Phone: Urine culture Services [facility] Work Phone: Urine culture Services [facility] Work Phone: Plan of Treatment Date Care Activity Detail Author Start: 12-07-2023 Bacteria identified in Urine by Culture [facility] Start: 12-07-2023 CT of abdomen and pe lvis without contrast CT abdomen pelvis wo con [facility] Start: 05-10-2023 Hemoglobin A1c measurement A1C test (Diabetic or Prediabetic) [facility] Start: 05-10-2023 End: 05-10-2023 [facility] Start: 02-13-2023 Influenza vaccination Flu vacc ine (Season Ended) [facility] Start: 01-23-2023 Depression Monitoring Depression Mon itoring [facility] Start: 01-14-2023 End: 01-14-2023 [facility] Start: 01-14-2023 CT of abdomen and pe lvis without contrast CT abdomen pelvis wo con [facility] Start: 08-27-2022 Bacteria identified in Urine by Culture [facility] Start: 05-31-2022 End: 05-31-2022 Patient encounter procedure 05/31/2022 Office Visit Family Medicine Moise Baum, [address] [place], [place] [id number] [facility] Start: 05-24-2022 [facility] Start: 04-28-2022 [facility] Start: 04-03-2022 CT cervical spine without contrast CT cervical spine wo con [facility] Start: 04-03-2022 CT Cervical spine WO contrast [facility] Work Phone: Start: 04-03-2022 Plain X-ray of left shoulder XR shoulder LT min 2V* [facility] Start: 04-03-2022 XR Shoulder - left Views [facility] Work Phone: Start: 03-13-2022 Computed tomography of abdomen and pelvis with contrast CT abdomen pelvis w con [facility] Start: 03-13-2022 End: 03-13-2022 Emergency department patient visit Departed Emergency [facility] Start: 03-13-2022 End: 03-13-2022 Emergency department patient visit Departed Emergency [facility]Emergency Room Start: 02-13-2022 Influenza vaccination Flu vaccine (# 1) [facility] [employer] [facility] Start: 2018 Lipid panel Lipids [facility] [employer] Start: 2008 Screening for malign ant neoplasm of cervix [facility] Start: 1999 Screening for malign ant neoplasm of cervix Pap smear [facility] Start: 1997 DTaP/Tdap/Td vaccine (1 - Tdap) DTaP/Tdap/Td vaccine (1 - Tdap) [facility] Start: 1996 Hepatitis C screening Hepatitis C sc reen [facility] Start: 1993 HIV screening HIV screen [facility] Start: 1984 Pneumococcal 0-64 ye ars Vaccine (1 - PCV) Pneumococcal 0-64 years Vaccine (1 - PCV) [facility] Start: 1978 COVID-19 Vaccine (#1) COVID-19 Vacci ne (#1) [facility] Bacteria identified in Urine by Culture [facility] Casts [Type] in Urin e sediment by Light microscopy [facility] Work Phone: Choriogonadotropin.b eta subunit [Units/volume] in Serum or Plasma [facility] Work Phone: Patient Education [facility] Work Phone: Patient referral [facility] Work Phone: End: 11-15-2022 POCT urine POCT urine Point of Care Testing STAT One Time for 1 Occurrences starting 11/15/2022 until 11/15/2022 [facility] Work Phone: Comment on above: One Time for 1 Occur rences starting 11/15/2022 until 11/15/2022 Payers Date Payer Category Payer Self-pay [id number] 2021 Medicare [id number] 1978 Unknown [id number] 2.16.84 0.1.805259.3.579.2.727 1978 Unknown [id number] 2.16.8 40.1.666815.3.579.2.182 1978 Unknown [id number] 2.16.8 40.1.282708.3.579.2.182 1978 Unknown [id number] 2.16.84 0.1.955295.3.579.2.593 1978 Unknown [id number] 2.16.84 0.1.132865.3.579.2.593 1978 Unknown [id number] 2.16.84 0.1.710055.3.579.2.593 1978 Unknown [id number] 2.16.84 0.1.081655.3.579.2.593 1978 Unknown [id number] 2.16.84 0.1.111916.3.579.2.593 1978 Unknown [id number] 2.16.8 40.1.279299.3.579.2.176 1978 Unknown [id number] 2.16.8 40.1.482619.3.579.2.718 1978 Unknown [id number] 2.16.8 40.1.178006.3.579.2.718 1978 Unknown [id number] 2.16. 840.1.862646.3.579.2.356 1978 Unknown [id number] 2.16. 840.1.526292.3.579.2.356 1959 Medicaid [id number] 1959 Unknown [id number] Medicare [id number] [facility] [id number] Unknown [id number] Unknown [id number] Unknown [id number] 2.16.8 40.1.379940.3.579.2.531 Unknown [id number] 2.16.8 40.1.464463.3.579.2.531 Unknown [id number] 2.16.8 40.1.129820.3.579.2.531 Unknown [id number] 2.16.8 40.1.843481.3.579.2.531 Unknown [id number] 2.16.8 40.1.046578.3.579.2.531 Unknown [id number] 2.16.8 40.1.927868.3.579.2.531 Unknown [id number] 2.16.8 40.1.568014.3.579.2.531 Unknown [id number] 2.16.8 40.1.653642.3.579.2.531 Unknown [id number] 2.16.8 40.1.489495.3.579.2.531 Unknown [id number] 2.16.8 40.1.919911.3.579.2.531 Unknown [id number] 2.16.8 40.1.737270.3.579.2.531 Unknown [id number] 2.16.8 40.1.831061.3.579.2.531 Unknown [id number] 2.16.8 40.1.838819.3.579.2.531 Unknown [id number] 2.16.8 40.1.659435.3.579.2.531 Unknown [id number] 2.16.8 40.1.605228.3.579.2.531 Social History Date Type Detail Facility Start: 02-02-2022 End: 12-17-2023 Tobacco smoking status MNIS Smoker (finding) [facility] Start: 1980 Sex Assigned At Female F [facility] Start: 03-22-2022 Tobacco smoking status MNIS Never smoked tobacco (finding) [facility] Start: 07-16-1994 Tobacco smoking status MNIS Smokes tobacco daily [employer] Phone: Start: 07-16-1994 History of tobacco use Cigarette Smoker [employer] Phone: Start: 05-18-2022 Cigarettes smoked current (pack per day) - Reported 1 [employer] Phone: Start: 05-18-2022 Tobacco use and exposure Smokeless tobacco non-user [employer] Phone: Start: 05-18-2022 End: 11-15-2022 Alcohol intake Lifetime non-drinker (finding) [employer] Phone: Start: 01-23-2022 History SDOH Financial 5 [employer] Phone: Start: 01-23-2022 End: 11-15-2022 History SDOH Food Worry 1 [employer] Phone: Start: 1980 Sex Assigned At Not on file B [facility] [employer] Phone: Start: 05-16-2022 End: 05-26-2022 Exposure to SARS-CoV-2 (event) Not sure [employer] Start: 07-16-1994 Sex Assigned At N [facility] [employer] Other Start: 11-15-2022 History SDOH Alcohol Std Drinks 0 [employer] Phone: Start: 12-20-2022 Tobacco smoking status NHIS Current some day smoker [facility] NEGATED: Highlighted row [facility] Goals Date Patient Goal Desired Activity /State Clinical Notes 05-11-2022 to 12-10-2022 Discharge Instructions Note Date & Type Note Facility 12-10-2022 Note Education Materials Gastroenterology Abdominal Pain, Adult Pain in the abdomen (abdominal pain) can be caused by many things. Often, abdominal pain is not serious and it gets better with no treatment or by being treated at home. However, sometimes abdominal pain is serious. Your health care provider will ask questions about your medical history and do a physical exam to try to determine the cause of your abdominal pain. Follow these instructions at home: Medicines ? Take wvog-qhu-mnjbsmt and prescription medicines only as told by your health care provider. ? Do not take a laxative unless told by your health care provider. General instructions ? Watch your condition for any changes. ? Drink enough fluid to keep your urine pale yellow. ? Keep all follow-up visits as told by your health care provider. This is important. Contact a health care provider if: ? Your abdominal pain changes or gets worse. ? You are not hungry or you lose weight without trying. ? You are constipated or have diarrhea for more than 2?3 days. ? You have pain when you urinate or have a bowel movement. ? Your abdominal pain wakes you up at night. ? Your pain gets worse with meals, after eating, or with certain foods. ? You are vomiting and cannot keep anything down. ? You have a fever. ? You have blood in your urine. Get help right away if: ? Your pain does not go away as soon as your health care provider told you to expect. ? You cannot stop vomiting. ? Your pain is only in areas of the abdomen, such as the right side or the left lower portion of the abdomen. Pain on the right side could be caused by appendicitis. ? You have bloody or black stools, or stools that look like tar. ? You have severe pain, cramping, or bloating in your abdomen. ? You have signs of dehydration, such as: ? Dark urine, very little urine, or no urine. ? Cracked lips. ? Dry mouth. ? Sunken eyes. ? Sleepiness. ? Weakness. ? You have trouble breathing or chest pain. Summary ? Often, abdominal pain is not serious and it gets better with no treatment or by being treated at home. However, sometimes abdominal pain is serious. ? Watch your condition for any changes. ? Take uiqq-rbz-ojwmpge and prescription medicines only as told by your health care provider. ? Contact a health care provider if your abdominal pain changes or gets worse. ? Get help right away if you have severe pain, cramping, or bloating in your abdomen. This information is not intended to replace advice given to you by your health care provider. Make sure you discuss any questions you have with your health care provider. Document Revised: 08/20/2020 Document Reviewed: 11/10/2019 [employer] Patient Education ? 2021 [employer] Cyclic Vomiting Syndrome, Adult Cyclic vomiting syndrome (CVS) is a condition that causes episodes of severe nausea and vomiting. It can last for hours or even days. Attacks may occur several times a month or several times a year. Between episodes of CVS, you may be otherwise healthy. What are the causes? The cause of this condition is not known. Although many of the episodes can happen for no obvious reason, you may have specific CVS triggers. Episodes may be triggered by: ? An infection, especially colds and the flu. ? Emotional stress, including excitement or anxiety about upcoming events, such as school, parties, or travel. ? Certain foods or beverages, such as chocolate, cheese, alcohol, and food additives. ? Motion sickness. ? Eating a large meal before bed. ? Being very tired. ? Being too hot. What increases the risk? You are more likely to develop this condition if: ? You get migraine headaches. ? You have a family history of CVS or migraine headaches. What are the signs or symptoms? Symptoms tend to happen at the same time of day, and each episode tends to last about the same amount of time. Symptoms commonly start at night or when you wake up. Many people have warning signs (prodrome) before an episode, which may include slight nausea, sweating, and pale skin (pallor). The most common symptoms of a CVS attack include: ? Severe vomiting. Vomiting may happen every 5?15 minutes. ? Severe nausea. ? Gagging (retching). Other symptoms may include: ? Headache. ? Dizziness. ? Sensitivity to light. ? Extreme thirst. ? Abdominal pain. This can be severe. ? Loose stools or diarrhea. ? Fever. ? Pale skin (pallor), especially on the face. ? Weakness. ? Exhaustion. ? Sleepiness after a CVS episode. ? Dehydration. This can cause: ? Thirst. ? Dry mouth. ? Decreased urination. ? Fatigue. How is this diagnosed? This condition may be diagnosed based on your symptoms, medical history, and family history of CVS or migraine. Your health care provider will ask whether you have had: ? Episodes of severe nausea and vomiting that have happened a total of 5 or more times, or 3 or more times in (more content not included)... [facility] 12-09-2022 Note Education Materials Gastroenterology Abdominal Pain, Adult Many things can cause belly (abdominal) pain. Most times, belly pain is not dangerous. Many cases of belly pain can be watched and treated at home. Sometimes, though, belly pain is serious. Your doctor will try to find the cause of your belly pain. Follow these instructions at home: Medicines ? Take ldft-lin-zmzkjtf and prescription medicines only as told by your doctor. ? Do not take medicines that help you poop (laxatives) unless told by your doctor. General instructions ? Watch your belly pain for any changes. ? Drink enough fluid to keep your pee (urine) pale yellow. ? Keep all follow-up visits as told by your doctor. This is important. Contact a doctor if: ? Your belly pain changes or gets worse. ? You are not hungry, or you lose weight without trying. ? You are having trouble pooping (constipated) or have watery poop (diarrhea) for more than 2?3 days. ? You have pain when you pee or poop. ? Your belly pain wakes you up at night. ? Your pain gets worse with meals, after eating, or with certain foods. ? You are vomiting and cannot keep anything down. ? You have a fever. ? You have blood in your pee. Get help right away if: ? Your pain does not go away as soon as your doctor says it should. ? You cannot stop vomiting. ? Your pain is only in areas of your belly, such as the right side or the left lower part of the belly. ? You have bloody or black poop, or poop that looks like tar. ? You have very bad pain, cramping, or bloating in your belly. ? You have signs of not having enough fluid or water in your body (dehydration), such as: ? Dark pee, very little pee, or no pee. ? Cracked lips. ? Dry mouth. ? Sunken eyes. ? Sleepiness. ? Weakness. ? You have trouble breathing or chest pain. Summary ? Many cases of belly pain can be watched and treated at home. ? Watch your belly pain for any changes. ? Take eeou-fnc-pjmdtbf and prescription medicines only as told by your doctor. ? Contact a doctor if your belly pain changes or gets worse. ? Get help right away if you have very bad pain, cramping, or bloating in your belly. This information is not intended to replace advice given to you by your health care provider. Make sure you discuss any questions you have with your health care provider. Document Revised: 11/10/2019 Document Reviewed: 11/10/2019 [employer] Patient Education ? 2021 [employer]. [facility] 11-15-2022 Hospital Discharg e instructions Nishant Bernardo MD - 11/15/2022 11:25 AM EDT If you have severe worsening of your pain or any other concerning symptoms come back to the ER. Follow-up with your primary care doctor documented in this encounter [employer] Phone: 06-15-2022 Evaluation note Encounter Date Diagnosis Assessment Notes Jun, Dysphagia (ICD-10 - R13.10) Jun, Hiatal hernia (ICD-10 - K44.9) Jun, Nausea and vomiting (ICD-10 - R11.2) CONTINUE ZOFRAN AND PHENERGAN DIRECTED Jun, Diarrhea (ICD-10 - R19.7) START METAMUCIL 3 GUMMIES DAILY Jun, Abdominal pain (ICD-10 - R10.9) START IBGARD DIRECTED CONTINUE LOW FODMAP DIET PT ADVISED TO EAT SMALL MEALS MORE OFTEN RTO 3 MONTHS [employer] Other 10-27-2022 Evaluation note* Encounter Date Diagnosis Assessment Notes Treatment Notes Treatment Clinical Notes Apr, Abdominal pain (ICD-10 - R10.9) Apr, Nausea & vomiting (ICD-10 - R11.2) [employer] Other Evaluation noteNo assessment information available [facility] [employer] Work Phone: Evaluation note* Diagnosis Hereditary sensory-motor neuropathy, type III Unspecified hereditary and idiopathic peripheral neuropathy documented in this encounter [employer] Phone: evaluation noteNo InformationNort [employer] Other Evaluation note* Diagnosis Onset Date Resolution Status Dyspepsia acute [facility] [employer] Work Phone: Evaluation note* Diagnosis Chronic abdominal pain- Primary Abdominal pain, unspecified site documented in this encounter KOURTNEY CHAN [facility] [employer] Work Phone: History general Narrative - Reported* Type Description Date Medical History Fibromyalgia Medical History Herniated discs Medical History DJD Medical History OSTEOARTHRITIS Medical History CARPEL TUNNEL Medical History BIPOLAR 2 Medical History ANXIETY Medical History PTSD Medical History TRIGEMINAL AUTONOMOUS CEPHALGIA Surgical History Appendectomy 2009 Surgical History APPY 2009 Surgical History Lipoma removal from back Surgical History cholecystectomy 10/04/21 Hospitalization History see above [employer] Other Hospital Discharge instructions Additional Instructions Apply warm compresses to area affected [place] for severe pain Tylenol if needed for minor pain Follow-up with [facility] call tomorrow for earlier appointment Return here if any problems persist or worsen Zofran for [facility] that [facility] Work [facility]: [facility] Work Phone: [facility] Work Phone: [facility] Work Phone: Hospital Discharge instructions Additional Instructions Continue current meds Follow-up with your [facility] physician as soon as possible Return if symptoms [facility] Work Phone: Hospital Discharge instructions Additional Instructions You can start taking Pepcid daily to help with your pain Use the Zofran as needed for nausea Avoid spicy, greasy, fast foods, alcohol Keep your follow-up appointments with GI and [facility] on June 15 as scheduled [facility] Work Phone: Hospital Discharge instructions Additional Instructions Follow-up with your primary care doctor [facility] the ED if develop [facility] Work Phone: Hospital Discharge instructions Additional Instructions Cleared with diet today and advance as tolerated Take your Bentyl as needed for abdominal pain Take your Phenergan if needed for nausea vomiting Push fluids Rest Follow-up with your GI doctor. Avoid any spicy, hot, fried foods Return here if you develop any fever, chills, vomiting unable to be controlled, or any other concerns. [facility]: [facility] Discharge instructions Additional Instructions Take omeprazole daily as prescribed. Take Carafate as prescribed for abdominal pain. Take Reglan as prescribed for nausea and vomiting. Avoid spicy acidic foods or alcohol. Follow-up with Dr. Borrero for ongoing management.[facility] Work Phone: Hospital Discharge instructions Additional Instructions Follow up with your primary care doctor Return to the ED if you develop worsening symptoms or concernsK[facility] Work Phone: Hospital Discharge instructions Additional Instructions Clear liquid diet today and advance as tolerated Push fluids Rest Follow-up with your GI specialist as may you discuss tomorrow Gluten-free diet has been you talk Follow your diet that you are instructed at home 5 MAP Days return here if you have any fevers, chills, increased pain, nausea, vomiting, chest pain, shortness of breath or any other concernK[facility] Work Phone: Hospital Discharge instructions Additional Instructions Rest Increase oral fluids May take the muscle relaxer cyclobenzaprine up to 3 times a day for pain headache neck pain May take the promethazine every 6 hours for nausea vomiting Follow-up with neurology as scheduled on Sunday Return to the ER for more severe pain vomiting fever visual changes or any other concernsK[facility] Work Phone: Hospital Discharge instructions Additional Instructions Elevate your extremities Follow with your doctor tomorrow Return here if any problems persist or worsen including fever, chills, chest pain, shortness of breath or any otherK[facility] Work Phone: Hospital Discharge instructions Additional Instructions Continue current medsK[facility] Work Phone: Hospital Discharge instructions Additional Instructions Please return to emergency department for any new or worrisome symptoms including any return of abdominal pain, vomiting, fever, chest pain, shortness of breath.[facility] Work Phone: Hospital Discharge instructions Additional Instructions If your symptoms return/worsen or you develop any further concerns or symptoms please see your doctor or return to the emergency department immediately.[facility] Work Phone: Hospital Discharge instructions Additional Instructions Try to not use marijuana products for a month Continue [id number] medicines and prescriptions Follow-up with family doctor and gastroenterology Return to the ER for worsening pain fever vomiting or any other concerns [facility] Work Phone: Hospital Discharge instructions Additional Instructions Follow-up with your primary care doctor Return to ED if develop worsening symptoms or concernsK[facility] Work Phone: Summary Purpose Family History No Family History Records Found Relationship Condition Age at Onset Recorded Date/T kristen Not Specified Status post gastric bypass for obesity U nknown History of hernia repair Unknown History of knee surgery Unknown History of operative procedure on hip Unk nown father Presence of cardiac pacemaker Unknown Advance Directives No Advanced Directives Records Found Advance Directive Response Recorded Date/ Time Advance Directives No December 09 5:00am Advance Directive Response Recorded Date/ Time Advance Directives No December 09 4:00am Chief Complaint and Reason for Visit Chief Complaint abd pain chest pain , vomiting abd pain,vomiting stomach pain abd pain abd pain, n/v Chief Complaint abd pain abd pain, n/v Abdominal Pain Abd pain Abd pain Chief Complaint abd pain abd pain, n/v Abdominal Pain Abd pain Abd pain lt side pain due to fall 03-22-22 @home Chief Complaint abd pain abd pain, n/v Abdominal Pain Abd pain Abd pain lt side pain due to fall 03-22-22 @home left shoulder and arm pain Chief Complaint abd pain abd pain, n/v Abdominal Pain Abd pain Abd pain lt side pain due to fall 03-22-22 @home left shoulder and arm pain abd pain, vomiting Chief Complaint abd pain abd pain, n/v Abdominal Pain Abd pain Abd pain lt side pain due to fall 03-22-22 @home left shoulder and arm pain abd pain, vomiting abd pain Chief Complaint abd pain abd pain, n/v Abdominal Pain Abd pain Abd pain lt side pain due to fall 03-22-22 @home left shoulder and arm pain abd pain, vomiting abd pain abd pain Chief Complaint abd pain abd pain, n/v Abdominal Pain Abd pain Abd pain lt side pain due to fall 03-22-22 @home left shoulder and arm pain abd pain, vomiting abd pain abd pain abd pain Chief Complaint abd pain abd pain, n/v Abdominal Pain Abd pain Abd pain lt side pain due to fall 03-22-22 @home left shoulder and arm pain abd pain, vomiting abd pain abd pain abd pain abd pain Chief Complaint Abdominal Pain Abd pain Abd pain lt side pain due to fall 03-22-22 @home left shoulder and arm pain abd pain, vomiting abd pain abd pain abd pain abd pain Abdominal Pain, Nausea, Vomiting Chief Complaint Abdominal Pain, Naus ea, Vomiting abd pain,nausea,vomiting Reason for Visit Dyspepsia Chief Complaint abd pain,nausea,vomi ting abd pain Chief Complaint abd pain,nausea,vomi ting abd pain Stomach Pain, N&V Chief Complaint abd pain,nausea,vomi ting abd pain Stomach Pain, N&V L side pain Chief Complaint abd pain,nausea,vomi ting abd pain Stomach Pain, N&V L side pain L Side Pain Chief Complaint abd pain,nausea,vomi ting abd pain Stomach Pain, N&V L side pain L Side Pain abd pain,n/v Chief Complaint abd pain,nausea,vomi ting abd pain Stomach Pain, N&V L side pain L Side Pain abd pain,n/v abd pain Chief Complaint abd pain,nausea,vomi ting abd pain Stomach Pain, N&V L side pain L Side Pain abd pain,n/v abd pain abd pain Chief Complaint abd pain,nausea,vomi ting abd pain Stomach Pain, N&V L side pain L Side Pain abd pain,n/v abd pain abd pain abd pain Chief Complaint abd pain,nausea,vomi ting abd pain Stomach Pain, N&V L side pain L Side Pain abd pain,n/v abd pain abd pain abd pain abd pain Migraine Chief Complaint abd pain,nausea,vomi ting abd pain Stomach Pain, N&V L side pain L Side Pain abd pain,n/v abd pain abd pain abd pain abd pain Migraine migraine Chief Complaint abd pain abd pain Migraine migraine abd pain 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 abd pain abd pain Bilat leg swelling,trouble breathing Chief Complaint abd pain abd pain Migraine migraine abd pain abd pain abd pain Bilat leg swelling,trouble breathing R06.02 Chief Complaint abd pain abd pain Migraine migraine abd pain abd pain abd pain Bilat leg swelling,trouble breathing R06.02 abd pain Chief Complaint abd pain abd pain Migraine migraine abd pain abd pain abd pain Bilat leg swelling,trouble breathing R06.02 abd pain ABD PAIN Chief Complaint abd pain abd pain Migraine migraine abd pain abd pain abd pain Bilat leg swelling,trouble breathing R06.02 abd pain ABD PAIN abd pain Chief Complaint Bilat leg swelling,t rouble breathing R06.02 abd pain ABD PAIN abd pain Abdominal pain, nausia abd pain Chief Complaint abd pain ABD PAIN abd pain Abdominal pain, nausia abd pain N/V abd pain Chief Complaint abd pain N/V abd pain lt side abd pain , nausea , vomiting Chief Complaint N/V abd pain lt side abd pain , nausea , vomiting left side abd pain Chief Complaint N/V abd pain lt side abd pain , nausea , vomiting left side abd pain Headache Chief Complaint N/V abd pain lt side abd pain , nausea , vomiting left side abd pain Headache Abdominal Pain Chief Complaint migraine Chief Complaint migraine abd pain Chief Complaint migraine abd pain headache/abd pain Reason for Referral Specialty Diagnoses / Procedures Referred By Ela sainz Referred To Contact Neurology Diagnoses Hereditary sensory-motor neuropathy, type III Procedures EMG Aaron Guillory MD [address] [address] Referral ID Status Reason Start Date Expiration Date Visits Re quested Visits Authorized [id number] Closed 05/10/2022 05/10/2023 1 1 Additional Source Comments INFORMATION SOURCE (unrecogn ized section and content) DATE CREATED AUTHOR 08/02/2018 [facility] DATE CREATED AUTHOR AUTHOR[facility]S ORGANIZ ATION [facility] DATE CREATED AUTHOR AUTHOR'S ORGANIZ ATION 05/27/2022 [facility] DATE CREATED AUTHOR AUTHOR'S ORGANIZ ATION 08/12/2022 [facility] DATE CREATED AUTHOR AUTHOR'S ORGANIZ ATION 11/16/2022 [facility] DATE CREATED AUTHOR AUTHOR'S ORGANIZ ATION 12/25/2022 [facility] DATE CREATED AUTHOR AUTHOR'S ORGANIZ ATION 05/27/2023 [facility] DATE CREATED AUTHOR AUTHOR'S ORGANIZ ATION 01/02/2024 [facility] Care Teams (unrecognized sec tion and content) Team Status: Inactive Member Role Status Dates Services Family Health Primary Care Provider Active Vern Foster DO Emergency Provider Active Team Status: Inactive Member Role Status Dates Services Family Health Primary Care Provider Active Lio Spencer DO Emergency Provider Active Team Status: Inactive Member Role Status Dates Services Family Health Primary Care Provider Active Violetta Bah , [facility]- Emergency Provider Active Team Status: Inactive Member Role Status Dates Services Family Health Primary Care Provider Active Rian Shoemaker Jr, MD Emergency Provider Active Team Status: Active Member Role Status Dates Services Family Health Primary Care Provider Active Team Status: Inactive Member Role Status Dates Services Family Health Primary Care Provider Active Jez Watters DO Emergency Provider Active Team Status: Inactive Member Role Status Dates Services Family Health Primary Care Provider Active Mark Mckeon DO Attending Provider Active Team Status: Inactive Member Role Status Dates Services Family Health Primary Care Provider Active Robson Gibbs APRN Emergency Provider Active Team Status: Inactive Member Role Status Dates Services Family Health Primary Care Provider Active Jae Song DO Emergency Provider Active Staff Therapist Relationship Specialty Start Date End Date Moise Baum, DO [address] [place] [address] PCP - General Family Medicine 01/23/22 Team Status: Inactive Member Role Status Dates Services Family Health Primary Care Provider Active Michael Purcell MD Attending Provider Active Team Status: Inactive Member Role Status Dates Services Family Health Primary Care Provider Active Maria Teresa Hodge APRN Emergency Provider Active Team Status: Inactive Member Role Status Dates Services Family Health Primary Care Provider Active Ronald Ann DO Emergency Provider Active Team Status: Inactive Member Role Status Dates Services Family Health Primary Care Provider Active Yojana Yap DO Emergency Provider Active Team Status: Inactive Member Role Status Dates Services Family Health Primary Care Provider Active Lio Spencer DO Emergency Provider Active Martita Schaeffer DO RES Active Staff Therapist Relationship Specialty Start Date End Date Moise Baum, DO [address] [place] [address] PCP - General Family Medicine 01/23/22 Team Status: Inactive Member Role Status Dates Services Family Health Primary Care Provider Active Lynn Rowe DO Emergency Provider Active Team Status: Inactive Member Role Status Dates Services Family Health Primary Care Provider Active Karri Siegel PA-C Emergency Provider Active Team Status: Inactive Member Role Status Dates Services Family Health Primary Care Provider Active Zainab Leong Attending Provider Active Team Status: Inactive Member Role Status Dates Services Family Health Primary Care Provider Active Dereje Bentley MD Emergency Provider Active Team Status: Inactive Member Role Status Dates Services Family Health Primary Care Provider Active Yojana Torrez DO Attending Provider Active Jayy Pennington MD RES Referring Provider Active Team Status: Inactive Member Role Status Dates Misty Guallpa MD Emergency Provider Active Services Family Health Primary Care Provider Active Team Status: Inactive Member Role Status Dates Services Family Health Primary Care Provider Active Start: October 09, 2023 End: October 10, 2023 Jez Watters DO Emergency Provider Active Sta rt: October 09, 2023 End: October 10, 2023 Team Status: Inactive Member Role Status Dates Services Family Health Primary Care Provider Active Start: December 07, 2023 End: December 07, 2023 Dereje Bentley MD Emergency Provider Active Star t: December 07, 2023 End: December 07, 2023 Team Status: Inactive Member Role Status Dates Services Family Health Primary Care Provider Active Start: December 17, 2023 End: December 17, 2023 Lio Spencer DO Emergency Provider Active St art: December 17, 2023 End: December 17, 2023 Goals (unrecognized section and content) Goals may be documented in a n alternate sectionGoals may be documented in an alternate sectionGoals may be documented in an alternate sectionGoals may be documented in an alternate sectionGoals may be documented in an alternate sectionGoals may be documented in an alternate sectionGoals may be documented in an alternate sectionGoals may be documented in an alternate sectionGoals may be documented in an alternate sectionGoals may be documented in an alternate sectionGoals may be documented in an alternate sectionGoals may be documented in an alternate sectionGoals may be documented in an alternate sectionNo InformationNo InformationNo InformationNo InformationGoals may be documented in an alternate sectionGoals may be documented in an alternate sectionGoals may be documented in an alternate sectionGoals may be documented in an alternate sectionGoals may be documented in an alternate sectionNo InformationGoals may be documented in an alternate sectionGoals may be documented in an alternate sectionNo InformationNo InformationGoals may be documented in an alternate sectionGoals may be documented in an alternate sectionGoals may be documented in an alternate sectionGoals may be documented in an alternate sectionGoals may be documented in an alternate sectionGoals may be documented in an alternate sectionGoals may be documented in an alternate sectionGoals may be documented in an alternate sectionGoals may be documented in an alternate sectionGoals may be documented in an alternate sectionGoals may be documented in an alternate sectionGoals may be documented in an alternate sectionGoals may be documented in an alternate sectionGoals may be documented in an alternate sectionGoals may be documented in an alternate sectionGoals may be documented in an alternate sectionGoals may be documented in an alternate section Reason for Visit (unrecogniz ed section and content) Specialty Diagnoses / Procedures Referred By Ela sainz Referred To Contact Neurology Diagnoses Hereditary sensory-motor neuropathy, type III Procedures EMG Aaron Guillory MD [address] [address] Referral ID Status Reason Start Date Expiration Date Visits Re quested Visits Authorized [id number] Closed 05/10/2022 05/10/2023 1 1 Reason Comments Abdominal Pain Started an hour and a half ago, left upper and lower pain radiating to back. Pain is stabbing type and consistent, worse when breathing in. Bowel movement today and normal, keeping fluids down. Nausea but no emesis. Scheduled Active and Recently Administ ered Medications (unrecognized section and content) Medication Order 11/13/2022 11/14/2022 11/15/2022 0.9 % sodium chloride bolus (COMPLETED) 1,000 mL (11.6 mL/kg), IntraVENous, at 2,000 mL/hr, Administer over 0.5 Hours, ONCE, On Sun11/15/22 at 1030, For 1 dose 1033 (New Bag - Prov ider: Marika Pham RN)1138 (Stopped - Provider: Marika Pham RN) HYDROmorphone (DILAUDID) injection 0.5 mg (COMPLETED) 0.5 mg, IntraVENous, ONCE, 1 dose, On Sun11/15/22 at 1030, If oral and IV narcotics ordered, use oral first and only use IV if oral is ineffective or cannot take oral. Do Not give oral and IV within 1 hour of each other unless specifically ordered. 1033 (Given - Provid er: Marika Pham RN) ketorolac (TORADOL) injection 15 mg (COMPLETED) 15 mg, IntraVENous, ONCE, 1 dose, On Sun11/15/22 at 1030, Do not administer for more than 5 days. 1034 (Given - Provid er: Marika Pham RN) FOR RECORDS PERTAINING TO PATIENTS WHO ARE OR HAVE BEEN ENROLLED IN A CHEMICAL DEPENDENCY/SUBSTANCEABUSE PROGRAM, SOME INFORMATION MAY BE OMITTED. This clinical summary was aggregated from multiple sources. Caution should be exercised in using it in the provision of clinical care. This summary normalizes information from multiple sources, and as a consequence, information in this document may materially change the coding, format and clinical context of patient data. In addition, data may be omitted in some cases. CLINICAL DECISIONS SHOULD BE BASED ON THE PRIMARY CLINICAL RECORDS. [employer] provides no warranty or guarantee of the accuracy or completeness of information in this document.
--- NOTE | 2024-03-23 22:00 | ED.GENADUL1 ---
HPI HPI - General Adult General Chief complaint: Abdominal Pain Stated complaint: HEADACHE, ABDOMINAL PAIN, NAUSEA Time Seen by Provider: 03/23/24 21:30 Source: patient Mode of arrival: walk-in Limitations: no limitations History of Present Illness HPI narrative: This 43-year-old female with a history of migraine headaches and chronic left lower quadrant abdominal pain presents for evaluation of a migraine headache that started 3 days ago associated with photophobia, phonophobia, nausea and dry heaves. She also has left lower quadrant abdominal pain which she states she has had for years and has been worked up multiple times without any significant findings. She does take Nurtec for her headaches. She has used this without relief. She does not have any antiemetics at home. She denies any thunderclap presentation of the headache. This is a typical migraine for her that is left side of her head and goes back behind her eye and down into her neck. She denies any fevers or chills. She has no skin rash. She states she has seen a neurologist in the past for her headaches but it was cost prohibitive so her family physician provides her with her Nurtec. Related Data Allergies Allergy/AdvReac Type Severity Reaction Status Date / Time Iodinated Contrast Media Allergy Severe Anaphylaxis Verified 03/23/24 21:38 prednisone Allergy Severe Shortness Verified 03/23/24 21:38 of breath omeprazole AdvReac Mild Diarrhea Verified 03/23/24 21:38 Opioid HPI Opioid Management Most Recent Opioid Data: Last Pain Scale 10 03/24/24 00:01 Last MAR Pain Assessment 03/24/24 00:01 Ur Phencyclidine Scrn Negative (NEGATIVE) 04/17/23 16:54 Review of Systems ROS Status of ROS 10 or more systems reviewed and unremarkable except as noted in history and below [facility] Social History Smoking status: Current every day smoker Little interest or pleasure in doing things: not at all Feeling down, depressed, or hopeless: not at all Exam Narrative Exam Narrative: Vital signs and Nursing Notes reviewed: Patient is afebrile with a normal pulse, blood pressure is elevated at 214/120, she is not hypoxic with pulse ox of 99% on room air General: Awake, alert, oriented, uncomfortable appearing female with dry heaves, she is crying complaining of left lower quadrant abdominal pain and rocking back and forth on the stretcher HEENT: Normocephalic atraumatic, mucous membranes are moist and pink, eyes are clear, normal conjunctiva, vision is grossly intact, Neck: Supple, no meningeal signs, no anterior or posterior cervical lymphadenopathy Chest: Lungs are clear to auscultation with good air entry, there is no wheezing rhonchi or rales appreciated no accessory muscle use, patient is speaking in complete sentences-no chest wall tenderness to palpation CVS: Regular rate and rhythm S1-S2, no murmurs rubs or gallops, pulses are brisk and equal bilaterally ABD: Soft, nondistended, left lower quadrant tenderness without rebound guarding or rigidity, bowel sounds are normal Extremities: Moving all extremities, no lower extremity tenderness or swelling noted, negative Homans' sign, pulses are brisk and equal bilaterally Skin: Normal in appearance without rash,pallor, petechiae or purpura Neuro: No focal deficits, speech is clear, there is no facial droop, upper and lower extremity strength and sensation is intact, patient is ambulatory with a steady gait, NIH stroke scale is 0 Constitutional Vital Signs, click to edit/add: Last Vital Signs Temp 97.6 F 03/23/24 21:34 Pulse 87 03/24/24 00:40 Resp 16 03/24/24 00:40 BP 168/100 H 03/24/24 00:40 Pulse Ox 96 03/24/24 00:40 O2 Del Method Room Air 03/24/24 00:40 Course Vital Signs Vital signs: Vital Signs Temperature 97.6 F 03/23/24 21:34 Pulse Rate 63 03/23/24 21:34 Respiratory Rate 16 03/23/24 21:34 Blood Pressure 214/120 H 03/23/24 21:34 Pulse Oximetry 99 03/23/24 21:34 Oxygen Delivery Method Room Air 03/23/24 21:34 Temperature 97.6 F 03/23/24 21:34 Pulse Rate 87 03/24/24 00:40 Respiratory Rate 16 03/24/24 00:40 Blood Pressure 168/100 H 03/24/24 00:40 Pulse Oximetry 96 03/24/24 00:40 Oxygen Delivery Method Room Air 03/24/24 00:40 Medical Decision Making MDM Narrative Medical decision making narrative: This 43-year-old female with a history of migraine headaches and chronic left lower quadrant abdominal pain presents for evaluation of. The headache has been present for the past 3 days despite taking her Nurtec. It is associated with nausea, vomiting and photophobia. She has not had a fever. She also complains of chronic left lower quadrant pain that she states has been worked up extensively and they have never been able to find what is causing her symptoms. She was having excess amount of dry heaves emergency department. An IV was placed and she was medicated with IV fluids, Toradol and Zofran. She was driving and is allergic to prednisone so Solu-Medrol was withheld. Reglan and Benadryl were also withheld due to the fact that she was driving. She had minimal improvement with her symptoms but I informed her that I would not give her Phenergan or narcotic medications without having a ride. She was then able to procure a ride and was given Phenergan and morphine with clinical improvement. Routine labs are reviewed. She has a white count of 13.9 with stable hemoglobin. Electrolytes are normal. Lipase is mildly elevated at 96. After her morphine and Phenergan she request to be discharged home and was discharged home with prescription for Phenergan to use as needed for ongoing or worsening symptoms. I did review her chart from past ER visits where she was positive for opiates, cocaine and marijuana. It is unclear whether or not she may have cyclic vomiting from marijuana but at this point she was stable for discharge and repeat drug testing was not indicated. Medical Records Medical records reviewed: Yes I reviewed the patient's medical records Lab Data Labs: Lab Results 03/23/24 03/24/24 Range/Units 22:30 00:20 WBC 13.9 H (4.0-11.0) 10^3/uL RBC 4.89 (4.20-5.40) 10^6/uL Hgb 15.8 (12.0-16.0) g/dL Hct 45.6 (36.0-48.0) % MCV 93.3 (81.0-99.0) fL MCH 32.3 (26.7-34.0) pg MCHC 34.6 (29.9-35.2) g/dL RDW 12.1 (11.0-15.0) % Plt Count 361 (150-450) 10^3/uL MPV 8.9 L (9.5-13.5) fL Neut % (Auto) 80.1 H (43.0-75.0) % Lymph % (Auto) 13.5 L (20.5-60.0) % [place] % (Auto) 4.5 (1.7-12.0) % Eos % (Auto) 0.8 L (0.9-7.0) % Baso % (Auto) 0.9 (0.2-2.0) % Neut # (Auto) 11.1 H (1.4-6.5) 10^3/uL Lymph # (Auto) 1.9 (1.2-3.8) 10^3/uL [place] # (Auto) 0.6 (0.3-0.8) 10^3/uL Eos # (Auto) 0.1 (0.0-0.7) 10^3/uL Baso # (Auto) 0.1 (0.0-0.1) 10^3/uL Abs Immat Gran (auto) 0.03 (0.00-0.03) 10^3/uL Imm/Tot Granulo (auto) 0.2 (0.0-0.5) % Sodium 138 (136-145) mmol/L Potassium 4.1 (3.5-5.1) mmol/L Chloride 102 (98-107) mmol/L Carbon Dioxide 28.6 (21.0-32.0) mmol/L Anion Gap 11.5 BUN 16.0 (7.0-18.0) mg/dL Creatinine 0.83 (0.55-1.02) mg/dL Est GFR ( Amer) >60 (>=60) Est GFR (Non-Af Amer) >60 (>=60) BUN/Creatinine Ratio 19.3 Glucose 156 H (74-106) mg/dL Calcium 10.1 (8.5-10.1) mg/dL Total Bilirubin 0.4 (0.2-1.0) mg/dL AST 17 (15-37) U/L ALT 24 (14-59) U/L Alkaline Phosphatase 106 (46-116) U/L Total Protein 7.9 (6.4-8.2) g/dL Albumin 4.0 (3.4-5.0) g/dL Globulin 3.9 g/dL Albumin/Globulin Ratio 1.0 Lipase 96.0 H (16.0-77.0) U/L Urine Color Yellow (YELLOW) Urine Clarity Clear (CLEAR) Urine pH 8.0 (5.0-9.0) Ur Specific [place] 1.020 (1.005-1.025) Urine Protein Trace (NEG/TRACE) mg/dL Urine Glucose (UA) Negative (NEGATIVE) mg/dL Urine Ketones Negative (NEGATIVE) mg/dL Urine Occult Blood Negative (NEGATIVE) Urine Nitrite Negative (NEGATIVE) Urine Bilirubin Negative (NEGATIVE) Urine Urobilinogen 0.2 (0.2-1.0) EU/dL Ur Leukocyte Esterase Negative (NEGATIVE) Urine RBC 0-2 (0-2) #/HPF Urine WBC 0-2 A (NONE SEEN) #/HPF Ur Squamous Epith Cells Rare (NONE/RARE) #/LPF Urine Crystals Seen A (None Seen) #/HPF Amorphous Sediment Many Urine Bacteria Large A (NONE SEEN) #/HPF Urine Casts None seen (NONE SEEN) #/LPF Urine Mucus None seen (NONE SEEN) Ur Culture Indicated? Yes Discharge Plan Discharge Chief Complaint: Abdominal Pain Clinical Impression: Migraine, Chronic abdominal pain Patient Disposition: Home, Self-Care Time of Disposition Decision: 00:29 Condition: Good Mode of Transportation: Private Vehicle Print Language: Maori Instructions: Migraine Headache (ED), Chronic Abdominal Pain (DC) Referrals: [facility] [Primary Care Provider] - 1 week Discharge Date/Time: 03/24/24 00:40
[2024-03-23] MEDS: 0.9 % SODIUM CHLORIDE 1,000 ML 1000 ML IV (22:18)
[2024-03-23] MEDS: KETOROLAC TROMETHAMINE 30 MG/ML VIAL IVP (22:19)
[2024-03-23] MEDS: ONDANSETRON PF 4 MG/2 ML VIAL IV (22:19)
[2024-03-23] MEDS: LABETALOL HCL 20 MG/4 ML SYRINGE 10 MG IVP (22:27)
[2024-03-23 22:30] VITALS: BP 193/126
[2024-03-23 22:40] LABS: Basophils Absolute Auto 0.1 10^3/uL (0.0-0.1); Basophils Percent Auto 0.9 % (0.2-2.0); Eosinophils Absolute Auto 0.1 10^3/uL (0.0-0.7); Eosinophils Percent Auto 0.8 % (0.9-7.0); Hematocrit 45.6 % (36.0-48.0); Hemoglobin 15.8 g/dL (12.0-16.0); Immature Granulocytes Abs Auto 0.03 10^3/uL (0.00-0.03); Immature Granulocytes Pct Auto 0.2 % (0.0-0.5); Lymphocytes Absolute Auto 1.9 10^3/uL (1.2-3.8); Lymphocytes Percent Auto 13.5 % (20.5-60.0); Mean Corpuscular HGB Conc 34.6 g/dL (29.9-35.2); Mean Corpuscular Hemoglobin 32.3 pg (26.7-34.0); Mean Corpuscular Volume 93.3 fL (81.0-99.0); Mean Platelet Volume 8.9 fL (9.5-13.5); Monocytes Absolute Auto 0.6 10^3/uL (0.3-0.8); Monocytes Percent Auto 4.5 % (1.7-12.0); Neutrophils Absolute Auto 11.1 10^3/uL (1.4-6.5); Neutrophils Percent Auto 80.1 % (43.0-75.0); Platelet Count 361 10^3/uL (150-450); Red Blood Count 4.89 10^6/uL (4.20-5.40); Red Cell Distribution Width 12.1 % (11.0-15.0); White Blood Count 13.9 10^3/uL (4.0-11.0)
[2024-03-23 23:06] LABS: Alanine Aminotransferase 24 U/L (14-59); Alkaline Phosphatase 106 U/L (46-116); Anion Gap 11.5; Aspartate Amino Transferase 17 U/L (15-37); BUN Creatinine Ratio 19.3; Bilirubin Total 0.4 mg/dL (0.2-1.0); Calcium 10.1 mg/dL (8.5-10.1); Carbon Dioxide 28.6 mmol/L (21.0-32.0); Chloride 102 mmol/L (98-107); Estimated GFR (African America >60 (>=60); Estimated GFR (Non-African Ame >60 (>=60); Globulin 3.9 g/dL; Glucose 156 mg/dL (74-106); Potassium 4.1 mmol/L (3.5-5.1); Sodium 138 mmol/L (136-145); Total Protein 7.9 g/dL (6.4-8.2)
[2024-03-23] MEDS: PROMETHAZINE HCL 25 MG/ML VIAL 12.5 MG IM (23:29)
[2024-03-23 23:32] VITALS: BP 180/110; PULSE 88; O2SAT 96
[2024-03-24] MEDS: MORPHINE SULFATE 4 MG/ML VIAL IV (00:01)
[2024-03-24 00:04] VITALS: BP 199/118; PULSE 79; O2SAT 97
[2024-03-24 00:38] LABS: Bilirubin Urine NEGATIVE (NEGATIVE); Blood Urine NEGATIVE (NEGATIVE); Clarity Urine CLEAR (CLEAR); Color Urine YELLOW (YELLOW); Glucose Urine UA NEGATIVE (NEGATIVE); Ketones Urine NEGATIVE (NEGATIVE); Leukocyte Esterase Urine NEGATIVE (NEGATIVE); Nitrite Urine NEGATIVE (NEGATIVE); Protein Urine TRACE mg/dL (NEG/TRACE); Urobilinogen Urine 0.2 EU/dL (0.2-1.0)
[2024-03-24 00:40] VITALS: BP 168/100; PULSE 87; O2SAT 96
[2024-03-24 00:45] LABS: WBC Urine 0-2 #/HPF (NONE SEEN)
[2024-03-24 00:46] LABS: Amorphous Sediment Urine MANY; Bacteria Urine LARGE #/HPF (NONE SEEN); Cast Seen? NONE SEEN #/LPF (NONE SEEN); Crystals Seen? Seen #/HPF (None Seen); Mucus Urine NONE SEEN (NONE SEEN); RBC Urine 0-2 #/HPF (0-2); Squamous Epithelial Cell Urine RARE #/LPF (NONE/RARE); Urine Culture Indicated YES
== END 2024-03-24 00:40 | disposition home or self-care (01) ==
PROVIDERS: Emergency Provider Emergency Medicine
DX: G43.909 Migraine, unspecified, not intractable, without status migrainosus (principal); G89.29 Other chronic pain; R10.9 Unspecified abdominal pain; F17.200 Nicotine dependence, unspecified, uncomplicated
CPT/HCPCS: 36415; 80053; 81001; 83690; 85025; 87086; 96372; 96374; 96375; 99285; J1885; J1920; J2250; J2270; J2405